=== PATIENT | female | born 1945 | race Caucasian/White ===

== ENCOUNTER 2019-09-10 11:51 | Outpatient (CLI) | payer MEDICARE, MEDICAID, SELFPAY ==
--- NOTE | 2019-09-10 11:54 | US_ITS ---
WS: [id number] ULTRASOUND-GUIDED RIGHT BREAST BIOPSY CLINICAL INFORMATION: RT BREAST MASS AND RT AXILLARY LYMPH NODE COMPARISON: None. FINDINGS: The procedure including risks, benefits, and complications were discussed with the patient who agreed to proceed. Using sterile technique patient was prepped and draped in the usual sterile fashion. Aft er 1% lidocaine utilizing real-time ultrasound guidance 5 14-gauge cores were obtained of the right b reast lesion at the 2 o'clock position. Subsequently a titanium clip was placed in the biopsy cavity. Next the largest axillary lymph node was localized in the axillary tail. Patient was prepped and drap ed in usual sterile fashion. After 1% lidocaine, using ultrasound guidance, 2 core biopsies were obta ined. Titanium clip was placed. 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 The pathology demonstrates invasive ductal carcinoma at the 2:00 position. 3. No malignancy identified in the axillary tail lymph node. 4. Breast cancer prognostic profile pending. US/[place] [id number] IMPRESSION: 1. Uncomplicated ultrasound-guided right breast and axillary biopsy. BI-RADS: 6-Known Biopsy-Proven Malignancy FOLLOW UP: See Report RECOMMEND ONCOLOGY AND BREAST SURGERY CONSULTATION.
[2019-09-10 13:19] LABS: INR 1.08 (0.8-1.2)
[2019-09-20 10:11] LABS: Miscellaneous Test See Scanned Lab Rpt
== END 2019-09-10 11:52 | disposition home or self-care (01) ==
LOC: RADSHAW 11:51
PROVIDERS: Radiology Neuroradiology; Family Provider Family Medicine; PCP Family Medicine; Visit Provider Family Medicine
DX: C50.611 Malignant neoplasm of axillary tail of right female breast (principal); N63.31 Unspecified lump in axillary tail of the right breast; Z01.812 Encounter for preprocedural laboratory examination; Z98.890 Other specified postprocedural states
CPT/HCPCS: 19083; 38505; 76942; 85610; 88305; 88361; 88367; 88374; J2001

== ENCOUNTER 2019-09-23 12:23 | Inpatient (IN) | payer MEDICARE, MEDICAID, SELFPAY ==
--- NOTE | 2019-09-18 10:40 | ANES.PREANES ---
Pre-Anesthetic Assessment Pre-Anesthetic Assessment: Height/Weight: Height 1.7 m Proposed Procedure: Operation Date: 09/23/19 10:15 Proposed Procedures p Sentinal Lymph Node Biopsy [id number] C50.911(Right) - Sunday Correa MD s Mastectomy Simple(Right) - Sunday Correa MD PFSH Anesthesia PFSH: Social History Smoking and tobacco status: never smoked Second hand smoke exposure: No Alcohol intake: never Adopted: No Caregiver/support person: Yes Lives independently: Yes Household members: family Housing: Senior Care Marital status: Single Highest education level completed: High School Graduate service: No Current occupational status: retired Current occupational exposures/hazards: No Pets and animals: No History of recent travel: No Sexually active: No Current gender identity: Female Lanette/Nondenominational: Latter Day Special lanette needs: No Agree to transfusion: No Financial difficulty paying for basics: Decline to Answer Data Anesthesia CBC & Chem 7: 09/19/19 12:55 09/19/19 12:55 Cardiac Studies: No Data to Display
--- NOTE | 2019-09-19 12:59 | ECG_ITS ---
Measurements Intervals [place] Rate: 78 P: 34 CO: 175 QRS: 3 QRSD: 94 T: 23 QT: 378 QTc: 433 SINUS RHYTHM WITH OCCASIONAL ECTOPIC PREMATURE COMPLEXES VOLTAGE CRITERIA FOR LVH [MEETS CRITERIA IN ONE OF: R(aVL), S(V1), R(V5), R(V5/V6) +S(V1)] Compared to ECG 06/13/2018 22:00:40 T-wave abnormality no longer present Electronically Signed On 09-19-2019 15:31:34 YARDAGE CONTROL CLERK by Wolf Fox M.D. [email or web address]
[2019-09-19 13:18] LABS: Basophils % 0.5 %; Eosinophils # 0.4 10^3/uL (0.0-0.8); Eosinophils % 4.8 %; Hematocrit 37.6 % (37.0-47.0); Hemoglobin 12.2 g/dL (11.5-15.3); Lymphocytes # 2.2 10^3/uL (0.8-4.8); Mean Corpuscular HGB Conc 32.4 g/dL (30.0-36.0); Mean Corpuscular Volume 92.4 fL (81-99); Mean Platelet Volume 8.8 fL (7.4-10.4); Monocytes # 0.8 10^3/uL (0.2-0.9); Monocytes % 9.4 %; Neutrophils % 59.1 %; Nucleated Red Blood Cells % 0 %; Platelet Count 320 10^3/cmm (130-400); Red Blood Count 4.07 10^6/uL (4.1-5.3); Red Cell Distribution Width 11.8 % (12.1-15.1); White Blood Count 8.5 10^3/uL (4.0-10.0)
[2019-09-19 13:19] VITALS: BMI 37.4
[2019-09-19 13:29] LABS: Anion Gap 13.2 (5-19); Blood Urea Nitrogen 10 mg/dL (8-23); Calcium 9.8 mg/dL (8.5-10.5); Carbon Dioxide 25 mmol/L (22-29); Chloride 96 mmol/L (98-107); Glucose 132 mg/dL (74-106); Osmolality Calculated 268 mOsm/kg (285-295); Potassium 4.2 mmol/L (3.5-5.1); Sodium 130 mmol/L (136-145)
--- NOTE | 2019-09-19 13:53 | P.ANES_ITS ---
Pre-Anesthetic Assessment Pre-Anesthetic Assessment: Height/Weight: Height 1.7 m Weight 108.409 kg Preop Diagnosis: Right breast cancer Proposed Procedure: Operation Date: 09/23/19 10:15 Proposed Procedures p Sentinal Lymph Node Biopsy [id number] C50.911(Right) - Sunday Correa MD s Mastectomy Simple(Right) - Sunday Correa MD Exam: Pre-Anes Outpt Exam: alert and oriented x 3 Airway: Submandibular: WNL Cervical ROM: Other MP: 2 Dentition: False CV/HEM: CV/HEM: Angina (Stable), CAD and VT ('16, ) Comments: PCP Pankaj 3 weeks no changes/concerns Metabolic: Metabolic: DM Comments: rx'd 30 years, normally 100-150 Musc/skel: Musc/skel: Lower Back Pain Comments: nonradiating Neuropsych: Neuropsych: CVA Comments: '15, memory, right UE 50% Anesthetic Plan: ASA status: III Anesthesia: General PFSH Anesthesia PFSH: Social History Smoking and tobacco status: never smoked Second hand smoke exposure: No Alcohol intake: never Adopted: No Caregiver/support person: Yes Lives independently: Yes Household members: family Housing: Jail Marital status: Single Highest education level completed: High School Graduate service: No Current occupational status: retired Current occupational exposures/hazards: No Pets and animals: No History of recent travel: No Sexually active: No Current gender identity: Female Lanette/Religious: Zoroastrianism Special lanette needs: No Agree to transfusion: No Financial difficulty paying for basics: Decline to Answer Data Anesthesia CBC & Chem 7: 09/19/19 12:55 09/19/19 12:55 Other Labs: Laboratory Results - last 48 hr 09/19/19 09/19/19 12:55 12:55 WBC 8.5 RBC 4.07 L Hgb 12.2 Hct 37.6 MCV 92.4 MCH 30.0 MCHC 32.4 RDW 11.8 L Plt Count 320 MPV 8.8 Neut % (Auto) 59.1 Lymph % (Auto) 26.0 [place] % (Auto) 9.4 Eos % (Auto) 4.8 Baso % (Auto) 0.5 Neut # (Auto) 5.0 Lymph # (Auto) 2.2 [place] # (Auto) 0.8 Eos # (Auto) 0.4 Baso # (Auto) 0.0 Nucleated RBC % (auto) 0 Nucleated RBCs # 0.0 Sodium 130 L Potassium 4.2 Chloride 96 L Carbon Dioxide 25 Anion Gap 13.2 BUN 10 Creatinine 0.6 Glucose 132 H Calculated Osmolality 268 L Calcium 9.8 Cardiac Studies: No Data to Display
[2019-09-23] VITALS (15 sets, daily range): BP systolic 122–174; BP diastolic 61–99; PULSE 60–115; RESP 13–20; TEMP 36.2–37.7; O2SAT 96–100
[2019-09-23 07:24] LABS: Glucose Point of Care 118 mg/dL (70-110)
[2019-09-23] MEDS: sodium chloride 0.9% 1,000 ML 30 ML IV (07:26)
--- NOTE | 2019-09-23 07:45 | NM_ITS ---
WS: [id number] NUCLEAR MEDICINE SENTINEL LYMPH NODE IMAGING HISTORY: RT BREAST CANCER COMPARISON: None available. TECHNIQUE: The patient was injected with 0.980 mCi of Technetium 99 ultra filtered sulfur colloid. In jection is intradermal in a periareolar location. Four aliquots are used. Uncomplicated injection of the radionuclide RIGHT breast. NM/NM sentinel node inject [id number] IMPRESSION: Status post RIGHT sentinel node injection with no complications.
--- NOTE | 2019-09-23 09:40 | PM.HPUD ---
H&P update H&P Update: DATE OF SURGERY/PROCEDURE: 09/23/19 DATE H&P PERFORMED: 09/17/19 H&P UPDATE INFORMATION: H&P completed within last 30 days and No changes to prior documentation PLANNED PROCEDURE: Operation Date: 09/23/19 10:15 Proposed Procedures p Sentinal Lymph Node Biopsy [id number] C50.911(Right) - Sunday Correa MD s Mastectomy Simple(Right) - Sunday Correa MD Full H&P Medications/Allergies: Current Medications: Current Medications Generic Name Dose Route Start Last Admin Trade Name Freq PRN Reason Stop Dose Admin Sodium Chloride 1,000 mls @ 30 ml s/hr 09/23/19 07:00 09/23/19 07:26 Sodium Chloride 0.9% IV 09/24/19 06:59 30 mls/hr .Q24H KUSH Administration Perinent History: Medical/Surgical History: Medical History (Updated 09/23/19 @ 08:14 by Sunday Correa MD) Anemia (Acute) Charcot's joint of left foot (Acute) Chronic low back pain (Acute) Depression (Acute) Diabetes (Acute) DVT (deep venous thrombosis) (Acute) Hypertension (Acute) Invasive ductal carcinoma of right breast (Acute) Myocardial infarction (Acute) Polymyalgia (Acute) Polyneuropathy (Acute) Presence of vena cava filter (Acute) Pulmonary emboli (Acute) Family History: Family History (Updated 09/13/19 @ 15:40 by RAMY Quan) Mother Hypertension Cancer Father Diabetes CAD (coronary artery disease) Myocardial infarction Denies family history of Anesthesia complication Bleeding disorder Social History: Social History Smoking and tobacco status: never smoked Second hand smoke exposure: No Alcohol intake: never Adopted: No Caregiver/support person: Yes Lives independently: Yes Household members: family Housing: Care Home Marital status: Single Highest education level completed: High School Graduate service: No Current occupational status: retired Current occupational exposures/hazards: No Pets and animals: No History of recent travel: No Sexually active: No Current gender identity: Female Lanette/Methodist: Sikh Special lanette needs: No Agree to transfusion: No Financial difficulty paying for basics: Decline to Answer
[2019-09-23] MEDS: lidocaine 1% INJ 20 mL XX (10:28)
[2019-09-23] MEDS: isosulfan blue 10 mg/mL SDV 5mL SUBCUT (10:29)
--- NOTE | 2019-09-23 11:48 | P.OP_ITS ---
Operative Report Date of procedure: 09/25/19 Pre-op Diagnosis: Right breast cancer Post-op diagnosis: same Procedure Done: Right simple mastectomy Injection of 1% Lymphazurin [place] lymph node mapping Right sentinel lymph node axillary biopsy Pathology: Right mastectomy specimen short stitch superior, long stitch lateral [place] lymph node biopsy Surgeon: Sunday Correa Anesthesia: General Estimated blood loss (mL): 50 Condition: stable Disposition: PACU Procedure: The patient was taken to the operating room and intubated under general anesthesia after IV antibiotic and instead. The chest and arm was prepped and draped in a sterile manner. Using a 15 blade an elliptical incision was made around the nipple areolar complex and dermis was divided with electrocautery. 100 mL of normal saline mixed with 40 mL of 1% lidocaine with epinephrine was injected deep to the dermis using a 22-gauge spinal needle for tumescence. Using Sunny scissors skin flaps were raised superiorly up to the second rib space, inferiorly to the inframammary line, medially up to the lateral edge of sternum and laterally up to the latissimus dorsi in the avascular plane. Using electrocautery the breast along with the pectoral fascia was dissected off the pectoralis muscle starting superiorly and medially and moving inferiorly and laterally. A short stitch was placed superiorly and long stitch was placed laterally using 2-0 silk on the partially excised breast specimen. The lateral edge of the breast was freed along with the axillary tail and the specimen was removed entirely from the operative field. There were couple of bleeding muscular branches from the pectoral muscle which were controlled with cautery. The wound was irrigated with warm water and the site was reexamined to ensure adequate hemostasis. There was no active bleeding noted. A technetium sulfur colloid had been injected previously by the radiologist in the periareolar area. 3 mL of 1% Lymphazurin was injected in the subareolar location prior to making the initial incision. The breast had been massaged for 5 minutes . The clavipectoral fascia was divided with electrocautery and gentle dissection revealed lymphatics with stained lymph nodes. Using electrocautery the lymph nodes were dissected free and sent to pathology as right axilla sentinel lymph node. Examination of the axilla did not reveal any other radioactive lymph nodes. A stab incision was made laterally and 10 flat SHARONDA drain was placed along the inframammary fold and attached to bulb suction. The skin flaps appeared healthy and of adequate thickness. The dermis was approximated using running 3-0 Vicryl suture and the skin was closed using running absorbable subcuticular willis and Dermabond. Fluffs and a surgical bra was used for pressure dressing. Patient was transferred to the recovery room in stable condition.
--- NOTE | 2019-09-23 11:56 | SUR.PHASEI ---
1151 PATIENT TO PACU AT THIS TIME FROM OR. RR EVEN AND UNLABORED. PLACED ON SIMPLE MASK AT 8L, SPO2 100%. DRESSING CDI, TO RIGHT BREAST, BRA IN PLACE. SHARONDA DRAIN NOTED.
--- NOTE | 2019-09-23 12:39 | SUR.PHASEI ---
1223 PATIENT TO MED SURG VIA [facility]. RR EVEN AND UNLABORED. PWD. A/OX3. DRESSING TO RIGHT CHEST, CDI, HEMOSTATS REMOVED FROM SHARONDA DRAIN PRIOR TO TRANSFER TO MED SURG.
[2019-09-23] MEDS: HYDROcodone-acetaminophen 5-325 mg Tablet 1 TAB PO ×3 (13:08→23:06)
[2019-09-23] MEDS: lactated ringers 1,000 ML 50 ML IV (14:04)
[2019-09-23] MEDS: lisinopril 5 mg Tablet PO (14:06)
[2019-09-23] MEDS: aspirin 81 mg EC Tablet PO (14:06)
--- NOTE | 2019-09-23 14:28 | PC.NURSE ---
THIS NURSE HAS EMPTIED PATIENTS SHARONDA DRAIN TWICE SINCE SHE HAS BEEN ON THE FLOOR FROM PACU, A TOTAL OF 200ML. DR. GANDHI NOTIFIED
[2019-09-23 17:06] LABS: Glucose Point of Care 185 mg/dL (70-110)
[2019-09-23] MEDS: carBAMazepine 200 mg Tablet 100 MG PO (18:28)
[2019-09-23] MEDS: metoprolol tartrate 50 mg Tablet PO (18:28)
[2019-09-23] MEDS: quetiapine 25 mg Tablet PO (18:29)
[2019-09-23] MEDS: duloxetine 60 mg Capsule PO (18:29)
[2019-09-23] MEDS: topiramate 25 mg Tablet 50 MG PO (18:29)
[2019-09-23] MEDS: gabapentin 300 mg Capsule PO ×2 (18:32→20:32)
[2019-09-23 18:49] LABS: Glucose Point of Care 160 mg/dL (70-110)
[2019-09-23] MEDS: docusate sodium 100 mg Capsule PO (20:32)
[2019-09-23] MEDS: ALPRAZolam 0.25 mg Tablet PO (20:32)
[2019-09-23 22:07] LABS: Glucose Point of Care 125 mg/dL (70-110)
[2019-09-23] MEDS: diphenhydrAMINE 25 mg Capsule PO (23:06)
[2019-09-24] VITALS (14 sets, daily range): BP systolic 92–136; BP diastolic 53–79; PULSE 57–81; RESP 16–18; TEMP 36.4–37.2; O2SAT 92–100
[2019-09-24] MEDS: morphine 4 mg/mL SDV 1 mL 3 MG IVP ×2 (02:11→06:31)
[2019-09-24] MEDS: ALPRAZolam 0.25 mg Tablet PO (03:20)
[2019-09-24] MEDS: HYDROcodone-acetaminophen 5-325 mg Tablet 1 TAB PO ×2 (03:21→12:08)
[2019-09-24 05:56] LABS: Basophils % 0.3 %; Eosinophils # 0.1 10^3/uL (0.0-0.8); Eosinophils % 0.5 %; Hematocrit 27.4 % (37.0-47.0); Hemoglobin 8.9 g/dL (11.5-15.3); Lymphocytes # 3.4 10^3/uL (0.8-4.8); Lymphocytes % 32.7 %; Mean Corpuscular HGB Conc 32.5 g/dL (30.0-36.0); Mean Corpuscular Hemoglobin 30.4 pg (28.0-34.0); Mean Corpuscular Volume 93.5 fL (81-99); Mean Platelet Volume 9.1 fL (7.4-10.4); Monocytes # 0.9 10^3/uL (0.2-0.9); Monocytes % 8.9 %; Neutrophils # 5.9 10^3/uL (1.8-7.7); Neutrophils % 57.3 %; Nucleated Red Blood Cells % 0 %; Platelet Count 261 10^3/cmm (130-400); Red Blood Count 2.93 10^6/uL (4.1-5.3); Red Cell Distribution Width 11.9 % (12.1-15.1); White Blood Count 10.4 10^3/uL (4.0-10.0)
[2019-09-24 07:18] LABS: Glucose Point of Care 156 mg/dL (70-110)
[2019-09-24] MEDS: metoprolol tartrate 50 mg Tablet PO (08:34)
[2019-09-24] MEDS: topiramate 25 mg Tablet 50 MG PO ×2 (08:34→17:36)
[2019-09-24] MEDS: pantoprazole DR 40 mg Tablet PO (08:34)
[2019-09-24] MEDS: carBAMazepine 200 mg Tablet 100 MG PO ×2 (08:35→17:38)
[2019-09-24] MEDS: aspirin 81 mg EC Tablet PO (08:36)
[2019-09-24] MEDS: duloxetine 60 mg Capsule PO ×2 (08:36→17:42)
[2019-09-24] MEDS: quetiapine 25 mg Tablet PO ×2 (08:36→17:38)
[2019-09-24] MEDS: gabapentin 300 mg Capsule PO ×3 (08:36→21:09)
[2019-09-24] MEDS: lisinopril 5 mg Tablet PO (08:36)
[2019-09-24] MEDS: isosorbide dinitrate 20 mg Tablet 30 MG PO (08:40)
[2019-09-24] MEDS: polyethylene glycol 3350 Pkt 17 gm PO (08:42)
[2019-09-24] MEDS: lactated ringers 1,000 ML 50 ML IV (08:44)
[2019-09-24 11:56] LABS: Glucose Point of Care 187 mg/dL (70-110)
[2019-09-24 16:34] LABS: Hematocrit 22.6 % (37.0-47.0); Hemoglobin 7.3 g/dL (11.5-15.3)
--- NOTE | 2019-09-24 18:27 | PM.PN ---
Subjective Subjective: Interval history: Patient has been doing well until yesterday late afternoon when she started having increasing bloody SHARONDA drain output. [place] wrap dressings were applied as pressure dressing. Last night she developed significant postsurgical pain and her home dose of morphine was restarted. This morning her hemoglobin is down to 8.9 and apparently patient felt a bit dizzy. Repeat hemoglobin at 4 PM showed that her hemoglobin is down to 7.3. SHARONDA drain output continues to be serosanguineous. She feels a lot better after the [place] wrap was loosened Vitals/I&O/Wt Last Vital Signs Temp 98.1 F 09/24/19 18:19 Pulse 64 09/24/19 18:19 Resp 16 09/24/19 18:19 BP 125/71 09/24/19 18:19 Pulse Ox 100 09/24/19 18:19 09/24/19 09/24/19 09/24/19 06:59 14:59 22:59 Intake Total 590.000 / 2716.667 1246.667 / 1716.667 470 / 1716.667 Output Total 635 / 1365 420 / 435 15 / 435 Balance -45.000 / 1351.667 826.667 / 1281.667 455 / 1281.667 Physical Exam Narrative: EXAM NARRATIVE: Chest: Dressings dry and intact, no evidence of flap necrosis, she has some ecchymosis around the right axilla. SHARONDA drain output is sanguinous though it appears to be slowing down Data : 09/24/19 16:20 09/19/19 12:55 A&P Assessment and plan (1) Status post right mastectomy: Status post right mastectomy with sentinel lymph node biopsy for invasive ductal carcinoma postop day 1 complicated by postop bleeding. Hemoglobin is down to 7.3. We will therefore transfuse her 1 unit PRBC. Change status from outpatient to inpatient. Repeat hemoglobin at 9:30 PM after transfusion and repeat CBC and BMP in the morning. Will hold off on anticoagulation at this point due to her bleeding Continue SHARONDA drain to bulb suction Continue all home medications Moderate insulin sliding scale Status: Acute Code(s): Z90.11 - Acquired absence of right breast and nipple Attestations Medical Necessity Statement*: Patient will need 1 night of inpatient stay to ensure that her bleeding is controlled Coding Level of Care Code Acute Director Of Category Management for Chg Fwd Diagnoses Status post right mastectomy Z90.11
[2019-09-24] MEDS: docusate sodium 100 mg Capsule PO (21:09)
[2019-09-24 22:37] LABS: Hematocrit 24.3 % (37.0-47.0)
[2019-09-25 00:20] VITALS: BP 164/78; PULSE 74; RESP 18; TEMP 36.7; O2SAT 96
[2019-09-25] MEDS: HYDROcodone-acetaminophen 5-325 mg Tablet 1 TAB PO ×2 (00:32→05:00)
[2019-09-25 04:53] VITALS: BP 179/90; PULSE 82; RESP 18; TEMP 36.7; O2SAT 97
[2019-09-25 05:41] LABS: Anion Gap 13.1 (5-19); Blood Urea Nitrogen 10 mg/dL (8-23); Calcium 8.4 mg/dL (8.5-10.5); Carbon Dioxide 23 mmol/L (22-29); Chloride 93 mmol/L (98-107); Glucose 126 mg/dL (74-106); Osmolality Calculated 258 mOsm/kg (285-295); Potassium 4.1 mmol/L (3.5-5.1); Sodium 125 mmol/L (136-145)
[2019-09-25 05:49] LABS: Basophils % 0.5 %; Eosinophils # 0.3 10^3/uL (0.0-0.8); Eosinophils % 3.4 %; Hemoglobin 8.3 g/dL (11.5-15.3); Lymphocytes % 23.7 %; Mean Corpuscular HGB Conc 33.2 g/dL (30.0-36.0); Mean Corpuscular Volume 87.4 fL (81-99); Mean Platelet Volume 9.3 fL (7.4-10.4); Monocytes # 0.9 10^3/uL (0.2-0.9); Monocytes % 10.7 %; Neutrophils # 5.1 10^3/uL (1.8-7.7); Neutrophils % 61.3 %; Nucleated Red Blood Cells % 0 %; Platelet Count 214 10^3/cmm (130-400); Red Blood Count 2.86 10^6/uL (4.1-5.3); Red Cell Distribution Width 12.6 % (12.1-15.1); White Blood Count 8.4 10^3/uL (4.0-10.0)
[2019-09-25 07:39] VITALS: BP 126/73; PULSE 72; RESP 18; TEMP 36.8; O2SAT 96
[2019-09-25] MEDS: gabapentin 300 mg Capsule PO (09:28)
[2019-09-25] MEDS: duloxetine 60 mg Capsule PO (09:28)
[2019-09-25] MEDS: isosorbide dinitrate 20 mg Tablet 30 MG PO (09:29)
[2019-09-25] MEDS: lisinopril 5 mg Tablet PO (09:29)
[2019-09-25] MEDS: pantoprazole DR 40 mg Tablet PO (09:29)
[2019-09-25] MEDS: aspirin 81 mg EC Tablet PO (09:29)
[2019-09-25] MEDS: carBAMazepine 200 mg Tablet 100 MG PO (09:29)
[2019-09-25] MEDS: topiramate 25 mg Tablet 50 MG PO (09:29)
[2019-09-25] MEDS: metoprolol tartrate 50 mg Tablet PO (09:29)
[2019-09-25] MEDS: quetiapine 25 mg Tablet PO (09:29)
--- NOTE | 2019-09-25 10:55 | PM.PN ---
Subjective Subjective: Interval history: Patient is feeling a lot better, denies any dizziness, has been ambulating, had 2 large bowel movements Vitals/I&O/Wt Last Vital Signs Temp 98.2 F 09/25/19 07:39 Pulse 72 09/25/19 07:39 Resp 18 09/25/19 07:39 BP 126/73 09/25/19 07:39 Pulse Ox 96 09/25/19 07:39 09/24/19 09/25/19 09/25/19 22:59 06:59 14:59 Intake Total 820 / 2366.667 300 / 2366.667 400 / 400 Output Total 315 / 1120 385 / 1120 200 / 200 Balance 505 / 1246.667 -85 / 1246.667 200 / 200 Physical Exam Narrative: EXAM NARRATIVE: Chest wall: Mastectomy incision dry and intact with surrounding ecchymosis Data : 09/25/19 04:12 09/25/19 04:12 A&P Assessment and plan (1) Status post right mastectomy: DC home today Status: Acute Code(s): Z90.11 - Acquired absence of right breast and nipple Attestations Medical Necessity Statement*: Status post mastectomy with postop bleeding Coding Level of Care Code Acute Tumbling Barrel Painter for Chg Fwd Diagnoses Status post right mastectomy Z90.11
--- NOTE | 2019-09-25 10:56 | PM.DCS ---
Discharge Providers Date of Admission: 09/24/19 18:25 Date of Discharge: 09/25/19 Attending Provider at Admission: Sunday Correa MD Attending Provider at Discharge: Sunday Correa MD Primary Care Provider: Zohra Lira MD Diagnoses at Discharge Discharge Diagnosis (1) Status post right mastectomy: Status: Resolved Reason for Visit Reason for Visit: Reason For Visit: Right Breast Cancer Hospital Course Discharge Summary: The patient underwent elective mastectomy. She had significant SHARONDA drain output on postop day 1 and the following day she had some dizziness and her hemoglobin had dropped to 7.3. She was therefore transfused 1 unit of PRBC. The following day patient was feeling great denied any dizziness her vital signs are stable. SHARONDA drain output had dropped to 70 cc over the last 24 hours. Her incisions are clean dry and intact and her vital signs are stable Physical Exam Narrative: EXAM NARRATIVE: Chest: Mastectomy incision clean dry and intact, SHARONDA drain output is serosanguineous Discharge Data Data Completed and Pending: Completed Studies During Hospitalization Category Date Time Status NM sentinel node inject [id number] Routi ne Nuc Med 09/23/19 07:45 Completed Pending at discharge Category Date Time Status Pathology: Surgic al [PTH] Routine Pth 09/23/19 11:33 Received Labs from last 24 hours 09/25/19 09/25/19 09/24/19 04:12 04:12 22:20 WBC 8.4 RBC 2.86 L Hgb 8.3 L 8.0 L Hct 25.0 L 24.3 L MCV 87.4 D MCH 29.0 MCHC 33.2 RDW 12.6 Plt Count 214 MPV 9.3 Neut % (Auto) 61.3 Lymph % (Auto) 23.7 [place] % (Auto) 10.7 Eos % (Auto) 3.4 Baso % (Auto) 0.5 Neut # (Auto) 5.1 Lymph # (Auto) 2.0 [place] # (Auto) 0.9 Eos # (Auto) 0.3 Baso # (Auto) 0.0 Nucleated RBC % (a uto) 0 Nucleated RBCs # 0.0 Sodium 125 L Potassium 4.1 Chloride 93 L Carbon Dioxide 23 Anion Gap 13.1 BUN 10 Creatinine 0.6 Glucose 126 H POC Glucose Calculated Osmolal ity 258 L Calcium 8.4 L Blood Type Antibody Screen Crossmatch 09/24/19 09/24/19 09/24/19 16:20 16:20 11:43 WBC RBC Hgb 7.3 L Hct 22.6 L MCV MCH MCHC RDW Plt Count MPV Neut % (Auto) Lymph % (Auto) [place] % (Auto) Eos % (Auto) Baso % (Auto) Neut # (Auto) Lymph # (Auto) [place] # (Auto) Eos # (Auto) Baso # (Auto) Nucleated RBC % (a uto) Nucleated RBCs # Sodium Potassium Chloride Carbon Dioxide Anion Gap BUN Creatinine Glucose POC Glucose 187 Calculated Osmolal ity Calcium Blood Type B Negative Antibody Screen Negative Crossmatch See Detail Vitals: Last Vital Signs Temp 98.2 F 09/25/19 07:39 Pulse 72 09/25/19 07:39 Resp 18 09/25/19 07:39 BP 126/73 09/25/19 07:39 Pulse Ox 96 09/25/19 07:39 Discharge Plan Discharge Patient Disposition: Home, Self-Care Condition: Stable Prescriptions: Continued diclofenac sodium-menthol 1.5-10 % combo pack 1.5 pkg TOPICAL DIRECTED PRN (Reason: Inflammation) RF: 0 morphine 10 mg capsule,extend.release pellets See Rx Instructions PO .COMPLEX RF: 0 ondansetron HCl [Zofran] 4 mg tablet 4 mg PO ONCE RF: 0 quetiapine [Seroquel] 25 mg tablet 25 mg PO BID RF: 0 isosorbide dinitrate 30 mg tablet 30 mg PO ONCE RF: 0 duloxetine [Cymbalta] 60 mg capsule,delayed release(DR/EC) 60 mg PO BID RF: 0 gabapentin 300 mg capsule 300 mg PO TID RF: 0 lisinopril 5 mg tablet 5 mg PO QDAY RF: 0 aspirin [Adult Low Dose Aspirin] 81 mg tablet,delayed release (DR/EC) 81 mg PO QDAY RF: 0 metoprolol tartrate 50 mg tablet 50 mg PO BID RF: 0 carbamazepine 100 mg capsule, ER multiphase 12 hr 100 mg PO BID RF: 0 polyethylene glycol 3350 [Miralax] 17 gram Powder In Packet 17 g PO DAILY RF: 0 topiramate 50 mg tablet 50 mg PO BID RF: 0 Prilosec 40 mg PO DAILY RF: 0 dextran 70-hypromellose 70 units eye-both PRN RF: 0 docusate sodium 100 mg PO BEDTIME RF: 0 cyclobenzaprine 10 mg Tablet 10 mg PO TID PRN (Reason: Muscle Spasm) RF: 0 diphenhydramine HCl [Benadryl] 25 mg Capsule 25 mg PO Q6H PRN (Reason: Itching) RF: 0 Lidocaine Viscous 1 % buccal PRN PRN (Reason: Pain) RF: 0 Tresiba FlexTouch U-100 100 units SUBCUT BEDTIME RF: 0 Xanax 0.25 mg PO QID PRN (Reason: Anxiety) RF: 0 nitroglycerin 0.4 mg sublingual PRN RF: 0 Novolog U-100 Insulin aspart 100 units SUBCUT TID RF: 0 Held clopidogrel [Plavix] 75 mg tablet 75 mg PO QDAY RF: 0 Hold Instructions: Doctor's Order Discharge Orders: Discharge Order (Routine); Ordered 09/25/19 Ordered By: Sunday Correa Referrals: Sunday Correa MD [Physician] - 2 weeks Activity Restrictions/Additional Instructions: Change dressings once daily, apply ABD and fluffs and to wear surgical bra at all time. Okay to shower Strip SHARONDA drain 3 times a day Monitor SHARONDA drain output, if less than 30 cc in 24 hours, call office to schedule a follow-up appointment Call office during regular hours or return to the ER if she develops fevers redness or purulent drainage. Discharge Attestations Time Spent in Discharge Care*: less than 30 min Quality Metrics Clinical Quality Measures During this hospital stay, did patient experience: None Coding Level of Care Code Acute Wardrobe Coordinator for Tashi Fwyasemin Diagnoses Status post right mastectomy Z90.11
[2019-09-25 11:20] VITALS: BP 108/66; PULSE 74; RESP 18; TEMP 36.9; O2SAT 98
[2019-09-25 14:05] VITALS: BP 108/66; PULSE 74; RESP 18; TEMP 36.9; O2SAT 98
== END 2019-09-25 13:00 | disposition home or self-care (01) | DRG 580 ==
LOC: MEDSURG 12:25
PROVIDERS: Anesthesiology; Admitting Provider Surgery; Family Provider Family Medicine; PCP Family Medicine; Visit Provider Surgery
PROC: 0HTT0ZZ Resection of Right Breast, Open Approach (ICD-10-PCS; principal; 2019-09-23 10:15)
PROC: 0HTT0ZZ Resection of Right Breast, Open Approach (ICD-10-PCS; CPT 19303; 2019-09-23 10:15)
DX: C50.911 Malignant neoplasm of unspecified site of right female breast (principal); L76.22 Postprocedural hemorrhage of skin and subcutaneous tissue following other procedure; Z86.718 Personal history of other venous thrombosis and embolism; Z86.711 Personal history of pulmonary embolism; I25.2 Old myocardial infarction; F32.9 Major depressive disorder, single episode, unspecified; G89.29 Other chronic pain; M54.5 Low back pain; I10 Essential (primary) hypertension; Y83.8 Other surgical procedures as the cause of abnormal reaction of the patient, or of later complication, without mention of misadventure at the time of the procedure; Y92.239 Unspecified place in hospital as the place of occurrence of the external cause; Z88.8 Allergy status to other drugs, medicaments and biological substances; Z79.02 Long term (current) use of antithrombotics/antiplatelets; Z79.82 Long term (current) use of aspirin; Z79.899 Other long term (current) drug therapy
CPT/HCPCS: 12345; 36415; 36416; 36430; 38792; 80048; 82962; 85014; 85018; 85025; 86850; 86900; 88305; 88309; 93005; 96365; 96372; 96375; A9541; G0378; J0690; J1100; J1815; J2001; J2270; J2405; J2704; J2710; J3010; J3490; J7030; P9016; Q9968

== ENCOUNTER 2020-01-09 23:09 | Emergency (ER) | payer MEDICARE, MEDICAID, SELFPAY ==
[2020-01-09 23:10] VITALS: BP 164/60; PULSE 69; RESP 18; TEMP 36.5; O2SAT 98; BMI 39.9
--- NOTE | 2020-01-09 23:19 | ECG_ITS ---
Measurements Intervals [place] Rate: 59 P: 72 NV: 198 QRS: 1 QRSD: 99 T: 42 QT: 438 QTc: 436 SINUS BRADYCARDIA Compared to ECG 09/19/2019 13:30:52 Sinus rhythm no longer present Left ventricular hypertrophy no longer present Electronically Signed On 01-10-2020 13:04:55 CDT by Wolf Fox M.D. [email or web address]
--- NOTE | 2020-01-09 23:19 | XR_ITS ---
WS: [id number] PORTABLE CHEST HISTORY: cp COMPARISON: 06/13/2018 Mild chronic interstitial thickening. No pneumonia. Normal vasculature. No pleural effusion or pneumo thorax. Cardiac size: Mildly enlarged cardiac silhouette. Mediastinum/Aorta: Mildly widened mediastinum. Similar to the prior study. Osteopenia. Healed rib fractures in the posterior lateral LEFT thorax. Prior rotator cuff repair on t he LEFT. XR/XR chest 1V portable [id number] IMPRESSION: 1. Stable interstitial thickening. No pneumonia or acute interval change. 2. Mild cardiomegaly.
--- NOTE | 2020-01-09 23:34 | ED_ITS ---
HPI - Chest Pain General: Chief Complaint: Chest Pain Stated Complaint: CP Time Seen by Provider: 01/09/20 23:16 Source: patient Mode of arrival: ambulatory Limitations: no limitations History of Present Illness: HPI narrative: 74-year-old female states she is been having chest pain over the last hour. States that sharp in nature in the center of her chest and worse with palpation. States it also radiates into her left arm. She does have history of heart disease. She denies any worsening improving factors. Denies any vomiting. MD complaint: chest pain Onset (ago): hour(s) Timing of current episode: constant Prior episodes: Yes Onset: during rest Pain location: substernal Pain radiation: left arm Severity: moderate Quality: sharp Relieving factors: nothing Exacerbating factors: nothing Associated symptoms: Deny abdominal pain, dyspnea, fever(s), nausea or vomiting Review of Systems Const: Denies: fever(s), chills, body aches or change in appetite Eyes: Denies: blurry vision or eye discomfort ENMT: Denies: throat pain or dental pain Card: Reports: chest pain Resp: Denies: dyspnea GI: Denies: abdominal pain, nausea, vomiting or diarrhea : Denies: dysuria Musc: Denies: neck pain or back pain Skin/Breast: Denies: rash Neuro: Denies: headache(s) Psych: Denies: depression August/Lymph: Denies: easy bruising All/Imm: Denies: urticaria PFSH ED PFSH: Medical History Anemia Charcot's joint of left foot Chronic low back pain Depression Diabetes DVT (deep venous thrombosis) Hypertension Invasive ductal carcinoma of right breast [id number] Myocardial infarction Polymyalgia Polyneuropathy Presence of vena cava filter Pulmonary emboli Surgical History History of appendectomy History of cholecystectomy History of colonoscopy Years ago. History of gastric surgery History of hysterectomy History of lymph node dissection of right axilla sentinel lymph node biopsy with right mastectomy History of right breast biopsy (~08/2019) History of rotator cuff surgery Bilateral Status post left knee replacement Status post left mastectomy Status post right knee replacement Status post right mastectomy Family History Mother Hypertension Cancer Father Diabetes CAD (coronary artery disease) Myocardial infarction Denies family history of Anesthesia complication Bleeding disorder Social History Smoking and tobacco status: never smoked Second hand smoke exposure: No Alcohol intake: never Adopted: No Caregiver/support person: Yes Lives independently: Yes Household members: family Housing: Group Home Marital status: Single Highest education level completed: High School Graduate service: No Current occupational status: retired Current occupational exposures/hazards: No Pets and animals: No History of recent travel: No Sexually active: No Current gender identity: Female Lanette/Yazidi: Hinduism Special lanette needs: No Agree to transfusion: No Financial difficulty paying for basics: Decline to Answer Physical Exam Const: COMMON NORMALS: no acute distress, patient oriented x3 and healthy appearing HENMT: COMMON NORMALS: normocephalic and atraumatic HEAD & SCALP: normocephalic and atraumatic Eye: COMMON NORMALS: Equal, round and reactive pupils present and EOMs intact bilaterally PUPIL: Yes Equal, round and reactive pupils present Neck/C-Spine: COMMON NORMALS: full ROM and supple Chest: COMMONS NORMALS: normal inspection of the chest CHEST: Yes tenderness sternum Resp: COMMON NORMALS: normal respiratory effort, No retractions, No use of accessory muscles and clear to auscultation bilaterally AUSCULTATION: clear to auscultation bilaterally Cardio: COMMON NORMALS: regular rate, regular rhythm and No murmurs present (Cardio) RATE: regular rate RHYTHM: regular rhythm GI: COMMON NORMALS: Normal to inspection, nondistended, normoactive bowel sounds present, Soft to palpation, non-tender and no masses PALPATION: Yes Soft to palpation Extremity: COMMON NORMALS: normal to inspection and full ROM Neuro: COMMON NORMALS: patient oriented x3, moves all extremities and no focal motor deficits Psych: COMMON NORMALS: mental status grossly normal, Normal thought process present and cooperative THOUGHT PROCESS: Normal thought process present Skin: COMMON NORMALS: no rashes or lesions noted and no wounds GENERAL SKIN EXAM: no rashes or lesions noted Course Vital Signs: Vital signs: Vital Signs Temperature 97.7 F 01/09/20 23:10 Pulse Rate 68 01/10/20 02:25 Respiratory Rate 16 01/10/20 02:25 Blood Pressure 138/72 01/10/20 02:25 Pulse Oximetry 97 01/10/20 02:25 MDM - Chest Pain MDM Narrative: Medical decision making narrative: Patient presents here with pain that is atypical in nature. She was point tender on exam that reproduces her pain. Patient is well-appearing here and initial repeat troponin showed no acute findings. Patient's EKG is normal as well. Patient is stable for discharge and is to follow-up with primary care doctor in 3 to 5 days and return if worsening. Lab Data: Labs: Lab Results 01/10/20 01/10/20 01/10/20 Range/Units 00:10 00:10 00:10 WBC 7.5 (4.0-10.0) 10^3/ uL RBC 3.83 L (4.1-5.3) 10^6/u L Hgb 10.5 L (11.5-15.3) g/dL Hct 33.4 L (37.0-47.0) % MCV 87.2 (81-99) fL MCH 27.4 L (28.0-34.0) pg MCHC 31.4 (30.0-36.0) g/dL RDW 12.3 (12.1-15.1) % Plt Count 282 (130-400) 10^3/c mm MPV 8.8 (7.4-10.4) fL Neut % (Auto) 51.2 % Lymph % (Auto) 31.0 % [place] % (Auto) 11.2 % Eos % (Auto) 5.6 % Baso % (Auto) 0.7 % Neut # (Auto) 3.8 (1.8-7.7) 10^3/u L Lymph # (Auto) 2.3 (0.8-4.8) 10^3/u L [place] # (Auto) 0.8 (0.2-0.9) 10^3/u L Eos # (Auto) 0.4 (0.0-0.8) 10^3/u L Baso # (Auto) 0.1 (0.0-0.1) 10^3/u L Nucleated RBC % (a uto) 0 % Nucleated RBCs # 0.0 /100WBC PT 13.90 H (10.5-13.3) SECO NDS INR 1.04 (0.8-1.2) Sodium 128 L (136-145) mmol/L Potassium 4.4 (3.5-5.1) mmol/L Chloride 93 L (98-107) mmol/L Carbon Dioxide 24 (22-29) mmol/L Anion Gap 15.4 (5-19) BUN 12 (8-23) mg/dL Creatinine 0.8 (0.5-0.9) mg/dL Glucose 131 H (65-115) mg/dL Calculated Osmolal ity 264 L (285-295) mOsm/k g Calcium 9.1 (8.5-10.5) mg/dL Total Bilirubin 0.2 (0.15-1.2) mg/dL AST 12 (0-32) U/L ALT 9 (0-33) U/L Alkaline Phosphata se 162 H (35-105) IU/L Troponin T Baselin e (0-10) ng/mL Troponin T 120 Min [place] (0-10) ng/mL Delta Troponin T (0-10) ABS# Total Protein 6.5 L (6.6-8.7) g/dL Albumin 4.0 (3.5-5.2) g/dL Globulin 2.5 (1.3-4.6) g/dL 01/10/20 01/10/20 Range/Units 00:10 01:30 WBC (4.0-10.0) 10^3/ uL RBC (4.1-5.3) 10^6/u L Hgb (11.5-15.3) g/dL Hct (37.0-47.0) % MCV (81-99) fL MCH (28.0-34.0) pg MCHC (30.0-36.0) g/dL RDW (12.1-15.1) % Plt Count (130-400) 10^3/c mm MPV (7.4-10.4) fL Neut % (Auto) % Lymph % (Auto) % [place] % (Auto) % Eos % (Auto) % Baso % (Auto) % Neut # (Auto) (1.8-7.7) 10^3/u L Lymph # (Auto) (0.8-4.8) 10^3/u L [place] # (Auto) (0.2-0.9) 10^3/u L Eos # (Auto) (0.0-0.8) 10^3/u L Baso # (Auto) (0.0-0.1) 10^3/u L Nucleated RBC % (a uto) % Nucleated RBCs # /100WBC PT (10.5-13.3) SECO NDS INR (0.8-1.2) Sodium (136-145) mmol/L Potassium (3.5-5.1) mmol/L Chloride (98-107) mmol/L Carbon Dioxide (22-29) mmol/L Anion Gap (5-19) BUN (8-23) mg/dL Creatinine (0.5-0.9) mg/dL Glucose (65-115) mg/dL Calculated Osmolal ity (285-295) mOsm/k g Calcium (8.5-10.5) mg/dL Total Bilirubin (0.15-1.2) mg/dL AST (0-32) U/L ALT (0-33) U/L Alkaline Phosphata se (35-105) IU/L Troponin T Baselin e 12 H (0-10) ng/mL Troponin T 120 Min [place] 12.95 H (0-10) ng/mL Delta Troponin T 0.95 (0-10) ABS# Total Protein (6.6-8.7) g/dL Albumin (3.5-5.2) g/dL Globulin (1.3-4.6) g/dL Imaging Data^: CXR: Attestation: I personally reviewed and interpreted this imaging study as follows: My impression: no acute abnormality EKG Data^: EKG 1: Attestation: I personally reviewed and interpreted this EKG as follows: EKG interpretation date: 01/09/20 EKG interpretation time: 23:40 Interpretation: Sinus bradycardia heart rate [address] or T wave abnormalities QRS 99 QTc 437 EKG 2: Attestation: I personally reviewed and interpreted this EKG as follows: EKG interpretation date: 01/10/20 EKG interpretation time: 01:52 Interpretation: sinus leonora hr [address] or t wave abnormalities qrs 102 qtc 451 Discharge Plan Discharge Patient Disposition: Home, Self-Care Clinical Impression: Chest pain Qualifiers: Chest pain type: unspecified Qualified Code(s): R07.9 - Chest pain, unspecified Condition: Stable Prescriptions: No Action diclofenac sodium-menthol 1.5-10 % combo pack 1.5 pkg TOPICAL DIRECTED PRN (Reason: Inflammation) RF: 0 morphine 10 mg capsule,extend.release pellets See Rx Instructions PO .COMPLEX RF: 0 ondansetron HCl [Zofran] 4 mg tablet 4 mg PO ONCE RF: 0 quetiapine [Seroquel] 25 mg tablet 25 mg PO BID RF: 0 isosorbide dinitrate 30 mg tablet 30 mg PO ONCE RF: 0 clopidogrel [Plavix] 75 mg tablet 75 mg PO QDAY RF: 0 Hold Instructions: Doctor's Order duloxetine [Cymbalta] 60 mg capsule,delayed release(DR/EC) 60 mg PO BID RF: 0 gabapentin 300 mg capsule 300 mg PO TID RF: 0 lisinopril 5 mg tablet 5 mg PO QDAY RF: 0 aspirin [Adult Low Dose Aspirin] 81 mg tablet,delayed release (DR/EC) 81 mg PO QDAY RF: 0 metoprolol tartrate 50 mg tablet 50 mg PO BID RF: 0 carbamazepine 100 mg capsule, ER multiphase 12 hr 100 mg PO BID RF: 0 (DME) ice bag [Cold Pack] Misc See Rx Instructions .ROUTE .MEDSUPPLY Qty: 1 RF: 0 polyethylene glycol 3350 [Miralax] 17 gram Powder In Packet 17 g PO DAILY RF: 0 topiramate 50 mg tablet 50 mg PO BID RF: 0 Prilosec 40 mg PO DAILY RF: 0 dextran 70-hypromellose 70 units eye-both PRN RF: 0 docusate sodium 100 mg PO BEDTIME RF: 0 cyclobenzaprine 10 mg Tablet 10 mg PO TID PRN (Reason: Muscle Spasm) RF: 0 diphenhydramine HCl [Benadryl] 25 mg Capsule 25 mg PO Q6H PRN (Reason: Itching) RF: 0 Lidocaine Viscous 1 % buccal PRN PRN (Reason: Pain) RF: 0 Tresiba FlexTouch U-100 100 units SUBCUT BEDTIME RF: 0 Xanax 0.25 mg PO QID PRN (Reason: Anxiety) RF: 0 nitroglycerin 0.4 mg sublingual PRN RF: 0 Novolog U-100 Insulin aspart 100 units SUBCUT TID RF: 0 Discharge Orders: Discharge Order (Routine); Ordered 01/10/20 Ordered By: Carlito Malhotra Referrals: Zohra Lira MD [Primary Care Provider] - 4-7 days Discharge Diet: Advance as tolerated Discharge Activity: Resume usual activity Patient Instructions: Chest Pain (ED) Coding Level of Care Code ED Database Administrator for Chg Fwd Exam Comprehensive
--- NOTE | 2020-01-09 23:37 | PC.NURSE ---
Patient stated that she forgot to inform the doctor that approximately she had a mini stroke and was laid up in bed for three days. Doctor and the patient's nurse were notified.
[2020-01-09 23:40] VITALS: BP 138/78; PULSE 66; RESP 16; O2SAT 96
[2020-01-10 00:19] LABS: Basophils # 0.1 10^3/uL (0.0-0.1); Basophils % 0.7 %; Eosinophils # 0.4 10^3/uL (0.0-0.8); Eosinophils % 5.6 %; Hematocrit 33.4 % (37.0-47.0); Hemoglobin 10.5 g/dL (11.5-15.3); Lymphocytes # 2.3 10^3/uL (0.8-4.8); Mean Corpuscular HGB Conc 31.4 g/dL (30.0-36.0); Mean Corpuscular Hemoglobin 27.4 pg (28.0-34.0); Mean Corpuscular Volume 87.2 fL (81-99); Mean Platelet Volume 8.8 fL (7.4-10.4); Monocytes # 0.8 10^3/uL (0.2-0.9); Monocytes % 11.2 %; Neutrophils # 3.8 10^3/uL (1.8-7.7); Neutrophils % 51.2 %; Nucleated Red Blood Cells % 0 %; Platelet Count 282 10^3/cmm (130-400); Red Blood Count 3.83 10^6/uL (4.1-5.3); Red Cell Distribution Width 12.3 % (12.1-15.1); White Blood Count 7.5 10^3/uL (4.0-10.0)
[2020-01-10 00:39] LABS: INR 1.04 (0.8-1.2)
[2020-01-10 00:45] LABS: Alanine Aminotransferase 9 U/L (0-33); Alkaline Phosphatase 162 IU/L (35-105); Anion Gap 15.4 (5-19); Aspartate Amino Transferase 12 U/L (0-32); Blood Urea Nitrogen 12 mg/dL (8-23); Calcium 9.1 mg/dL (8.5-10.5); Carbon Dioxide 24 mmol/L (22-29); Chloride 93 mmol/L (98-107); Globulin 2.5 g/dL (1.3-4.6); Glucose 131 mg/dL (65-115); Osmolality Calculated 264 mOsm/kg (285-295); Potassium 4.4 mmol/L (3.5-5.1); Sodium 128 mmol/L (136-145); Total Bilirubin 0.2 mg/dL (0.15-1.2); Total Protein 6.5 g/dL (6.6-8.7)
[2020-01-10 01:00] VITALS: BP 144/86; PULSE 72; RESP 16; O2SAT 97
[2020-01-10 01:18] LABS: Troponin(5th) Baseline 12 ng/mL (0-10)
[2020-01-10 01:50] LABS: Troponin 5 2HR 12.95 ng/mL (0-10); Troponin 5 2HR Delta 0.95 ABS# (0-10)
[2020-01-10 02:25] VITALS: BP 138/72; PULSE 68; RESP 16; O2SAT 97
[2020-01-10 03:00] VITALS: BP 161/64; PULSE 70; RESP 16; O2SAT 96
--- NOTE | 2020-01-10 04:47 | PC.NURSE ---
Assisted patient up to [facility] without difficulty.
--- NOTE | 2020-01-10 05:19 | ECG_ITS ---
Measurements Intervals [place] Rate: 57 P: 71 [place]: 195 QRS: 3 QRSD: 102 T: 41 QT: 457 QTc: 446 SINUS BRADYCARDIA Compared to ECG 09/19/2019 13:30:52 Sinus rhythm no longer present Left ventricular hypertrophy no longer present Electronically Signed On 01-10-2020 13:09:01 CDT by Wolf Fox M.D. [email or web address]
--- NOTE | 2020-01-10 06:33 | PC.NURSE ---
Patient dc'd back to assisted living via wheelchair in care of patients daughter. Discharge papers given and explained to patient with all questions asked and answered.
== END 2020-01-10 06:33 | disposition home or self-care (01) ==
PROVIDERS: Emergency Provider Emergency Medicine; PCP Family Medicine
DX: R07.9 Chest pain, unspecified (principal); Z79.02 Long term (current) use of antithrombotics/antiplatelets; Z79.82 Long term (current) use of aspirin; Z79.4 Long term (current) use of insulin; I10 Essential (primary) hypertension; E11.9 Type 2 diabetes mellitus without complications; I25.2 Old myocardial infarction
CPT/HCPCS: 12345; 71045; 80053; 84484; 85025; 85610; 93005; 99283; 99284

== ENCOUNTER → 2020-02-04 09:48 | Outpatient (BNVA) | payer MEDICARE, MEDICAID, SELFPAY | PROVIDERS: PCP Family Medicine; Visit Provider Podiatrist Foot & Ankle Surgery | DX: S99.921A Unspecified injury of right foot, initial encounter (principal); X58.XXXA Exposure to other specified factors, initial encounter; M77.8 Other enthesopathies, not elsewhere classified | CPT/HCPCS: 73630 ==

== ENCOUNTER 2020-11-09 01:46 | Inpatient (IN) | payer MEDICARE, MEDICAID, SELFPAY ==
[2020-11-09] VITALS (19 sets, daily range): BP systolic 120–209; BP diastolic 64–135; PULSE 70–91; RESP 12–20; TEMP 36.1–36.8; O2SAT 95–97; BMI 39.1
--- NOTE | 2020-11-09 02:10 | CTR_ITS ---
PROCEDURE INFORMATION: Exam: CT Abdomen And Pelvis With Contrast Exam date and time: 11/09/2020 3:31 AM Age: 75 years old Clinical indication: Nausea and vomiting; Abdominal pain; Generalized; Additional info: Abd pain and vomiting TECHNIQUE: Imaging protocol: Computed tomography of the abdomen and pelvis with contrast. Radiation optimization: All CT scans at this facility use at least one of these dose optimization techniques: automated exposure control; mA and/or kV adjustment per patient size (includes targeted exams where dose is matched to clinical indication); or iterative reconstruction. Contrast material: OMNI 300; Contrast volume: 95 ml; Contrast route: INTRAVENOUS (IV); COMPARISON: CT Chest/Abdomen/Pelvis wo IV 12/31/2015 3:18 AM RADIATION DOSE METRICS: Total DLP (mGy-cm): 1804.42 FINDINGS: Lungs: Triangular calcification right lower lobe. Liver: Normal. No mass. Gallbladder and bile ducts: Postoperative cholecystectomy. Mild accentuation of intrahepatic and extrahepatic bile ducts. Pancreas: Normal. No ductal dilation. Spleen: Normal. No splenomegaly. Adrenal glands: Normal. No mass. Kidneys and ureters: Normal. No hydronephrosis. Stomach and bowel: Postsurgical changes of the stomach partially fluid expanded. Rather diffuse fluid-filled small bowel containing air-fluid levels with transition of caliber of small bowel distally concerning for mechanical obstruction. Maximum fluid distension diameter 3.4 cm. Colonic diverticulosis. Appendix: No evidence of appendicitis. Intraperitoneal space: Small amount of fluid surrounding the liver and small collection of fluid in the pelvis. Vasculature: Calcification distribution of coronary arteries and mitral annulus. Vascular stent inferior vena cava. Lymph nodes: Unremarkable. No enlarged lymph nodes. Urinary bladder: Unremarkable as visualized. Reproductive: Postoperative hysterectomy. Bones/joints: Unremarkable. No acute fracture. Soft tissues: Slight asymmetric accentuated soft tissue stranding at the medial lower left gluteal superficial soft tissues and ischial rectal fossa. CT/CT abdomen pelvis w con* [id number] IMPRESSION: 1. Suspicion distal small bowel mechanical obstruction with transition of caliber. 2. Colonic diverticulosis. 3. Small amount of fluid surrounding the liver and within the pelvis. Radiation Dose CTDIVOL = (mGy): DLP = 1804.42 (mGy-cm)
--- NOTE | 2020-11-09 02:25 | W.ED.ABDPA2 ---
HPI - Abdominal Pain General: Chief Complaint: Abdominal Pain Stated Complaint: WEAKNESS/N/V Time Seen by Provider: 11/09/20 01:53 History of Present Illness: HPI narrative: 70-year-old female presents with diffuse belly pain, generalized weakness, and multiple episodes of vomiting that started this morning when she woke she has had the symptoms now 20 hours or so she is not been able to hold anything down orally during that time. She has missed her medications because of this. No fever. No reported diarrhea. Associated Symptoms: Reports nausea and vomiting; Denies chills, dysuria, fever(s), hematochezia and melena Review of Systems Const: Denies: fever(s) or chills ENMT: Denies: odynophagia or sinus pain Card: Denies: chest pain, palpitations or irregular heart rhythm Resp: Denies: dyspnea, productive cough, non-productive cough or wheezing GI: Reports: abdominal pain, nausea and vomiting; Denies: rectal pain, hematochezia or melena : Denies: dysuria or urinary frequency Musc: Denies: neck pain Skin/Breast: Denies: rash or erythema Neuro: Denies: headache(s) or dizziness Psych: Denies: anxiety PFSH ED PFSH: Medical History Anemia Charcot's joint of left foot Chronic low back pain Depression Diabetes DVT (deep venous thrombosis) Hypertension Invasive ductal carcinoma of right breast [id number] Myocardial infarction Polymyalgia Polyneuropathy Presence of vena cava filter Pulmonary emboli Surgical History History of appendectomy History of cholecystectomy History of colonoscopy Years ago. History of gastric surgery History of hysterectomy History of lymph node dissection of right axilla sentinel lymph node biopsy with right mastectomy History of right breast biopsy (~08/2019) History of rotator cuff surgery Bilateral Status post left knee replacement Status post left mastectomy Status post right knee replacement Status post right mastectomy Family History Mother Hypertension Cancer Father Diabetes CAD (coronary artery disease) Myocardial infarction Denies family history of Anesthesia complication Bleeding disorder Social History Smoking and tobacco status: never smoked Second hand smoke exposure: No Alcohol intake: never Adopted: No Caregiver/support person: Yes Lives independently: Yes Household members: family Housing: Snf Marital status: Single Highest education level completed: High School Graduate service: No Current occupational status: retired Current occupational exposures/hazards: No Pets and animals: No History of recent travel: No Sexually active: No Current gender identity: Female Lanette/Baptist: Alevism Special lanette needs: No Agree to transfusion: No Financial difficulty paying for basics: Decline to Answer Physical Exam Const: GENERAL APPEARANCE: ill appearing, frail appearing and diaphoretic ORIENTATION/CONSCIOUSNESS: Yes oriented to person and Yes oriented to place; not oriented to time HENMT: COMMON NORMALS: normocephalic, external ears normal and Normal external nose present HEAD & SCALP: normocephalic FACE & SINUS: normal facial exam NOSE: Normal external nose present and No nasal discharge present EXTERNAL EAR: Yes external ears normal Eye: COMMON NORMALS: Equal, round and reactive pupils present, EOMs intact bilaterally and conjunctivae normal EYELID: eyelids normal CONJUNCTIVA: Yes conjunctivae normal PUPIL: Yes Equal, round and reactive pupils present Neck/C-Spine: GENERAL: No tracheal deviation Chest: COMMONS NORMALS: normal inspection of the chest CHEST: No tenderness Resp: COMMON NORMALS: clear to auscultation bilaterally EFFORT & INSPECTION: No tachypneic, No respiratory distress, No retractions, No uses accessory muscles and No tracheal deviation AUSCULTATION: clear to auscultation bilaterally, no rhonchi, no wheezes and lung sounds not diminished Cardio: COMMON NORMALS: regular rate and regular rhythm RATE: regular rate RHYTHM: regular rhythm HEART SOUNDS: no murmurs PERIPHERAL PULSES: radial pulses present GI: INSPECTION: Yes abdominal distension AUSCULTATION: No Hyperactive bowel sounds present and No Hypoactive bowel sounds present PALPATION: Yes Tenderness to palpation present (GI) (diffuse), No Guarding due to palpation present (GI) and No Rigid due to palpation PERCUSSION: no dullness to percussion and no tympanic to percussion Neuro: SENSORIUM/ORIENTATION: Yes oriented to person, Yes oriented to place and No oriented to time Psych: COMMON NORMALS: mental status grossly normal Skin: COMMON NORMALS: no rashes or lesions noted GENERAL SKIN EXAM: no rashes or lesions noted Course Consultations: Consultation #1: bette Time: 05:16 Vital Signs: Vital signs: Vital Signs Pulse Rate 81 11/09/20 05:59 Respiratory Rate 18 11/09/20 05:59 Blood Pressure 146/103 11/09/20 05:59 Pulse Oximetry 97 11/09/20 05:59 MDM - Abdominal Pain MDM Narrative: Medical decision making narrative: No more vomiting since antiemetic in the ER. She looks improved to some degree. White blood cell count is 15. Sodium is 127 which is near her baseline. Potassium is 4.1. CT reveals distal small bowel mechanical obstruction with significant transition in caliber likely from adhesion. Nasogastric tube will be placed. She will be admitted to the floor. Hospitalist aware. Lab Data: Labs: Lab Results 11/09/20 11/09/20 11/09/20 Range/Units 02:45 02:45 02:45 WBC 14.9 H (4.0-10.0) 10^3/ uL RBC 4.78 (4.1-5.3) 10^6/u L Hgb 13.6 (11.5-15.3) g/dL Hct 42.0 (37.0-47.0) % MCV 87.9 (81-99) fL MCH 28.5 (28.0-34.0) pg MCHC 32.4 (30.0-36.0) g/dL RDW 12.5 (12.1-15.1) % Plt Count 354 (130-400) 10^3/c mm MPV 8.5 (7.4-10.4) fL Neut % (Auto) 86.5 % Lymph % (Auto) 8.8 % [place] % (Auto) 3.5 % Eos % (Auto) 0.6 % Baso % (Auto) 0.3 % Neut # (Auto) 12.88 H (1.8-7.7) 10^3/u L Lymph # (Auto) 1.3 (0.8-4.8) 10^3/u L [place] # (Auto) 0.5 (0.2-0.9) 10^3/u L Eos # (Auto) 0.1 (0.0-0.8) 10^3/u L Baso # (Auto) 0.0 (0.0-0.1) 10^3/u L Nucleated RBC % (a uto) 0 % Nucleated RBCs # 0.0 /100WBC Sodium 127 L (136-145) mmol/L Potassium 4.1 (3.5-5.1) mmol/L Chloride 91 L (98-107) mmol/L Carbon Dioxide 24 (22-29) mmol/L Anion Gap 16.1 (5-19) BUN 11 (8-23) mg/dL Creatinine 0.7 (0.5-0.9) mg/dL GFR Calculation Not Reportable Glucose 185 H (65-115) mg/dL Calculated Osmolal ity 268 L (285-295) mOsm/k g Lactate 1.8 (0.5-2.2) mmol/L Calcium 9.9 (8.5-10.5) mg/dL Magnesium 1.8 (1.7-2.3) mg/dL Total Bilirubin 0.4 (0.15-1.2) mg/dL AST 16 (0-32) U/L ALT 12 (0-33) U/L Alkaline Phosphata se 211 H (35-105) IU/L C-Reactive Protein 12.9 H (0.0-4.9) mg/L Total Protein 8.8 H (6.6-8.7) g/dL Albumin 4.3 (3.5-5.2) g/dL Globulin 4.5 (1.3-4.6) g/dL Lipase 25 (13-60) U/L Urine Color (Yellow) Urine Appearance (CLEAR) Urine pH (5-7) Ur Specific Gravit y (1.005-1.030) Urine Protein (Negative) Urine Glucose (UA) (Normal) Urine Ketones (Negative) Urine Blood (Negative) Urine Nitrate (Negative) Urine Bilirubin (Negative) Urine Urobilinogen (Negative) mg/dL Ur Leukocyte Karla ase (Negative) Urine RBC (0-2) /hpf Urine WBC (0-5) /hpf Ur Squamous Epith Cells (0-5) /hpf Amorphous Sediment /hpf Urine Bacteria (NONE) /hpf Serum Ketones (Negative) 11/09/20 11/09/20 Range/Units 02:45 04:53 WBC (4.0-10.0) 10^3/ uL RBC (4.1-5.3) 10^6/u L Hgb (11.5-15.3) g/dL Hct (37.0-47.0) % MCV (81-99) fL MCH (28.0-34.0) pg MCHC (30.0-36.0) g/dL RDW (12.1-15.1) % Plt Count (130-400) 10^3/c mm MPV (7.4-10.4) fL Neut % (Auto) % Lymph % (Auto) % [place] % (Auto) % Eos % (Auto) % Baso % (Auto) % Neut # (Auto) (1.8-7.7) 10^3/u L Lymph # (Auto) (0.8-4.8) 10^3/u L [place] # (Auto) (0.2-0.9) 10^3/u L Eos # (Auto) (0.0-0.8) 10^3/u L Baso # (Auto) (0.0-0.1) 10^3/u L Nucleated RBC % (a uto) % Nucleated RBCs # /100WBC Sodium (136-145) mmol/L Potassium (3.5-5.1) mmol/L Chloride (98-107) mmol/L Carbon Dioxide (22-29) mmol/L Anion Gap (5-19) BUN (8-23) mg/dL Creatinine (0.5-0.9) mg/dL GFR Calculation Glucose (65-115) mg/dL Calculated Osmolal ity (285-295) mOsm/k g Lactate (0.5-2.2) mmol/L Calcium (8.5-10.5) mg/dL Magnesium (1.7-2.3) mg/dL Total Bilirubin (0.15-1.2) mg/dL AST (0-32) U/L ALT (0-33) U/L Alkaline Phosphata se (35-105) IU/L C-Reactive Protein (0.0-4.9) mg/L Total Protein (6.6-8.7) g/dL Albumin (3.5-5.2) g/dL Globulin (1.3-4.6) g/dL Lipase (13-60) U/L Urine Color Yellow (Yellow) Urine Appearance Sl hazy (CLEAR) Urine pH 7 (5-7) Ur Specific Gravit y 1.005 (1.005-1.030) Urine Protein Neg (Negative) Urine Glucose (UA) Norm (Normal) Urine Ketones Negative (Negative) Urine Blood Neg (Negative) Urine Nitrate Negative (Negative) Urine Bilirubin Neg (Negative) Urine Urobilinogen Norm (Negative) mg/dL Ur Leukocyte Karla ase Negative (Negative) Urine RBC 0-4 H (0-2) /hpf Urine WBC 0-4 H (0-5) /hpf Ur Squamous Epith Cells 0-4 H (0-5) /hpf Amorphous Sediment 4+ /hpf Urine Bacteria Trace (NONE) /hpf Serum Ketones Negative (Negative) Discharge Plan Discharge Patient Disposition: Admitted As Inpatient Admit Provider: Jimmy Cao Clinical Impression: Complete small bowel obstruction Condition: Stable Coding Level of Care Code ED [employer] Certified Network Professional for Chg Fwd Exam Comprehensive
[2020-11-09] MEDS: sodium chloride 0.9% 1,000 ML 999 ML IV (02:45)
--- NOTE | 2020-11-09 02:45 | PC.NURSE ---
Patient states she will give us a urine sample when she can, patient refuses straight catheterization or mathews at this time. Physician notified.
[2020-11-09] MEDS: morphine 4 mg/mL SDV 1 mL IVP (02:50)
[2020-11-09] MEDS: ondansetron 2 mg/ML SDV 2 mL 4 MG IVP (02:50)
[2020-11-09] MEDS: haloperidol inj 5 mg/mL INJ 1 mL 2.5 MG IVP (02:51)
[2020-11-09 02:54] LABS: Basophils % 0.3 %; Eosinophils # 0.1 10^3/uL (0.0-0.8); Eosinophils % 0.6 %; Hemoglobin 13.6 g/dL (11.5-15.3); Lymphocytes # 1.3 10^3/uL (0.8-4.8); Lymphocytes % 8.8 %; Mean Corpuscular HGB Conc 32.4 g/dL (30.0-36.0); Mean Corpuscular Hemoglobin 28.5 pg (28.0-34.0); Mean Corpuscular Volume 87.9 fL (81-99); Mean Platelet Volume 8.5 fL (7.4-10.4); Monocytes # 0.5 10^3/uL (0.2-0.9); Monocytes % 3.5 %; Neutrophils # 12.88 10^3/uL (1.8-7.7); Neutrophils % 86.5 %; Nucleated Red Blood Cells % 0 %; Platelet Count 354 10^3/cmm (130-400); Red Blood Count 4.78 10^6/uL (4.1-5.3); Red Cell Distribution Width 12.5 % (12.1-15.1); White Blood Count 14.9 10^3/uL (4.0-10.0)
[2020-11-09 03:19] LABS: Ketone (Acetest) Serum Negative (Negative)
--- NOTE | 2020-11-09 03:22 | XR_ITS ---
WS: [id number] XR chest 1V portable [id number] REASON FOR EXAM: NG TUBE FINDINGS: A nasogastric tube has been placed. There is a moderately tortuous course of the tube and the tip jaylen ears to be lodged at the gastroesophageal junction indenting the stomach. There has been previous camille trina involving the stomach. There is soft tissue prominence at the gastroesophageal junction on the C T scan of the abdomen and pelvis done earlier today. There may be a relative obstruction at this poin t preventing the passage of the nasogastric tube into the stomach. XR/XR chest 1V portable [id number] IMPRESSION: The nasogastric tube has not reached the lumen of the stomach and there may be a relative obstruction at the gastroesophageal junction, perhaps related to pre vious gastric surgery.
[2020-11-09 03:30] LABS: Lactate (Lactic Acid level) 1.8 mmol/L (0.5-2.2)
[2020-11-09 03:31] LABS: Alanine Aminotransferase 12 U/L (0-33); Albumin Level 4.3 g/dL (3.5-5.2); Alkaline Phosphatase 211 IU/L (35-105); Anion Gap 16.1 (5-19); Aspartate Amino Transferase 16 U/L (0-32); Blood Urea Nitrogen 11 mg/dL (8-23); C Reactive Protein 12.9 mg/L (0.0-4.9); Calcium 9.9 mg/dL (8.5-10.5); Carbon Dioxide 24 mmol/L (22-29); Chloride 91 mmol/L (98-107); Globulin 4.5 g/dL (1.3-4.6); Glucose 185 mg/dL (65-115); Lipase 25 U/L (13-60); Magnesium 1.8 mg/dL (1.7-2.3); Osmolality Calculated 268 mOsm/kg (285-295); Potassium 4.1 mmol/L (3.5-5.1); Sodium 127 mmol/L (136-145); Total Bilirubin 0.4 mg/dL (0.15-1.2); Total Protein 8.8 g/dL (6.6-8.7)
[2020-11-09] MEDS: iohexol 300 mg/mL 100 mL Btl IV (03:58)
[2020-11-09 05:22] LABS: Add Urine Microscopic? YES; Bilirubin Urine Neg (Negative); Blood Urine Neg (Negative); Glucose Urine UA Norm (Normal); Ketones Urine Negative (Negative); Leukocyte Esterase Urine Negative (Negative); Nitrate Urine Negative (Negative); Protein Urine Neg (Negative); Specific Gravity, Urine 1.005 (1.005-1.030); Urine Appearance SL Hazy (CLEAR); Urine Color Yellow (Yellow); Urobilinogen Urine Norm (Negative); pH Urine 7 (5-7)
[2020-11-09 05:23] LABS: Add Urine Culture? No; Amorphous Sediment Urine 4+ /hpf; Bacteria Urine TRACE /hpf; RBC Urine 0-4 /hpf (0-2); Squamous Epithelial Cell Urine 0-4 /hpf (0-5); WBC Urine 0-4 /hpf (0-5)
--- NOTE | 2020-11-09 05:55 | PM.HP ---
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 Patient tells me for the last 4 days she just has not been feeling well, she has been experiencing abdominal bloating, abdominal plain, nausea, vomiting. Her last bowel movement was 2 days ago, no fevers, no chills, no lightheadedness, no dizziness. No history of food poisoning. She is from [facility] Review of Systems Const: Denies: fever(s), chills, fatigue or malaise Eyes: Denies: change in vision or blurry vision ENMT: Denies: nasal congestion Card: Denies: chest pain or palpitations Resp: Denies: dyspnea, productive cough, non-productive cough or wheezing GI: Reports: abdominal pain, nausea, vomiting, constipation and bloating; Denies: hematemesis, diarrhea, hematochezia or melena : Denies: flank pain, dysuria or urinary frequency Musc: Denies: neck pain or back pain Skin/Breast: Denies: rash Neuro: Denies: headache(s), dizziness or vertigo Psych: Denies: anxiety or depression Endo: Denies: polyuria or polydipsia Medications/Allergies Home Medications Medication Instructions Recorded Confirmed Last Taken Type aspirin 81 mg tablet,delayed 81 mg PO QDAY 09/13/19 09/29/20 09/16/19 08:00 History release carbamazepine 100 mg 100 mg PO BID 09/13/19 09/29/20 09/22/19 History capsule,extended release [id number] clopidogrel 75 mg tablet 75 mg PO QDAY 09/13/19 09/29/20 09/16/19 08:00 History diclofenac sodium 1.5 % topical 1.5 pkg TOPICAL DIRECTED PRN 09/13/19 09/29/20 09/22/19 History drops-menthol 10 % roll-on combo pack duloxetine 60 mg capsule,delayed 60 mg PO BID 09/13/19 09/29/20 09/22/19 History release gabapentin 300 mg capsule 300 mg PO TID 09/13/19 09/29/20 09/22/19 History isosorbide dinitrate 30 mg tablet 30 mg PO ONCE tab 09/13/19 09/29/20 09/22/19 History lisinopril 5 mg tablet 5 mg PO QDAY 09/13/19 09/29/20 09/22/19 History ondansetron HCl 4 mg tablet 4 mg PO ONCE tab 09/13/19 09/29/20 09/22/19 History quetiapine 25 mg tablet 25 mg PO BID 09/13/19 09/29/20 09/22/19 History Lidocaine Viscous 1 % BUCCAL PRN PRN 09/19/19 09/29/20 09/22/19 History Novolog U-100 Insulin aspart 100 units SUBCUT TID 09/19/19 09/29/20 09/23/19 History Prilosec 40 mg PO DAILY 09/19/19 09/29/20 09/22/19 History Tresiba FlexTouch U-100 100 units SUBCUT BEDTIME 09/19/19 09/29/20 09/22/19 History Xanax 0.25 mg PO QID PRN 09/19/19 09/29/20 09/22/19 History cyclobenzaprine 10 mg PO TID PRN 09/19/19 09/29/20 09/22/19 History dextran 70-hypromellose 70 units EYE-BOTH PRN 09/19/19 09/29/20 09/22/19 History diphenhydramine HCl [Benadryl] 25 mg PO Q6H PRN 09/19/19 09/29/20 09/22/19 History docusate sodium 100 mg PO BEDTIME 09/19/19 09/29/20 09/22/19 History nitroglycerin 0.4 mg SUBLINGUAL PRN 09/19/19 09/29/20 Unknown History polyethylene glycol 3350 [Miralax] 17 g PO DAILY 09/19/19 09/29/20 09/22/19 History topiramate 50 mg PO BID 09/19/19 09/29/20 09/22/19 History ice bag #1 each 10/01/19 09/29/20 Unknown Rx cetirizine 10 mg tablet 10 mg PO DAILY PRN tab 03/30/20 09/29/20 Unknown History docusate sodium 100 mg capsule 100 mg PO DAILY 03/30/20 09/29/20 Unknown History metoprolol tartrate 50 mg tablet 25 mg PO BID tab 03/30/20 09/29/20 Unknown History trazodone 50 mg tablet 50 mg PO DAILY 03/30/20 09/29/20 Unknown History mupirocin 2 % topical ointment 1 applic TOPICAL BID #30 gm 04/28/20 09/29/20 Unknown Rx mupirocin 2 % topical ointment 1 applic TOPICAL BID #30 gm 04/28/20 09/29/20 Unknown Rx Allergies Allergy/AdvReac Type Severity Reaction Status Date / Time clonidine Allergy Unknown Verified 11/09/20 02:00 insulin detemir Allergy Unknown Verified 11/09/20 02:00 [From Levemir U-100 Insulin] metronidazole [From Flagyl] Allergy Unknown Verified 11/09/20 02:00 oxybutynin Allergy Unknown Verified 11/09/20 02:00 prochlorperazine Allergy Unknown Verified 11/09/20 02:00 PFSH Acute PFSH: Medical History (Updated 11/09/20 @ 06:03 by Jimmy Cao MD) Anemia Charcot's joint of left foot Chronic low back pain Depression Diabetes DVT (deep venous thrombosis) Hypertension Invasive ductal carcinoma of right breast [id number] Myocardial infarction Polymyalgia Polyneuropathy Presence of vena cava filter Pulmonary emboli Surgical History History of appendectomy History of cholecystectomy History of colonoscopy Years ago. History of gastric surgery History of hysterectomy History of lymph node dissection of right axilla sentinel lymph node biopsy with right mastectomy History of right breast biopsy (~08/2019) History of rotator cuff surgery Bilateral Status post left knee replacement Status post left mastectomy Status post right knee replacement Status post right mastectomy Family History Mother Hypertension Cancer Father Diabetes CAD (coronary artery disease) Myocardial infarction Denies family history of Anesthesia complication Bleeding disorder Social History Smoking and tobacco status: never smoked Second hand smoke exposure: No Alcohol intake: never Adopted: No Caregiver/support person: Yes Lives independently: Yes Household members: family Housing: Senior Care Marital status: Single Highest education level completed: High School Graduate service: No Current occupational status: retired Current occupational exposures/hazards: No Pets and animals: No History of recent travel: No Sexually active: No Current gender identity: Female Lanette/Baptism: [employer] Special lanette needs: No Agree to transfusion: No Financial difficulty paying for basics: Decline to Answer Vitals/I&O/Wt Last Vital Signs Pulse 86 11/09/20 04:55 Resp 20 H 11/09/20 04:55 BP 145/99 11/09/20 04:55 Pulse Ox 95 11/09/20 04:55 Weight last 48 hrs Weight 113.398 kg Physical Exam Const: COMMON NORMALS: no acute distress and patient oriented x3 GENERAL APPEARANCE: cooperative and comfortable HENMT: COMMON NORMALS: normocephalic HEAD & SCALP: normocephalic Eye: COMMON NORMALS: Equal, round and reactive pupils present and EOMs intact bilaterally PUPIL: Yes Equal, round and reactive pupils present Neck/C-Spine: COMMON NORMALS: no JVD and Thyroid normal Lymph: LYMPHATIC: no lymphadenopathy noted Resp: COMMON NORMALS: normal respiratory effort, No retractions, No use of accessory muscles and clear to auscultation bilaterally AUSCULTATION: clear to auscultation bilaterally Cardio: COMMON NORMALS: no JVD, regular rate, regular rhythm, S1 normal heart sound present, S2 normal heart sound present, No gallops present (Cardio), No clicks present (Cardio) and No murmurs present (Cardio) RATE: regular rate RHYTHM: regular rhythm HEART SOUNDS: S1 normal heart sound present and S2 normal heart sound present GI: COMMON NORMALS: Soft to palpation INSPECTION: Yes abdominal distension and Yes central obesity AUSCULTATION: Yes Hypoactive bowel sounds present PALPATION: Yes Soft to palpation, Yes Tenderness to palpation present (GI) (Generalized), No Guarding due to palpation present (GI) and No Rigid due to palpation PERCUSSION: tympanic to percussion Extremity: COMMON NORMALS: normal to inspection, full ROM and no pedal edema Neuro: COMMON NORMALS: patient oriented x3 Psych: COMMON NORMALS: mental status grossly normal and cooperative THOUGHT PROCESS: Normal thought process present Data : 11/09/20 02:45 11/09/20 02:45 A&P Assessment and plan (1) Complete small bowel obstruction: CT scan of the abdomen pelvis shows Suspicion distal small bowel mechanical obstruction with transition of caliber. Plan: -Admit to general medical floors -N.p.o. -IV fluids -We will place NG tube -Please consult surgery in a.m. -Hold aspirin and Plavix in case she may require surgery -Serial abdominal exams -Zofran for nausea -Lovenox for DVT prophylaxis -Patient is a DNR/DNI Status: Acute (2) Diabetes: -Low-dose sliding scale Status: Acute (3) Invasive ductal carcinoma of right breast: Status: Acute (4) Hypertension: Status: Acute Attestations Medical Necessity Statement*: Patient requires hospitalization, inpatient, greater than 2 midnights, for small bowel obstruction Coding Level of Care Code Acute Tubular Riveter for [facility] Fwd Diagnoses Complete small bowel obstruction K56.609 Diabetes E11.9 Invasive ductal carcinoma of right breast C50.911 Hypertension I10
[2020-11-09] MEDS: cetacaine Spray 5 gm Can 1 SPRAY TOPICAL (05:56)
[2020-11-09] MEDS: enoxaparin 40 mg/0.4 mL Syringe SUBCUT (08:58)
[2020-11-09] MEDS: sodium chloride 0.9% 1,000 ML 100 ML IV ×2 (08:58→17:14)
[2020-11-09] MEDS: famotidine 20 mg/2 mL INJ IVP ×2 (08:58→18:05)
[2020-11-09 09:07] LABS: Glucose Point of Care 145 mg/dL (70-110)
[2020-11-09 11:04] LABS: Glucose Point of Care 121 mg/dL (70-110)
--- NOTE | 2020-11-09 11:12 | P.PN_ITS ---
Subjective Subjective: Interval history: Patient was seen and examined this morning. She denied any abdominal pain, nausea vomiting, She is having loose stools around 4-5 episodes. NG tube was removed. She is tolerating clear liquid diet, will advance the diet as tolerated. She has remained afebrile, her other vitals and labs have been reviewed. Medications: Reviewed: Yes Vitals/I&O/Wt Last Vital Signs Temp 98.1 F 11/09/20 08:00 Pulse 79 11/09/20 08:00 Resp 18 11/09/20 08:00 BP 150/92 11/09/20 08:00 Pulse Ox 96 11/09/20 08:00 11/08/20 11/09/20 11/09/20 22:59 06:59 14:59 Intake Total 1000 / 1000 Balance 1000 / 1000 Weight last 48 hrs Weight 113.398 kg Physical Exam Const: COMMON NORMALS: patient oriented x3 HENMT: COMMON NORMALS: normocephalic and atraumatic HEAD & SCALP: normocephalic and atraumatic Chest: CHEST: Yes Symmetrical chest wall rise Resp: COMMON NORMALS: normal respiratory effort and clear to auscultation bilaterally EFFORT & INSPECTION: Yes symmetric chest movement AUSCULTATION: clear to auscultation bilaterally Cardio: COMMON NORMALS: regular rate, regular rhythm, S1 normal heart sound present, S2 normal heart sound present, No gallops present (Cardio), No murmurs present (Cardio), No rub (Cardio) and Peripheral pulses 2+ throughout RATE: regular rate RHYTHM: regular rhythm HEART SOUNDS: S1 normal heart sound present and S2 normal heart sound present PERIPHERAL PULSES: Peripheral pulses 2+ throughout GI: COMMON NORMALS: Normal to inspection, nondistended, normoactive bowel sounds present, Soft to palpation, non-tender, No hepatosplenomegaly present and no masses AUSCULTATION: Yes normoactive bowel sounds PALPATION: Yes Soft to palpation and Yes No hepatosplenomegaly present RECTAL EXAM: deferred Extremity: COMMON NORMALS: no clubbing, cyanosis or edema and no pedal edema Neuro: COMMON NORMALS: patient oriented x3 Data : 11/09/20 02:45 11/09/20 02:45 A&P Assessment and plan (1) Complete small bowel obstruction: CT scan of the abdomen pelvis shows Suspicion distal small bowel mechanical obstruction with transition of caliber. Plan: -Initially n.p.o. tolerating clear liquid diet now. -IV fluids -Initially NG tube was placed. Currently removed - Hold aspirin and Plavix in case she may require surgery -Serial abdominal exams -Zofran for nausea -Lovenox for DVT prophylaxis -Patient is a DNR/DNI Status: Acute (2) Diabetes: -Low-dose sliding scale Status: Acute (3) Invasive ductal carcinoma of right breast: Status: Acute (4) Hypertension: Status: Acute Attestations Medical Necessity Statement*: Patient is to the hospital for monitoring of SBO. Coding Level of Care Code Acute Director Learning And Development for [facility] Fwd Diagnoses Complete small bowel obstruction K56.609 Diabetes E11.9 Invasive ductal carcinoma of right breast C50.911 Hypertension I10
--- NOTE | 2020-11-09 11:16 | PC.NURSE ---
Rcvd verbal order to remove NG tube per Dr Rodriguez. Automotive Maintenance Technician removed NG tube.
--- NOTE | 2020-11-09 13:08 | PC.NURSE ---
gave patient's daughte update
[2020-11-09 16:56] LABS: Glucose Point of Care 180 mg/dL (70-110)
[2020-11-09] MEDS: morphine 4 mg/mL SDV 1 mL 2 MG IVP (20:29)
[2020-11-09 20:59] LABS: Glucose Point of Care 152 mg/dL (70-110)
[2020-11-10] MEDS: sodium chloride 0.9% 1,000 ML 100 ML IV (03:58)
[2020-11-10 04:00] VITALS: BP 154/92; PULSE 100; RESP 18; TEMP 37.1; O2SAT 95
[2020-11-10 04:10] VITALS: RESP 16; O2SAT 97
[2020-11-10] MEDS: morphine 4 mg/mL SDV 1 mL 2 MG IVP (04:10)
[2020-11-10 05:48] LABS: Basophils % 0.2 %; Eosinophils # 0.4 10^3/uL (0.0-0.8); Hematocrit 37.7 % (37.0-47.0); Hemoglobin 12.1 g/dL (11.5-15.3); Lymphocytes # 1.6 10^3/uL (0.8-4.8); Lymphocytes % 18.9 %; Mean Corpuscular HGB Conc 32.1 g/dL (30.0-36.0); Mean Corpuscular Hemoglobin 28.9 pg (28.0-34.0); Mean Platelet Volume 8.8 fL (7.4-10.4); Monocytes # 0.7 10^3/uL (0.2-0.9); Monocytes % 8.7 %; Neutrophils # 5.63 10^3/uL (1.8-7.7); Neutrophils % 66.8 %; Nucleated Red Blood Cells % 0 %; Platelet Count 306 10^3/cmm (130-400); Red Blood Count 4.19 10^6/uL (4.1-5.3); Red Cell Distribution Width 13.1 % (12.1-15.1); White Blood Count 8.4 10^3/uL (4.0-10.0)
[2020-11-10 06:04] LABS: Alanine Aminotransferase 18 U/L (0-33); Albumin Level 3.4 g/dL (3.5-5.2); Alkaline Phosphatase 157 IU/L (35-105); Anion Gap 13.3 (5-19); Aspartate Amino Transferase 18 U/L (0-32); Blood Urea Nitrogen 7 mg/dL (8-23); Calcium 8.6 mg/dL (8.5-10.5); Carbon Dioxide 22 mmol/L (22-29); Chloride 101 mmol/L (98-107); Globulin 3.5 g/dL (1.3-4.6); Glucose 138 mg/dL (65-115); Magnesium 1.5 mg/dL (1.7-2.3); Osmolality Calculated 276 mOsm/kg (285-295); Phosphorus 2.7 mg/dL (2.5-4.5); Potassium 3.3 mmol/L (3.5-5.1); Sodium 133 mmol/L (136-145); Total Bilirubin 0.5 mg/dL (0.15-1.2); Total Protein 6.9 g/dL (6.6-8.7)
[2020-11-10 06:43] LABS: Glucose Point of Care 148 mg/dL (70-110)
[2020-11-10 07:02] VITALS: BP 151/90; PULSE 88; RESP 16; TEMP 36.9; O2SAT 97
--- NOTE | 2020-11-10 09:07 | PC.NURSE ---
rcvd verbal order from Dr Rodriguez to stop IV maintenance fluids. science writer stopped order.
[2020-11-10] MEDS: famotidine 20 mg/2 mL INJ IVP (09:16)
[2020-11-10] MEDS: enoxaparin 40 mg/0.4 mL Syringe SUBCUT (09:16)
--- NOTE | 2020-11-10 09:19 | PM.DCS ---
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, S/P Gastric bypass surgery, diabetic peripheral neuropathy, insulin-dependent type 2 diabetes mellitus, hypertension, hyperlipidemia, GERD, history of multiple abdominal surgeries, history of breast cancer status post mastectomy who presents to [facility] due to complaints of abdominal pain, abdominal distention, bloating, nausea, vomiting.On admission patient reported that for the last 4 days she just has not been feeling well, she has been experiencing abdominal bloating, abdominal plain, nausea, vomiting.Admission CT scan of the abdomen pelvis was Suspicious for distal small bowel mechanical obstruction with transition of caliber.She was initially kept NPO , IV fluids on NG tube, later during the hospital course she started having Multiple BM.Her N.G tube was removed and she was started on CLD which was later advanced.At the time of discharge she was not complaining of any nausea,vomiting,abdominal pain. During the hospital stay she was managed for Possible SB Ileus.She responded well to the above medical management and is being discharged in stable condition.She will continue to follow her PCP as outpatient. Physical Exam Const: COMMON NORMALS: patient oriented x3 HENMT: COMMON NORMALS: normocephalic and atraumatic HEAD & SCALP: normocephalic and atraumatic Chest: CHEST: Yes Symmetrical chest wall rise Resp: COMMON NORMALS: normal respiratory effort and clear to auscultation bilaterally EFFORT & INSPECTION: Yes symmetric chest movement AUSCULTATION: clear to auscultation bilaterally Cardio: COMMON NORMALS: regular rate, regular rhythm, S1 normal heart sound present, S2 normal heart sound present, No gallops present (Cardio), No murmurs present (Cardio), No rub (Cardio) and Peripheral pulses 2+ throughout RATE: regular rate RHYTHM: regular rhythm HEART SOUNDS: S1 normal heart sound present and S2 normal heart sound present PERIPHERAL PULSES: Peripheral pulses 2+ throughout GI: COMMON NORMALS: Normal to inspection, nondistended, normoactive bowel sounds present, Soft to palpation, non-tender, No hepatosplenomegaly present and no masses AUSCULTATION: Yes normoactive bowel sounds PALPATION: Yes Soft to palpation and Yes No hepatosplenomegaly present RECTAL EXAM: deferred Extremity: COMMON NORMALS: no clubbing, cyanosis or edema and no pedal edema Neuro: COMMON NORMALS: patient oriented x3 Discharge Data Data Completed and Pending: Completed Studies During Hospitalization Category Date Time Status CT abdomen pelvis w con* [id number] Urge nt Cat Scan 11/09/20 02:10 Completed XR chest 1V mariaelena ble [id number] Stat Exams 11/09/20 03:22 Completed Pending at discharge Category Date Time Status Complete Blood Co unt w/Auto AM LABS Lab 11/11/20 04:00 Ordered Complete Blood Co unt w/Auto AM LABS Lab 11/12/20 04:00 Ordered Comprehensive Met abolic Panel AM LA BS Lab 11/11/20 04:00 Ordered Comprehensive Met abolic Panel AM LA BS Lab 11/12/20 04:00 Ordered Magnesium AM LABS Lab 11/11/20 04:00 Ordered Magnesium AM LABS Lab 11/12/20 04:00 Ordered Phosphorus AM LAB S Lab 11/11/20 04:00 Ordered Phosphorus AM LAB S Lab 11/12/20 04:00 Ordered Labs from last 24 hours 11/10/20 11/10/20 11/10/20 06:35 05:01 05:01 WBC 8.4 RBC 4.19 Hgb 12.1 Hct 37.7 MCV 90.0 MCH 28.9 MCHC 32.1 RDW 13.1 Plt Count 306 MPV 8.8 Neut % (Auto) 66.8 Lymph % (Auto) 18.9 Dillon % (Auto) 8.7 Eos % (Auto) 5.0 Baso % (Auto) 0.2 Neut # (Auto) 5.63 Lymph # (Auto) 1.6 Dillon # (Auto) 0.7 Eos # (Auto) 0.4 Baso # (Auto) 0.0 Nucleated RBC % (a uto) 0 Nucleated RBCs # 0.0 Sodium 133 L Potassium 3.3 L Chloride 101 Carbon Dioxide 22 Anion Gap 13.3 BUN 7 L Creatinine 0.5 GFR Calculation Not Reportable Glucose 138 H POC Glucose 148 H Calculated Osmolal ity 276 L Calcium 8.6 Phosphorus 2.7 Magnesium 1.5 L Total Bilirubin 0.5 AST 18 ALT 18 Alkaline Phosphata se 157 H Total Protein 6.9 Albumin 3.4 L Globulin 3.5 11/09/20 11/09/20 11/09/20 20:53 16:48 10:56 WBC RBC Hgb Hct MCV MCH MCHC RDW Plt Count MPV Neut % (Auto) Lymph % (Auto) Dillon % (Auto) Eos % (Auto) Baso % (Auto) Neut # (Auto) Lymph # (Auto) Dillon # (Auto) Eos # (Auto) Baso # (Auto) Nucleated RBC % (a uto) Nucleated RBCs # Sodium Potassium Chloride Carbon Dioxide Anion Gap BUN Creatinine GFR Calculation Glucose POC Glucose 152 H 180 H 121 H Calculated Osmolal ity Calcium Phosphorus Magnesium Total Bilirubin AST ALT Alkaline Phosphata se Total Protein Albumin Globulin Vitals: Last Vital Signs Temp 98.4 F 11/10/20 07:02 Pulse 88 11/10/20 07:02 Resp 16 11/10/20 07:02 BP 151/90 11/10/20 07:02 Pulse Ox 97 11/10/20 07:02 Discharge Plan Discharge Patient Disposition: Home Condition: Stable Prescriptions: Continued ondansetron HCl [Zofran] 4 mg tablet 4 mg PO DAILY RF: 0 quetiapine [Seroquel] 25 mg tablet 12.5 mg PO BEDTIME RF: 0 clopidogrel [Plavix] 75 mg tablet 75 mg PO DAILY RF: 0 Hold Instructions: Doctor's Order duloxetine [Cymbalta] 60 mg capsule,delayed release(DR/EC) 60 mg PO DAILY RF: 0 gabapentin 300 mg capsule 300 mg PO TID RF: 0 aspirin [Adult Low Dose Aspirin] 81 mg tablet,delayed release (DR/EC) 81 mg PO DAILY RF: 0 carbamazepine 100 mg capsule, ER multiphase 12 hr 100 mg PO BID RF: 0 metoprolol tartrate 50 mg tablet 25 mg PO BID RF: 0 (DME) ice bag [Cold Pack] Misc See Rx Instructions .ROUTE .MEDSUPPLY Qty: 1 RF: 0 docusate sodium 100 mg capsule 100 mg PO DAILY RF: 0 cetirizine [Zyrtec] 10 mg tablet 10 mg PO DAILY RF: 0 Seroquel 25 mg Tablet 25 mg PO DAILY RF: 0 acetaminophen 325 mg Tablet 650 mg PO Q6H PRN (Reason: Pain) RF: 0 Zofran 4 mg Tablet 4 mg PO BID PRN (Reason: Nausea) RF: 0 isosorbide mononitrate 30 mg Tablet Extended Release 24 Hr 30 mg PO DAILY RF: 0 phenol-phenolate sodium Aerosol,[place] 1 spray MUCOUS MEMBRANE Q4H PRN (Reason: sore throat) RF: 0 amitriptyline 25 mg Tablet 25 mg PO BEDTIME RF: 0 Milk of Magnesia 400 mg/5 mL Suspension 30 ml PO DAILY PRN (Reason: Constipation) RF: 0 artificial tears(hypromellose) 0.4 % Drops 1 drp OPHTHALMIC (EYE) 5XD PRN (Reason: Dry Eyes) RF: 0 Tums 200 mg calcium (500 mg) Tablet,Chewable 400 mg PO BID PRN (Reason: Indigestion) RF: 0 losartan 25 mg Tablet 25 mg PO DAILY RF: 0 zinc 50 mg Tablet 50 mg PO DAILY RF: 0 fluticasone propionate 50 mcg/actuation [place],Suspension 1 spray INTRANASAL BID RF: 0 Cough Drops (with eucalyptus) Lozenge 3.1 mg MUCOUS MEMBRANE Q2H PRN (Reason: Cough) RF: 0 hydrocodone-acetaminophen 5-325 mg Tablet 1 tab PO BID PRN (Reason: Pain) RF: 0 polyethylene glycol 3350 [Miralax] 17 gram Powder In Packet 17 g PO BID RF: 0 omeprazole 40 mg Capsule,Delayed Release(Dr/Ec) 40 mg PO DAILY Qty: 0 RF: 0 topiramate 50 mg tablet 50 mg PO BID RF: 0 cyclobenzaprine 10 mg Tablet 5 mg PO BID PRN (Reason: Muscle Spasm) RF: 0 alprazolam 0.25 mg Tablet 0.25 mg PO Q6H PRN (Reason: Anxiety) Qty: 0 RF: 0 diphenhydramine HCl [Benadryl] 25 mg Capsule 25 mg PO Q6H PRN (Reason: Itching) RF: 0 nitroglycerin [Nitrostat] 0.4 mg Tablet, Sublingual 0.4 mg SUBLINGUAL Q5M PRN (Reason: Chest Pain) Qty: 0 RF: 0 Tresiba FlexTouch U-100 100 unit/mL (3 mL) Insulin Pen 14 unit SUBCUT BEDTIME Qty: 0 RF: 0 Lidocaine Viscous 1 % buccal PRN PRN (Reason: Pain) RF: 0 insulin aspart U-100 [Novolog U-100 Insulin aspart] 100 unit/mL Solution 3 unit SUBCUT TID Qty: 0 RF: 0 Discharge Orders: Discharge Order (Routine); Ordered 11/10/20 Ordered By: Sony Rodriguez Referrals: Zohra Lira MD [Primary Care Provider] - Discharge Diet: Diabetic Discharge Activity: Resume usual activity Patient Instructions: High Fiber Diet (GEN), Bowel Obstruction (GEN) Discharge Attestations Time Spent in Discharge Care*: less than 30 min Specific Discharge Activities: educating patient, educating and/or supporting family/caregiver, discussing with case technician/social workers/dc planners, documenting/other paperwork and evaluating patient/reviewing data Status at Discharge: Cognitive status at discharge: cognitively intact, Behavioral status at discharge: cooperative, Functional status at discharge: independent ambulation Overall status at discharge: patient is back to baseline Quality Metrics Clinical Quality Measures During this hospital stay, did patient experience: None Coding Level of Care Code Acute Chg FW DC note Diagnoses Ileus K56.7 Diabetes E11.9 Invasive ductal carcinoma of right breast C50.911 Hypertension I10
[2020-11-10 10:25] LABS: Glucose Point of Care 138 mg/dL (70-110)
[2020-11-10 10:45] VITALS: BP 158/94; PULSE 90; RESP 17; TEMP 37.1; O2SAT 96
--- NOTE | 2020-11-10 11:07 | PC.NURSE ---
called report to [facility] and spoke with OLYA Ghosh
--- NOTE | 2020-11-10 11:45 | PC.NURSE ---
patient taken to [facility] by [facility] transport via wheelchair.
[2020-11-10 11:46] VITALS: BP 158/94; PULSE 90; RESP 17; TEMP 37.1; O2SAT 96
== END 2020-11-10 11:46 | disposition home or self-care (01) | DRG 390 ==
LOC: ER 05:19 → MEDSURG 05:38
PROVIDERS: Admitting Provider Family Medicine; Emergency Provider Emergency Medicine; PCP Family Medicine; Visit Provider Internal Medicine
DX: K56.601 Complete intestinal obstruction, unspecified as to cause (principal); I25.10 Atherosclerotic heart disease of native coronary artery without angina pectoris; I50.9 Heart failure, unspecified; I11.0 Hypertensive heart disease with heart failure; I69.334 Monoplegia of upper limb following cerebral infarction affecting left non-dominant side; E11.42 Type 2 diabetes mellitus with diabetic polyneuropathy; E11.610 Type 2 diabetes mellitus with diabetic neuropathic arthropathy; Z79.4 Long term (current) use of insulin; E78.5 Hyperlipidemia, unspecified; E11.9 Type 2 diabetes mellitus without complications; C50.911 Malignant neoplasm of unspecified site of right female breast; Z90.13 Acquired absence of bilateral breasts and nipples; D64.9 Anemia, unspecified; G89.29 Other chronic pain; M54.5 Low back pain; F32.9 Major depressive disorder, single episode, unspecified; Z86.718 Personal history of other venous thrombosis and embolism; I25.2 Old myocardial infarction; Z95.828 Presence of other vascular implants and grafts; Z86.711 Personal history of pulmonary embolism; Z79.891 Long term (current) use of opiate analgesic; Z79.02 Long term (current) use of antithrombotics/antiplatelets; Z98.84 Bariatric surgery status; Z66 Do not resuscitate; Z96.653 Presence of artificial knee joint, bilateral
CPT/HCPCS: 36415; 36416; 71045; 74177; 80053; 81001; 82009; 82962; 83605; 83690; 83735; 84100; 85025; 86140; 96361; 96372; 96374; 96375; 97161; 97165; 99285; J1630; J1650; J1815; J2270; J2405; J3490; J7030; Q9967

== ENCOUNTER 2021-09-25 13:01 | Emergency (ER) | payer MEDICARE, MEDICAID, SELFPAY ==
[2021-09-25 13:04] VITALS: BP 130/64; PULSE 67; RESP 21; TEMP 36.9; O2SAT 97
--- NOTE | 2021-09-25 13:09 | W.ED.ABDPA2 ---
HPI - Abdominal Pain General: Chief Complaint: General Medical Stated Complaint: RIGHT SIDE PAIN Time Seen by Provider: 09/25/21 13:08 History of Present Illness: Ms Love is a 76-year-old lady with complex past medical history including history of breast cancer, chronic cough, diabetes who presents the emergency department due to right side pain. Onset of symptoms was subacute approximately 4 days ago. She denies associated trauma or preceding event such as lifting or twisting. She describes sharp pain that has been persistent. At times it is worse however she has not identified any correlation with specific activity or food intake. There is no significant radiation to the legs, back, or abdomen. She denies similar episodes in the past. Denies otherwise significant changes in health, exacerbating, relieving factors. She has been evaluated for this and apparently had x-rays taken at [facility] however does not know the results. She has been prescribed oral analgesia as well as topical however apparently today declined her oral analgesia. She does appear to have a lidocaine patch in place. Onset (ago): day(s) Pain Consistency: constant Location: R flank Quality: stabbing and sharp Radiation: none Migration to: no migration Exacerbating factors: nothing Relieving factors: nothing Associated Symptoms: Reports no associated symptoms Review of Systems General: Reports: 10 or more systems reviewed and unremarkable except in HPI and below PFSH ED PFSH: Medical History Anemia Charcot's joint of left foot Chronic low back pain Complete small bowel obstruction Depression Diabetes DVT (deep venous thrombosis) Hypertension Invasive ductal carcinoma of right breast [id number] Myocardial infarction Polymyalgia Polyneuropathy Presence of vena cava filter Pulmonary emboli Surgical History History of appendectomy History of cholecystectomy History of colonoscopy Years ago. History of gastric surgery History of hysterectomy History of lymph node dissection of right axilla sentinel lymph node biopsy with right mastectomy History of right breast biopsy (~08/2019) History of rotator cuff surgery Bilateral Status post left knee replacement Status post left mastectomy Status post right knee replacement Status post right mastectomy Family History Mother Hypertension Cancer Father Diabetes CAD (coronary artery disease) Myocardial infarction Denies family history of Anesthesia complication Bleeding disorder Social History Second hand smoke exposure: No Alcohol intake: never Adopted: No Caregiver/support person: Yes Lives independently: Yes Household members: family Housing: [facility] Marital status: Single Highest education level completed: High School Graduate service: No Current occupational status: retired Current occupational exposures/hazards: No Pets and animals: No History of recent travel: No Sexually active: No Current gender identity: Female Lanette/Roman Catholic: Catholic Special lanette needs: No Agree to transfusion: No Financial difficulty paying for basics: Decline to Answer Physical Exam Const: COMMON NORMALS: alert GENERAL APPEARANCE: cooperative and well developed HENMT: COMMON NORMALS: normocephalic, atraumatic, external ears normal and Normal external nose present HEAD & SCALP: normocephalic and atraumatic NOSE: Normal external nose present EXTERNAL EAR: Yes external ears normal Eye: COMMON NORMALS: conjunctivae normal CONJUNCTIVA: Yes conjunctivae normal SCLERA: sclerae normal Neck/C-Spine: COMMON NORMALS: supple GENERAL: Yes trachea midline Resp: COMMON NORMALS: normal respiratory effort EFFORT & INSPECTION: Yes able to speak in complete sentences Cardio: COMMON NORMALS: regular rate and regular rhythm RATE: regular rate RHYTHM: regular rhythm GI: COMMON NORMALS: Soft to palpation PALPATION: Yes Soft to palpation, Yes Tenderness to palpation present (GI) Details: other (r flank), No Guarding due to palpation present (GI) and No Rigid due to palpation Extremity: GENERAL: Yes normal exam except as noted and No edema Neuro: COMMON NORMALS: moves all extremities SENSORIUM/ORIENTATION: Yes alert and No Orientation impaired Psych: COMMON NORMALS: mental status grossly normal and Normal thought process present THOUGHT PROCESS: Normal thought process present Skin: COMMON NORMALS: no rashes or lesions noted GENERAL SKIN EXAM: no rashes or lesions noted OTHER: No evidence of shingles Course ED course: - Patient was seen and evaluated by me at bedside - Patient placed on cardiac monitors, IV access obtained - Initial evaluation notable for exam as above - Labs notable for no leukocytosis, mild anemia. Metabolic panel with mild hyponatremia, patient has had similar in the past. Urinalysis not concerning for urinary tract infection - Imaging notable for no acute finding on chest x-ray. No obvious finding on CT abdomen pelvis to explain patient's symptoms - Upon serial reexamination after treatment the patient was improved - Based on patient history, evaluation, labs, and imaging as interpreted the most likely cause of the patient's condition is unspecified abdominal pain - The results of ED evaluation were discussed with the patient including prescriptions and/or symptomatic cares (if applicable) including appropriate and responsible use, followup plan, and return precautions. The patient verbalized understanding and felt safe for discharge. - Patient discharged in satisfactory condition. Note: Click bubbles or prepopulated stacy in note writing are used for assistance with data collection and billing and are inherently more limited than narrative and other text portions of this note. Please use narrative for additional clinical history and defer to narrative/free test for any case of contradictory information. If information appears in only free text or click bubble it should be considered present or absent as reported. Please contact note principal technical writer for clarifications of clinical information or contradictory information. MDM is a brief summary, contradictory or erroneous seeming information should be clarified and full note should be reviewed. Vital Signs: Vital signs: Vital Signs Temperature 98.5 F 09/25/21 13:04 Pulse Rate 66 09/25/21 18:18 Respiratory Rate 16 09/25/21 18:18 Blood Pressure 130/64 09/25/21 13:04 Pulse Oximetry 99 09/25/21 18:18 MDM - Abdominal Pain Medical Decision Making 76-year-old lady presenting with right-sided flank pain. Patient resides in a prison facility and has been previously evaluated and treated without significant relief. Therefore evaluation performed. No leukocytosis. Metabolic panel notable for mild hyponatremia, patient has had similar in the past. CT imaging without obvious pathology to explain patient's symptoms. Satisfactory for continued outpatient management and PCP follow-up. Medical Records I reviewed the patient's medical records. Lab Data I reviewed the patient's lab results. : 09/25/21 14:07 09/25/21 14:07 Labs/Radiology: Radiology Impressions Abdomen/Pelvis CT 09/25/21 13:18 IMPRESSION: No acute findings. Chest X-Ray 09/25/21 13:18 IMPRESSION: No acute findings. Laboratory Results WBC 8.3 10^3/uL (4.0-10.0) 09/25/21 14:07 RBC 3.66 10^6/uL (4.1-5.3) L 09/25/21 14:07 Hgb 10.6 g/dL (11.5-15.3) L 09/25/21 14:07 Hct 33.1 % (37.0-47.0) L 09/25/21 14:07 MCV 90.4 fl (81-99) 09/25/21 14:07 MCH 29.0 pg (28.0-34.0) 09/25/21 14:07 MCHC 32.0 g/dL (30.0-36.0) 09/25/21 14:07 RDW 13.4 % (12.1-15.1) 09/25/21 14:07 Plt Count 289 10^3/cmm (130-400) 09/25/21 14:07 MPV 8.9 fL (7.4-10.4) 09/25/21 14:07 Neut % (Auto) 66.7 % 09/25/21 14:07 Lymph % (Auto) 19.1 % 09/25/21 14:07 Pickett % (Auto) 7.3 % 09/25/21 14:07 Eos % (Auto) 5.8 % 09/25/21 14:07 Baso % (Auto) 0.5 % 09/25/21 14:07 Neut # (Auto) 5.57 10^3/uL (1.8-7.7) 09/25/21 14:07 Lymph # (Auto) 1.6 10^3/uL (0.8-4.8) 09/25/21 14:07 Pickett # (Auto) 0.6 10^3/uL (0.2-0.9) 09/25/21 14:07 Eos # (Auto) 0.5 10^3/uL (0.0-0.8) 09/25/21 14:07 Baso # (Auto) 0.0 10^3/uL (0.0-0.1) 09/25/21 14:07 Nucleated RBC % (auto) 0 % 09/25/21 14:07 Nucleated RBCs # 0.0 /100WBC 09/25/21 14:07 Sodium 126 mmol/L (136-145) L 09/25/21 14:07 Potassium 4.4 mmol/L (3.5-5.1) 09/25/21 14:07 Chloride 93 mmol/L (98-107) L 09/25/21 14:07 Carbon Dioxide 22 mmol/L (22-29) 09/25/21 14:07 Anion Gap 15.4 (5-19) 09/25/21 14:07 BUN 8 mg/dL (8-23) 09/25/21 14:07 Creatinine 0.5 mg/dL (0.5-0.9) 09/25/21 14:07 GFR Calculation Not Reportable 09/25/21 14:07 Glucose 137 mg/dL (65-115) H 09/25/21 14:07 Calculated Osmolality 262 mOsm/kg (285-295) L 09/25/21 14:07 Calcium 8.2 mg/dL (8.5-10.5) L 09/25/21 14:07 Total Bilirubin 0.3 mg/dL (0.15-1.2) 09/25/21 14:07 AST 16 U/L (0-32) 09/25/21 14:07 ALT 12 U/L (0-33) 09/25/21 14:07 Alkaline Phosphatase 210 IU/L (35-105) H 09/25/21 14:07 Total Protein 7.0 g/dL (6.6-8.7) 09/25/21 14:07 Albumin 3.6 g/dL (3.5-5.2) 09/25/21 14:07 Globulin 3.4 g/dL (1.3-4.6) 09/25/21 14:07 Lipase 25 U/L (13-60) 09/25/21 14:07 Urine Color Straw (Yellow) 09/25/21 17:00 Urine Appearance Clear (CLEAR) 09/25/21 17:00 Urine pH 8 (5-7) H 09/25/21 17:00 Ur Specific Jackson 1.015 (1.005-1.030) 09/25/21 17:00 Urine Protein Neg (Negative) 09/25/21 17:00 Urine Glucose (UA) Norm (Normal) 09/25/21 17:00 Urine Ketones Negative (Negative) 09/25/21 17:00 Urine Blood Neg (Negative) 09/25/21 17:00 Urine Nitrate Negative (Negative) 09/25/21 17:00 Urine Bilirubin Neg (Negative) 09/25/21 17:00 Prot Sulfosalicylic Acd Negative (Negative) 09/25/21 17:00 Urine Urobilinogen Norm mg/dL (Negative) 09/25/21 17:00 Ur Leukocyte Esterase Negative (Negative) 09/25/21 17:00 Discharge Plan Discharge Patient Disposition: [facility] Clinical Impression: Acute right flank pain, Hyponatremia, Anemia Condition: Stable Discharge Orders: Discharge ED (Routine); Ordered 09/25/21 Ordered By: Edson Huizar Referrals: Zohra Lira MD [Primary Care Provider] - Discharge Diet: Usual diet Discharge Activity: Resume usual activity Patient Instructions: Flank Pain (ED) Activity Restrictions/Additional Instructions: Thank you for visiting the emergency department. You were seen and evaluated for flank pain. The exact cause of your flank pain is unclear as no obvious cause was identified on CT scan. No pneumonia was identified on chest x-ray. Your labs were notable for mild anemia however the most recent lab value that we have is October 2020 for comparison. Additionally you do have low sodium, once again looking back you have had this before. Please follow-up with your primary care provider. Please continue all previously prescribed therapies. Return to the emergency department for inability to tolerate oral intake, severe pain, or anything else that you are concerned about and feel needs emergency department evaluation. Coding Level of Care Code ED Traffic Routing Engineer for Tashi Fwd Exam Comprehensive
--- NOTE | 2021-09-25 13:18 | CTR_ITS ---
PROCEDURE INFORMATION: Exam: CT Abdomen And Pelvis With Contrast Exam date and time: 09/25/2021 1:18 PM Age: 76 years old Clinical indication: Abdominal pain; Right; Prior surgery; Surgery date: 6+ months; Surgery type: B-mast, appy, gb, hyst, gastric, ivc filter; Patient HX: C/O R flank pain; Additional info: R flank pain TECHNIQUE: Imaging protocol: Computed tomography of the abdomen and pelvis with contrast. Radiation optimization: All CT scans at this facility use at least one of these dose optimization techniques: automated exposure control; mA and/or kV adjustment per patient size (includes targeted exams where dose is matched to clinical indication); or iterative reconstruction. Contrast material: OMNI 300; Contrast volume: 95 ml; Contrast route: INTRAVENOUS (IV); COMPARISON: CT abdomen pelvis w con* [id number] 11/09/2020 4:10 AM RADIATION DOSE METRICS: Total DLP (mGy-cm): 1892.9 FINDINGS: Liver: No mass. Gallbladder and bile ducts: Cholecystectomy. No biliary ductal dilatation. Pancreas: Atrophic, no mass. No ductal dilation. Spleen: Normal. No splenomegaly. Adrenal glands: Normal. No mass. Kidneys and ureters: Normal. No hydronephrosis. Stomach and bowel: No acute findings. No obstruction. No mucosal thickening. Postoperative change in the stomach. Appendix: No evidence of appendicitis. Intraperitoneal space: Unremarkable. No free air. No significant fluid collection. Vasculature: No abdominal aortic aneurysm. IVC filter. Lymph nodes: No significant adenopathy. Urinary bladder: Unremarkable as visualized. Reproductive: Hysterectomy. Bones/joints: No acute findings. Soft tissues: No acute findings. Bilateral mastectomy. CT/CT abdomen pelvis w con* [id number] IMPRESSION: No acute findings.
--- NOTE | 2021-09-25 13:18 | XRR_ITS ---
PROCEDURE INFORMATION: Exam: XR Chest Exam date and time: 09/25/2021 1:18 PM Age: 76 years old Clinical indication: Patient HX: Cough x 3 days TECHNIQUE: Imaging protocol: XR of the chest. Views: 1 view. COMPARISON: CR XR chest 1V portable [id number] 11/09/2020 6:05 AM FINDINGS: Lungs: Interstitial thickening consistent with scarring/fibrosis, minimal left upper lobe atelectasis or focal scar. No acute consolidation. Pleural spaces: Unremarkable. No pleural effusion. No pneumothorax. Heart/Mediastinum: Unremarkable. No cardiomegaly. Bones/joints: Old left rib fractures. XR/XR chest 1V portable [id number] IMPRESSION: No acute findings.
[2021-09-25 14:17] LABS: Basophils % 0.5 %; Eosinophils # 0.5 10^3/uL (0.0-0.8); Eosinophils % 5.8 %; Hematocrit 33.1 % (37.0-47.0); Hemoglobin 10.6 g/dL (11.5-15.3); Lymphocytes # 1.6 10^3/uL (0.8-4.8); Lymphocytes % 19.1 %; Mean Corpuscular Volume 90.4 fl (81-99); Mean Platelet Volume 8.9 fL (7.4-10.4); Monocytes # 0.6 10^3/uL (0.2-0.9); Monocytes % 7.3 %; Neutrophils # 5.57 10^3/uL (1.8-7.7); Neutrophils % 66.7 %; Nucleated Red Blood Cells % 0 %; Platelet Count 289 10^3/cmm (130-400); Red Blood Count 3.66 10^6/uL (4.1-5.3); Red Cell Distribution Width 13.4 % (12.1-15.1); White Blood Count 8.3 10^3/uL (4.0-10.0)
[2021-09-25 14:44] LABS: Alanine Aminotransferase 12 U/L (0-33); Albumin Level 3.6 g/dL (3.5-5.2); Alkaline Phosphatase 210 IU/L (35-105); Anion Gap 15.4 (5-19); Aspartate Amino Transferase 16 U/L (0-32); Blood Urea Nitrogen 8 mg/dL (8-23); Calcium 8.2 mg/dL (8.5-10.5); Carbon Dioxide 22 mmol/L (22-29); Chloride 93 mmol/L (98-107); Globulin 3.4 g/dL (1.3-4.6); Glucose 137 mg/dL (65-115); Lipase 25 U/L (13-60); Osmolality Calculated 262 mOsm/kg (285-295); Potassium 4.4 mmol/L (3.5-5.1); Sodium 126 mmol/L (136-145); Total Bilirubin 0.3 mg/dL (0.15-1.2)
[2021-09-25] MEDS: iohexol 300 mg/mL 100 mL Btl IV (15:09)
[2021-09-25 17:25] LABS: Add Urine Microscopic? NO; Charge for UA Resulting for Rev
[2021-09-25 17:28] LABS: Bilirubin Urine Neg (Negative); Blood Urine Neg (Negative); Glucose Urine UA Norm (Normal); Ketones Urine Negative (Negative); Leukocyte Esterase Urine Negative (Negative); Nitrate Urine Negative (Negative); Protein Urine Neg (Negative); Specific Gravity, Urine 1.015 (1.005-1.030); Sulfosalicylic Acid Urine Negative (Negative); Urine Appearance Clear (CLEAR); Urine Color Straw (Yellow); Urobilinogen Urine Norm (Negative); pH Urine 8 (5-7)
[2021-09-25 18:18] VITALS: PULSE 66; RESP 16; O2SAT 99
== END 2021-09-25 18:19 ==
PROVIDERS: Emergency Provider Emergency Medicine; PCP Family Medicine
DX: R10.9 Unspecified abdominal pain (principal); D64.9 Anemia, unspecified; E87.1 Hypo-osmolality and hyponatremia; E11.9 Type 2 diabetes mellitus without complications; I10 Essential (primary) hypertension; I25.2 Old myocardial infarction; Z86.711 Personal history of pulmonary embolism
CPT/HCPCS: 71045; 74177; 80053; 81003; 83690; 85025; 99282; Q9967

== ENCOUNTER → 2022-01-31 14:22 | Outpatient (BNVA) | payer MEDICARE, MEDICAID, SELFPAY | PROVIDERS: PCP Family Medicine; Visit Provider Podiatrist Foot & Ankle Surgery | DX: E11.42 Type 2 diabetes mellitus with diabetic polyneuropathy (principal); M14.672 Charcot's joint, left ankle and foot | CPT/HCPCS: 99214 ==

== ENCOUNTER 2022-02-22 17:49 | Inpatient (IN) | payer MEDICARE, MEDICAID, SELFPAY ==
[2022-02-22 17:52] VITALS: BP 116/95; PULSE 119; RESP 16; TEMP 36.9; O2SAT 98
--- NOTE | 2022-02-22 17:55 | XRR_ITS ---
PROCEDURE INFORMATION: Exam: XR Chest Exam date and time: 02/22/2022 6:06 PM Age: 76 years old Clinical indication: Chest wall pain; Prior surgery; Surgery date: 6+ months; Surgery type: Bilat mastectomy; Additional info: Cp TECHNIQUE: Imaging protocol: Radiologic exam of the chest. Views: 1 view. COMPARISON: CR (CHEST, ) 09/25/2021 3:13 PM FINDINGS: Lungs: The lungs are clear. Pleural spaces: Unremarkable. No pleural effusion. No pneumothorax. Heart/Mediastinum: Unremarkable. No cardiomegaly. Bones/joints: Several old left rib fractures are noted. An orthopedic screw is again seen in the left humeral neck. No acute fracture is detected. XR/XR chest 1V portable [id number] IMPRESSION: No acute cardiopulmonary abnormality.
--- NOTE | 2022-02-22 17:56 | ECG_ITS ---
[facility] Test Date: 2022-02-22 Pat Name: Nubia Love Department: Room: Gender: Female Television Audio Engineer: : 1945 Requested By: Maurice Mcmahan Order Number: [id number] Mae MD: Lynnette Camejo M.D. Measurements Intervals Hibbs Rate: 118 P: -84 [place]: 165 QRS: 9 QRSD: 127 T: 15 QT: 389 QTc: 547 Interpretive Statements ECTOPIC ATRIAL TACHYCARDIA/atrial flutter MODERATE INTRAVENTRICULAR CONDUCTION DELAY [110+ ms QRS DURATION] NONSPECIFIC ST & T-WAVE ABNORMALITY ABNORMAL RHYTHM ECG Compared to ECG 01/10/2020 01:52:24 Intraventricular conduction delay now present T-wave abnormality now present Sinus bradycardia no longer present Electronically Signed On 02-22-2022 20:09:36 CDT by Lynnette Camejo M.D. [id number]
--- NOTE | 2022-02-22 17:56 | W.ED.CHESTPA ---
HPI - Chest Pain General: Chief Complaint: Chest Pain Stated Complaint: cp Time Seen by Provider: 02/22/22 17:50 History of Present Illness: 76-year-old history of CAD and previous PE was on aspirin Plavix presents with chest pain. States this started approximately 2 hours ago. It is achy and radiates from the right left side of her chest but denies any radiation to the back. Denies any fevers or chills. Denies nausea or vomiting. Denies lower extremity pain or swelling. Patient is unable to characterize the pain further. She received full-strength aspirin and 3 nitros without relief of pain at the nursing facility. Review of Systems Narrative: - CONSTITUTIONAL: Denies weight loss, fever and chills. - HEENT: Denies changes in vision and hearing. - RESPIRATORY: Denies SOB and cough. - CV: As above - GI: Denies abdominal pain, nausea, vomiting and diarrhea. - : Denies dysuria and urinary frequency. - MSK: Denies myalgia and joint pain. - SKIN: Denies rash and pruritus. - NEUROLOGICAL: Denies headache, weakness, numbness and syncope. - PSYCHIATRIC: Denies suicidal ideation PFS ED PFSH: Medical History Anemia Charcot's joint of left foot Chronic low back pain Complete small bowel obstruction Depression Diabetes DVT (deep venous thrombosis) Hypertension Invasive ductal carcinoma of right breast [id number] Myocardial infarction Polymyalgia Polyneuropathy Presence of vena cava filter Pulmonary emboli Surgical History History of appendectomy History of cholecystectomy History of colonoscopy Years ago. History of gastric surgery History of hysterectomy History of lymph node dissection of right axilla sentinel lymph node biopsy with right mastectomy History of right breast biopsy (~08/2019) History of rotator cuff surgery Bilateral Status post left knee replacement Status post left mastectomy Status post right knee replacement Status post right mastectomy Family History Mother Hypertension Cancer Father Diabetes CAD (coronary artery disease) Myocardial infarction Denies family history of Anesthesia complication Bleeding disorder Social History Smoking and tobacco status: never smoked Second hand smoke exposure: No Alcohol intake: never Adopted: No Caregiver/support person: Yes Lives independently: Yes Household members: family Housing: Skilled Nursing Marital status: Single Highest education level completed: High School Graduate service: No Current occupational status: retired Current occupational exposures/hazards: No Pets and animals: No History of recent travel: No Sexually active: No Current gender identity: Female Lanette/Sabianism: Jain Special lanette needs: No Agree to transfusion: No Financial difficulty paying for basics: Decline to Answer Physical Exam Narrative: EXAM NARRATIVE: - GENERAL: Alert and oriented x 3. No acute distress. Well-nourished. - EYES: EOMI. Anicteric. - HENT: Atraumatic, no C-spine tenderness. Moist mucous membranes. No scleral icterus. No cervical lymphadenopathy. - LUNGS: Clear to auscultation bilaterally. No accessory muscle use. Equal lung sounds bilaterally. No respiratory distress. - CARDIOVASCULAR: Regular tachycardia. No murmur. No JVD. - ABDOMEN: Soft, non-tender and non-distended. Negative CVA tenderness bilaterally, no rebound or guarding, negative Marquis sign. No palpable masses. - EXTREMITIES: No edema. Non-tender. - SKIN: No rashes or lesions. Warm. - NEUROLOGIC: No meningismus or focal neurological deficits. CN II-XII grossly intact. - PSYCHIATRIC: Cooperative. Appropriate mood and affect. Course Vital Signs: Vital signs: Vital Signs Temperature 98.4 F 02/22/22 17:52 Pulse Rate 118 H 02/22/22 18:31 Respiratory Rate 16 02/22/22 18:29 Blood Pressure 130/102 02/22/22 18:31 Pulse Oximetry 95 02/22/22 18:31 MDM - Chest Pain Medical Decision Making 76-year-old presents due to chest pain. Physical exam does reveal tachycardia. EKG reveals ectopic atrial tachycardia. She is he medically stable. Improved heart rate with metoprolol. Patient was provided full-strength aspirin prior to arrival. EKG otherwise does not reveal any acute ischemic change. Initial troponin is unremarkable. BNP however is elevated 1200. CTA does not reveal any sign of PE or dissection but does reveal bilateral opacities possibly secondary to CHF. COVID swab is pending. Patient is saturating well on room air. Remainder of lab work and imaging reviewed. Discussed with hospitalist and they agreed patient would benefit from admission. Patient admitted in stable condition. Further evaluation management per hospitalist team. Lab Data : 02/22/22 17:34 02/22/22 17:34 Radiology Impressions Chest X-Ray 02/22/22 17:55 IMPRESSION: No acute cardiopulmonary abnormality. Chest CTA 02/22/22 18:08 IMPRESSION: 1. Ground-glass opacities in the upper lungs bilaterally, similar in character both mildly progressive since 12/31/2015. Possible recurrent acute process such as pulmonary edema or atypical infection. Findings could represent chronic interstitial lung disease. 2. No pulmonary embolism. 3. Tracheobronchomalacia. 4. Dilated central pulmonary arteries suggests pulmonary hypertension. 5. Incidental findings above. Laboratory Results WBC 8.4 10^3/uL (4.0-10.0) 02/22/22 17:34 RBC 3.97 10^6/uL (4.1-5.3) L 02/22/22 17:34 Hgb 11.0 g/dL (11.5-15.3) L 02/22/22 17:34 Hct 34.5 % (37.0-47.0) L 02/22/22 17:34 MCV 86.9 fl (81-99) 02/22/22 17:34 MCH 27.7 pg (28.0-34.0) L 02/22/22 17:34 MCHC 31.9 g/dL (30.0-36.0) 02/22/22 17:34 RDW 13.0 % (12.1-15.1) 02/22/22 17:34 Plt Count 286 10^3/cmm (130-400) 02/22/22 17:34 MPV 9.0 fL (7.4-10.4) 02/22/22 17:34 Neut % (Auto) 56.8 % 02/22/22 17:34 Lymph % (Auto) 28.6 % 02/22/22 17:34 [place] % (Auto) 9.5 % 02/22/22 17:34 Eos % (Auto) 4.0 % 02/22/22 17:34 Baso % (Auto) 0.7 % 02/22/22 17:34 Neut # (Auto) 4.79 10^3/uL (1.8-7.7) 02/22/22 17:34 Lymph # (Auto) 2.4 10^3/uL (0.8-4.8) 02/22/22 17:34 [place] # (Auto) 0.8 10^3/uL (0.2-0.9) 02/22/22 17:34 Eos # (Auto) 0.3 10^3/uL (0.0-0.8) 02/22/22 17:34 Baso # (Auto) 0.1 10^3/uL (0.0-0.1) 02/22/22 17:34 Nucleated RBC % (auto) 0 % 02/22/22 17:34 Nucleated RBCs # 0.0 /100WBC 02/22/22 17:34 D-Dimer 0.78 ug/mIFEU (0-0.59) H 02/22/22 17:34 Sodium 129 mmol/L (136-145) L 02/22/22 17:34 Potassium 4.0 mmol/L (3.5-5.1) 02/22/22 17:34 Chloride 94 mmol/L (98-107) L 02/22/22 17:34 Carbon Dioxide 26 mmol/L (22-29) 02/22/22 17:34 Anion Gap 13.0 (5-19) 02/22/22 17:34 BUN 12 mg/dL (8-23) 02/22/22 17:34 Creatinine 0.6 mg/dL (0.5-0.9) 02/22/22 17:34 GFR Calculation Not Reportable 02/22/22 17:34 Glucose 109 mg/dL (65-115) 02/22/22 17:34 Calculated Osmolality 268 mOsm/kg (285-295) L 02/22/22 17:34 Calcium 9.2 mg/dL (8.5-10.5) 02/22/22 17:34 Total Bilirubin 0.3 mg/dL (0.15-1.2) 02/22/22 17:34 AST 12 U/L (0-32) 02/22/22 17:34 ALT 10 U/L (0-33) 02/22/22 17:34 Alkaline Phosphatase 198 IU/L (35-105) H 02/22/22 17:34 Troponin T Baseline 12 ng/L (0-10) H 02/22/22 17:34 NT-Pro-B Natriuret Pep 1248 pg/mL (0-450) H 02/22/22 17:34 Total Protein 7.7 g/dL (6.6-8.7) 02/22/22 17:34 Albumin 3.8 g/dL (3.5-5.2) 02/22/22 17:34 Globulin 3.9 g/dL (1.3-4.6) 02/22/22 17:34 EKG Data EKG 1: Other EKG comments: Ectopic atrial tachycardia, rate of 118, no sign of acute ischemia or other acute abnormality. Discharge Plan Discharge Condition: Stable Prescriptions: No Action (DME) Custom Acommadative Orthotics with Diabetic Shoes with Extra Depth See Rx Instructions .Route .MEDSUPPLY Qty: 1 0RF Rx Instructions: As directed by [employer] diclofenac sodium 1 % gel 4 g topical QID Qty: 100 5RF Rx Instructions: Apply to single ankle, foot; for foot includes sole/toes/top of foot TOPICALLY TO AFFECTED AREA 4 TIMES PER DAY AT 07,11,17,21 clopidogrel [Plavix] 75 mg tablet 75 mg PO DAILY 0RF Hold Instructions: Doctor's Order duloxetine [Cymbalta] 60 mg capsule,delayed release(DR/EC) 60 mg PO DAILY 0RF gabapentin 300 mg capsule 300 mg PO TID 0RF aspirin [Adult Low Dose Aspirin] 81 mg tablet,delayed release (DR/EC) 81 mg PO DAILY 0RF carbamazepine 100 mg capsule, ER multiphase 12 hr 100 mg PO BID 0RF metoprolol tartrate 50 mg tablet 25 mg PO BID 0RF (DME) ice bag [Cold Pack] Misc See Rx Instructions .ROUTE .MEDSUPPLY Qty: 1 0RF Rx Instructions: As requested by patient docusate sodium 100 mg capsule 100 mg PO DAILY 0RF cetirizine [Zyrtec] 10 mg tablet 10 mg PO DAILY 0RF acetaminophen 325 mg Tablet 650 mg PO Q6H PRN (Reason: Pain) 0RF isosorbide mononitrate 30 mg Tablet Extended Release 24 Hr 30 mg PO DAILY 0RF amitriptyline 25 mg Tablet 25 mg PO BEDTIME 0RF magnesium hydroxide [Milk of Magnesia] 400 mg/5 mL Suspension 30 ml PO DAILY PRN (Reason: Constipation) 0RF losartan 25 mg Tablet 25 mg PO DAILY 0RF zinc 50 mg Tablet 50 mg PO DAILY 0RF fluticasone propionate 50 mcg/actuation [place],Suspension 1 spray INTRANASAL BID 0RF hydrocodone-acetaminophen 5-325 mg Tablet 1 tab PO BID PRN (Reason: Pain) 0RF polyethylene glycol 3350 [Miralax] 17 gram Powder In Packet 17 g PO BID 0RF omeprazole 40 mg Capsule,Delayed Release(Dr/Ec) 40 mg PO DAILY Qty: 0 0RF topiramate [Topamax] 50 mg tablet 50 mg PO BID 0RF alprazolam 0.25 mg Tablet 0.25 mg PO Q6H PRN (Reason: Anxiety) Qty: 0 0RF Rx Instructions: 0.25 mg orally diphenhydramine HCl [Benadryl] 25 mg Capsule 25 mg PO Q6H PRN (Reason: Itching) 0RF nitroglycerin [Nitrostat] 0.4 mg Tablet, Sublingual 0.4 mg SUBLINGUAL Q5M PRN (Reason: Chest Pain) Qty: 0 0RF Tresiba FlexTouch U-100 100 unit/mL (3 mL) Insulin Pen 46 unit SUBCUT BEDTIME Qty: 0 0RF Rx Instructions: 46 UNITS AT BEDTIME Zofran 4 mg Tablet 4 mg PO DAILY 0RF simethicone 125 mg Capsule 125 mg PO TID PRN (Reason: Indigestion) 0RF Seroquel 50 mg Tablet 50 mg PO BEDTIME 0RF Referrals: Zohra Lira MD [Primary Care Provider] - Coding Level of Care Code ED 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
--- NOTE | 2022-02-22 18:08 | CTR_ITS ---
PROCEDURE INFORMATION: Exam: CTA Chest With Contrast Exam date and time: 02/22/2022 7:17 PM Age: 76 years old Clinical indication: Pain and abnormal findings; Abnormal diagnostic tests; Elevated d-dimer; Chest pressure; Prior surgery; Surgery type: Double mastectomy. Gb. Vena cava filter; Patient HX: C/O chest pain with elevated d dimer. History of pe. TECHNIQUE: Imaging protocol: Computed tomographic angiography of the chest with contrast. 3D rendering (Not supervised by radiologist): MIP and/or 3D reconstructed images were created by the technologist. Radiation optimization: All CT scans at this facility use at least one of these dose optimization techniques: automated exposure control; mA and/or kV adjustment per patient size (includes targeted exams where dose is matched to clinical indication); or iterative reconstruction. Contrast material: OMNI 350; Contrast volume: 90 ml; Contrast route: INTRAVENOUS (IV); COMPARISON: CT Chest/Abdomen/Pelvis wo IV 12/31/2015 3:18 AM RADIATION DOSE METRICS: Total DLP (mGy-cm): 584.78 FINDINGS: Tubes, catheters and devices: There is a filter in the inferior vena cava positioned below the level of the renal veins. Pulmonary arteries: Main, right and left pulmonary arteries are dilated. The pulmonary arteries are adequately opacified for evaluation to the subsegmental level. There is no filling defect to suggest embolism. Aorta: There is moderate aortic atherosclerotic disease. Lungs: There is decreased AP diameter of the distal trachea and central bronchi consistent with tracheobronchomalacia. Mild patchy ground-glass opacity in both lungs, greatest at the right lung apex. No focal consolidation. There is a calcified granuloma in the right lower lobe. No significant bronchial wall thickening. Pleural spaces: Unremarkable. No pneumothorax. No pleural effusion. Heart: There is moderate coronary artery calcification. There is mild cardiac enlargement. There is trace pericardial effusion. Lymph nodes: Calcified lymph nodes in the right hilum. Diffusely prominent bilateral hilar and upper mediastinal nodes of uncertain significance. Bones/joints: There are multiple healed bilateral rib fractures. Severe degenerative disease at the right shoulder. Moderate degenerative disease at the left shoulder. Mild age-indeterminate T4 superior incomplete compression fracture. Soft tissues: The extrathoracic soft tissues are unremarkable. CT/CT angio chest PE protcl [id number] IMPRESSION: 1. Ground-glass opacities in the upper lungs bilaterally, similar in character both mildly progressive since 12/31/2015. Possible recurrent acute process such as pulmonary edema or atypical infection. Findings could represent chronic interstitial lung disease. 2. No pulmonary embolism. 3. Tracheobronchomalacia. 4. Dilated central pulmonary arteries suggests pulmonary hypertension. 5. Incidental findings above.
[2022-02-22 18:18] LABS: Basophils # 0.1 10^3/uL (0.0-0.1); Basophils % 0.7 %; Eosinophils # 0.3 10^3/uL (0.0-0.8); Hematocrit 34.5 % (37.0-47.0); Lymphocytes # 2.4 10^3/uL (0.8-4.8); Lymphocytes % 28.6 %; Mean Corpuscular HGB Conc 31.9 g/dL (30.0-36.0); Mean Corpuscular Hemoglobin 27.7 pg (28.0-34.0); Mean Corpuscular Volume 86.9 fl (81-99); Monocytes # 0.8 10^3/uL (0.2-0.9); Monocytes % 9.5 %; Neutrophils # 4.79 10^3/uL (1.8-7.7); Neutrophils % 56.8 %; Nucleated Red Blood Cells % 0 %; Platelet Count 286 10^3/cmm (130-400); Red Blood Count 3.97 10^6/uL (4.1-5.3); White Blood Count 8.4 10^3/uL (4.0-10.0)
[2022-02-22 18:29] VITALS: RESP 16
[2022-02-22] MEDS: morphine 4 mg/mL SDV 1 mL IVP (18:29)
[2022-02-22] MEDS: ondansetron 2 mg/ML SDV 2 mL 4 MG IVP (18:29)
[2022-02-22 18:31] VITALS: BP 130/102; PULSE 118; O2SAT 95
[2022-02-22 18:38] LABS: D Dimer 0.78 ug/mIFEU (0-0.59)
[2022-02-22 18:44] LABS: Troponin(5th) Baseline 12 ng/L (0-10)
[2022-02-22 18:52] LABS: Alanine Aminotransferase 10 U/L (0-33); Albumin Level 3.8 g/dL (3.5-5.2); Alkaline Phosphatase 198 IU/L (35-105); Aspartate Amino Transferase 12 U/L (0-32); Blood Urea Nitrogen 12 mg/dL (8-23); Calcium 9.2 mg/dL (8.5-10.5); Carbon Dioxide 26 mmol/L (22-29); Chloride 94 mmol/L (98-107); Globulin 3.9 g/dL (1.3-4.6); Glucose 109 mg/dL (65-115); NT Pro B Type Natriuretic Pept 1248 pg/mL (0-450); Osmolality Calculated 268 mOsm/kg (285-295); Sodium 129 mmol/L (136-145); Total Bilirubin 0.3 mg/dL (0.15-1.2); Total Protein 7.7 g/dL (6.6-8.7)
[2022-02-22 19:01] VITALS: BP 130/87; PULSE 115; RESP 16; O2SAT 96
[2022-02-22] MEDS: iohexol 350 mg/mL 100 mL Btl IV (19:20)
--- NOTE | 2022-02-22 19:56 | ECG_ITS ---
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 Measurements Intervals [place] Rate: 116 P: 249 WA: 153 QRS: 20 QRSD: 105 T: 31 QT: 331 QTc: 461 Interpretive Statements ECTOPIC ATRIAL TACHYCARDIA/atrial flutter with aberrantly conducted beats NONSPECIFIC ST & T-WAVE ABNORMALITY ABNORMAL RHYTHM ECG Compared to ECG 02/22/2022 18:02:10 Intraventricular conduction delay no longer present T-wave abnormality still present Electronically Signed On 02-22-2022 20:17:04 CDT by Lynnette Camejo M.D. [email or web address]
[2022-02-22 20:18] LABS: Troponin 5 2HR 11.36 ng/L (0-10)
[2022-02-22 20:19] LABS: Troponin 5 2HR Delta -0.64 ABS# (0-10)
[2022-02-22] MEDS: metoprolol tartrate 1 mg/1 mL SDV 5 mL 2.5 MG IVP (20:45)
[2022-02-22] MEDS: FUROsemide 10 mg/mL SDV 4mL 40 MG IVP (20:46)
[2022-02-22 20:55] VITALS: BP 117/91; PULSE 116; RESP 18; O2SAT 94
[2022-02-22 21:25] LABS: SARS Covid-2 Antigen Negative (Negative)
[2022-02-22 22:00] VITALS: PULSE 118
[2022-02-22 23:22] LABS: Troponin 5 6HR 12.95 ng/L (0-10)
[2022-02-22 23:25] LABS: Troponin 5 6HR Delta 0.95 ng/L (0-12)
--- NOTE | 2022-02-22 23:56 | ECG_ITS ---
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 Measurements Intervals [place] Rate: 118 P: [place]: QRS: 29 QRSD: 101 T: 38 QT: 326 QTc: 458 Interpretive Statements ATRIAL FLUTTER versus atrial tachycardia versus SVT NONSPECIFIC ST & T-WAVE ABNORMALITY ABNORMAL RHYTHM ECG Compared to ECG 02/22/2022 19:55:00 No significant changes Electronically Signed On 02-23-2022 10:27:47 CDT by Wolf Fox M.D. [email or web address]
[2022-02-23] VITALS (11 sets, daily range): BP systolic 90–143; BP diastolic 43–97; PULSE 80–123; RESP 14–22; TEMP 36.4–36.9; O2SAT 93–99
--- NOTE | 2022-02-23 01:58 | PM.HP ---
Providers/Chief Complaint Admitting Physician: Phuong Cunningham MD Primary Care Provider: Zohra Lira MD Chief Complaint: cp History of Present Illness Nubia Love is a 76 year old female with past medical history as outlined below, long-term resident at [facility] presenting to the emergency room today with complaints of chest pain. Reports that the pain is located in the center of her chest and radiates towards her left shoulder and down her left arm. States that her fingers were numb during this onset of chest pain. She does not recall any precipitating factors. States that pain is varying between 4 out of 10 in intensity to 8 out of 10 in intensity. Describes the sensation as burning in nature. Associated additional nausea. Denies diaphoresis. 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 Denies any fever chills. Denies any dyspnea palpitations. Saturating 94% on room air. Last stress test dates back to 2014 and was noted to be abnormal. Follow-up angiogram showed LAD with proximal 40% stenosis. Symptoms were thought to be related to angina she started on beta-blockers and nitrates. CTA today is negative for PE. Mild GGO's in the upper lungs bilaterally, unchanged since 2016. BNP was noted to be mildly elevated, she has received Lasix 40 mg IV in the emergency room. Review of Systems General: Reports: 10 or more systems reviewed and unremarkable except in HPI and below Const: Denies: fever(s), chills or body aches Eyes: Denies: change in vision, blurry vision or photophobia ENMT: Reports: hoarseness; Denies: throat pain, enlarged tonsils, odynophagia or nasal congestion Card: Denies: chest pain, palpitations, irregular heart rhythm, edema, swelling of feet/ankles, lightheadedness, pre-syncope, dyspnea on exertion or orthopnea Resp: Denies: dyspnea, productive cough, non-productive cough, wheezing, stridor, pain on inspiration, change in phlegm color, hemoptysis or chest congestion GI: Denies: abdominal pain, nausea, vomiting, hematemesis, coffee ground emesis, dysphagia, heartburn, diarrhea, constipation, GI cramping, change in stool character, hematochezia or melena : Denies: flank pain, difficulty voiding, dysuria, urinary frequency, urinary urgency, urinary hesitancy or hematuria Musc: Denies: neck pain, back pain, extremity pain, joint swelling, joint warmth or deformity Neuro: Denies: headache(s), numbness in extremities, weakness in extremities, sensory changes, difficulty walking, frequent falls, dizziness, vertigo, behavioral changes, Slurred speech present or seizure-like activity Psych: Denies: anxiety, depression, suicidal ideation or homicidal ideation Endo: Denies: polyuria, polydipsia, tired all the time, cold intolerance or hot flashes August/Lymph: Denies: easy bruising or easy bleeding Medications/Allergies Home Medications Medication Instructions Recorded Confirmed Last Taken Type aspirin 81 mg tablet,delayed 81 mg PO DAILY 09/13/19 02/22/22 02/22/22 History release (Adult Low Dose Aspirin) carbamazepine 100 mg 100 mg PO BID 09/13/19 02/22/22 02/22/22 History capsule,extended release [id number] clopidogrel 75 mg tablet (Plavix) 75 mg PO DAILY 09/13/19 02/22/22 02/22/22 History duloxetine 60 mg capsule,delayed 60 mg PO DAILY 09/13/19 02/22/22 02/22/22 History release (Cymbalta) gabapentin 300 mg capsule 300 mg PO TID 09/13/19 02/22/22 02/22/22 History alprazolam 0.25 mg tablet 0.25 mg PO Q6H PRN #0 09/19/19 02/22/22 02/22/22 History diphenhydramine HCl 25 mg capsule 25 mg PO Q6H PRN 09/19/19 02/22/22 09/22/19 History (Benadryl) insulin degludec 100 unit/mL (3 46 unit SUBCUT BEDTIME #0 09/19/19 02/22/22 02/21/22 History mL) subcutaneous pen (Tresiba FlexTouch U-100 insulin) nitroglycerin 0.4 mg sublingual 0.4 mg SUBLINGUAL Q5M PRN #0 09/19/19 02/22/22 02/22/22 History tablet (Nitrostat) omeprazole 40 mg capsule,delayed 40 mg PO DAILY #0 09/19/19 02/22/22 02/22/22 History release polyethylene glycol 3350 17 gram 17 g PO BID 09/19/19 02/22/22 02/22/22 History oral powder packet (Miralax) topiramate 50 mg tablet (Topamax) 50 mg PO BID 09/19/19 02/22/22 02/22/22 History ice bag (Cold Pack) #1 each 10/01/19 02/22/22 Unknown Rx cetirizine 10 mg tablet (Zyrtec) 10 mg PO DAILY tab 03/30/20 02/22/22 02/22/22 History docusate sodium 100 mg capsule 100 mg PO DAILY 03/30/20 02/22/22 02/22/22 History metoprolol tartrate 50 mg tablet 25 mg PO BID tab 03/30/20 02/22/22 02/22/22 History acetaminophen 325 mg tablet 650 mg PO Q6H PRN 11/09/20 02/22/22 Unknown History amitriptyline 25 mg tablet 25 mg PO BEDTIME 11/09/20 02/22/22 02/21/22 History fluticasone propionate 50 1 spray INTRANASAL BID 11/09/20 02/22/22 02/22/22 History mcg/actuation nasal spray,suspension hydrocodone 5 mg-acetaminophen 325 1 tab PO BID PRN 11/09/20 02/22/22 02/22/22 History mg tablet isosorbide mononitrate 30 mg 30 mg PO DAILY 11/09/20 02/22/22 02/22/22 History tablet,extended release 24 hr losartan 25 mg tablet 25 mg PO DAILY 11/09/20 02/22/22 02/22/22 History magnesium hydroxide 400 mg/5 mL 30 ml PO DAILY PRN 11/09/20 02/22/22 Unknown History oral suspension (Milk of Magnesia) zinc 50 mg tablet 50 mg PO DAILY 11/09/20 02/22/22 02/22/22 History Custom Acommadative Orthotics with #1 ea 06/23/21 02/22/22 Unknown Rx Diabetic Shoes with Extra Depth diclofenac sodium 1 % topical gel 4 g TOPICAL QID #100 g 01/31/22 02/22/22 02/22/22 Rx ondansetron HCl 4 mg tablet 4 mg PO DAILY 02/22/22 02/22/22 02/22/22 History quetiapine 50 mg tablet (Seroquel) 50 mg PO BEDTIME 02/22/22 02/22/22 02/21/22 History simethicone 125 mg capsule 125 mg PO TID PRN 02/22/22 02/22/22 Unknown History Allergies Allergy/AdvReac Type Severity Reaction Status Date / Time clonidine Allergy Unknown Verified 02/22/22 19:53 insulin detemir Allergy Unknown Verified 02/22/22 19:53 [From Levemir U-100 Insulin] metronidazole [From Flagyl] Allergy Unknown Verified 02/22/22 19:53 oxybutynin Allergy Unknown Verified 02/22/22 19:53 prochlorperazine Allergy Unknown Verified 02/22/22 19:53 PFSH Acute PFSH: Medical History Anemia Charcot's joint of left foot Chronic low back pain Complete small bowel obstruction Depression Diabetes DVT (deep venous thrombosis) Hypertension Invasive ductal carcinoma of right breast [id number] Myocardial infarction Polymyalgia Polyneuropathy Presence of vena cava filter Pulmonary emboli Surgical History History of appendectomy History of cholecystectomy History of colonoscopy Years ago. History of gastric surgery History of hysterectomy History of lymph node dissection of right axilla sentinel lymph node biopsy with right mastectomy History of right breast biopsy (~08/2019) History of rotator cuff surgery Bilateral Status post left knee replacement Status post left mastectomy Status post right knee replacement Status post right mastectomy Family History Mother Hypertension Cancer Father Diabetes CAD (coronary artery disease) Myocardial infarction Denies family history of Anesthesia complication Bleeding disorder Social History Smoking and tobacco status: never smoked Second hand smoke exposure: No Alcohol intake: never Adopted: No Caregiver/support person: Yes Lives independently: Yes Household members: family Housing: Custodial Marital status: Single Highest education level completed: High School Graduate service: No Current occupational status: retired Current occupational exposures/hazards: No Pets and animals: No History of recent travel: No Sexually active: No Current gender identity: Female Lanette/Adventist: Restoration Special lanette needs: No Agree to transfusion: No Financial difficulty paying for basics: Decline to Answer Vitals/I&O/Wt Last Vital Signs Temp 98.4 F 02/22/22 17:52 Pulse 118 H 02/22/22 22:00 Resp 18 02/22/22 20:55 BP 117/91 02/22/22 20:55 Pulse Ox 94 02/22/22 20:55 02/22/22 02/22/22 02/23/22 14:59 22:59 06:59 Output Total 600 / 600 1449 / 2049 Balance -600 / -600 -1450 / -2049 Weight last 48 hrs Weight 109.769 kg Physical Exam Narrative: General: No acute distress, AO x3 HEENT: PERRLA, pupils bilaterally equal and reactive, pallors not present Chest: equal good air entry bilaterally, scattered crackles on auscultation CVS: S1-S2 regular, no murmurs, no tachycardia, no gallops, no rubs Abdomen: Soft, nontender, no organomegaly, bowel sounds present Extremities: no edema, clubbing or cyanosis Data : 02/22/22 17:34 02/22/22 17:34 Other data: Radiology Impressions Chest X-Ray 02/22/22 17:55 IMPRESSION: No acute cardiopulmonary abnormality. Chest CTA 02/22/22 18:08 IMPRESSION: 1. Ground-glass opacities in the upper lungs bilaterally, similar in character both mildly progressive since 12/31/2015. Possible recurrent acute process such as pulmonary edema or atypical infection. Findings could represent chronic interstitial lung disease. 2. No pulmonary embolism. 3. Tracheobronchomalacia. 4. Dilated central pulmonary arteries suggests pulmonary hypertension. 5. Incidental findings above. Laboratory Results WBC 8.4 10^3/uL (4.0-10.0) 02/22/22 17:34 RBC 3.97 10^6/uL (4.1-5.3) L 02/22/22 17:34 Hgb 11.0 g/dL (11.5-15.3) L 02/22/22 17:34 Hct 34.5 % (37.0-47.0) L 02/22/22 17:34 MCV 86.9 fl (81-99) 02/22/22 17:34 MCH 27.7 pg (28.0-34.0) L 02/22/22 17:34 MCHC 31.9 g/dL (30.0-36.0) 02/22/22 17:34 RDW 13.0 % (12.1-15.1) 02/22/22 17:34 Plt Count 286 10^3/cmm (130-400) 02/22/22 17:34 MPV 9.0 fL (7.4-10.4) 02/22/22 17:34 Neut % (Auto) 56.8 % 02/22/22 17:34 Lymph % (Auto) 28.6 % 02/22/22 17:34 Nicholas % (Auto) 9.5 % 02/22/22 17:34 Eos % (Auto) 4.0 % 02/22/22 17:34 Baso % (Auto) 0.7 % 02/22/22 17:34 Neut # (Auto) 4.79 10^3/uL (1.8-7.7) 02/22/22 17:34 Lymph # (Auto) 2.4 10^3/uL (0.8-4.8) 02/22/22 17:34 Nicholas # (Auto) 0.8 10^3/uL (0.2-0.9) 02/22/22 17:34 Eos # (Auto) 0.3 10^3/uL (0.0-0.8) 02/22/22 17:34 Baso # (Auto) 0.1 10^3/uL (0.0-0.1) 02/22/22 17:34 Nucleated RBC % (auto) 0 % 02/22/22 17:34 Nucleated RBCs # 0.0 /100WBC 02/22/22 17:34 D-Dimer 0.78 ug/mIFEU (0-0.59) H 02/22/22 17:34 Sodium 129 mmol/L (136-145) L 02/22/22 17:34 Potassium 4.0 mmol/L (3.5-5.1) 02/22/22 17:34 Chloride 94 mmol/L (98-107) L 02/22/22 17:34 Carbon Dioxide 26 mmol/L (22-29) 02/22/22 17:34 Anion Gap 13.0 (5-19) 02/22/22 17:34 BUN 12 mg/dL (8-23) 02/22/22 17:34 Creatinine 0.6 mg/dL (0.5-0.9) 02/22/22 17:34 GFR Calculation Not Reportable 02/22/22 17:34 Glucose 109 mg/dL (65-115) 02/22/22 17:34 Calculated Osmolality 268 mOsm/kg (285-295) L 02/22/22 17:34 Calcium 9.2 mg/dL (8.5-10.5) 02/22/22 17:34 Total Bilirubin 0.3 mg/dL (0.15-1.2) 02/22/22 17:34 AST 12 U/L (0-32) 02/22/22 17:34 ALT 10 U/L (0-33) 02/22/22 17:34 Alkaline Phosphatase 198 IU/L (35-105) H 02/22/22 17:34 Troponin T Baseline 12 ng/L (0-10) H 02/22/22 17:34 Troponin T 120 Minute 11.36 ng/L (0-10) H 02/22/22 19:32 Delta Troponin T -0.64 ABS# (0-10) L 02/22/22 19:32 Troponin T Hi Sens 6Hr 12.95 ng/L (0-10) H 02/22/22 22:58 Troponin T Hi Sens 6Hr Delta 0.95 ng/L (0-12) 02/22/22 22:58 NT-Pro-B Natriuret Pep 1248 pg/mL (0-450) H 02/22/22 17:34 Total Protein 7.7 g/dL (6.6-8.7) 02/22/22 17:34 Albumin 3.8 g/dL (3.5-5.2) 02/22/22 17:34 Globulin 3.9 g/dL (1.3-4.6) 02/22/22 17:34 SARS-CoV-2 Ag (Rapid) Negative (Negative) 02/22/22 20:50 A&P Assessment and plan (1) Chest pain: Presenting with atypical chest pain EKG with non specific atrial tachycardia , no acute ST-T wave changes Troponin delta not suggestive of NSTEMI at 2 hrs, pending 6 hrs troponin Last stress test from 2014 abnormal - followed by angiogram with non obstructive CAD Prn morphine and S/L nitroglycerin for pain currently Likely proceed with stress test once volume optimized Echo from 2018 with mild pulmonary HTN, PASP 47, mild Av stenosis , LVEF 84% CTA negative for PE continue imdur, ASA 81. Plavix in the interim Status: Acute (2) Atrial tachycardia: Metorpolol 5mg now followed by po dosing Status: Acute (3) CHF (congestive heart failure): Last echo as above Suggestive of mild pulm HTN additionally Elevated BNP and mild infiltrates on CTA may represnt pulmonary edema received 40mg iv lasix thus far, monitor I/O Lasix 20mg iv daily Status: Acute (4) Pulmonary hypertension: Status: Acute Attestations Medical Necessity Statement*: anticipate >2midnight admission for acute on chronic preserved EF heart failure, angina, stress test Coding Level of Care Code Acute Gas Fitter Helper for g Fwd Diagnoses Chest pain R07.9 Atrial tachycardia I47.1 CHF (congestive heart failure) I50.9 Pulmonary hypertension I27.20
[2022-02-23] MEDS: ALPRAZolam 0.5 mg Tablet 0.25 MG PO ×2 (02:30→15:56)
[2022-02-23] MEDS: enoxaparin 40 mg/0.4 mL Syringe SUBCUT (04:57)
[2022-02-23] MEDS: FUROsemide 10 mg/mL SDV 2mL 20 MG IVP (04:57)
--- NOTE | 2022-02-23 07:58 | PC.NURSE ---
received bedside report. pt awake, assisted to the bedside commode, reviewed poc and assumed care of patient.
[2022-02-23 08:40] LABS: Basophils # 0.1 10^3/uL (0.0-0.1); Basophils % 0.7 %; Eosinophils # 0.3 10^3/uL (0.0-0.8); Eosinophils % 4.8 %; Hematocrit 39.8 % (37.0-47.0); Hemoglobin 12.7 g/dL (11.5-15.3); Lymphocytes # 1.4 10^3/uL (0.8-4.8); Lymphocytes % 20.4 %; Mean Corpuscular HGB Conc 31.9 g/dL (30.0-36.0); Mean Corpuscular Hemoglobin 27.7 pg (28.0-34.0); Mean Corpuscular Volume 86.9 fl (81-99); Mean Platelet Volume 8.9 fL (7.4-10.4); Monocytes # 0.6 10^3/uL (0.2-0.9); Monocytes % 9.1 %; Neutrophils # 4.36 10^3/uL (1.8-7.7); Neutrophils % 64.9 %; Nucleated Red Blood Cells % 0 %; Platelet Count 274 10^3/cmm (130-400); Red Blood Count 4.58 10^6/uL (4.1-5.3); Red Cell Distribution Width 13.1 % (12.1-15.1); White Blood Count 6.7 10^3/uL (4.0-10.0)
[2022-02-23 08:53] LABS: Alanine Aminotransferase 10 U/L (0-33); Albumin Level 3.8 g/dL (3.5-5.2); Alkaline Phosphatase 218 IU/L (35-105); Aspartate Amino Transferase 15 U/L (0-32); Blood Urea Nitrogen 11 mg/dL (8-23); Calcium 8.9 mg/dL (8.5-10.5); Carbon Dioxide 27 mmol/L (22-29); Chloride 96 mmol/L (98-107); Glucose 119 mg/dL (65-115); Osmolality Calculated 279 mOsm/kg (285-295); Sodium 134 mmol/L (136-145); Total Bilirubin 0.4 mg/dL (0.15-1.2); Total Protein 7.8 g/dL (6.6-8.7)
[2022-02-23 08:55] LABS: Anion Gap 15.2 (5-19); Potassium 4.2 mmol/L (3.5-5.1)
[2022-02-23] MEDS: losartan 50 mg Tablet 25 MG PO (10:09)
[2022-02-23] MEDS: aspirin 81 mg EC Tablet PO (10:09)
[2022-02-23] MEDS: isosorbide mononitrate ER 30 mg Tablet PO (10:10)
[2022-02-23] MEDS: clopidogrel 75 mg Tablet PO (10:10)
[2022-02-23] MEDS: gabapentin 300 mg Capsule PO ×3 (10:10→22:42)
[2022-02-23] MEDS: duloxetine 60 mg Capsule PO (10:10)
[2022-02-23] MEDS: metoprolol tartrate 50 mg Tablet PO ×2 (10:11→18:13)
[2022-02-23] MEDS: topiramate 25 mg Tablet 50 MG PO ×2 (10:11→18:13)
[2022-02-23] MEDS: pantoprazole DR 40 mg Tablet PO (10:11)
[2022-02-23] MEDS: metoprolol tartrate 1 mg/1 mL SDV 5 mL 5 MG IVP (10:29)
[2022-02-23] MEDS: carBAMazepine 200 mg Tablet 100 MG PO ×2 (10:29→18:13)
[2022-02-23 11:55] LABS: Glucose Point of Care 121 mg/dL (70-110)
[2022-02-23] MEDS: HYDROcodone-acetaminophen 5-325 mg Tablet 1 TAB PO (13:06)
--- NOTE | 2022-02-23 13:07 | P.PN_ITS ---
Subjective Subjective: Admitted overnight. Examination lying comfortably in bed. On room air. Denies any shortness of breath but does states she gets out of breath when laying flat. Asking why she is not going for stress test today. We discussed because she is having tachycardia. Patient states that she is now get ting stress test tomorrow she would rather be discharged back to detention even if heart rate is elevated. Denies any nausea vomiting, headache currently. States she thought that she is having heart attack yesterday with chest pain. Vitals/I&O/Wt Last Vital Signs Temp 98.5 F 02/23/22 12:03 Pulse 103 H 02/23/22 12:03 Resp 17 02/23/22 12:03 BP 123/86 02/23/22 12:03 Pulse Ox 95 02/23/22 12:03 02/22/22 02/23/22 02/23/22 22:59 06:59 14:59 Output Total 600 / 600 2350 / 2950 600 / 600 Balance -600 / -600 -2350 / -2950 -600 / -600 Weight last 48 hrs Weight 109.769 kg Physical Exam Narrative: General: No acute distress, AO x3 HEENT: PERRLA, pupils bilaterally equal and reactive, pallors not present Chest: equal good air entry bilaterally, scattered crackles on auscultation CVS: S1-S2 regular, no murmurs, no tachycardia, no gallops, no rubs Abdomen: Soft, nontender, no organomegaly, bowel sounds present Extremities: no edema, clubbing or cyanosis Data : 02/23/22 08:00 02/23/22 08:00 A&P Assessment and plan (1) Atrial tachycardia: Possible afib as well. Most likely patinet would need outpatient event monitor. C/w metoprolol 50 mg BID. Start on cardizem drip. Will try to transition to oral cardizem. Hold off on AC for now. Status: Acute (2) Chest pain: Presenting with atypical chest pain. Most likely 2/2 to palpitation. EKG with non specific atrial tachycardia , no acute ST-T wave changes Troponin delta not suggestive of NSTEMI. Check A1, lipid panel. Repeat Echo. Echo from 2018 with mild pulmonary HTN, PASP 47, mild Av stenosis , LVEF 84% Last stress test from 2014 abnormal - followed by angiogram with non obstructive CAD. PRN morphine and S/L nitroglycerin for pain currently Plan for stress test in AM. CTA negative for PE continue imdur, ASA 81. Plavix in the interim Status: Acute (3) CHF (congestive heart failure): Last echo as above Suggestive of mild pulm HTN additionally Elevated BNP and mild infiltrates on CTA may represnt pulmonary edema Monitor I/o. Monitor weight. Fluid restriction 1500 cc Lasix 20mg iv daily Status: Acute (4) Pulmonary hypertension: Status: Acute Plan Hypertension: Goal blood pressure less than 140/90 mmHg. Cardizem has been added to control heart rate better. Continue with Imdur. For now hold off on losartan. Continue other chronic medications including Seroquel, topiramate, Neurontin, Cymbalta, carbamazepine, amitriptyline. Analgesia: Hydrocodone 5 mg twice daily as needed, Tylenol as needed every 6 hourly Glycemic control: Insulin sliding scale at moderate-dose protocol, Levemir 46 units at bedtime Nutrition: Cardiac carb consistent diet CODE STATUS: DNR/DNI. Confirmed with patient at bedside PUD prophylaxis: Protonix DVT prophylaxis: Lovenox for DVT prophylaxis Discharge planning: Plan to discharge back to detention once medically cleared Continue with care at CSU level Attestations Medical Necessity Statement*: Requires further hospitalization for management of atypical chest pain in setting of atrial fibrillation while ischemic etiology is ruled out Time Spent in Patient Care: Greater than 35 minutes Coding Level of Care Code Acute Steward/Stewardess Dining Room for Quang Fwd Diagnoses Chest pain R07.9 Atrial tachycardia I47.1 CHF (congestive heart failure) I50.9 Pulmonary hypertension I27.20
[2022-02-23] MEDS: diclofenac 1% Topical Gel 100 gm 8 APPLIC TOPICAL ×3 (13:08→22:42)
--- NOTE | 2022-02-23 13:50 | ECG_ITS ---
[facility] Test Date: 2022-02-24 Pat Name: Nubia Love Department: Room: 277 Gender: Female Cupola Melter Helper: Corie Fontenot : 1945 Requested By: Donovan Pierce Order Number: [id number] MD: Brandi Pineda M.D. Interpretive Statements NAME OF STUDY: LEXISCAN SESTAMIBI STRESS TEST INDICATION: Unstable angina PROCEDURE: At the baseline, the blood pressure was 100/67 mmHg with a heart rate of 120 bpm. The electrocardiogram showed atrial flutter with rapid regular response at [address]-T wave changes. The Lexiscan was infused over a period of 20 seconds. A total of 0.4 milligrams of Lexiscan was infused. The stress phase was continued for a total of 5 minutes. Heart rate at the end of the stress phase was 118 bpm with a blood pressure of 225/66 mmHg. The EKG at the peak infusion revealed no significant ST-T wave changes. Sestamibi was injected 20 seconds after the Lexiscan infusion. Blood pressure at the end of the recovery phase was 117/77 mmHg with a heart rate of 118 beats per minute. CONCLUSION: 1. No significant EKG changes with the LexiScan infusion. Interpretation limited by baseline ST-T changes. 2. No LexiScan induced chest pain or cardiac arrhythmia. 3. Normal blood pressure and heart rate response. 4. Sestamibi/sestamibi perfusion scan pending; see separate report. Electronically Signed On 02-24-2022 12:02:59 CDT by Brandi Pineda M.D. [id number]
[2022-02-23] MEDS: dilTIAZem 5 mg/mL SDV 5 mL 10 MG IVP (16:47)
[2022-02-23] MEDS: dilTIAZem 30 mg Tablet PO (16:47)
[2022-02-23 17:29] LABS: Glucose Point of Care 131 mg/dL (70-110)
[2022-02-23 18:29] LABS: Iron 42 ug/dL (37-145); Percent Saturation 17.8 % (20-50); Thyroid Stimulating Hormone 2.65 uIU/mL (0.27-4.20); Total Iron Binding Capacity 235 mcg/dl; Unsaturated Iron Binding 193 ug/dL (112-347)
[2022-02-23 20:58] LABS: Glucose Point of Care 189 mg/dL (70-110)
--- NOTE | 2022-02-23 21:35 | PC.NURSE ---
Called and spoke with regarding patients BP dropping SBP in 90s on Cardizem drip, patient symptomatic. Drip had be put on Hold and patient put in trendelenburg position. Order to hold PO dose of Cardizem at 9pm. Patient blood pressure improved after 1 hour and Cardizem was left off as heart rate was controlled.
[2022-02-23] MEDS: amitriptyline 25 mg Tablet PO (22:42)
[2022-02-23] MEDS: quetiapine 25 mg Tablet 50 MG PO (22:42)
[2022-02-23] MEDS: insulin lispro 100 unit/1 mL SUBCUT (22:43)
[2022-02-24] VITALS (11 sets, daily range): BP systolic 96–196; BP diastolic 65–93; PULSE 66–118; RESP 15–24; TEMP 36.7–37.1; O2SAT 95–98
[2022-02-24 02:33] LABS: Basophils # 0.1 10^3/uL (0.0-0.1); Basophils % 0.8 %; Eosinophils # 0.4 10^3/uL (0.0-0.8); Hematocrit 34.4 % (37.0-47.0); Hemoglobin 11.4 g/dL (11.5-15.3); Lymphocytes # 1.9 10^3/uL (0.8-4.8); Lymphocytes % 24.6 %; Mean Corpuscular HGB Conc 33.1 g/dL (30.0-36.0); Mean Corpuscular Hemoglobin 27.7 pg (28.0-34.0); Mean Corpuscular Volume 83.7 fl (81-99); Monocytes # 0.9 10^3/uL (0.2-0.9); Monocytes % 12.2 %; Neutrophils # 4.31 10^3/uL (1.8-7.7); Neutrophils % 57.1 %; Nucleated Red Blood Cells % 0 %; Platelet Count 301 10^3/cmm (130-400); Red Blood Count 4.11 10^6/uL (4.1-5.3); Red Cell Distribution Width 13.1 % (12.1-15.1); White Blood Count 7.6 10^3/uL (4.0-10.0)
[2022-02-24 02:57] LABS: Estmated Average Glucose 180; Hemoglobin A1C 7.9 % (4.0-6.0)
[2022-02-24 02:58] LABS: Alanine Aminotransferase 10 U/L (0-33); Albumin Level 3.3 g/dL (3.5-5.2); Alkaline Phosphatase 195 IU/L (35-105); Anion Gap 13.4 (5-19); Aspartate Amino Transferase 16 U/L (0-32); Blood Urea Nitrogen 13 mg/dL (8-23); Carbon Dioxide 25 mmol/L (22-29); Chloride 98 mmol/L (98-107); Chol HDL Ratio 3.67 mg/dL (0.0-4.40); Cholesterol 169 mg/dL (0-200); Globulin 4.1 g/dL (1.3-4.6); Glucose 94 mg/dL (65-115); HDL Cholesterol 46 mg/dL (60-100); LDL Cholesterol Calculated 102 mg/dL (50-129); Osmolality Calculated 276 mOsm/kg (285-295); Potassium 3.4 mmol/L (3.5-5.1); Sodium 133 mmol/L (136-145); Total Bilirubin 0.4 mg/dL (0.15-1.2); Total Protein 7.4 g/dL (6.6-8.7); Triglycerides 106 mg/dL (0-150); VLDL Cholestrol Calculation 21 mg/dL (0-30)
[2022-02-24] MEDS: enoxaparin 40 mg/0.4 mL Syringe SUBCUT (04:16)
[2022-02-24] MEDS: FUROsemide 10 mg/mL SDV 2mL 20 MG IVP (04:17)
[2022-02-24] MEDS: dilTIAZem 30 mg Tablet PO (04:17)
[2022-02-24 05:15] LABS: Add Urine Culture? Yes; Add Urine Microscopic? YES; Bacteria Urine 4+ /hpf; Bilirubin Urine Neg (Negative); Blood Urine Neg (Negative); Glucose Urine UA Norm (Normal); Ketones Urine Negative (Negative); Leukocyte Esterase Urine 2+ (Negative); Nitrate Urine Negative (Negative); Protein Urine Neg (Negative); RBC Urine 0-4 /hpf (0-2); Squamous Epithelial Cell Urine 0-4 /hpf (0-5); Sulfosalicylic Acid Urine Negative (Negative); Urine Appearance SL Hazy (CLEAR); Urine Color Yellow (Yellow); Urobilinogen Urine Norm (Negative); WBC Urine >100 /hpf (0-5); pH Urine 8 (5-7)
[2022-02-24 06:26] LABS: Glucose Point of Care 151 mg/dL (70-110)
[2022-02-24] MEDS: HYDROcodone-acetaminophen 5-325 mg Tablet 1 TAB PO (07:55)
[2022-02-24] MEDS: regadenoson 0.4 Mg/5 ml Syringe IVP (07:55)
--- NOTE | 2022-02-24 07:57 | PC.NURSE ---
patient request PRN pain medication during stress test for 06/06 back pain PRN hydrocondone administered at this time Respirations even and unlabored no signs of distress
[2022-02-24] MEDS: docusate sodium 100 mg Capsule PO (09:09)
[2022-02-24] MEDS: topiramate 25 mg Tablet 50 MG PO ×2 (09:09→17:53)
[2022-02-24] MEDS: metoprolol tartrate 50 mg Tablet PO ×2 (09:10→17:52)
[2022-02-24] MEDS: aspirin 81 mg EC Tablet PO (09:10)
[2022-02-24] MEDS: duloxetine 60 mg Capsule PO (09:10)
[2022-02-24] MEDS: clopidogrel 75 mg Tablet PO (09:10)
[2022-02-24] MEDS: pantoprazole DR 40 mg Tablet PO (09:10)
[2022-02-24] MEDS: gabapentin 300 mg Capsule PO ×3 (09:10→20:39)
[2022-02-24] MEDS: carBAMazepine 200 mg Tablet 100 MG PO ×2 (09:13→17:52)
[2022-02-24] MEDS: polyethylene glycol 3350 Pkt 17 gm PO (09:14)
--- NOTE | 2022-02-24 10:52 | PC.CHAP ---
Pastoral Care Encounter/Spiritual Assessment Type of Contact [] Declined superintendent stevedoring visit [] Patient/Family/Request visit [] Outpatient visit [] Follow-up visit [] Physician referral [] Code/Alert [x] Routine visit [] Staff referral [] Actively dying [] Patient sleeping [] Family support [] [] Out of room [x] Palliative care [] [x] Receiving care in room [] Pre-surgical visit [] Trauma [] Long length of stay [] ICU visit [x] Other:with saff care Relational/Emotional Strength [] Patient feels connected with others/family/visitors/staff [] Distress [] Loneliness/isolation [] Abandonment Spirituality of Patient [] Person of Lantete [] Attends Yarsanism of their Lanette [] Believes in Prayer [] Reads Bible or Orthodox materials [] There are Spiritual issues to be addressed Forestry Extension Specialist Interventions [] Prayer [] Active listening [] Non-anxious presence [] Spiritual/emotional support [] Crisis/trauma care [] Spiritual counseling [] Bereavement support [] Provided bereavement packet [] Provided Bible/devotional materials [] Provided toy/stuffed animal, coloring book to patient or family member [] Provided Communion [] Anointing/Mcbrides [] Salvation [] Completed spiritual assessment [] Other: Impact on Illness or Injury [] Angry [] Fearful [] Anxious [] Often cries [] Exhaustion [] Unable to work [] Unable to attend uatsdin [] Unable to walk/stand [] Unable to read [] Unable to drive [] Unable to eat/drink [] Unable to sleep [] Unable to be with family [] Patient intubated [] Other: Summary with saff care Time spent with patient 5 mins
[2022-02-24] MEDS: diclofenac 1% Topical Gel 100 gm 8 APPLIC TOPICAL ×2 (11:18→17:51)
[2022-02-24 11:46] LABS: Glucose Point of Care 241 mg/dL (70-110)
--- NOTE | 2022-02-24 11:54 | USCV_ITS ---
Nubia Love Age: 76 Gender: F : 1945 Exam Date: 02/24/2022 15:49 Ordering Phys: Donovan Pierce MD Technologist: MARIA EUGENIA Exam Location[place] [facility] [place] Indication: Atrial fibrillation with rapid ventricular response. BP: 100 / 72 HR: 112 Rhythm: Atrial fibrillation Technical Quality: Adequate MEASUREMENTS (Male / Female) Normal Values 2D ECHO LV Diastolic Diameter PLAX 5.2 cm 4.2 - 5.9 / 3.9 - 5.3 cm LV Systolic Diameter PLAX 4.0 cm IVS Diastolic Thickness 1.3 cm 0.6 - 1.0 / 0.6 - 0.9 cm IVS Systolic Thickness 1.5 cm LVPW Diastolic Thickness 1.3 cm 0.6 - 1.0 / 0.6 - 0.9 cm LVPW Systolic Thickness 1.2 cm LVOT Diameter 2.1 cm LV Ejection Fraction 2D Teich 46.9 % LV Ejection Fraction MOD 2C 31.9 % LV Ejection Fraction 2C AL 31.3 % LA Diameter 5.0 cm LA Width 3.9 cm LA Height 6.8 cm RA Width 3.4 cm RA Height 6.3 cm Aorta at Sinotubular Diameter 2.9 cm IVC Diameter 2.1 cm M-MODE Aortic Annulus Diameter 3.2 cm LA Ao Ratio MM 1.5 MV E Point Septal Separation 0.5 cm DOPPLER AV Peak Velocity 187.0 cm/s LVOT Peak Velocity 78.0 cm/s AV Area Cont Eq vti 1.2 cm squared AV Area Cont Eq pk 1.5 cm squared MV Peak Velocity 166.0 cm/s MV Area PHT 4.2 cm squared MV E' Velocity 76.0 cm/s Mitral E to MV E' Ratio 19.9 Mitral E to LV E' Lateral Ratio 20.2 Mitral E to LV E' Septal Ratio 19.9 TR Peak Velocity 256.0 cm/s TR Peak Gradient 26.2 mmHg TV Peak E Velocity 1.0 cm/s Right Atrial Pressure 10.0 mmHg Pulmonary Artery Systolic Pressu 36.2 mmHg PV Peak Velocity 110.0 cm/s RV Acceleration Time 0.1 s RV Ejection Time 0.3 s RV AcT/ET 0.3 FINDINGS Left Ventricle Normal left ventricular cavity size. Mildly decreased left ventricular systolic function. Left ventricular ejection fraction is estimated at 50 %. Mild global hypokinesis. Abnormal diastolic function. Right Ventricle Normal right ventricular size and systolic function. Right ventricular systolic pressure 36.2 mmHg. Right Atrium Normal right atrial size. Right atrial pressure estimated at 8 mm Hg. Left Atrium Mildly increased left atrial size. Mitral Valve Severe mitral annular calcification. No mitral valve stenosis. Mild to moderate mitral valve regurgitation. Aortic Valve Moderately thickened and calcified aortic valve. Mild aortic valve stenosis, peak velocity 1. 9 m/sec, mean gradient 6.2 mmHg, CONSUELO 1.2 cm squared. No aortic valve regurgitation. Tricuspid Valve Structurally normal tricuspid valve. No tricuspid valve stenosis. Trace tricuspid valve regurgitation. Pulmonic Valve Structurally normal pulmonic valve. No pulmonary valve stenosis. No pulmonary valve regurgitation. Pericardium No pericardial effusion. Aorta Normal size aortic root and proximal ascending aorta. IVC Dilated IVC with normal respiratory variation. CONCLUSIONS 1. Normal left ventricular cavity size. Mildly decreased left ventricular systolic function. Left ventricular ejection fraction is estimated at 50 %. Mild global hypokinesis. Abnormal diastolic function. 2. Mild pulmonary hypertension with pulmonary artery pressure estimated at 36 mm Hg. 3. Mild to moderate mitral valve regurgitation. 4. When compared to previous study dated 06/14/2018, left ventricular systolic function may have decreased. Interpretation limited by atrial fibrillation. Brandi Pineda MD (Electronically Signed) Final Date: 01 March 2022 09:39 S
--- NOTE | 2022-02-24 12:03 | PM.PN ---
Subjective Subjective: No acute events overnight. Patient's heart rate was well controlled today morning she is back in A. fib a flutter with heart rate running in 120s. It seems patient did not get 1 dose of Cardizem overnight because of borderline blood pressures. For the morning seen with family at bedside after stress test. Denies any further chest pain. Denies any nausea vomiting, headache. States breathing is better. Vitals/I&O/Wt Last Vital Signs Temp 98.5 F 02/24/22 11:36 Pulse 105 H 02/24/22 11:36 Resp 17 02/24/22 11:36 BP 104/79 02/24/22 11:36 Pulse Ox 98 02/24/22 11:36 02/23/22 02/24/22 02/24/22 22:59 06:59 14:59 Intake Total 149.333 / 587.965 4077 / 3438.324 9400 / 1183 Output Total 600 / 1200 Balance 149.333 / -450.667 550 / 99.333 1183 / 1183 Weight last 48 hrs Weight 109.769 kg Physical Exam Narrative: General: No acute distress, AO x3 HEENT: PERRLA, pupils bilaterally equal and reactive, pallors not present Chest: equal good air entry bilaterally, scattered crackles on auscultation CVS: S1-S2 regular, no murmurs, no tachycardia, no gallops, no rubs Abdomen: Soft, nontender, no organomegaly, bowel sounds present Extremities: no edema, clubbing or cyanosis Data : 02/24/22 02:00 02/24/22 02:00 A&P Assessment and plan (1) Atrial fibrillation and flutter: With RVR. Continue metoprolol 50 mg twice daily. Start on amiodarone drip after 150 mg bolus. Discussed in detail with patient and patient's DPOA/daughter Ms. Driscoll at bedside. Discussed about benefits versus risk factors of anticoagulation. For now patient would want to be on anticoagulation. Start on Eliquis 5 mg twice daily. Status: Acute (2) Unstable angina: With history of CAD and possible positive stress test in 2014. Post cardiac stress test today. Results awaited. Appreciate A1c, lipid panel. Check echocardiogram. For now continue with aspirin, Plavix, statin. Will consult cardiology depending on results of stress test. Last angiogram from 2014 showed proximal 40% LAD lesion, dominant left circulation. Status: Acute (3) CHF (congestive heart failure): Last echo as above Suggestive of mild pulm HTN additionally Elevated BNP and mild infiltrates on CTA may represnt pulmonary edema Monitor I/o. Monitor weight. Fluid restriction 1500 cc Lasix 20mg iv daily Status: Acute (4) Pulmonary hypertension: Status: Acute Plan Hypertension: Goal blood pressure less than 140/90 mmHg. Blood pressure is borderline. Continue with metoprolol as above. Hold off on Imdur for now. Continue other chronic medications including Seroquel, topiramate, Neurontin, Cymbalta, carbamazepine, amitriptyline. Analgesia: Hydrocodone 5 mg twice daily as needed, Tylenol as needed every 6 hourly Glycemic control: Insulin sliding scale at moderate-dose protocol, Levemir 46 units at bedtime Nutrition: Cardiac carb consistent diet CODE STATUS: DNR/DNI. Confirmed with patient at bedside PUD prophylaxis: Protonix DVT prophylaxis: Lovenox for DVT prophylaxis Discharge planning: Plan to discharge back to [facility] once medically cleared Continue with care at CSU level Attestations Medical Necessity Statement*: Requires further hospitalization for management of atrial fibrillation with rapid ventricular response, unstable angina in a patient with history of CAD Time Spent in Patient Care: Greater than 35 minutes Coding Level of Care Code Acute Interactive Marketing Strategist for Chg Fwd Diagnoses CHF (congestive heart failure) I50.9 Pulmonary hypertension I27.20 Atrial fibrillation and flutter I48.91; I48.92 Unstable angina I20.0
[2022-02-24] MEDS: insulin lispro 100 unit/1 mL SUBCUT ×2 (12:57→20:39)
[2022-02-24 13:39] LABS: SARS Covid-2 Antigen Negative (Negative)
--- NOTE | 2022-02-24 13:50 | NMCV_ITS ---
NM lm perf SPECT r/s* [id number] Nubia Love Age: 76 Gender: F : 1945 Exam Date: 02/24/2022 07:10 Ordering Phys: Donovan Pierce MD Technologist: KWAN Erickson Exam Location: [facility] Indications: CHEST PAIN STRESS TEST Please see separate stress test report in [facility] for full findings IMAGE PROTOCOL Rest/Stress 1 Lexiscan Day Radiopharmaceutical Dose (mCi) Administration Site Administered by Rest: Tc-99m 10.6 IV KWAN Hope Sestamibi Stress:Tc-99m 33.0 IV KWAN Hope Sestamibi Rest: 24-Feb-2022 60 Discovery 630 Stress: 24-Feb-2022 30 Discovery 630 0.4mg Lexiscan. Supine position only as patient was unable to lay prone. SPECT RESULTS Technical Quality: Excellent Raw Data Analysis: Normal Image Corrections: No attenuation or motion correction applied Summed Stress Score: 12 Summed Rest Score: 7 Summed Difference Score: 5 PERFUSION FINDINGS Small sized perfusion abnormality of basal to apical inferior and apical lateral wall on rest images with decreased tracer uptake in basal to mid inferior and basal to mid inferolateral gan on supine stress images. FUNCTIONAL RESULTS (calculated via Gated SPECT) Stress Image LV EF (%): 43 Stress EDV (mL):101 TID: 1.03 Stress ESV (mL):58 FUNCTIONAL FINDINGS: The left ventricle is normal in size. Transient Ischemia Dilatation of 1. The left ventricular ejection fraction is mildly reduced with a value of 43%. There is hypokinesis of apical inferior and apical lateral gan. IMPRESSIONS 1. Medium sized partially reversible perfusion abnormality of basal to apical inferior and basal to mid inferolateral and apical lateral gan. 2. This may represent old myocardial infarction in right coronary artery/circumflex artery territory with mild alan-infarct ischemia. 3. The left ventricular ejection fraction is mildly reduced with a value of 43%. 4. There is hypokinesis of apical inferior and lateral gan. 5. No EKG changes with Lexiscan infusion. Refer to separate report for details. Brandi Pineda MD (Electronically Signed) Final Date: 24 February 2022 11:57 S
[2022-02-24] MEDS: digoxin 250 mcg/ml INJ 2 mL 500 MCG IVP (16:36)
[2022-02-24 16:39] LABS: Glucose Point of Care 122 mg/dL (70-110)
[2022-02-24] MEDS: amitriptyline 25 mg Tablet PO (20:39)
[2022-02-24] MEDS: quetiapine 25 mg Tablet 50 MG PO (20:39)
[2022-02-24] MEDS: insulin glargine 100 units/1 mL 10 UNIT SUBCUT (20:40)
[2022-02-24] MEDS: digoxin 250 mcg/ml INJ 2 mL IVP (20:40)
[2022-02-24] MEDS: apixaban 5 mg Tablet PO (20:42)
[2022-02-25] VITALS (7 sets, daily range): BP systolic 97–135; BP diastolic 61–79; PULSE 67–90; RESP 15–22; TEMP 36.4–37.2; O2SAT 94–97
[2022-02-25 00:31] LABS: Glucose Point of Care 220 mg/dL (70-110)
[2022-02-25] MEDS: digoxin 250 mcg/ml INJ 2 mL IVP (03:55)
[2022-02-25] MEDS: FUROsemide 10 mg/mL SDV 2mL 20 MG IVP (03:55)
[2022-02-25 06:48] LABS: Glucose Point of Care 143 mg/dL (70-110)
[2022-02-25] MEDS: docusate sodium 100 mg Capsule PO (08:48)
[2022-02-25] MEDS: carBAMazepine 200 mg Tablet 100 MG PO (08:49)
[2022-02-25] MEDS: metoprolol tartrate 50 mg Tablet PO (08:49)
[2022-02-25] MEDS: HYDROcodone-acetaminophen 5-325 mg Tablet 1 TAB PO (08:51)
[2022-02-25] MEDS: pantoprazole DR 40 mg Tablet PO (08:52)
[2022-02-25] MEDS: gabapentin 300 mg Capsule PO (08:52)
[2022-02-25] MEDS: aspirin 81 mg EC Tablet PO (08:52)
[2022-02-25] MEDS: topiramate 25 mg Tablet 50 MG PO (08:52)
[2022-02-25] MEDS: duloxetine 60 mg Capsule PO (08:53)
[2022-02-25] MEDS: apixaban 5 mg Tablet PO (08:53)
[2022-02-25] MEDS: insulin lispro 100 unit/1 mL SUBCUT ×2 (08:53→12:23)
[2022-02-25] MEDS: diclofenac 1% Topical Gel 100 gm 8 APPLIC TOPICAL (10:37)
[2022-02-25] MEDS: amiodarone 200 mg Tablet PO (10:37)
[2022-02-25 10:57] LABS: Glucose Point of Care 272 mg/dL (70-110)
--- NOTE | 2022-02-25 12:38 | P.DS_ITS ---
Discharge Providers Date of Admission: 02/22/22 20:01 Date of Discharge: February 25, 2022 Attending Provider at Admission: Phuong Cunningham MD Attending Provider at Discharge: Donovan Pierce MD Primary Care Provider: Zohra Lira MD Diagnoses at Discharge Discharge Diagnosis (1) Atrial fibrillation and flutter: Status: Acute (2) Unstable angina: Status: Acute (3) CHF (congestive heart failure): Status: Acute (4) Pulmonary hypertension: Status: Acute Reason for Visit Reason for Visit: cp Brief History: Nubia Love is a 76 year old female with past medical history as outlined below, long-term resident at [facility][note 3] presenting to the emergency room today with complaints of chest pain.? Reports that the pain is located in the center of her chest and radiates towards her left shoulder and down her left arm.? States that her fingers were numb during this onset of chest pain.? She does not recall any precipitating factors.? States that pain is varying between 4 out of 10 in intensity to 8 out of 10 in intensity.? Describes the sensation as burning in nature.? Associated additional nausea.? Denies diaphoresis.? 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 Denies any fever chills.? Denies any dyspnea palpitations.? Saturating 94% on room air. Last stress test dates back to 2014 and was noted to be abnormal.? Follow-up angiogram showed LAD with proximal 40% stenosis.? Symptoms were thought to be related to angina she started on beta-blockers and nitrates. CTA today is negative for PE.? Mild GGO's in the upper lungs bilaterally, unch anged since 2016. BNP was noted to be mildly elevated, she has received Lasix 40 mg IV in the emergency room. Hospital Course Hospital Course Patient went to the hospital further evaluation and management of chest pain, atrial flutter fibrillation. At first she was started on Cardizem drip to control her heart rate. Her heart rate was difficult to control hence Cardizem drip was switched over to amiodarone drip and she was started on digoxin load after which her heart rate was being well controlled. Patient underwent Lexiscan stress test on 02/24 small size perfusion abnormality of basal to apical inferior and apical lateral wall which may represent old myocardial infarction and right coronary artery/circumflex territory with mild alan-infarct ischemia. EF on Lexiscan stress test was 43%. Jay discussed in detail with cardiology on-call. As Lexiscan results did not change much from last study done in 2014 decision was made to treat medically. Patient chest discomfort was in correlation with palpitation which as per patient has been brought upon by anxiety because of concerns for her older daughters smoking habituation. Plan was to control her heart rate better. Patient's heart rate has been well controlled on amiodarone, metoprolol specially after digoxin load. Echocardiogram was done and results are awaited. Anticoagulation was discussed in detail with patient and patient's daughter Ms. Driscoll/JASON at bedside. They were both agreeable for follow-up initiation of anticoagulation. She started on Eliquis 5 mg twice daily. She has been discharged in hemodynamically stable condition on oral amiodarone 200 mg twice daily for next 7 days followed by 20 mg daily, dose of metoprolol has been increased to 75 mg twice daily, losartan has been stopped and Imdur has been continued. She is advised to follow-up with cardiology services as an outpatient for a possible cardiac angiogram if she has repeat chest pains. Physical Exam Narrative: General: No acute distress, AO x3 HEENT: PERRLA, pupils bilaterally equal and reactive, pallors not present Chest: equal good air entry bilaterally, scattered crackles on auscultation CVS: S1-S2 regular, no murmurs, no tachycardia, no gallops, no rubs Abdomen: Soft, nontender, no organomegaly, bowel sounds present Extremities: no edema, clubbing or cyanosis Urinary Catheter Management: Garcia: Cath Placed During This Visit: no Discharge Data Studies Completed and Pending Completed Studies During Hospitalization Category Date Time Status CTA chest [CT angio chest PE protcl [id number]] Urgent Cat Scan 02/22/22 18:08 Completed Sestamibi Stress Test Request Routine Exams 02/23/22 13:50 Completed XR chest 1V portable [id number] Stat Exams 02/22/22 17:55 Completed NM lm perf SPECT r/s* [id number] Routine Nuc Med 02/24/22 13:50 Completed Pending at discharge Category Date Time Status Urine Culture Routine Lab 02/24/22 04:35 Results CV. echo complete* [id number] Routine Ultrasound 02/24/22 11:54 Taken Radiology Impressions Chest X-Ray 02/22/22 17:55 IMPRESSION: No acute cardiopulmonary abnormality. Chest CTA 02/22/22 18:08 IMPRESSION: 1. Ground-glass opacities in the upper lungs bilaterally, similar in character both mildly progressive since 12/31/2015. Possible recurrent acute process such as pulmonary edema or atypical infection. Findings could represent chronic interstitial lung disease. 2. No pulmonary embolism. 3. Tracheobronchomalacia. 4. Dilated central pulmonary arteries suggests pulmonary hypertension. 5. Incidental findings above. Lexiscan stress test: PERFUSION FINDINGS ?Small sized perfusion abnormality of basal to apical inferior and apical ?lateral wall on rest images with decreased tracer uptake in basal to mid ?inferior and basal to mid inferolateral gan on supine stress images. ?FUNCTIONAL RESULTS ? ? (calculated via Gated SPECT) ? Stress Image LV EF (%):? ? 43 ? Stress EDV (mL):101? TID:? 1.03 ? Stress ESV (mL):58 ?FUNCTIONAL FINDINGS: ?The left ventricle is normal in size. Transient Ischemia Dilatation of 1. ?The left ventricular ejection fraction is mildly reduced with a value of 43%. ?There is hypokinesis of apical inferior and apical lateral gan. ?IMPRESSIONS ?1.? Medium sized partially reversible perfusion abnormality of basal to apical ?inferior and basal to mid inferolateral and apical lateral gan. ?2.? This may represent old myocardial infarction in right coronary ?artery/circumflex artery territory with mild alan-infarct ischemia. ?3. The left ventricular ejection fraction is mildly reduced with a value of ?43%. ?4. There is hypokinesis of apical inferior and lateral gan. ?5.? No EKG changes with Lexiscan infusion.? Refer to separate report for ?details. ?Brandi Pineda MD ?(Electronically Signed) ?Final Date:? ? ? 24 February 2022 ? 11:57 Laboratory Results WBC 7.6 10^3/uL (4.0-10.0) 02/24/22 02:00 RBC 4.11 10^6/uL (4.1-5.3) 02/24/22 02:00 Hgb 11.4 g/dL (11.5-15.3) L 02/24/22 02:00 Hct 34.4 % (37.0-47.0) L 02/24/22 02:00 MCV 83.7 fl (81-99) 02/24/22 02:00 MCH 27.7 pg (28.0-34.0) L 02/24/22 02:00 MCHC 33.1 g/dL (30.0-36.0) 02/24/22 02:00 RDW 13.1 % (12.1-15.1) 02/24/22 02:00 Plt Count 301 10^3/cmm (130-400) 02/24/22 02:00 MPV 9.0 fL (7.4-10.4) 02/24/22 02:00 Neut % (Auto) 57.1 % 02/24/22 02:00 Lymph % (Auto) 24.6 % 02/24/22 02:00 Briscoe % (Auto) 12.2 % 02/24/22 02:00 Eos % (Auto) 5.0 % 02/24/22 02:00 Baso % (Auto) 0.8 % 02/24/22 02:00 Neut # (Auto) 4.31 10^3/uL (1.8-7.7) 02/24/22 02:00 Lymph # (Auto) 1.9 10^3/uL (0.8-4.8) 02/24/22 02:00 [place]iscoe # (Auto) 0.9 10^3/uL (0.2-0.9) 02/24/22 02:00 Eos # (Auto) 0.4 10^3/uL (0.0-0.8) 02/24/22 02:00 Baso # (Auto) 0.1 10^3/uL (0.0-0.1) 02/24/22 02:00 Nucleated RBC % (auto) 0 % 02/24/22 02:00 Nucleated RBCs # 0.0 /100WBC 02/24/22 02:00 D-Dimer 0.78 ug/mIFEU (0-0.59) H 02/22/22 17:34 Sodium 133 mmol/L (136-145) L 02/24/22 02:00 Potassium 3.4 mmol/L (3.5-5.1) L 02/24/22 02:00 Chloride 98 mmol/L (98-107) 02/24/22 02:00 Carbon Dioxide 25 mmol/L (22-29) 02/24/22 02:00 Anion Gap 13.4 (5-19) 02/24/22 02:00 BUN 13 mg/dL (8-23) 02/24/22 02:00 Creatinine 0.7 mg/dL (0.5-0.9) 02/24/22 02:00 GFR Calculation Not Reportable 02/24/22 02:00 Glucose 94 mg/dL (65-115) 02/24/22 02:00 POC Glucose 272 mg/dL (70-110) H 02/25/22 10:51 Estimat Average Glucose 180 02/24/22 02:00 Hemoglobin A1c 7.9 % (4.0-6.0) H 02/24/22 02:00 Calculated Osmolality 276 mOsm/kg (285-295) L 02/24/22 02:00 Calcium 9.0 mg/dL (8.5-10.5) 02/24/22 02:00 Iron 42 ug/dL (37-145) 02/23/22 13:34 TIBC 235 mcg/dl 02/23/22 13:34 % Saturation 17.8 % (20-50) L 02/23/22 13:34 Unsat Iron Binding 193 ug/dL (112-347) 02/23/22 13:34 Total Bilirubin 0.4 mg/dL (0.15-1.2) 02/24/22 02:00 AST 16 U/L (0-32) 02/24/22 02:00 ALT 10 U/L (0-33) 02/24/22 02:00 Alkaline Phosphatase 195 IU/L (35-105) H 02/24/22 02:00 Troponin T Baseline 12 ng/L (0-10) H 02/22/22 17:34 Troponin T 120 Minute 11.36 ng/L (0-10) H 02/22/22 19:32 Delta Troponin T -0.64 ABS# (0-10) L 02/22/22 19:32 Troponin T Hi Sens 6Hr 12.95 ng/L (0-10) H 02/22/22 22:58 Troponin T Hi Sens 6Hr Delta 0.95 ng/L (0-12) 02/22/22 22:58 NT-Pro-B Natriuret Pep 1248 pg/mL (0-450) H 02/22/22 17:34 Total Protein 7.4 g/dL (6.6-8.7) 02/24/22 02:00 Albumin 3.3 g/dL (3.5-5.2) L 02/24/22 02:00 Globulin 4.1 g/dL (1.3-4.6) 02/24/22 02:00 Triglycerides 106 mg/dL (0-150) 02/24/22 02:00 Cholesterol 169 mg/dL (0-200) 02/24/22 02:00 LDL Cholesterol, Calc 102 mg/dL (50-129) 02/24/22 02:00 Total VLDL Cholesterol 21 mg/dL (0-30) 02/24/22 02:00 HDL Cholesterol 46 mg/dL (60-100) L 02/24/22 02:00 Cholesterol/HDL Ratio 3.67 mg/dL (0.0-4.40) 02/24/22 02:00 TSH 2.65 uIU/mL (0.27-4.20) 02/23/22 13:34 Urine Color Yellow (Yellow) 02/24/22 04:35 Urine Appearance Sl hazy (CLEAR) 02/24/22 04:35 Urine pH 8 (5-7) H 02/24/22 04:35 Ur Specific Burke 1.010 (1.005-1.030) 02/24/22 04:35 Urine Protein Neg (Negative) 02/24/22 04:35 Urine Glucose (UA) Norm (Normal) 02/24/22 04:35 Urine Ketones Negative (Negative) 02/24/22 04:35 Urine Blood Neg (Negative) 02/24/22 04:35 Urine Nitrate Negative (Negative) 02/24/22 04:35 Urine Bilirubin Neg (Negative) 02/24/22 04:35 Prot Sulfosalicylic Acd Negative (Negative) 02/24/22 04:35 Urine Urobilinogen Norm mg/dL (Negative) 02/24/22 04:35 Ur Leukocyte Esterase 2+ (Negative) H 02/24/22 04:35 Urine RBC 0-4 /hpf (0-2) H 02/24/22 04:35 Urine WBC >100 /hpf (0-5) H 02/24/22 04:35 Ur Squamous Epith Cells 0-4 /hpf (0-5) H 02/24/22 04:35 Amorphous Sediment Not Reportable 02/24/22 04:35 Urine Bacteria 4+ /hpf (NONE) H 02/24/22 04:35 SARS-CoV-2 Ag (Rapid) Negative (Negative) 02/24/22 12:45 Vitals Last Vital Signs Temp 98.9 F 02/25/22 12:00 Pulse 88 02/25/22 12:00 Resp 19 H 02/25/22 12:00 BP 121/61 02/25/22 12:00 Pulse Ox 97 02/25/22 12:00 Discharge Plan Discharge Patient Disposition: Xfer SNF Condition: Stable Prescriptions: New amiodarone 200 mg tablet See Taper mg PO DAILY Qty: 40 0RF Taper: amiodarone 400bid to 200daily 200 mg Twice A Day for 7 Days and 0 Hour 200 mg Daily for 30 Days and 0 Hour Eliquis 5 mg Tablet 5 mg PO BID@0900,2100 Qty: 60 0RF furosemide [Lasix] 20 mg tablet 20 mg PO QAM Qty: 30 0RF Continued (DME) Custom Acommadative Orthotics with Diabetic Shoes with Extra Depth See Rx Instructions .Route .MEDSUPPLY Qty: 1 0RF Rx Instructions: As directed by [employer] diclofenac sodium 1 % gel 4 g topical QID Qty: 100 5RF Rx Instructions: Apply to single ankle, foot; for foot includes sole/toes/top of foot TOPICALLY TO AFFECTED AREA 4 TIMES PER DAY AT 07,11,17,21 duloxetine [Cymbalta] 60 mg capsule,delayed release(DR/EC) 60 mg PO DAILY 0RF gabapentin 300 mg capsule 300 mg PO TID 0RF aspirin [Adult Low Dose Aspirin] 81 mg tablet,delayed release (DR/EC) 81 mg PO DAILY 0RF carbamazepine 100 mg capsule, ER multiphase 12 hr 100 mg PO BID 0RF (DME) ice bag [Cold Pack] Misc See Rx Instructions .ROUTE .MEDSUPPLY Qty: 1 0RF Rx Instructions: As requested by patient docusate sodium 100 mg capsule 100 mg PO DAILY 0RF cetirizine [Zyrtec] 10 mg tablet 10 mg PO DAILY 0RF acetaminophen 325 mg Tablet 650 mg PO Q6H PRN (Reason: Pain) 0RF isosorbide mononitrate 30 mg Tablet Extended Release 24 Hr 30 mg PO DAILY 0RF amitriptyline 25 mg Tablet 25 mg PO BEDTIME 0RF magnesium hydroxide [Milk of Magnesia] 400 mg/5 mL Suspension 30 ml PO DAILY PRN (Reason: Constipation) 0RF zinc 50 mg Tablet 50 mg PO DAILY 0RF fluticasone propionate 50 mcg/actuation [place],Suspension 1 spray INTRANASAL BID 0RF hydrocodone-acetaminophen 5-325 mg Tablet 1 tab PO BID PRN (Reason: Pain) 0RF polyethylene glycol 3350 [Miralax] 17 gram Powder In Packet 17 g PO BID 0RF omeprazole 40 mg Capsule,Delayed Release(Dr/Ec) 40 mg PO DAILY Qty: 0 0RF topiramate [Topamax] 50 mg tablet 50 mg PO BID 0RF alprazolam 0.25 mg Tablet 0.25 mg PO Q6H PRN (Reason: Anxiety) Qty: 0 0RF Rx Instructions: 0.25 mg orally diphenhydramine HCl [Benadryl] 25 mg Capsule 25 mg PO Q6H PRN (Reason: Itching) 0RF nitroglycerin [Nitrostat] 0.4 mg Tablet, Sublingual 0.4 mg SUBLINGUAL Q5M PRN (Reason: Chest Pain) Qty: 0 0RF Tresiba FlexTouch U-100 100 unit/mL (3 mL) Insulin Pen 46 unit SUBCUT BEDTIME Qty: 0 0RF Rx Instructions: 46 UNITS AT BEDTIME Zofran 4 mg Tablet 4 mg PO DAILY 0RF simethicone 125 mg Capsule 125 mg PO TID PRN (Reason: Indigestion) 0RF Seroquel 50 mg Tablet 50 mg PO BEDTIME 0RF Changed metoprolol tartrate 50 mg tablet 75 mg PO BID Qty: 0 0RF Discontinued clopidogrel [Plavix] 75 mg tablet 75 mg PO DAILY 0RF Hold Instructions: Doctor's Order losartan 25 mg Tablet 25 mg PO DAILY 0RF Discharge Orders: Discharge Order (Routine); Ordered 02/25/22 Ordered By: Donovan Pierce Referrals: Zohra Lria MD [Primary Care Provider] - 7-10 days Brandi Pineda MD [Physician] - 7-10 days Discharge Diet: Cardiac Discharge Activity: Resume usual activity and Increase activity as tolerated Patient Instructions: Opioid Safety Activity Restrictions/Additional Instructions: Multiple medication changes have been done. Do not take Plavix. Take Eliquis 5 mg twice daily which is a blood thinner. Continue taking baby aspirin as before. Dose of metoprolol has been increased to 75 mg twice daily. Do not take losartan. Take amiodarone 200 mg twice daily for next 7 days followed by 200 mg daily. Check your blood pressure daily and maintain a blood pressure diary and follow- up with a primary care provider within next 1 week for further adjustment of antihypertensive needed. Follow-up with cardiology within next 1 week. Discharge Attestations Time Spent in Discharge Care*: greater than 30 min Specific Discharge Activities: educating patient, educating and/or supporting family/caregiver, discussing with upper caser/social workers/dc planners, documenting/other paperwork and evaluating patient/reviewing data Status at Discharge: Cognitive status at discharge: cognitively intact , Behavioral status at discharge: cooperative , Functional status at discharge: uses cane/walker , Overall status at discharge: patient is back to baseline Quality Metrics Clinical Quality Measures [ No reported AMI, CVA or VTE this stay] Coding Level of Care Code Acute [facility] FW DC note Diagnoses Atrial fibrillation and flutter I48.91; I48.92 Unstable angina I20.0 CHF (congestive heart failure) I50.9 Pulmonary hypertension I27.20
--- NOTE | 2022-02-25 13:05 | PC.SOCIAL ---
IMM Update pg 2 of IMM updated and reviewed w/ patient. Copy provided and Copy placed in chart.
--- NOTE | 2022-02-25 14:26 | PC.NURSE ---
report phoned to [facility].discharge instructions given and explained.pt verb understanding of instructions.discharged via w/c to exit.valentin to drive pt to facility.
== END 2022-02-25 14:33 | disposition skilled nursing facility (03) | DRG 291 ==
LOC: ER 18:44 → MEDSURG 20:36
PROVIDERS: Admitting Provider Student in an Organized Health Care Education/Training Program; Emergency Provider Emergency Medicine; PCP Family Medicine; Visit Provider Student in an Organized Health Care Education/Training Program
DX: I11.0 Hypertensive heart disease with heart failure (principal); I50.33 Acute on chronic diastolic (congestive) heart failure; I47.1 Supraventricular tachycardia; I48.91 Unspecified atrial fibrillation; I25.110 Atherosclerotic heart disease of native coronary artery with unstable angina pectoris; Z86.711 Personal history of pulmonary embolism; E11.610 Type 2 diabetes mellitus with diabetic neuropathic arthropathy; G89.29 Other chronic pain; M54.50 Low back pain, unspecified; F32.A Depression, unspecified; Z86.718 Personal history of other venous thrombosis and embolism; Z95.828 Presence of other vascular implants and grafts; Z85.3 Personal history of malignant neoplasm of breast; Z90.11 Acquired absence of right breast and nipple; Z96.653 Presence of artificial knee joint, bilateral; I25.5 Ischemic cardiomyopathy; I25.2 Old myocardial infarction; I27.20 Pulmonary hypertension, unspecified; I34.0 Nonrheumatic mitral (valve) insufficiency; Z66 Do not resuscitate
CPT/HCPCS: 36415; 36416; 71045; 71275; 78452; 80053; 80061; 81001; 82962; 83036; 83540; 83550; 83880; 84443; 84484; 85025; 85378; 87077; 87086; 87186; 87426; 93005; 93017; 93306; 96372; 96374; 96375; 99285; A9500; J0282; J1160; J1650; J1815; J1940; J2270; J2405; J2785; J3490; J7060; Q9967

== ENCOUNTER → 2022-04-26 13:00 | Outpatient (BNVA) | payer MEDICARE, MEDICAID, SELFPAY | PROVIDERS: PCP Family Medicine; Visit Provider Internal Medicine Cardiovascular Disease | DX: R07.9 Chest pain, unspecified (principal); I48.92 Unspecified atrial flutter; I11.0 Hypertensive heart disease with heart failure; I50.9 Heart failure, unspecified; Z86.73 Personal history of transient ischemic attack (TIA), and cerebral infarction without residual deficits | CPT/HCPCS: 99204 ==

== ENCOUNTER → 2022-05-10 09:45 | Outpatient (BNVA) | payer MEDICARE, MEDICAID, SELFPAY | PROVIDERS: PCP Family Medicine; Visit Provider Podiatrist Foot & Ankle Surgery | DX: E11.8 Type 2 diabetes mellitus with unspecified complications (principal); M14.672 Charcot's joint, left ankle and foot; Z79.4 Long term (current) use of insulin | CPT/HCPCS: 99213; 99214 ==

== ENCOUNTER → 2022-05-24 12:52 | Outpatient (BNVA) | payer MEDICARE, MEDICAID, SELFPAY | PROVIDERS: PCP Family Medicine; Visit Provider Nurse Practitioner Family | DX: I48.92 Unspecified atrial flutter (principal); I11.0 Hypertensive heart disease with heart failure; I50.9 Heart failure, unspecified | CPT/HCPCS: 93005; 99214 ==

== ENCOUNTER 2022-06-26 03:52 | Emergency (ER) | payer MEDICARE, MEDICAID, SELFPAY ==
[2022-06-26] VITALS (7 sets, daily range): BP systolic 119–197; BP diastolic 98–167; PULSE 79–108; RESP 14–22; TEMP 35.9; O2SAT 96–98; BMI 49.9
--- NOTE | 2022-06-26 04:05 | ECG_ITS ---
[facility] Test Date: 2022-06-26 Pat Name: Nubia Love Department: Room: Gender: Female [employer]: : 1945 Requested By: Indra Sanchez Order Number: [id number] MD: Wolf Fox M.D. Measurements Intervals [place] Rate: 87 P: MN: QRS: 62 QRSD: 104 T: 73 QT: 406 QTc: 489 Interpretive Statements ATRIAL FLUTTER/TACHYCARDIA ABNORMAL RHYTHM ECG Compared to ECG 02/22/2022 23:32:37 T-wave abnormality no longer present Electronically Signed On 06-26-2022 10:17:41 CDT by Wolf Fox M.D. [email or web address]
--- NOTE | 2022-06-26 04:08 | CTR_ITS ---
PROCEDURE INFORMATION: Exam: CT Head Without Contrast Exam date and time: 06/26/2022 5:07 AM Age: 77 years old Clinical indication: Injury or trauma; Fall; Blunt trauma (contusions or hematomas); Consciousness not specified; Additional info: Fall head injury TECHNIQUE: Imaging protocol: Computed tomography of the head without contrast. Radiation optimization: All CT scans at this facility use at least one of these dose optimization techniques: automated exposure control; mA and/or kV adjustment per patient size (includes targeted exams where dose is matched to clinical indication); or iterative reconstruction. COMPARISON: 1. MR head wo con* [id number] 06/14/2018 12:[address] head 06/13/2018 4:34 PM RADIATION DOSE METRICS: Total DLP (mGy-cm): 867.38 FINDINGS: Brain: No acute intracranial hemorrhage or mass effect. There is mild decreased attenuation in the periventricular white matter, likely from microvascular disease. There are small old lacunar infarcts in the left basal ganglia region. No definite acute infarct by CT. Cerebral ventricles: Ventricle size is normal for age. Paranasal sinuses: Almost complete opacification of the included upper right maxillary sinus. Included paranasal sinuses otherwise appear essentially clear. Mastoid air cells: No significant acute finding. Bones/joints: No definite acute skull fracture. Soft tissues: Evidence for prominent soft tissue injury/scalp hematomas in the occipital region. Vasculature: Vascular calcifications in the internal carotid and vertebral basilar systems. CT/CT head wo con* [id number] IMPRESSION: 1. No acute intracranial hemorrhage or mass effect. 2. Changes of microvascular disease, and small old left lacunar infarcts. 3. Other findings discussed above.
--- NOTE | 2022-06-26 04:08 | CTR_ITS ---
PROCEDURE INFORMATION: Exam: CT Cervical Spine Without Contrast Exam date and time: 06/26/2022 5:10 AM Age: 77 years old Clinical indication: Injury or trauma; Fall; Blunt trauma; Additional info: Fall head injury TECHNIQUE: Imaging protocol: Computed tomography of the cervical spine without contrast. Radiation optimization: All CT scans at this facility use at least one of these dose optimization techniques: automated exposure control; mA and/or kV adjustment per patient size (includes targeted exams where dose is matched to clinical indication); or iterative reconstruction. COMPARISON: CT cervical spin wo con* [id number] 04/09/2016 11:35 AM RADIATION DOSE METRICS: Total DLP (mGy-cm): 315.77 FINDINGS: Bones/joints: On axial CT images, no definite acute fracture is visible. Sagittal and coronal reconstructions show no acute fracture or subluxation. Very mild compression deformity of the superior aspect of T1, that appears old. This was not present on 04/09/2016, but does appear to be present on CTA thorax images from 02/22/2022. There is fusion of the C5 and C6 vertebral bodies. Mild to moderate degenerative disc changes at multiple levels. Moderate to severe facet joint arthritis at multiple levels. No definite/significant disc herniation by CT, MRI could be more sensitive if clinically indicated. Lungs: Scattered ground-glass opacities in the included right upper lung may represent atelectasis/parenchymal scarring, pneumonitis not excluded. There appears to be some associated bronchiectasis. Thyroid: Possible 5-6 mm nodule in the upper left thyroid lobe. CT/CT cervical spin wo con* [id number] IMPRESSION: 1. No definite acute fracture or subluxation by CT. 2. Other findings discussed above. COMMENTS: Consistent with the [employer]'s Incidental Findings Committee white paper (J Am Sofia Radiol 2015): In patients aged 35 years and older with an incidental thyroid nodule equal to or greater than 1.[address], MRI or extrathyroidal US, further evaluation with dedicated thyroid US is recommended for patients with normal life expectancy and without comorbidities. For smaller nodules without suspicious features, no further evaluation or follow up is recommended.
--- NOTE | 2022-06-26 04:16 | W.ED.FALL ---
HPI - Fall General: Chief Complaint: Fall Stated Complaint: FALL Time Seen by Provider: 06/26/22 03:54 History of Present Illness: 77-year-old female with a history of atrial fibrillation/flutter. She is anticoagulated. She got up to use the restroom this morning in the senior care, became dizzy upon standing up, fell backwards and struck her head. She is not sure whether she struck her head on the nightstand over the floor. She did not lose consciousness. She is acting appropriately. Bleeding is controlled with a pressure dressing. She is not complaining of any other pain. MD complaint: fall Onset (ago): minute(s) Fall from: standing Fall witnessed: no Place fall occurred: senior care/SNF Loss of consciousness: None Prolonged down time: no Symptoms prior to fall: dizziness Context: history of frequent falls Location of injury: head Severity: moderate Quality: throbbing Associated symptoms-after fall: Reports headache(s) and lightheadedness; Denies abdominal pain, chest pain, confusion, difficulty walking, hematuria, neck pain, short of breath, vertigo or weakness Review of Systems Const: Denies: fever(s) Eyes: Denies: change in vision ENMT: Denies: throat pain Card: Reports: lightheadedness; Denies: chest pain Resp: Denies: dyspnea, productive cough or non-productive cough GI: Denies: abdominal pain : Denies: hematuria Musc: Denies: neck pain Neuro: Reports: headache(s); Denies: difficulty walking, vertigo or confusion [facility] PFSH: Medical History Achilles tendinitis of both lower extremities Anemia Atrial fibrillation and flutter Charcot's joint of left foot Chronic low back pain Complete small bowel obstruction Depression Diabetes Diabetic peripheral neuropathy associated with type 2 diabetes mellitus DVT (deep venous thrombosis) History of CVA (cerebrovascular accident) Hypertension Invasive ductal carcinoma of right breast [id number] Myocardial infarction Other accident with wheelchair (powered), initial encounter Polymyalgia Polyneuropathy Presence of vena cava filter Pulmonary emboli Pulmonary hypertension Surgical History History of appendectomy History of cholecystectomy History of colonoscopy Years ago. History of gastric surgery History of hysterectomy History of lymph node dissection of right axilla sentinel lymph node biopsy with right mastectomy History of right breast biopsy (~08/2019) History of rotator cuff surgery Bilateral Status post left knee replacement Status post left mastectomy Status post right knee replacement Status post right mastectomy Family History Mother Hypertension Cancer Father Diabetes CAD (coronary artery disease) Myocardial infarction Social History Smoking and tobacco status: never smoked Second hand smoke exposure: No Alcohol intake: never Adopted: No Caregiver/support person: Yes Lives independently: Yes Household members: family Housing: Fdc Marital status: Single Highest education level completed: High School Graduate service: No Current occupational status: retired Current occupational exposures/hazards: No Pets and animals: No History of recent travel: No Sexually active: No Current gender identity: Female Lanette/Bahai: Mormon Special lanette needs: No Agree to transfusion: No Financial difficulty paying for basics: Decline to Answer Physical Exam Const: GENERAL APPEARANCE: cooperative and frail appearing; not ill appearing NUTRITIONAL APPEARANCE: obese ORIENTATION/CONSCIOUSNESS: Yes awake, Yes oriented to person and Yes oriented to place; not oriented to time HENMT: COMMON NORMALS: normocephalic and Normal external nose present HEAD & SCALP: normocephalic, contusion (Occipital), hematoma (Occipital) and scalp lesion (Occipital) FACE & SINUS: normal facial exam and face symmetric NOSE: Normal external nose present MOUTH: lip normal Eye: COMMON NORMALS: Equal, round and reactive pupils present and EOMs intact bilaterally PUPIL: Yes Equal, round and reactive pupils present Neck/C-Spine: COMMON NORMALS: full ROM GENERAL: Yes trachea midline CERVICAL SPINE: No Cervical spine tenderness Chest: CHEST: Yes Symmetrical chest wall rise Resp: COMMON NORMALS: normal respiratory effort, No use of accessory muscles and clear to auscultation bilaterally AUSCULTATION: clear to auscultation bilaterally Cardio: COMMON NORMALS: regular rate and Peripheral pulses 2+ throughout RATE: regular rate RHYTHM: abnormal rhythm PERIPHERAL PULSES: Peripheral pulses 2+ throughout GI: COMMON NORMALS: Normal to inspection, nondistended, normoactive bowel sounds present, Soft to palpation and non-tender PALPATION: Yes Soft to palpation Extremity: GENERAL: Yes edema Neuro: RUBIA COMA SCALE: document GCS findings [place]so coma scale eye opening: Spontaneous Rubia coma scale verbal response: Orientated Rubia coma scale motor response: Obey commands Rubia coma scale total score: 15 SENSORIUM/ORIENTATION: Yes oriented to person, Yes oriented to place and No oriented to time Psych: COMMON NORMALS: cooperative Skin: NARRATIVE SKIN EXAM: See above Course Vital Signs: Vital signs: Vital Signs Temperature 96.6 F L 06/26/22 03:52 Pulse Rate 79 06/26/22 04:35 Respiratory Rate 14 06/26/22 04:35 Blood Pressure 164/129 06/26/22 04:35 Pulse Oximetry 98 06/26/22 04:35 Oxygen Delivery Me thod 06/26/22 04:35 MDM - Fall Medical Decision Making 77-year-old female presenting after following senior care. She is awake, alert, and talking. She appears at her baseline mental status although she does not remember the event. She has a significant hematoma to the occipital scalp with small skin flap repaired with sutures. However, her head CT is negative. She will be allowed back to senior care. Lab Data Radiology Impressions Head CT 06/26/22 04:08 IMPRESSION: 1. No acute intracranial hemorrhage or mass effect. 2. Changes of microvascular disease, and small old left lacunar infarcts. 3. Other findings discussed above. Discharge Plan Discharge Patient Disposition: Home Clinical Impression: Concussion without loss of consciousness, Laceration of scalp Condition: Stable Prescriptions: No Action (DME) Custom Acommadative Orthotics with Diabetic Shoes with Extra Depth See Rx Instructions .Route .MEDSUPPLY Qty: 1 0RF Rx Instructions: As directed by [facility] diclofenac sodium 1 % gel 4 g topical QID Qty: 100 5RF Rx Instructions: Apply to single ankle, foot; for foot includes sole/toes/top of foot TOPICALLY TO AFFECTED AREA 4 TIMES PER DAY AT 07,11,17,21 duloxetine [Cymbalta] 60 mg capsule,delayed release(DR/EC) 60 mg PO DAILY gabapentin 300 mg capsule 300 mg PO TID aspirin [Adult Low Dose Aspirin] 81 mg tablet,delayed release (DR/EC) 81 mg PO DAILY carbamazepine 100 mg capsule, ER multiphase 12 hr 100 mg PO BID (DME) ice bag [Cold Pack] Misc See Rx Instructions .ROUTE .MEDSUPPLY Qty: 1 0RF Rx Instructions: As requested by patient docusate sodium 100 mg capsule 100 mg PO DAILY cetirizine [Zyrtec] 10 mg tablet 10 mg PO DAILY metoprolol tartrate 50 mg tablet 100 mg PO BID acetaminophen 325 mg Tablet 650 mg PO Q6H PRN (Reason: Pain) isosorbide mononitrate 30 mg Tablet Extended Release 24 Hr 30 mg PO DAILY amitriptyline 25 mg Tablet 25 mg PO BEDTIME magnesium hydroxide [Milk of Magnesia] 400 mg/5 mL Suspension 30 ml PO DAILY PRN (Reason: Constipation) zinc 50 mg Tablet 50 mg PO DAILY fluticasone propionate 50 mcg/actuation Mckin[place],Suspension 1 spray INTRANASAL BID hydrocodone-acetaminophen 5-325 mg Tablet 1 tab PO BID PRN (Reason: Pain) polyethylene glycol 3350 [Miralax] 17 gram Powder In Packet 17 g PO BID omeprazole 40 mg Capsule,Delayed Release(Dr/Ec) 40 mg PO DAILY Qty: 0 topiramate [Topamax] 50 mg tablet 50 mg PO BID alprazolam 0.25 mg Tablet 0.25 mg PO Q6H PRN (Reason: Anxiety) Qty: 0 Rx Instructions: 0.25 mg orally diphenhydramine HCl [Benadryl] 25 mg Capsule 25 mg PO Q6H PRN (Reason: Itching) nitroglycerin [Nitrostat] 0.4 mg Tablet, Sublingual 0.4 mg SUBLINGUAL Q5M PRN (Reason: Chest Pain) Qty: 0 Tresiba FlexTouch U-100 100 unit/mL (3 mL) Insulin Pen 46 unit SUBCUT BEDTIME Qty: 0 Rx Instructions: 46 UNITS AT BEDTIME ondansetron HCl 4 mg Tablet 4 mg PO DAILY simethicone 125 mg Capsule 125 mg PO TID PRN (Reason: Indigestion) Seroquel 50 mg Tablet 50 mg PO BEDTIME Eliquis 5 mg Tablet 5 mg PO BID@0900,2100 Qty: 60 0RF Lasix 20 mg tablet 20 mg PO QAM Qty: 30 0RF Discharge Orders: Discharge ED (Routine); Ordered 06/26/22 Ordered By: Indra Ramirez Referrals: Zohra Lira MD [Primary Care Provider] - 4-7 days Patient Instructions: Scalp Laceration, Concussion (ED) Activity Restrictions/Additional Instructions: Sutures out in 7 days. Return for worsening mental status, chest discomfort, vomiting other concerning symptoms. Coding Level of Care Code ED Dairy Lab Technician for Chg Fwd Exam Comprehensive
[2022-06-26] MEDS: ondansetron 2 mg/ML SDV 2 mL 4 MG IVP (04:30)
[2022-06-26] MEDS: morphine 4 mg/mL SDV 1 mL IVP (04:30)
[2022-06-26] MEDS: oxyCODONE-APAP 5-325 mg Tablet 1 TAB PO (06:08)
== END 2022-06-26 06:49 | disposition home or self-care (01) ==
PROVIDERS: Emergency Provider Emergency Medicine; PCP Family Medicine
DX: S06.0X0A Concussion without loss of consciousness, initial encounter (principal); S01.01XA Laceration without foreign body of scalp, initial encounter; Z79.82 Long term (current) use of aspirin; Z79.01 Long term (current) use of anticoagulants; E11.9 Type 2 diabetes mellitus without complications; Z86.73 Personal history of transient ischemic attack (TIA), and cerebral infarction without residual deficits; I10 Essential (primary) hypertension; I25.2 Old myocardial infarction; W18.30XA Fall on same level, unspecified, initial encounter; Y92.129 Unspecified place in nursing home as the place of occurrence of the external cause
CPT/HCPCS: 70450; 72125; 93005; 96374; 96375; 99285; J2270; J2405

== ENCOUNTER 2022-08-03 10:20 | Emergency (ER) | payer MEDICARE, MEDICAID, SELFPAY ==
[2022-08-03] VITALS (39 sets, daily range): BP systolic 97–126; BP diastolic 66–89; PULSE 77–118; RESP 18; O2SAT 94–98; BMI 39.9
--- NOTE | 2022-08-03 10:38 | ECG_ITS ---
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 Measurements Intervals [place] Rate: 117 P: 0 SD: 0 QRS: 50 QRSD: 97 T: 42 QT: 393 QTc: 550 Interpretive Statements ATRIAL FLUTTER/TACHYCARDIA WITH RAPID VENTRICULAR RESPONSE NONSPECIFIC ST & T-WAVE ABNORMALITY ABNORMAL RHYTHM ECG INTERPRETATION BASED ON A DEFAULT AGE OF 40 YEARS Compared to ECG 06/26/2022 03:59:48 T-wave abnormality now present Electronically Signed On 08-03-2022 16:15:38 EMERGENCY ROOM CLINICIAN by Wolf Fox M.D. [id number] f
--- NOTE | 2022-08-03 10:40 | XR_ITS ---
WS: [id number] EXAMINATION: XR chest 1V portable [id number] REASON FOR EXAM: dyspnea/cough COMPARISON: 02/22/2022 ORDER DATE: 08/03/2022 10:42 AM TECHNIQUE: A single, portable frontal chest x-ray was obtained. X-RAY FINDINGS: The lungs are clear. Pleural spaces are clear. No pleural effusions or pneumothorax. Cardiomediastinal silhouette is unremarkable except for mild cardiomegaly. No evidence for pulmonary edema. Soft tissue and osseous structures are unremarkable except for multiple old rib fracture deformities on the left. XR/XR chest 1V portable [id number] IMPRESSION: Unremarkable frontal portable chest x-ray. No change from previous
--- NOTE | 2022-08-03 10:44 | ED_ITS ---
HPI - Arrhythmia/Palpitations General: Chief Complaint: Arrhythmia/Palpitations Stated Complaint: Afib Time Seen by Provider: 08/03/22 10:23 Source: patient Mode of arrival: ambulatory History of Present Illness: 77-year-old female presents emergency room via EMS with complaints of chest pain and rapid heart rate. She has significant left- sided weakness which is new for her as well. Initial NIH score 11 with left arm and leg weakness minor facial drooping and slurring of speech. She was seen in the [facility] by her primary care doctor with chest pain radiating to her left shoulder. At the bedside pain is reproducible with palpation and with deep inspiration. Patient has a known history of atrial fibrillation and is on Eliquis and metoprolol. Patient was a stroke alert but was not a candidate for tPA because of her Brad RALPH complaint: rapid heart beat Duration: intermittent Context: occurred during rest Arrhythmia history: atrial fibrillation [facility] ED PFSH: Medical History Achilles tendinitis of both lower extremities Anemia Atrial fibrillation and flutter Charcot's joint of left foot Chronic low back pain Complete small bowel obstruction Depression Diabetes Diabetic peripheral neuropathy associated with type 2 diabetes mellitus DVT (deep venous thrombosis) History of CVA (cerebrovascular accident) Hypertension Invasive ductal carcinoma of right breast [id number] Myocardial infarction Other accident with wheelchair (powered), initial encounter Polymyalgia Polyneuropathy Presence of vena cava filter Pulmonary emboli Pulmonary hypertension Surgical History History of appendectomy History of cholecystectomy History of colonoscopy Years ago. History of gastric surgery History of hysterectomy History of lymph node dissection of right axilla sentinel lymph node biopsy with right mastectomy History of right breast biopsy (~08/2019) History of rotator cuff surgery Bilateral Status post left knee replacement Status post left mastectomy Status post right knee replacement Status post right mastectomy Family History Mother Hypertension Cancer Father Diabetes CAD (coronary artery disease) Myocardial infarction Social History Smoking and tobacco status: never smoked Second hand smoke exposure: No Alcohol intake: never Adopted: No Caregiver/support person: Yes Lives independently: Yes Household members: family Housing: Long Term Marital status: Single Highest education level completed: High School Graduate service: No Current occupational status: retired Current occupational exposures/hazards: No Pets and animals: No History of recent travel: No Sexually active: No Current gender identity: Female Lanette/Shinto: Restorationism Special lanette needs: No Agree to transfusion: No Financial difficulty paying for basics: Decline to Answer Course Vital Signs: Vital signs: Vital Signs Pulse Rate 116 H 08/03/22 14:30 Respiratory Rate 18 08/03/22 14:30 Blood Pressure 112/89 08/03/22 14:30 Pulse Oximetry 96 08/03/22 14:30 Oxygen Delivery Me thod 08/03/22 10:25 MDM - Arrhythmia/Palpitations Medical Decision Making EKG shows A. fib. This is chronic no acute ST changes noted. A. fib and a new CVA with left-sided weakness her initial NIH is 11 and she is not a candidate for tPA because of anticoagulation with Eliquis. CTA of the head and neck is negative. Will admit. She did have some chest discomfort as well this resolved with nitro discussed with hospitalist orders written. By the time work-up was complete patient was beginning to show improvement with her facial droop res olving and began to have more use of her left arm and leg Medical Records I reviewed the patient's medical records. Lab Data I reviewed the patient's lab results. 08/03/22 10:44 08/03/22 10:44 Radiology Impressions Chest X-Ray 08/03/22 10:40 IMPRESSION: Unremarkable frontal portable chest x-ray. No change from previous Laboratory Results WBC 8.2 10^3/uL (4.0-10.0) 08/03/22 10:44 RBC 3.99 10^6/uL (4.1-5.3) L 08/03/22 10:44 Hgb 11.3 g/dL (11.5-15.3) L 08/03/22 10:44 Hct 36.4 % (37.0-47.0) L 08/03/22 10:44 MCV 91.2 fl (81-99) 08/03/22 10:44 MCH 28.3 pg (28.0-34.0) 08/03/22 10:44 MCHC 31.0 g/dL (30.0-36.0) 08/03/22 10:44 RDW 13.0 % (12.1-15.1) 08/03/22 10:44 Plt Count 326 10^3/cmm (130-400) 08/03/22 10:44 MPV 9.1 fL (7.4-10.4) 08/03/22 10:44 Neut % (Auto) 63.2 % 08/03/22 10:44 Lymph % (Auto) 24.3 % 08/03/22 10:44 [place] % (Auto) 7.7 % 08/03/22 10:44 Eos % (Auto) 3.8 % 08/03/22 10:44 Baso % (Auto) 0.6 % 08/03/22 10:44 Neut # (Auto) 5.17 10^3/uL (1.8-7.7) 08/03/22 10:44 Lymph # (Auto) 2.0 10^3/uL (0.8-4.8) 08/03/22 10:44 [place] # (Auto) 0.6 10^3/uL (0.2-0.9) 08/03/22 10:44 Eos # (Auto) 0.3 10^3/uL (0.0-0.8) 08/03/22 10:44 Baso # (Auto) 0.1 10^3/uL (0.0-0.1) 08/03/22 10:44 Nucleated RBC % (auto) 0 % 08/03/22 10:44 Nucleated RBCs # 0.0 /100WBC 08/03/22 10:44 Sodium 133 mmol/L (136-145) L 08/03/22 10:44 Potassium 4.3 mmol/L (3.5-5.1) 08/03/22 10:44 Chloride 100 mmol/L (98-107) 08/03/22 10:44 Carbon Dioxide 24 mmol/L (22-29) 08/03/22 10:44 Anion Gap 13.3 (5-19) 08/03/22 10:44 BUN 10 mg/dL (8-23) 08/03/22 10:44 Creatinine 0.7 mg/dL (0.5-0.9) 08/03/22 10:44 GFR Calculation Not Reportable 08/03/22 10:44 Glucose 121 mg/dL (65-115) H 08/03/22 10:44 Calculated Osmolality 276 mOsm/kg (285-295) L 08/03/22 10:44 Calcium 8.7 mg/dL (8.5-10.5) 08/03/22 10:44 Total Bilirubin 0.3 mg/dL (0.15-1.2) 08/03/22 10:44 AST 17 U/L (0-32) 08/03/22 10:44 ALT 16 U/L (0-33) 08/03/22 10:44 Alkaline Phosphatase 219 U/L (35-105) H 08/03/22 10:44 Troponin T Baseline 12 ng/L (0-10) H 08/03/22 10:44 Troponin T 120 Minute 12.29 ng/L (0-10) H 08/03/22 13:01 Delta Troponin T 0.29 ABS# (0-10) 08/03/22 13:01 Total Protein 7.3 g/dL (6.6-8.7) 08/03/22 10:44 Albumin 3.4 g/dL (3.5-5.2) L 08/03/22 10:44 Globulin 3.9 g/dL (1.3-4.6) 08/03/22 10:44 Discharge Plan Discharge Patient Disposition: Admitted As Inpatient Clinical Impression: Atrial fibrillation and flutter, Acute cerebrovascular accident (CVA), Hypertension, Diabetes Condition: Stable Coding Level of Care Code ED Document Preparation Specialist for Tashi Richter NIH stroke score NIHSS Level Of Consciousness - 1a: 0 Level Of Consciousness Questions - 1b: Both Correct Level Of Consciousness Commands - 1c: Both Correct Best Gaze - 2: Normal Visual Beal - 3: No Visual Loss Facial Palsy - 4: Partial Paralysis Motor Arm Right - 5: No Drift Motor Arm Left - 5: No Effort Against [place] Motor Leg Right - 6: No Drift Motor Leg Left - 6: Effort Against [place] Limb Ataxia - 7: Present In Two Limbs Sensory - 8: Mild To Moderate Loss Best Language - 9: No Aphasia Dysarthia - 10: Mild/Moderate Dysarthia Extinction And Inattention - 11: 0 Score Total Score: 11
[2022-08-03 10:49] LABS: Basophils # 0.1 10^3/uL (0.0-0.1); Basophils % 0.6 %; Eosinophils # 0.3 10^3/uL (0.0-0.8); Eosinophils % 3.8 %; Hematocrit 36.4 % (37.0-47.0); Hemoglobin 11.3 g/dL (11.5-15.3); Lymphocytes % 24.3 %; Mean Corpuscular Hemoglobin 28.3 pg (28.0-34.0); Mean Corpuscular Volume 91.2 fl (81-99); Mean Platelet Volume 9.1 fL (7.4-10.4); Monocytes # 0.6 10^3/uL (0.2-0.9); Monocytes % 7.7 %; Neutrophils # 5.17 10^3/uL (1.8-7.7); Neutrophils % 63.2 %; Nucleated Red Blood Cells % 0 %; Platelet Count 326 10^3/cmm (130-400); Red Blood Count 3.99 10^6/uL (4.1-5.3); White Blood Count 8.2 10^3/uL (4.0-10.0)
[2022-08-03] MEDS: metoprolol tartrate 1 mg/1 mL SDV 5 mL 2.5 MG IVP (10:59)
[2022-08-03 11:10] LABS: Troponin(5th) Baseline 12 ng/L (0-10)
[2022-08-03 11:12] LABS: Alanine Aminotransferase 16 U/L (0-33); Albumin Level 3.4 g/dL (3.5-5.2); Alkaline Phosphatase 219 U/L (35-105); Anion Gap 13.3 (5-19); Aspartate Amino Transferase 17 U/L (0-32); Blood Urea Nitrogen 10 mg/dL (8-23); Calcium 8.7 mg/dL (8.5-10.5); Carbon Dioxide 24 mmol/L (22-29); Chloride 100 mmol/L (98-107); Globulin 3.9 g/dL (1.3-4.6); Glucose 121 mg/dL (65-115); Osmolality Calculated 276 mOsm/kg (285-295); Potassium 4.3 mmol/L (3.5-5.1); Sodium 133 mmol/L (136-145); Total Bilirubin 0.3 mg/dL (0.15-1.2); Total Protein 7.3 g/dL (6.6-8.7)
[2022-08-03] MEDS: metoprolol tartrate 50 mg Tablet 100 MG PO (12:20)
--- NOTE | 2022-08-03 13:04 | ECG_ITS ---
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 Measurements Intervals [place] Rate: 101 P: 0 [place]: 0 QRS: 53 QRSD: 94 T: 39 QT: 375 QTc: 486 Interpretive Statements ATRIAL FIBRILLATION WITH RAPID VENTRICULAR RESPONSE MODERATE ST DEPRESSION [0.05+ mV ST DEPRESSION] Compared to ECG 08/03/2022 10:38:14 ST (T wave) deviation now present Atrial flutter no longer present T-wave abnormality no longer present Electronically Signed On 08-03-2022 16:18:48 ELECTROPHYSIOLOGY TECH by Wolf Fox M.D. [id number]
[2022-08-03 13:28] LABS: Troponin 5 2HR 12.29 ng/L (0-10); Troponin 5 2HR Delta 0.29 ABS# (0-10)
[2022-08-03] MEDS: metoprolol tartrate 25 mg Tablet PO (13:58)
[2022-08-03] MEDS: digoxin 250 mcg/ml INJ 2 mL 500 MCG IVP (14:19)
== END 2022-08-03 14:32 | disposition admitted as inpatient to this hospital (09) ==
PROVIDERS: Emergency Provider Family Medicine; PCP Family Medicine
DX: I63.9 Cerebral infarction, unspecified (principal); I48.91 Unspecified atrial fibrillation; I48.92 Unspecified atrial flutter; I10 Essential (primary) hypertension; E11.9 Type 2 diabetes mellitus without complications; Z86.73 Personal history of transient ischemic attack (TIA), and cerebral infarction without residual deficits; I25.2 Old myocardial infarction
CPT/HCPCS: 71045; 80053; 84484; 85025; 93005; 96374; 96375; 99285; J1160; J3490

== ENCOUNTER 2022-08-09 14:59 | Observation (INO) | payer MEDICARE, MEDICAID, SELFPAY ==
[2022-08-09] VITALS (15 sets, daily range): BP systolic 126–177; BP diastolic 81–112; PULSE 85–116; RESP 12–21; TEMP 36.4–36.8; O2SAT 87–97; BMI 43.7
--- NOTE | 2022-08-09 14:59 | CT_ITS ---
WS: [id number] CT HEAD TECHNIQUE: Noncontrast CT of the head obtained from the skullbase to the vertex. CLINICAL INFORMATION: stroke COMPARISON: May 30, 2022 DLP: 1087.[address] scans at [facility] use at least one of these dose optimization techniques: automated e xposure control; mA and/or kV adjustment per patient size (includes targeted exams where dose is matc hed to clinical indication); or iterative reconstruction. FINDINGS: No evidence of intracranial hemorrhage or mass effect. Ventricular system and basal cisterns are arevalo nt. Mild small vessel changes with moderate parenchymal volume loss. No extra-axial fluid collections . Tiny chronic lacunar infarcts involving the LEFT caudate and LEFT lateral basal ganglia unchanged. Vascular calcification. Mastoid air cells are well aerated. RIGHT maxillary sinusitis with inspissated secretions. CT/CT head wo con* [id number] IMPRESSION: 1. No evidence of intracranial hemorrhage or mass effect. 2. Mild small vessel changes. Moderate parenchymal volume loss. 3. Chronic lacunar infarcts in the LEFT caudate and LEFT internal capsule unch anged from previous. 4. RIGHT maxillary sinusitis. 5. No other acute findings. Notified Zi Aquino DO at 08/09/2022 3:08 PM.
[2022-08-09 15:13] LABS: Glucose Point of Care 113 mg/dL (70-110)
--- NOTE | 2022-08-09 15:16 | CTR_ITS ---
PROCEDURE INFORMATION: Exam: CTA Head With Contrast, Arteriography Exam date and time: 08/09/2022 4:01 PM Age: 77 years old Clinical indication: Stroke-like symptoms; Speech disturbance; Additional info: Acute CVA TECHNIQUE: Imaging protocol: Computed tomographic angiography of the head with contrast. Exam focused on the arteries. 3D rendering (Not supervised by radiologist): MIP and/or 3D reconstructed images were created by the technologist. Radiation optimization: All CT scans at this facility use at least one of these dose optimization techniques: automated exposure control; mA and/or kV adjustment per patient size (includes targeted exams where dose is matched to clinical indication); or iterative reconstruction. Contrast material: OMNNI 350; Contrast volume: 100 ml; Contrast route: INTRAVENOUS (IV); COMPARISON: CT head wo con* [id number] 08/09/2022 3:00 PM RADIATION DOSE METRICS: Total DLP (mGy-cm): 1089.44 FINDINGS: ANTERIOR CIRCULATION: Right internal carotid artery: Intracranial segment is patent with no significant stenosis. No aneurysm. Right middle cerebral artery: No occlusion or significant stenosis. No aneurysm. Right anterior cerebral artery: No occlusion or significant stenosis. No aneurysm. Left internal carotid artery: Intracranial segment is patent with no significant stenosis. No aneurysm. Left middle cerebral artery: No occlusion or significant stenosis. No aneurysm. Left anterior cerebral artery: No occlusion or significant stenosis. No aneurysm. POSTERIOR CIRCULATION: Right vertebral artery: No occlusion or significant stenosis. No aneurysm. Left vertebral artery: No occlusion or significant stenosis. No aneurysm. Basilar artery: No occlusion or significant stenosis. No aneurysm. Right posterior cerebral artery: No occlusion or significant stenosis. No aneurysm. Left posterior cerebral artery: No occlusion or significant stenosis. No aneurysm. Brain: No definite mass, mass effect, or midline shift. Cerebral ventricles: No ventriculomegaly. Bones/joints: Unremarkable. No acute fracture. Soft tissues: Unremarkable. PROCEDURE INFORMATION: Exam: CTA Neck With Contrast Exam date and time: 08/09/2022 4:01 PM Age: 77 years old Clinical indication: Stroke-like symptoms; Speech disturbance; Additional info: Acute CVA TECHNIQUE: Imaging protocol: Computed tomographic angiography of the neck with contrast. 3D rendering (Not supervised by radiologist): MIP and/or 3D reconstructed images were created by the technologist. Radiation optimization: All CT scans at this facility use at least one of these dose optimization techniques: automated exposure control; mA and/or kV adjustment per patient size (includes targeted exams where dose is matched to clinical indication); or iterative reconstruction. Contrast material: OMNNI 350; Contrast volume: 100 ml; Contrast route: INTRAVENOUS (IV); COMPARISON: CT cervical spin wo con* [id number] 06/26/2022 5:10 AM RADIATION DOSE METRICS: Total DLP (mGy-cm): 1089.44 FINDINGS: Right common carotid artery: No stenosis. No dissection or occlusion. Right internal carotid artery: Approximately 10% stenosis of the right internal carotid artery by calcified plaque. Right external carotid artery: No occlusion or stenosis of the origin. Left common carotid artery: No stenosis. No dissection or occlusion. Left internal carotid artery: No stenosis of the extracranial segment. No dissection or occlusion. Left external carotid artery: No occlusion or stenosis of the origin. Right vertebral artery: No stenosis. No dissection or occlusion. Left vertebral artery: No stenosis. No dissection or occlusion. Soft tissues: Normal. No significant soft tissue swelling. Bones/joints: No acute fracture. CT/CT angio headneck* [id number] IMPRESSION: No large vessel stenosis or occlusion. IMPRESSION: Right: Approximately 10% stenosis of right internal carotid artery with calcified plaque. Vertebral artery is patent. Left: No significant stenosis of the left internal carotid artery and vertebral artery. REFERENCES: NASCET CRITERIA. The degree of stenosis in the cervical segment of the internal carotid artery is based on NASCET criteria. Normal is no stenosis. Mild is less than 50% stenosis. Moderate is 50-69% stenosis. Severe is 70% to 99% stenosis. Total occlusion is no detectable patent lumen.
--- NOTE | 2022-08-09 15:17 | ED_ITS ---
HPI - Neuro Symptoms/Deficit General: Chief Complaint: Neuro Symptoms/Deficit Stated Complaint: STROKE Time Seen by Provider: 08/09/22 15:15 Source: patient Mode of arrival: EMS History of Present Illness: 77-year-old female arrives from local assisted with sudden onset of facial droop left-sided weakness that began at 1415 while she was playing bingo with other residents there. She has a history of atrial fibrillation and DVT PE she is on Eliquis. She also was complaining some chest pain but this resolved after single tablet of nitro. On arrival here she is flaccid on the left side but awake and alert she has some minor paralysis left side of her face but that varies during the course of the visit. Onset (ago): minute(s) Associated symptoms: Deny chest pain, malaise, nausea or vomiting Review of Systems 2 Const: Denies: fever(s), chills, body aches, change in appetite, fatigue or malaise ENMT: Denies: throat pain, ear or mastoid pain, nasal discharge or nasal congestion Card: Denies: chest pain, edema, dyspnea on exertion or orthopnea Resp: Denies: dyspnea, productive cough or non-productive cough GI: Denies: abdominal pain, nausea, vomiting, hematemesis, coffee ground emesis, diarrhea, constipation, bloating, hematochezia or melena : Denies: flank pain, difficulty voiding, dysuria, urinary frequency or urinary urgency Skin/Breast: Denies: rash or pruritus PFSH ED PFSH: Medical History Achilles tendinitis of both lower extremities Anemia Atrial fibrillation and flutter Charcot's joint of left foot Chronic low back pain Complete small bowel obstruction Depression Diabetes Diabetic peripheral neuropathy associated with type 2 diabetes mellitus DVT (deep venous thrombosis) History of CVA (cerebrovascular accident) Hypertension Invasive ductal carcinoma of right breast [id number] Myocardial infarction Other accident with wheelchair (powered), initial encounter Polymyalgia Polyneuropathy Presence of vena cava filter Pulmonary emboli Pulmonary hypertension Surgical History History of appendectomy History of cholecystectomy History of colonoscopy Years ago. History of gastric surgery History of hysterectomy History of lymph node dissection of right axilla sentinel lymph node biopsy with right mastectomy History of right breast biopsy (~08/2019) History of rotator cuff surgery Bilateral Status post left knee replacement Status post left mastectomy Status post right knee replacement Status post right mastectomy Family History Mother Hypertension Cancer Father Diabetes CAD (coronary artery disease) Myocardial infarction Social History Smoking and tobacco status: never smoked Second hand smoke exposure: No Alcohol intake: never Adopted: No Caregiver/support person: Yes Lives independently: Yes Household members: family Housing: Half-Way Marital status: Single Highest education level completed: High School Graduate service: No Current occupational status: retired Current occupational exposures/hazards: No Pets and animals: No History of recent travel: No Sexually active: No Current gender identity: Female Lanette/Adventism: Denominational Special lanette needs: No Agree to transfusion: No Financial difficulty paying for basics: Decline to Answer NIH stroke score NIHSS: Level Of Consciousness - 1a: 0 Level Of Consciousness Questions - 1b: Both Correct Level Of Consciousness Commands - 1c: Both Correct Best Gaze - 2: Normal Visual Beal - 3: No Visual Loss Facial Palsy - 4: Minor Paralysis Motor Arm Right - 5: No Drift Motor Arm Left - 5: No Effort Against [place] Motor Leg Right - 6: No Drift Motor Leg Left - 6: No Effort Against [place] Limb Ataxia - 7: Present In Two Limbs Sensory - 8: Severe To Total Loss Best Language - 9: No Aphasia Dysarthia - 10: Normal Extinction And Inattention - 11: 0 Score: Total Score: 11 Physical Exam Const: GENERAL APPEARANCE: cooperative and comfortable ORIENTATION/CONSCIOUSNESS: Yes awake, Yes oriented to person, Yes oriented to place and Yes oriented to time HENMT: COMMON NORMALS: normocephalic, atraumatic and hearing grossly normal bilaterally HEAD & SCALP: normocephalic and atraumatic Resp: COMMON NORMALS: normal respiratory effort, No retractions, No use of acc essory muscles and clear to auscultation bilaterally AUSCULTATION: clear to auscultation bilaterally Cardio: COMMON NORMALS: regular rate, regular rhythm and No murmurs present (Cardio) RATE: regular rate RHYTHM: regular rhythm GI: COMMON NORMALS: Soft to palpation and No hepatosplenomegaly present AUSCULTATION: Yes normoactive bowel sounds PALPATION: Yes Soft to palpation, No Tenderness to palpation present (GI), No Guarding due to palpation present (G I) and Yes No hepatosplenomegaly present Extremity: COMMON NORMALS: normal to inspection, capillary refill normal, no clubbing, cyanosis or edema, no calf tenderness and no pedal edema Neuro: SENSORIUM/ORIENTATION: Yes oriented to person, Yes oriented to place and Yes oriented to time Skin: COMMON NORMALS: no rashes or lesions noted GENERAL SKIN EXAM: no rashes or lesions noted Course Vital Signs: Vital signs: Vital Signs Temperature 98.2 F 08/09/22 15:00 Pulse Rate 94 08/09/22 16:30 Respiratory Rate 19 H 08/09/22 16:30 Blood Pressure 143/112 08/09/22 16:30 Pulse Oximetry 96 08/09/22 16:30 Oxygen Delivery Me thod 08/09/22 15:45 MDM - Neuro Symptoms/Deficit Medical Decision Making Left-sided paralysis particularly of the arm and leg facial paralysis improved by the time the CTA of the head and neck were done the arm and leg were improving as well as confirming flaccid where she was able to move them some. She is not a candidate for tPA despite being in the timeframe because she is on Eliquis there is no large vessel occlusion on his CTA head and neck. Discussed with hospitalist patient to be admitted for acute CVA for further work-up initiation of rehab and secondary prevention efforts. Medical Records I reviewed the patient's medical records. Lab Data I reviewed the patient's lab results. 08/09/22 15:15 08/09/22 15:[address] 08/09/22 14:59 IMPRESSION: 1. No evidence of intracranial hemorrhage or mass effect. 2. Mild small vessel changes. Moderate parenchymal volume loss. 3. Chronic lacunar infarcts in the LEFT caudate and LEFT internal capsule unchanged from previous. 4. RIGHT maxillary sinusitis. 5. No other acute findings. Notified Zi Aquino DO at 08/09/2022 3:08 PM. Head/Neck CTA 08/09/22 15:16 IMPRESSION: No large vessel stenosis or occlusion. IMPRESSION: Right: Approximately 10% stenosis of right internal carotid artery with calcified plaque. Vertebral artery is patent. Left: No significant stenosis of the left internal carotid artery and vertebral artery. REFERENCES: NASCET CRITERIA. The degree of stenosis in the cervical segment of the internal carotid artery is based on NASCET criteria. Normal is no stenosis. Mild is less than 50% stenosis. Moderate is 50-69% stenosis. Severe is 70% to 99% stenosis. Total occlusion is no detectable patent lumen. Laboratory Results WBC 9.4 10^3/uL (4.0-10.0) 08/09/22 15:15 RBC 4.37 10^6/uL (4.1-5.3) 08/09/22 15:15 Hgb 12.3 g/dL (11.5-15.3) 08/09/22 15:15 Hct 39.7 % (37.0-47.0) 08/09/22 15:15 MCV 90.8 fl (81-99) 08/09/22 15:15 MCH 28.1 pg (28.0-34.0) 08/09/22 15:15 MCHC 31.0 g/dL (30.0-36.0) 08/09/22 15:15 RDW 13.1 % (12.1-15.1) 08/09/22 15:15 Plt Count 323 10^3/cmm (130-400) 08/09/22 15:15 MPV 9.5 fL (7.4-10.4) 08/09/22 15:15 Neut % (Auto) 59.2 % 08/09/22 15:15 Lymph % (Auto) 26.8 % 08/09/22 15:15 [place] % (Auto) 8.7 % 08/09/22 15:15 Eos % (Auto) 4.2 % 08/09/22 15:15 Baso % (Auto) 0.7 % 08/09/22 15:15 Neut # (Auto) 5.57 10^3/uL (1.8-7.7) 08/09/22 15:15 Lymph # (Auto) 2.5 10^3/uL (0.8-4.8) 08/09/22 15:15 [place] # (Auto) 0.8 10^3/uL (0.2-0.9) 08/09/22 15:15 Eos # (Auto) 0.4 10^3/uL (0.0-0.8) 08/09/22 15:15 Baso # (Auto) 0.1 10^3/uL (0.0-0.1) 08/09/22 15:15 Nucleated RBC % (auto) 0 % 08/09/22 15:15 Nucleated RBCs # 0.0 /100WBC 08/09/22 15:15 Sodium 130 mmol/L (136-145) L 08/09/22 15:15 Potassium 4.2 mmol/L (3.5-5.1) 08/09/22 15:15 Chloride 94 mmol/L (98-107) L 08/09/22 15:15 Carbon Dioxide 24 mmol/L (22-29) 08/09/22 15:15 Anion Gap 16.2 (5-19) 08/09/22 15:15 BUN 12 mg/dL (8-23) 08/09/22 15:15 Creatinine 0.7 mg/dL (0.5-0.9) 08/09/22 15:15 GFR Calculation Not Reportable 08/09/22 15:15 Glucose 119 mg/dL (65-115) H 08/09/22 15:15 POC Glucose 113 mg/dL (70-110) H 08/09/22 15:08 Calculated Osmolality 271 mOsm/kg (285-295) L 08/09/22 15:15 Calcium 8.3 mg/dL (8.5-10.5) L 08/09/22 15:15 Total Bilirubin 0.2 mg/dL (0.15-1.2) 08/09/22 15:15 AST 22 U/L (0-32) 08/09/22 15:15 ALT 18 U/L (0-33) 08/09/22 15:15 Alkaline Phosphatase 225 U/L (35-105) H 08/09/22 15:15 Troponin T Baseline 14 ng/L (0-10) H 08/09/22 15:15 Total Protein 8.1 g/dL (6.6-8.7) 08/09/22 15:15 Albumin 3.6 g/dL (3.5-5.2) 08/09/22 15:15 Globulin 4.5 g/dL (1.3-4.6) 08/09/22 15:15 Discharge Plan Discharge Patient Disposition: Admitted As Inpatient Clinical Impression: Acute cerebrovascular accident (CVA) Condition: Stable Prescriptions: No Action diclofenac sodium 1 % gel 4 g topical QID Qty: 100 5RF Rx Instructions: Apply to single ankle, foot; for foot includes sole/toes/top of foot TOPICALLY TO AFFECTED AREA 4 TIMES PER DAY AT 07,11,17,21 duloxetine [Cymbalta] 60 mg capsule,delayed release(DR/EC) 60 mg PO DAILY gabapentin 300 mg capsule 300 mg PO TID aspirin [Adult Low Dose Aspirin] 81 mg tablet,delayed release (DR/EC) 81 mg PO DAILY carbamazepine 100 mg capsule, ER multiphase 12 hr 100 mg PO BID docusate sodium 100 mg capsule 100 mg PO DAILY cetirizine [Zyrtec] 10 mg tablet 10 mg PO DAILY metoprolol tartrate 50 mg tablet 100 mg PO BID acetaminophen 325 mg Tablet 650 mg PO Q6H PRN (Reason: Pain) isosorbide mononitrate 30 mg Tablet Extended Release 24 Hr See Rx Instructions .ROUTE .COMPLEX Rx Instructions: 30 MG IN THE AM AND 15 MG IN THE PM amitriptyline 25 mg Tablet 25 mg PO BEDTIME magnesium hydroxide [Milk of Magnesia] 400 mg/5 mL Suspension 30 ml PO DAILY PRN (Reason: Constipation) fluticasone propionate 50 mcg/actuation [place],Suspension 1 spray INTRANASAL BID hydrocodone-acetaminophen 5-325 mg Tablet 1 tab PO Q4H PRN (Reason: Pain) polyethylene glycol 3350 [Miralax] 17 gram Powder In Packet 17 g PO BID omeprazole 40 mg Capsule,Delayed Release(Dr/Ec) 40 mg PO DAILY Qty: 0 topiramate [Topamax] 50 mg tablet 50 mg PO BID alprazolam 0.25 mg Tablet 0.25 mg PO Q8H PRN (Reason: Anxiety) Qty: 0 diphenhydramine HCl [Benadryl] 25 mg Capsule 25 mg PO Q6H PRN (Reason: Itching) nitroglycerin [Nitrostat] 0.4 mg Tablet, Sublingual 0.4 mg SUBLINGUAL Q5M PRN (Reason: Chest Pain) Qty: 0 Tresiba FlexTouch U-100 100 unit/mL (3 mL) Insulin Pen 58 unit SUBCUT BEDTIME Qty: 0 Xanax 0.25 mg Tablet 0.25 mg PO ONCE PRN (Reason: Anxiety) ondansetron HCl 4 mg Tablet 4 mg PO DAILY simethicone 125 mg Capsule 125 mg PO TID PRN (Reason: Indigestion) quetiapine [Seroquel] 50 mg Tablet 50 mg PO BEDTIME Eliquis 5 mg Tablet 5 mg PO BID@0900,2100 Qty: 60 0RF furosemide [Lasix] 20 mg tablet 20 mg PO QAM Qty: 30 0RF Ozempic 0.25 mg or 0.5 mg(2 mg/1.5 mL) pen injector 0.25 mg SUBCUT Q7D digoxin 125 mcg (0.125 mg) tablet 125 mcg PO DAILY Qty: 30 0RF Referrals: Zohra Lira MD [Primary Care Provider] - Coding Level of Care Code ED Cutting And Splicing Supervisor for Tashi Richter
--- NOTE | 2022-08-09 15:19 | ECG_ITS ---
[facility] Test Date: 2022-08-09 Pat Name: Nubia Love Department: Room: Gender: Female Sampler Pickup: : 1945 Requested By: Zi Higginbotham Order Number: [id number] Tu MD: Lynnette Camejo M.D. Measurements Intervals [place] Rate: 85 P: 0 [place]: 0 QRS: 0 QRSD: 98 T: 21 QT: 372 QTc: 444 Interpretive Statements Atrial fibrillation with a controlled ventricular response rate POSSIBLE LEFT VENTRICULAR HYPERTROPHY [VOLTAGE CRITERIA PLUS LAE OR QRS WIDENING] NONSPECIFIC ST & T-WAVE ABNORMALITY Compared to ECG 08/03/2022 13:04:50 T-wave abnormality now present Atrial fibrillation no longer present ST (T wave) deviation no longer present Electronically Signed On 08-10-2022 0:04:30 ELIGIBILITY SERVICES REPRESENTATIVE by Lynnette Camejo M.D. [id number]
[2022-08-09 16:06] LABS: Troponin(5th) Baseline 14 ng/L (0-10)
[2022-08-09] MEDS: iohexol 350 mg/mL 500 mL Btl (per mL) IV (16:07)
[2022-08-09 16:50] LABS: Basophils # 0.1 10^3/uL (0.0-0.1); Basophils % 0.7 %; Eosinophils # 0.4 10^3/uL (0.0-0.8); Eosinophils % 4.2 %; Hematocrit 39.7 % (37.0-47.0); Hemoglobin 12.3 g/dL (11.5-15.3); Lymphocytes # 2.5 10^3/uL (0.8-4.8); Lymphocytes % 26.8 %; Mean Corpuscular Hemoglobin 28.1 pg (28.0-34.0); Mean Corpuscular Volume 90.8 fl (81-99); Mean Platelet Volume 9.5 fL (7.4-10.4); Monocytes # 0.8 10^3/uL (0.2-0.9); Monocytes % 8.7 %; Neutrophils # 5.57 10^3/uL (1.8-7.7); Neutrophils % 59.2 %; Nucleated Red Blood Cells % 0 %; Platelet Count 323 10^3/cmm (130-400); Red Blood Count 4.37 10^6/uL (4.1-5.3); Red Cell Distribution Width 13.1 % (12.1-15.1); White Blood Count 9.4 10^3/uL (4.0-10.0)
[2022-08-09 16:57] LABS: Albumin Level 3.6 g/dL (3.5-5.2); Alkaline Phosphatase 225 U/L (35-105); Anion Gap 16.2 (5-19); Aspartate Amino Transferase 22 U/L (0-32); Blood Urea Nitrogen 12 mg/dL (8-23); Calcium 8.3 mg/dL (8.5-10.5); Carbon Dioxide 24 mmol/L (22-29); Chloride 94 mmol/L (98-107); Globulin 4.5 g/dL (1.3-4.6); Glucose 119 mg/dL (65-115); Osmolality Calculated 271 mOsm/kg (285-295); Potassium 4.2 mmol/L (3.5-5.1); Sodium 130 mmol/L (136-145); Total Bilirubin 0.2 mg/dL (0.15-1.2); Total Protein 8.1 g/dL (6.6-8.7)
[2022-08-09 17:08] LABS: Alanine Aminotransferase 18 U/L (0-33)
--- NOTE | 2022-08-09 17:19 | ECG_ITS ---
[facility] Test Date: 2022-08-09 Pat Name: Nubia Love Department: Room: 254 Gender: Female Hand Tufter: : 1945 Requested By: Zi Higginbotham Order Number: [id number] Tu MD: Lynnette Camejo M.D. Measurements Intervals [place] Rate: 89 P: 0 HI: 0 QRS: 21 QRSD: 99 T: 32 QT: 382 QTc: 465 Interpretive Statements ATRIAL FIBRILLATION NONSPECIFIC ST & T-WAVE ABNORMALITY ABNORMAL RHYTHM ECG Compared to ECG 08/09/2022 15:46:16 Atrial flutter no longer present T-wave abnormality still present Electronically Signed On 08-10-2022 18:18:46 ASSEMBLY DEPARTMENT SUPERVISOR by Lynnette Camejo M.D. [id number]
[2022-08-09 18:08] LABS: Troponin 5 2HR 13.07 ng/L (0-10)
[2022-08-09 18:09] LABS: Troponin 5 2HR Delta -0.93 ABS# (0-10)
--- NOTE | 2022-08-09 19:28 | P.HP_ITS ---
Providers/Chief Complaint Admitting Physician: Phuong Cunningham MD Primary Care Provider: Zohra Lira MD Chief Complaint: STROKE History of Present Illness Nubia Love is a 77 year old female with history of A. fib, chronic anticoagulation, slightly reduced EF, cardiomyopathy, group home resident, was evaluated here in February this year for chest pain, she was managed medically with addition of isosorbide, Eliquis was added for her A. fib, she was taken off anticoagulating agent for history of GI bleed in the past, presenting today with chief complaint of facial droop left-sided weakness. Patient is stating that today when she got out of her bed to go towards the nurs ing station to get nitroglycerin because she was having some discomfort on left side of her chest which she is able to pinpoint, (she was using her electric wheelchair), at the nursing station she was given 1 dose of nitroglycerin, as soon as she took the medication she went back to the room to take a nap because she was not feeling well, at that point she was not able to lift her left leg or use her left arm. Nursing staff noticed that she was correction up the bed at risk of fall at that time they noticed she has significant weakness of her left side. EMS was called. Symptoms roughly started at 1415. She was not a candidate of tPA because of her use of Eliquis. At the time of her evaluation by ER physician she was given nitroglycerin for her chest pain which resolved after the administration of medication. She was given NIH score of 11 for left-sided weakness and facial droop. Head and neck CTA showing 10% stenosis right carotid, head CT showing chronic changes, A. fib RVR, patient is hypertensive. At the time of my evaluation she does have significant weakness of left arm and leg left arm swelling because of contrast extravasation She is hypertensive heart rate remains 80s A. fib Pleasant and cooperative She is upset that she was getting Tylenol and she is under the impression that Tylenol gives her seizures however she has been getting [place] for last 5 years Patient is stating that she has Charcot foot and it hurts really bad when she does physical therapy and she wants physical therapy noticed in the morning She does not like vegetables in her food she likes cereal Review of Systems Const: Denies: fever(s) Eyes: Denies: change in vision ENMT: Denies: throat pain Card: Reports: chest pain Resp: Denies: dyspnea GI: Denies: abdominal pain : Denies: urinary frequency Musc: Reports: extremity swelling Skin/Breast: Reports: striae Neuro: Denies: headache(s) Psych: Reports: anxiety Endo: Denies: polyuria August/Lymph: Denies: easy bruising All/Imm: Denies: urticaria Medications/Allergies Home Medications Medication Instructions Recorded Confirmed Last Taken Type aspirin 81 mg tablet,delayed 81 mg PO DAILY 09/13/19 08/09/22 08/09/22 History release (Adult Low Dose Aspirin) carbamazepine 100 mg 100 mg PO BID 09/13/19 08/09/22 08/09/22 History capsule,extended release [id number] duloxetine 60 mg capsule,delayed 60 mg PO DAILY 09/13/19 08/09/22 08/09/22 History release (Cymbalta) gabapentin 300 mg capsule 300 mg PO TID 09/13/19 08/09/22 08/09/22 History alprazolam 0.25 mg tablet 0.25 mg PO Q8H PRN Anxiety ##0 09/19/19 08/09/22 08/09/22 History diphenhydramine HCl 25 mg capsule 25 mg PO Q6H PRN Itching 09/19/19 08/09/22 09/22/19 History (Benadryl) insulin degludec 100 unit/mL (3 58 unit SUBCUT BEDTIME ##0 09/19/19 08/09/22 08/08/22 History mL) subcutaneous pen (Tresiba FlexTouch U-100 insulin) nitroglycerin 0.4 mg sublingual 0.4 mg sublingual Q5M PRN Chest 09/19/19 08/09/22 08/09/22 History tablet (Nitrostat) Pain ##0 omeprazole 40 mg capsule,delayed 40 mg PO DAILY ##0 09/19/19 08/09/22 08/09/22 History release polyethylene glycol 3350 17 gram 17 g PO BID 09/19/19 08/09/22 08/09/22 History oral powder packet (Miralax) topiramate 50 mg tablet (Topamax) 50 mg PO BID 09/19/19 08/09/22 08/09/22 History cetirizine 10 mg tablet (Zyrtec) 10 mg PO DAILY 03/30/20 08/09/22 08/09/22 History docusate sodium 100 mg capsule 100 mg PO DAILY 03/30/20 08/09/22 08/09/22 History acetaminophen 325 mg tablet 650 mg PO Q6H PRN Pain 11/09/20 08/09/22 Unknown History amitriptyline 25 mg tablet 25 mg PO BEDTIME 11/09/20 08/09/22 08/08/22 History fluticasone propionate 50 1 spray intranasal BID 11/09/20 08/09/22 08/03/22 History mcg/actuation nasal spray,suspension hydrocodone 5 mg-acetaminophen 325 1 tab PO Q4H PRN Pain 11/09/20 08/09/22 08/03/22 History mg tablet isosorbide mononitrate 30 mg See Rx Instructions .Route .COMPLEX 11/09/20 08/09/22 08/09/22 History tablet,extended release 24 hr magnesium hydroxide 400 mg/5 mL 30 ml PO DAILY PRN Constipation 11/09/20 08/09/22 Unknown History oral suspension (Milk of [employer]) diclofenac sodium 1 % topical gel 4 g topical QID #100 grams 01/31/22 08/09/22 02/22/22 Rx ondansetron HCl 4 mg tablet 4 mg PO DAILY 02/22/22 08/09/22 08/08/22 History quetiapine 50 mg tablet (Seroquel) 50 mg PO BEDTIME 02/22/22 08/09/22 08/08/22 History simethicone 125 mg capsule 125 mg PO TID PRN Indigestion 02/22/22 08/09/22 Unknown History apixaban 5 mg tablet (Eliquis) 5 mg PO BID@0900,2100 #60 tabs 02/25/22 08/09/22 08/09/22 Rx furosemide 20 mg tablet (Lasix) 20 mg PO QAM #30 tabs 02/25/22 08/09/22 08/09/22 Rx metoprolol tartrate 50 mg tablet 100 mg PO BID 05/25/22 08/09/22 08/09/22 History digoxin 125 mcg (0.125 mg) tablet 125 mcg PO DAILY #30 tabs 08/03/22 08/09/22 08/09/22 Rx semaglutide 0.25 mg or 0.5 mg (2 0.25 mg SUBCUT Q7D 08/03/22 08/09/22 08/09/22 History mg/1.5 mL) subcutaneous pen injector (Ozempic) alprazolam 0.25 mg tablet (Xanax) 0.25 mg PO ONCE PRN Anxiety 08/09/22 08/09/22 08/09/22 14:10 History Allergies Allergy/AdvReac Type Severity Reaction Status Date / Time clonidine Allergy Unknown Verified 08/03/22 11:35 insulin detemir Allergy Unknown Verified 08/03/22 11:35 [From Levemir U-100 Insulin] metronidazole [From Flagyl] Allergy Unknown Verified 08/03/22 11:35 oxybutynin Allergy Unknown Verified 08/03/22 11:35 prochlorperazine Allergy Unknown Verified 08/03/22 11:35 PFSH Acute PFSH: Medical History Achilles tendinitis of both lower extremities Anemia Atrial fibrillation and flutter Charcot's joint of left foot Chronic low back pain Complete small bowel obstruction Depression Diabetes Diabetic peripheral neuropathy associated with type 2 diabetes mellitus DVT (deep venous thrombosis) History of CVA (cerebrovascular accident) Hypertension Invasive ductal carcinoma of right breast [id number] Myocardial infarction Other accident with wheelchair (powered), initial encounter Polymyalgia Polyneuropathy Presence of vena cava filter Pulmonary emboli Pulmonary hypertension Surgical History History of appendectomy History of cholecystectomy History of colonoscopy Years ago. History of gastric surgery History of hysterectomy History of lymph node dissection of right axilla sentinel lymph node biopsy with right mastectomy History of right breast biopsy (~08/2019) History of rotator cuff surgery Bilateral Status post left knee replacement Status post left mastectomy Status post right knee replacement Status post right mastectomy Family History Mother Hypertension Cancer Father Diabetes CAD (coronary artery disease) Myocardial infarction Social History Smoking and tobacco status: never smoked Second hand smoke exposure: No Alcohol intake: never Adopted: No Caregiver/support person: Yes Lives independently: Yes Household members: family Housing: Senior Care Marital status: Single Highest education level completed: High School Graduate service: No Current occupational status: retired Current occupational exposures/hazards: No Pets and animals: No History of recent travel: No Sexually active: No Current gender identity: Female Lanette/Scientology: [employer] Special lanette needs: No Agree to transfusion: No Financial difficulty paying for basics: Decline to Answer Vitals/I&O/Wt Last Vital Signs Temp 98.2 F 08/09/22 15:00 Pulse 111 H 08/09/22 18:00 Resp 21 H 08/09/22 18:00 BP 144/100 08/09/22 18:00 Pulse Ox 87 L 08/09/22 18:00 O2 Del Method 08/09/22 15:45 Weight last 48 hrs Weight 119.295 kg Physical Exam Narrative: Very pleasant cooperative elderly female Currently laying supine Left arm swelling related to contrast extravasation Significant left arm weakness, she uses her right hand to lift her left arm in the air She is able to lift her left leg in the air for about 5 seconds however she could only lift up to like 10 degrees above the bed No weakness on right side No facial droop No slurring of speech Awake and alert Pleasant and cooperative Daughter at the bedside A. fib variable S1-S2 no RVR Hypertensive Abdomen distended nontender, No audible stridor or wheezing Currently on room air Data 08/09/22 15:15 08/09/22 15:15 A&P Assessment and plan (1) Acute cerebrovascular accident (CVA): (2) Chest pain: (3) Hypertension: (4) Diabetes: (5) Atrial flutter: (6) Callus of foot: (7) Charcot's joint of left foot: (8) Polyneuropathy: Plan Acute CVA Left-sided significant weakness PT/OT/ST Recent echo showed EF 43 to 50% global hypokinesia, stress test was done in Follows up with Dr. Chambers She has been taken off amiodarone for history of A. fib No signs of pulm embolism on CTA head and neck Not a candidate of tPA She will need physical therapy and Occupational Therapy at [facility] [place] Her current heart rate is in 80s, she is in A. fib without RVR I will continue her Eliquis along aspirin Permissive hypertension until she is discharged however I would like to treat her blood pressure if it is above 180/110 mmHg Her chest pain is reproducible she is able to pinpoint this is right at the level of mastectomy I do not think it is cardiac in nature, I advised patient to avoid nitroglycerin for her reproducible musculoskeletal left-sided pain She is DNR/DNI, Type 2 diabetes, patient has Charcot foot, she has significant calluses on her feet and is reluctant to participate fully for physical therapy I will keep her on clear diet for now Attestations Medical Necessity Statement*: Anticipating discharge within 48 hours Time Spent in Patient Care: 40 Coding Level of Care Code Acute Piece Presser for g Fwd Diagnoses Acute cerebrovascular accident (CVA) I63.9 Chest pain R07.9 Hypertension I10 Diabetes E11.9 Atrial flutter I48.92 Callus of foot L84 Charcot's joint of left foot M14.672 Polyneuropathy G62.9
[2022-08-09 20:13] LABS: Bilirubin Urine Neg (Negative); Blood Urine 2+ (Negative); Glucose Urine UA Norm (Normal); Ketones Urine Negative (Negative); Nitrate Urine Negative (Negative); Protein Urine Neg (Negative); Specific Gravity, Urine 1.005 (1.005-1.030); Urine Appearance Clear (CLEAR); Urine Color Yellow (Yellow); pH Urine 7 (5-7)
[2022-08-09 20:14] LABS: Add Urine Culture? Yes; Add Urine Microscopic? YES; Bacteria Urine 3+ /hpf; Leukocyte Esterase Urine 2+ (Negative); RBC Urine 0-4 /hpf (0-2); Urobilinogen Urine Norm (Negative); WBC Urine 0-4 /hpf (0-5)
[2022-08-09 20:44] LABS: Thyroid Stimulating Hormone 1.31 uIU/mL (0.27-4.20); Vitamin B12 303 pg/mL (232-1245)
[2022-08-09 21:18] LABS: Troponin 5 6HR 12.77 ng/L (0-10)
[2022-08-09 21:19] LABS: Troponin 5 6HR Delta -1.23 ng/L (0-12)
--- NOTE | 2022-08-09 21:19 | ECG_ITS ---
[facility] Test Date: 2022-08-09 Pat Name: Nubia Love Department: Room: 254 Gender: Female Pipe [employer] Test Supervisor: : 1945 Requested By: Zi Higginbotham Order Number: [id number] MD: Lynnette Camejo M.D. Measurements Intervals [place] Rate: 86 P: 0 FL: 0 QRS: 12 QRSD: 104 T: 26 QT: 382 QTc: 458 Interpretive Statements ATRIAL FLUTTER/fibrillation NONSPECIFIC ST & T-WAVE ABNORMALITY ABNORMAL RHYTHM ECG Compared to ECG 08/09/2022 17:53:33 Atrial fibrillation no longer present T-wave abnormality still present Electronically Signed On 08-10-2022 18:20:26 TITLE I COORDINATOR by Lynnette Camejo M.D. [id number]
[2022-08-09] MEDS: metoprolol tartrate 50 mg Tablet 100 MG PO (21:42)
[2022-08-09] MEDS: quetiapine 25 mg Tablet 50 MG PO (21:42)
[2022-08-09] MEDS: apixaban 5 mg Tablet PO (21:43)
[2022-08-09] MEDS: isosorbide mononitrate ER 30 mg Tablet 15 MG PO (21:43)
[2022-08-09] MEDS: sodium chloride 0.9% 1,000 ML 100 ML IV (22:01)
[2022-08-10] VITALS (7 sets, daily range): BP systolic 109–144; BP diastolic 74–84; PULSE 82–98; RESP 15–18; TEMP 36.7–37.1; O2SAT 93–97
--- NOTE | 2022-08-10 01:03 | PC.NURSE ---
This nurse called and asked if he wanted neurological assessments to be performed at intervals. Luis Enrique informed this nurse that it was not necessary due to it being an old stroke.
[2022-08-10 03:53] LABS: Basophils # 0.1 10^3/uL (0.0-0.1); Basophils % 0.6 %; Eosinophils # 0.4 10^3/uL (0.0-0.8); Eosinophils % 4.5 %; Hematocrit 34.6 % (37.0-47.0); Hemoglobin 10.8 g/dL (11.5-15.3); Lymphocytes % 20.6 %; Mean Corpuscular HGB Conc 31.2 g/dL (30.0-36.0); Mean Corpuscular Volume 89.6 fl (81-99); Mean Platelet Volume 9.5 fL (7.4-10.4); Monocytes # 0.9 10^3/uL (0.2-0.9); Monocytes % 8.6 %; Neutrophils # 6.46 10^3/uL (1.8-7.7); Neutrophils % 65.4 %; Nucleated Red Blood Cells % 0 %; Platelet Count 289 10^3/cmm (130-400); Red Blood Count 3.86 10^6/uL (4.1-5.3); Red Cell Distribution Width 13.1 % (12.1-15.1); White Blood Count 9.9 10^3/uL (4.0-10.0)
[2022-08-10 04:15] LABS: Alanine Aminotransferase 15 U/L (0-33); Albumin Level 3.1 g/dL (3.5-5.2); Alkaline Phosphatase 192 U/L (35-105); Anion Gap 11.8 (5-19); Aspartate Amino Transferase 16 U/L (0-32); Blood Urea Nitrogen 11 mg/dL (8-23); Calcium 8.5 mg/dL (8.5-10.5); Carbon Dioxide 24 mmol/L (22-29); Chloride 101 mmol/L (98-107); Globulin 2.6 g/dL (1.3-4.6); Glucose 97 mg/dL (65-115); Osmolality Calculated 275 mOsm/kg (285-295); Potassium 3.8 mmol/L (3.5-5.1); Sodium 133 mmol/L (136-145); Total Bilirubin 0.3 mg/dL (0.15-1.2); Total Protein 5.7 g/dL (6.6-8.7)
[2022-08-10 04:30] LABS: Magnesium 1.8 mg/dL (1.7-2.3); Phosphorus 3.1 mg/dL (2.5-4.5)
[2022-08-10 07:05] LABS: Glucose Point of Care 100 mg/dL (70-110)
[2022-08-10] MEDS: digoxin 125 mcg Tablet PO (10:01)
[2022-08-10] MEDS: aspirin 81 mg EC Tablet PO (10:02)
[2022-08-10] MEDS: isosorbide mononitrate ER 30 mg Tablet PO (10:02)
[2022-08-10] MEDS: sennosides-docusate Tablet 1 TAB PO (10:03)
[2022-08-10] MEDS: pantoprazole DR 40 mg Tablet PO (10:03)
[2022-08-10] MEDS: apixaban 5 mg Tablet PO (10:05)
[2022-08-10] MEDS: metoprolol tartrate 50 mg Tablet 100 MG PO (10:06)
[2022-08-10 12:18] LABS: Glucose Point of Care 164 mg/dL (70-110)
[2022-08-10] MEDS: insulin lispro 100 unit/1 mL SUBCUT (12:57)
[2022-08-10 14:53] LABS: SARS Covid-2 Antigen negative (Negative)
--- NOTE | 2022-08-10 15:27 | PC.NURSE ---
called report to Denia Coelho RN at [facility] [place].
--- NOTE | 2022-08-10 16:03 | PM.DCS ---
Discharge Providers Date of Admission: 08/09/22 17:51 Date of Discharge: August 10, 2022 Attending Provider at Admission: Phuong Cunningham MD Attending Provider at Discharge: Phuong Cunningham MD Primary Care Provider: Zohra Lira MD Diagnoses at Discharge Discharge Diagnosis (1) Acute cerebrovascular accident (CVA): Status: Acute (2) Chest pain: Status: Acute (3) Hypertension: Status: Acute (4) Diabetes: Status: Acute (5) Atrial flutter: Status: Acute (6) Callus of foot: Status: Acute (7) Charcot's joint of left foot: Status: Acute (8) Polyneuropathy: Status: Acute Reason for Visit Reason for Visit: STROKE Brief History: Nubia Love is a 77 year old female with history of A. fib, chronic anticoagulation, slightly reduced EF, cardiomyopathy, [facility] resident, was evaluated here in February this year for chest pain, she was managed medically with addition of isosorbide, Eliquis was added for her A. fib, she was taken off anticoagulating agent for history of GI bleed in the past, presenting with chief complaint of facial droop left-sided weakness.? Hospital Course Hospital Course Patient was admitted to the hospital in view of CVA. She was not a tPA candidate as she is on Eliquis. She had chest pain upon initial presentation, however subsided after administration of single dose of sublingual nitro. NIH stroke scale was 11 at the time of presentation. CT of her head showed chronic ischemic changes, CTA of the head and neck overall unremarkable. Patient has a history of A. fib with RVR but she remained rate controlled during this admission. She had significant weakness when first evaluated at the time of her arrival however by this afternoon her weakness is significantly better. Patient feels that she is back to her baseline. She typically uses a scooter for ambulation. Patient is anxious to return back to [place]. She was evaluated by physical therapy prior to discharge. Recommended to continue physical therapy at [facility]. Physical Exam Narrative: General: No acute distress, AO x3 HEENT: PERRLA, pupils bilaterally equal and reactive, pallors not present Chest: Normal vesicular breath sounds, no added sounds, equal good air entry bilaterally CVS: S1-S2 regular, no murmurs, no tachycardia, no gallops, no rubs Abdomen: Soft, nontender, no organomegaly, bowel sounds present Neuro: No focal deficits, no facial deformity, AO x3, power 5/5 in all limbs Discharge Data Studies Completed and Pending Completed Studies During Hospitalization Category Date Time Status CT head wo con* [id number] Stat Cat Scan 08/09/22 14:59 Completed CTA head neck [CT angio headneck* [id number]] Stat Cat Scan 08/09/22 15:16 Completed Pending at discharge Category Date Time Status Urine Culture Stat Lab 08/09/22 19:40 Received Radiology Impressions Head CT 08/09/22 14:59 IMPRESSION: 1. No evidence of intracranial hemorrhage or mass effect. 2. Mild small vessel changes. Moderate parenchymal volume loss. 3. Chronic lacunar infarcts in the LEFT caudate and LEFT internal capsule unchanged from previous. 4. RIGHT maxillary sinusitis. 5. No other acute findings. Notified Zi Aquino DO at 08/09/2022 3:08 PM. Head/Neck CTA 08/09/22 15:16 IMPRESSION: No large vessel stenosis or occlusion. IMPRESSION: Right: Approximately 10% stenosis of right internal carotid artery with calcified plaque. Vertebral artery is patent. Left: No significant stenosis of the left internal carotid artery and vertebral artery. REFERENCES: NASCET CRITERIA. The degree of stenosis in the cervical segment of the internal carotid artery is based on NASCET criteria. Normal is no stenosis. Mild is less than 50% stenosis. Moderate is 50-69% stenosis. Severe is 70% to 99% stenosis. Total occlusion is no detectable patent lumen. Laboratory Results WBC 9.9 10^3/uL (4.0-10.0) 08/10/22 03:04 RBC 3.86 10^6/uL (4.1-5.3) L 08/10/22 03:04 Hgb 10.8 g/dL (11.5-15.3) L 08/10/22 03:04 Hct 34.6 % (37.0-47.0) L 08/10/22 03:04 MCV 89.6 fl (81-99) 08/10/22 03:04 MCH 28.0 pg (28.0-34.0) 08/10/22 03:04 MCHC 31.2 g/dL (30.0-36.0) 08/10/22 03:04 RDW 13.1 % (12.1-15.1) 08/10/22 03:04 Plt Count 289 10^3/cmm (130-400) 08/10/22 03:04 MPV 9.5 fL (7.4-10.4) 08/10/22 03:04 Neut % (Auto) 65.4 % 08/10/22 03:04 Lymph % (Auto) 20.6 % 08/10/22 03:04 [place] % (Auto) 8.6 % 08/10/22 03:04 Eos % (Auto) 4.5 % 08/10/22 03:04 Baso % (Auto) 0.6 % 08/10/22 03:04 Neut # (Auto) 6.46 10^3/uL (1.8-7.7) 08/10/22 03:04 Lymph # (Auto) 2.0 10^3/uL (0.8-4.8) 08/10/22 03:04 [place] # (Auto) 0.9 10^3/uL (0.2-0.9) 08/10/22 03:04 Eos # (Auto) 0.4 10^3/uL (0.0-0.8) 08/10/22 03:04 Baso # (Auto) 0.1 10^3/uL (0.0-0.1) 08/10/22 03:04 Nucleated RBC % (auto) 0 % 08/10/22 03:04 Nucleated RBCs # 0.0 /100WBC 08/10/22 03:04 Sodium 133 mmol/L (136-145) L 08/10/22 03:04 Potassium 3.8 mmol/L (3.5-5.1) 08/10/22 03:04 Chloride 101 mmol/L (98-107) 08/10/22 03:04 Carbon Dioxide 24 mmol/L (22-29) 08/10/22 03:04 Anion Gap 11.8 (5-19) 08/10/22 03:04 BUN 11 mg/dL (8-23) 08/10/22 03:04 Creatinine 0.6 mg/dL (0.5-0.9) 08/10/22 03:04 GFR Calculation Not Reportable 08/10/22 03:04 Glucose 97 mg/dL (65-115) 08/10/22 03:04 POC Glucose 164 mg/dL (70-110) H 08/10/22 11:46 Calculated Osmolality 275 mOsm/kg (285-295) L 08/10/22 03:04 Calcium 8.5 mg/dL (8.5-10.5) 08/10/22 03:04 Phosphorus 3.1 mg/dL (2.5-4.5) 08/10/22 03:04 Magnesium 1.8 mg/dL (1.7-2.3) 08/10/22 03:04 Total Bilirubin 0.3 mg/dL (0.15-1.2) 08/10/22 03:04 AST 16 U/L (0-32) 08/10/22 03:04 ALT 15 U/L (0-33) 08/10/22 03:04 Alkaline Phosphatase 192 U/L (35-105) H 08/10/22 03:04 Troponin T Baseline 14 ng/L (0-10) H 08/09/22 15:15 Troponin T 120 Minute 13.07 ng/L (0-10) H 08/09/22 17:27 Delta Troponin T -0.93 ABS# (0-10) L 08/09/22 17:27 Troponin T Hi Sens 6Hr 12.77 ng/L (0-10) H 08/09/22 20:50 Troponin T Hi Sens 6Hr Delta -1.23 ng/L (0-12) L 08/09/22 20:50 Total Protein 5.7 g/dL (6.6-8.7) L D 08/10/22 03:04 Albumin 3.1 g/dL (3.5-5.2) L 08/10/22 03:04 Globulin 2.6 g/dL (1.3-4.6) 08/10/22 03:04 Vitamin B12 303 pg/mL (232-1245) 08/09/22 15:15 TSH 1.31 uIU/mL (0.27-4.20) 08/09/22 15:15 Urine Color Yellow (Yellow) 08/09/22 19:40 Urine Appearance Clear (CLEAR) 08/09/22 19:40 Urine pH 7 (5-7) 08/09/22 19:40 Ur Specific [place] 1.005 (1.005-1.030) 08/09/22 19:40 Urine Protein Neg (Negative) 08/09/22 19:40 Urine Glucose (UA) Norm (Normal) 08/09/22 19:40 Urine Ketones Negative (Negative) 08/09/22 19:40 Urine Blood 2+ (Negative) H 08/09/22 19:40 Urine Nitrate Negative (Negative) 08/09/22 19:40 Urine Bilirubin Neg (Negative) 08/09/22 19:40 Urine Urobilinogen Norm mg/dL (Negative) 08/09/22 19:40 Ur Leukocyte Esterase 2+ (Negative) H 08/09/22 19:40 Urine RBC 0-4 /hpf (0-2) H 08/09/22 19:40 Urine WBC 0-4 /hpf (0-5) H 08/09/22 19:40 Ur Squamous Epith Cells None /hpf (0-5) 08/09/22 19:40 Amorphous Sediment Not Reportable 08/09/22 19:40 Urine Bacteria 3+ /hpf (NONE) H 08/09/22 19:40 SARS-CoV-2 Ag (Rapid) negative (Negative) 08/10/22 14:24 Vitals Last Vital Signs Temp 98.7 F 08/10/22 11:00 Pulse 98 08/10/22 11:00 Resp 18 08/10/22 11:00 BP 144/84 08/10/22 11:00 Pulse Ox 97 08/10/22 11:00 O2 Del Method 08/10/22 11:00 Discharge Plan Discharge Patient Disposition: Xfer SNF Condition: Stable Prescriptions: Continued diclofenac sodium 1 % gel 4 g topical QID Qty: 100 5RF Rx Instructions: Apply to single ankle, foot; for foot includes sole/toes/top of foot TOPICALLY TO AFFECTED AREA 4 TIMES PER DAY AT 07,11,17,21 duloxetine [Cymbalta] 60 mg capsule,delayed release(DR/EC) 60 mg PO DAILY gabapentin 300 mg capsule 300 mg PO TID aspirin [Adult Low Dose Aspirin] 81 mg tablet,delayed release (DR/EC) 81 mg PO DAILY carbamazepine 100 mg capsule, ER multiphase 12 hr 100 mg PO BID docusate sodium 100 mg capsule 100 mg PO DAILY cetirizine [Zyrtec] 10 mg tablet 10 mg PO DAILY metoprolol tartrate 50 mg tablet 100 mg PO BID acetaminophen 325 mg Tablet 650 mg PO Q6H PRN (Reason: Pain) isosorbide mononitrate 30 mg Tablet Extended Release 24 Hr See Rx Instructions .ROUTE .COMPLEX Rx Instructions: 30 MG IN THE AM AND 15 MG IN THE PM amitriptyline 25 mg Tablet 25 mg PO BEDTIME magnesium hydroxide [Milk of [employer]] 400 mg/5 mL Suspension 30 ml PO DAILY PRN (Reason: Constipation) fluticasone propionate 50 mcg/actuation [place],Suspension 1 spray INTRANASAL BID hydrocodone-acetaminophen 5-325 mg Tablet 1 tab PO Q4H PRN (Reason: Pain) polyethylene glycol 3350 [Miralax] 17 gram Powder In Packet 17 g PO BID omeprazole 40 mg Capsule,Delayed Release(Dr/Ec) 40 mg PO DAILY Qty: 0 topiramate [Topamax] 50 mg tablet 50 mg PO BID alprazolam 0.25 mg Tablet 0.25 mg PO Q8H PRN (Reason: Anxiety) Qty: 0 diphenhydramine HCl [Benadryl] 25 mg Capsule 25 mg PO Q6H PRN (Reason: Itching) nitroglycerin [Nitrostat] 0.4 mg Tablet, Sublingual 0.4 mg SUBLINGUAL Q5M PRN (Reason: Chest Pain) Qty: 0 Tresiba FlexTouch U-100 100 unit/mL (3 mL) Insulin Pen 58 unit SUBCUT BEDTIME Qty: 0 Xanax 0.25 mg Tablet 0.25 mg PO ONCE PRN (Reason: Anxiety) ondansetron HCl 4 mg Tablet 4 mg PO DAILY simethicone 125 mg Capsule 125 mg PO TID PRN (Reason: Indigestion) quetiapine [Seroquel] 50 mg Tablet 50 mg PO BEDTIME Eliquis 5 mg Tablet 5 mg PO BID@0900,2100 Qty: 60 0RF furosemide [Lasix] 20 mg tablet 20 mg PO QAM Qty: 30 0RF Ozempic 0.25 mg or 0.5 mg(2 mg/1.5 mL) pen injector 0.25 mg SUBCUT Q7D digoxin 125 mcg (0.125 mg) tablet 125 mcg PO DAILY Qty: 30 0RF Discharge Orders: Discharge Order (Routine); Ordered 08/10/22 Ordered By: Phuong Cunningham Referrals: [facility] [Outside] Zohra Lira MD [Primary Care Provider] - 2 weeks Patient Instructions: Stroke (GEN), Opioid Safety Discharge Attestations Time Spent in Discharge Care*: greater than 30 min Status at Discharge: Cognitive status at discharge: cognitively intact, Behavioral status at discharge: cooperative, Quality Metrics Clinical Quality Measures [ Cerebrovascular Accident { Contraindication to Antithrombotic: None; antithrombotic prescribed; Contraindication to Anticoagulation: None; anticoagulation prescribed; Contraindication to Statin: None; Statin prescribed;}] Coding Level of Care Code Acute g FW DC note Diagnoses Acute cerebrovascular accident (CVA) I63.9 Chest pain R07.9 Hypertension I10 Diabetes E11.9 Atrial flutter I48.92 Callus of foot L84 Charcot's joint of left foot M14.672 Polyneuropathy G62.9
== END 2022-08-10 16:29 | disposition skilled nursing facility (03) ==
LOC: ER 17:18 → MEDSURG 17:54
PROVIDERS: Internal Medicine; Admitting Provider Student in an Organized Health Care Education/Training Program; Emergency Provider Family Medicine; PCP Family Medicine; Visit Provider Student in an Organized Health Care Education/Training Program
DX: I63.9 Cerebral infarction, unspecified (principal); R07.9 Chest pain, unspecified; I10 Essential (primary) hypertension; E11.42 Type 2 diabetes mellitus with diabetic polyneuropathy; I48.92 Unspecified atrial flutter; L84 Corns and callosities; M14.672 Charcot's joint, left ankle and foot; G62.9 Polyneuropathy, unspecified; Z79.01 Long term (current) use of anticoagulants; I51.9 Heart disease, unspecified; Z79.82 Long term (current) use of aspirin; I25.2 Old myocardial infarction
CPT/HCPCS: 36415; 36416; 70450; 70496; 70498; 80053; 81001; 82607; 82962; 83735; 84100; 84443; 84484; 85025; 87086; 87426; 92523; 92610; 93005; 96372; 97161; 97165; 97530; 99285; G0378; J1815; J7030; Q9967

== ENCOUNTER 2022-08-18 15:52 | Inpatient (IN) | payer MEDICARE, MEDICAID, SELFPAY ==
[2022-08-18] VITALS (16 sets, daily range): BP systolic 91–155; BP diastolic 68–110; PULSE 98–135; RESP 15–20; TEMP 37.9; O2SAT 92–97; BMI 41.5
--- NOTE | 2022-08-18 16:44 | ED_ITS ---
HPI - Altered Mental Status General: Chief Complaint: Altered Mental Status Stated Complaint: AMS Time Seen by Provider: 08/18/22 16:11 Source: patient Mode of arrival: EMS History of Present Illness: 77-year-old female presents emergency room via EMS from the long-term. She is alert and responsive very helpful with history. She appears to be in A. fib. [facility] ED PFSH: Medical History Achilles tendinitis of both lower extremities Anemia Atrial fibrillation and flutter Charcot's joint of left foot Chronic low back pain Complete small bowel obstruction Depression Diabetes Diabetic peripheral neuropathy associated with type 2 diabetes mellitus DVT (deep venous thrombosis) History of CVA (cerebrovascular accident) Hypertension Invasive ductal carcinoma of right breast [id number] Myocardial infarction Other accident with wheelchair (powered), initial encounter Polymyalgia Polyneuropathy Presence of vena cava filter Pulmonary emboli Pulmonary hypertension Surgical History History of appendectomy History of cholecystectomy History of colonoscopy Years ago. History of gastric surgery History of hysterectomy History of lymph node dissection of right axilla sentinel lymph node biopsy with right mastectomy History of right breast biopsy (~08/2019) History of rotator cuff surgery Bilateral Status post left knee replacement Status post left mastectomy Status post right knee replacement Status post right mastectomy Family History Mother Hypertension Cancer Father Diabetes CAD (coronary artery disease) Myocardial infarction Social History Smoking and tobacco status: never smoked Second hand smoke exposure: No Alcohol intake: never Adopted: No Caregiver/support person: Yes Lives independently: Yes Household members: family Housing: Group Home Marital status: Single Highest education level completed: High School Graduate service: No Current occupational status: retired Current occupational exposures/hazards: No Pets and animals: No History of recent travel: No Sexually active: No Current gender identity: Female Lanette/Worship: Anabaptism Special lanette needs: No Agree to transfusion: No Financial difficulty paying for basics: Decline to Answer Course Vital Signs: Vital signs: Vital Signs Pulse Rate 98 08/18/22 16:15 Respiratory Rate 15 08/18/22 16:15 Blood Pressure 120/68 08/18/22 16:15 Pulse Oximetry 96 08/18/22 16:15 Oxygen Delivery Me thod 08/18/22 16:15 Discharge Plan Discharge Condition: Stable Prescriptions: No Action diclofenac sodium 1 % gel 4 g topical QID Qty: 100 5RF Rx Instructions: Apply to single ankle, foot; for foot includes sole/toes/top of foot TOPICALLY TO AFFECTED AREA 4 TIMES PER DAY AT 07,11,17,21 duloxetine [Cymbalta] 60 mg capsule,delayed release(DR/EC) 60 mg PO DAILY gabapentin 300 mg capsule 300 mg PO TID aspirin [Adult Low Dose Aspirin] 81 mg tablet,delayed release (DR/EC) 81 mg PO DAILY carbamazepine 100 mg capsule, ER multiphase 12 hr 100 mg PO BID docusate sodium 100 mg capsule 100 mg PO DAILY cetirizine [Zyrtec] 10 mg tablet 10 mg PO DAILY metoprolol tartrate 50 mg tablet 100 mg PO BID acetaminophen 325 mg Tablet 650 mg PO Q6H PRN (Reason: Pain) isosorbide mononitrate 30 mg Tablet Extended Release 24 Hr See Rx Instructions .ROUTE .COMPLEX Rx Instructions: 30 MG IN THE AM AND 15 MG IN THE PM amitriptyline 25 mg Tablet 25 mg PO BEDTIME magnesium hydroxide [Milk of Magnesia] 400 mg/5 mL Suspension 30 ml PO DAILY PRN (Reason: Constipation) fluticasone propionate 50 mcg/actuation [place],Suspension 1 spray INTRANASAL BID hydrocodone-acetaminophen 5-325 mg Tablet 1 tab PO Q4H PRN (Reason: Pain) polyethylene glycol 3350 [Miralax] 17 gram Powder In Packet 17 g PO BID omeprazole 40 mg Capsule,Delayed Release(Dr/Ec) 40 mg PO DAILY Qty: 0 topiramate [Topamax] 50 mg tablet 50 mg PO BID alprazolam 0.25 mg Tablet 0.25 mg PO Q8H PRN (Reason: Anxiety) Qty: 0 diphenhydramine HCl [Benadryl] 25 mg Capsule 25 mg PO Q6H PRN (Reason: Itching) nitroglycerin [Nitrostat] 0.4 mg Tablet, Sublingual 0.4 mg SUBLINGUAL Q5M PRN (Reason: Chest Pain) Qty: 0 Tresiba FlexTouch U-100 100 unit/mL (3 mL) Insulin Pen 58 unit SUBCUT BEDTIME Qty: 0 Xanax 0.25 mg Tablet 0.25 mg PO ONCE PRN (Reason: Anxiety) atorvastatin 40 mg tablet 40 mg PO DAILY Qty: 30 0RF ondansetron HCl 4 mg Tablet 4 mg PO DAILY simethicone 125 mg Capsule 125 mg PO TID PRN (Reason: Indigestion) quetiapine [Seroquel] 50 mg Tablet 50 mg PO BEDTIME Eliquis 5 mg Tablet 5 mg PO BID@0900,2100 Qty: 60 0RF furosemide [Lasix] 20 mg tablet 20 mg PO QAM Qty: 30 0RF Ozempic 0.25 mg or 0.5 mg(2 mg/1.5 mL) pen injector 0.25 mg SUBCUT Q7D digoxin 125 mcg (0.125 mg) tablet 125 mcg PO DAILY Qty: 30 0RF Referrals: Zohra Lira MD [Primary Care Provider] - Coding Level of Care Code ED Epic Application Coordinator for Tashi Richter
--- NOTE | 2022-08-18 16:46 | ECG_ITS ---
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 Measurements Intervals Malin Rate: 124 P: 0 NE: 0 QRS: 10 QRSD: 113 T: 0 QT: 214 QTc: 308 Interpretive Statements ATRIAL FLUTTER/TACHYCARDIA WITH RAPID VENTRICULAR RESPONSE MODERATE INTRAVENTRICULAR CONDUCTION DELAY [110+ ms QRS DURATION] NONSPECIFIC ST & T-WAVE ABNORMALITY Compared to ECG 08/09/2022 20:53:26 Intraventricular conduction delay now present Atrial fibrillation no longer present T-wave abnormality still present Electronically Signed On 08-19-2022 7:53:53 MANAGER INVENTORY MANAGEMENT by Mark Burgess M.D. [id number]
--- NOTE | 2022-08-18 16:47 | XRR_ITS ---
PROCEDURE INFORMATION: Exam: XR Chest Exam date and time: 08/18/2022 4:59 PM Age: 77 years old Clinical indication: Other: AMS, confusion; Additional info: Dyspnea/cough TECHNIQUE: Imaging protocol: Radiologic exam of the chest. Views: 1 view. COMPARISON: CR XR chest 1V portable [id number] 08/03/2022 10:55 AM FINDINGS: Lungs: Stable scarring in the right upper lobe and left lower lobe. No focal consolidation. No pulmonary edema. Stable calcified granuloma in the the left mid lung. Pleural spaces: No pleural effusion. No pneumothorax. Heart/Mediastinum: Stable moderate enlargement of the cardiac silhouette. Mediastinal contours are unremarkable. Stable right hilar calcified lymph nodes. Vasculature: Stable vascular calcifications in the aorta. Bones/joints: Bones are diffusely osteopenic. Degenerative changes in the spine and shoulders. Patient has had a previous left rotator cuff repair. Multiple old left rib fractures. Osseous findings are stable. Intraperitoneal space: Surgical clips in the left upper quadrant of the abdomen are stable. Organs: Surgical clips in the right upper quadrant, consistent with a previous cholecystectomy. XR/XR chest 1V portable [id number] IMPRESSION: 1. No acute cardiopulmonary process. 2. Incidental/nonacute findings are listed in the report.
--- NOTE | 2022-08-18 16:54 | W.ED.GENADLT ---
Documented by User: Zi Aquino DO 08/19/22 05:10 HPI - General Adult General: Chief complaint: ER Hold Stated complaint: AMS Time Seen by Provider: 08/18/22 16:11 Source: patient Mode of arrival: ambulatory History of Present Illness: 77-year-old female presents emergency [facility]. She is alert and responsive very helpful with history. She appears to be in A. fib. Family member present at the bedside states she has been confused and disoriented they recently stopped her Ozempic which she had been on she is diabetic. Patient cannot relate any significant helpful history. Onset (ago): minute(s) Severity: mild Quality: burning Pain Consistency: constant Relieving factors: none Exacerbating factors: none Associated symptoms: Reports confusion; Deny chest pain, cough, diaphoresis, decreased appetite, dyspnea, fevers/chills, headache(s), malaise, nausea, rash, palpitations, seizures, short of breath, syncope, vomiting or weakness Treatments prior to arrival: none Review of Systems General: Reports: Other (Patient answered for review of systems, uncertain of accuracy) Const: Denies: fever(s), chills, malaise or diaphoresis ENMT: Denies: throat pain, ear or mastoid pain, nasal discharge or nasal congestion Card: Denies: chest pain, palpitations or syncope Resp: Denies: dyspnea, productive cough or non-productive cough GI: Denies: abdominal pain, nausea or vomiting : Denies: flank pain, difficulty voiding, dysuria, urinary frequency or urinary urgency Skin/Breast: Denies: rash Neuro: Reports: confusion; Denies: headache(s) PFS ED PFSH: Medical History Achilles tendinitis of both lower extremities Anemia Atrial fibrillation and flutter Charcot's joint of left foot Chronic low back pain Complete small bowel obstruction Depression Diabetes Diabetic peripheral neuropathy associated with type 2 diabetes mellitus DVT (deep venous thrombosis) History of CVA (cerebrovascular accident) Hypertension Invasive ductal carcinoma of right breast [id number] Myocardial infarction Other accident with wheelchair (powered), initial encounter Polymyalgia Polyneuropathy Presence of vena cava filter Pulmonary emboli Pulmonary hypertension Surgical History History of appendectomy History of cholecystectomy History of colonoscopy Years ago. History of gastric surgery History of hysterectomy History of lymph node dissection of right axilla sentinel lymph node biopsy with right mastectomy History of right breast biopsy (~08/2019) History of rotator cuff surgery Bilateral Status post left knee replacement Status post left mastectomy Status post right knee replacement Status post right mastectomy Family History Mother Hypertension Cancer Father Diabetes CAD (coronary artery disease) Myocardial infarction Social History Smoking and tobacco status: never smoked Second hand smoke exposure: No Alcohol intake: never Adopted: No Caregiver/support person: Yes Lives independently: Yes Household members: family Housing: [facility] Marital status: Single Highest education level completed: High School Graduate service: No Current occupational status: retired Current occupational exposures/hazards: No Pets and animals: No History of recent travel: No Sexually active: No Current gender identity: Female Lanette/Holiness: Tenriism Special lanette needs: No Agree to transfusion: No Financial difficulty paying for basics: Decline to Answer Physical Exam Const: GENERAL APPEARANCE: cooperative and comfortable ORIENTATION/CONSCIOUSNESS: Yes awake HENMT: COMMON NORMALS: normocephalic, atraumatic and hearing grossly normal bilaterally HEAD & SCALP: normocephalic and atraumatic Neck/C-Spine: COMMON NORMALS: full ROM, no lymphadenopathy, supple and no JVD Lymph: LYMPHATIC: no lymphadenopathy noted and no lymphedema noted Resp: COMMON NORMALS: normal respiratory effort, No retractions, No use of accessory muscles and clear to auscultation bilaterally AUSCULTATION: clear to auscultation bilaterally Cardio: COMMON NORMALS: no JVD, regular rate, regular rhythm and No murmurs present (Cardio) RATE: regular rate RHYTHM: regular rhythm GI: COMMON NORMALS: Soft to palpation and No hepatosplenomegaly present AUSCULTATION: Yes normoactive bowel sounds PALPATION: Yes Soft to palpation, No Tenderness to palpation present (GI), No Guarding due to palpation present (GI) and Yes No hepatosplenomegaly present : COMMON NORMALS: Yes no CVA tenderness BLADDER/KIDNEY EXAM: Yes no CVA tenderness Back/Pelvis: COMMON NORMALS: no CVA tenderness Extremity: COMMON NORMALS: normal to inspection, capillary refill normal, no clubbing, cyanosis or edema, no calf tenderness and no pedal edema Skin: COMMON NORMALS: no rashes or lesions noted GENERAL SKIN EXAM: no rashes or lesions noted Course Vital Signs: Vital signs: Vital Signs Temperature 100.2 F H 08/18/22 22:31 Pulse Rate 132 H 08/19/22 03:46 Respiratory Rate 18 08/19/22 03:46 Blood Pressure 118/73 08/19/22 03:46 Pulse Oximetry 93 08/19/22 03:46 Oxygen Delivery Me thod 08/18/22 23:56 MDM - General Adult Medical Decision Making Patient presented in A. fib with RVR with altered mental status. Beyond the tachycardia the rest of the exam is unremarkable. Patient started on Cardizem with bolus and drip. Labs are pending. Care signed out to Dr. Malhotra at change of shift. See final notes for diagnosis and disposition. Patient presents with altered mental status she was initially hypotensive with A. fib with RVR her heart rate and blood pressure is improved here and the Cardizem drip she is more alert currently her mentation could be due to her recent stroke along with some hypotension mild leukocytosis no signs of infection we will start on Rocephin and get blood cultures spoke to hospitalist will admit at this time. Lab Data 08/18/22 17:20 08/18/22 17:20 Radiology Impressions Chest X-Ray 08/18/22 16:47 IMPRESSION: 1. No acute cardiopulmonary process. 2. Incidental/nonacute findings are listed in the report. Head CT 08/18/22 17:45 IMPRESSION: 1. No acute intracranial abnormality. 2. Moderate diffuse cerebral atrophy. 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 Abdomen/Pelvis CT 08/18/22 18:18 IMPRESSION: 1. Fluid within the small bowel and colon without evidence of bowel wall thickening. This may reflect viral gastroenteritis in the appropriate clinical situation. 2. Sigmoid diverticulosis. No evidence for diverticulitis. 3. Incidental/nonacute findings are listed in the report. COMMENTS: For patients with an IVC filter, recommend assessment for a management plan for the patient's IVC filter. If there is no established management plan, recommend referral to an interventional clinician on a nonemergent basis for evaluation. Laboratory Results WBC 24.0 10^3/uL (4.0-10.0) H 08/19/22 03:38 RBC 3.85 10^6/uL (4.1-5.3) L 08/19/22 03:38 Hgb 10.9 g/dL (11.5-15.3) L 08/19/22 03:38 Hct 34.4 % (37.0-47.0) L 08/19/22 03:38 MCV 89.4 fl (81-99) 08/19/22 03:38 MCH 28.3 pg (28.0-34.0) 08/19/22 03:38 MCHC 31.7 g/dL (30.0-36.0) 08/19/22 03:38 RDW 14.3 % (12.1-15.1) 08/19/22 03:38 Plt Count 252 10^3/cmm (130-400) 08/19/22 03:38 MPV 10.7 fL (7.4-10.4) H 08/19/22 03:38 Neut % (Auto) 88.0 % 08/19/22 03:38 Lymph % (Auto) 2.7 % 08/19/22 03:38 Hendricks % (Auto) 6.6 % 08/19/22 03:38 Eos % (Auto) 0.5 % 08/19/22 03:38 Baso % (Auto) 0.4 % 08/19/22 03:38 Neut # (Auto) 21.17 10^3/uL (1.8-7.7) H 08/19/22 03:38 Lymph # (Auto) 0.7 10^3/uL (0.8-4.8) L 08/19/22 03:38 Hendricks # (Auto) 1.6 10^3/uL (0.2-0.9) H 08/19/22 03:38 Eos # (Auto) 0.1 10^3/uL (0.0-0.8) 08/19/22 03:38 Baso # (Auto) 0.1 10^3/uL (0.0-0.1) 08/19/22 03:38 Nucleated RBC % (auto) 0 % 08/19/22 03:38 Nucleated RBCs # 0.0 /100WBC 08/19/22 03:38 Sodium 133 mmol/L (136-145) L 08/18/22 17:20 Potassium 4.1 mmol/L (3.5-5.1) 08/18/22 17:20 Chloride 98 mmol/L (98-107) 08/18/22 17:20 Carbon Dioxide 23 mmol/L (22-29) 08/18/22 17:20 Anion Gap 16.1 (5-19) 08/18/22 17:20 BUN 47 mg/dL (8-23) H 08/18/22 17:20 Creatinine 1.8 mg/dL (0.5-0.9) H 08/18/22 17:20 GFR Calculation Not Reportable 08/18/22 17:20 Glucose 172 mg/dL (65-115) H 08/18/22 17:20 POC Glucose 139 mg/dL (70-110) H 08/18/22 22:04 Estimat Average Glucose 163 08/18/22 17:20 Hemoglobin A1c 7.3 % (4.0-6.0) H 08/18/22 17:20 Calculated Osmolality 292 mOsm/kg (285-295) 08/18/22 17:20 Lactic Acid 1.5 mmol/L (0.5-2.2) 08/18/22 17:20 Calcium 9.1 mg/dL (8.5-10.5) 08/18/22 17:20 Magnesium 2.2 mg/dL (1.7-2.3) 08/18/22 17:20 Total Bilirubin 3.3 mg/dL (0.15-1.2) H 08/18/22 17:20 AST 43 U/L (0-32) H 08/18/22 17:20 ALT 15 U/L (0-33) 08/18/22 17:20 Alkaline Phosphatase 325 U/L (35-105) H 08/18/22 17:20 Creatine Kinase 101 U/L (26-192) 08/18/22 17:20 NT-Pro-B Natriuret Pep 21091 pg/mL (0-450) H 08/18/22 17:20 Total Protein 7.8 g/dL (6.6-8.7) 08/18/22 17:20 Albumin 2.5 g/dL (3.5-5.2) L 08/18/22 17:20 Globulin 5.3 g/dL (1.3-4.6) H 08/18/22 17:20 Lipase 108 U/L (13-60) H 08/18/22 17:20 Procalcitonin 11.24 ng/mL (0-0.5) H 08/18/22 18:30 Urine Color Ailyn (Yellow) 08/18/22 17:48 Urine Appearance Cloudy (CLEAR) A 08/18/22 17:48 Urine pH 5 (5-7) 08/18/22 17:48 Ur Specific Emporium 1.025 (1.005-1.030) 08/18/22 17:48 Urine Protein 1+ (Negative) H 08/18/22 17:48 Urine Glucose (UA) Norm (Normal) 08/18/22 17:48 Urine Ketones Negative (Negative) 08/18/22 17:48 Urine Blood 3+ (Negative) H 08/18/22 17:48 Urine Nitrate Negative (Negative) 08/18/22 17:48 Urine Bilirubin 2+ (Negative) H 08/18/22 17:48 Urine Urobilinogen 4 mg/dL (Negative) H 08/18/22 17:48 Ur Leukocyte Esterase Trace (Negative) H 08/18/22 17:48 Urine RBC 5-10 /hpf (0-2) H 08/18/22 17:48 Urine WBC None /hpf (0-5) 08/18/22 17:48 Ur Squamous Epith Cells None /hpf (0-5) 08/18/22 17:48 Amorphous Sediment 3+ /hpf 08/18/22 17:48 Urine Bacteria None /hpf (NONE) 08/18/22 17:48 Digoxin 0.9 ng/mL (0.6-1.2) 08/18/22 18:30 Discharge Plan Discharge Patient Disposition: Admitted As Inpatient Admit Provider: Joshua Dudley Clinical Impression: Atrial fibrillation with RVR, Leukocytosis, Altered mental status Condition: Stable Coding Level of Care Code ED Flash Oven Operator for Chg Fwd Exam Comprehensive Documented by User: Carlito Malhotra MD 08/18/22 19:35 HPI - General Adult General: Chief complaint: ER Hold Stated complaint: AMS Time Seen by Provider: 08/18/22 16:11 PFSH ED PFSH: Medical History Achilles tendinitis of both lower extremities Anemia Atrial fibrillation and flutter Charcot's joint of left foot Chronic low back pain Complete small bowel obstruction Depression Diabetes Diabetic peripheral neuropathy associated with type 2 diabetes mellitus DVT (deep venous thrombosis) History of CVA (cerebrovascular accident) Hypertension Invasive ductal carcinoma of right breast [id number] Myocardial infarction Other accident with wheelchair (powered), initial encounter Polymyalgia Polyneuropathy Presence of vena cava filter Pulmonary emboli Pulmonary hypertension Surgical History History of appendectomy History of cholecystectomy History of colonoscopy Years ago. History of gastric surgery History of hysterectomy History of lymph node dissection of right axilla sentinel lymph node biopsy with right mastectomy History of right breast biopsy (~08/2019) History of rotator cuff surgery Bilateral Status post left knee replacement Status post left mastectomy Status post right knee replacement Status post right mastectomy Family History Mother Hypertension Cancer Father Diabetes CAD (coronary artery disease) Myocardial infarction Social History Smoking and tobacco status: never smoked Second hand smoke exposure: No Alcohol intake: never Adopted: No Caregiver/support person: Yes Lives independently: Yes Household members: family Housing: [facility] Marital status: Single Highest education level completed: High School Graduate service: No Current occupational status: retired Current occupational exposures/hazards: No Pets and animals: No History of recent travel: No Sexually active: No Current gender identity: Female Lanette/Holiness: Tenriism Special lanette needs: No Agree to transfusion: No Financial difficulty paying for basics: Decline to Answer Course Vital Signs: Vital signs: Vital Signs Temperature 100.2 F H 08/18/22 22:31 Pulse Rate 132 H 08/19/22 03:46 Respiratory Rate 18 08/19/22 03:46 Blood Pressure 118/73 08/19/22 03:46 Pulse Oximetry 93 08/19/22 03:46 Oxygen Delivery Me thod 08/18/22 23:56 MDM - General Adult Medical Decision Making Patient presents with altered mental status she was initially hypotensive with A. fib with RVR her heart rate and blood pressure is improved here and the Cardizem drip she is more alert currently her mentation could be due to her recent stroke along with some hypotension mild leukocytosis no signs of infection we will start on Rocephin and get blood cultures spoke to hospitalist will admit at this time. Lab Data 08/18/22 17:20 08/18/22 17:20 Radiology Impressions Chest X-Ray 08/18/22 16:47 IMPRESSION: 1. No acute cardiopulmonary process. 2. Incidental/nonacute findings are listed in the report. Head CT 08/18/22 17:45 IMPRESSION: 1. No acute intracranial abnormality. 2. Moderate diffuse cerebral atrophy. 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 Abdomen/Pelvis CT 08/18/22 18:18 IMPRESSION: 1. Fluid within the small bowel and colon without evidence of bowel wall thickening. This may reflect viral gastroenteritis in the appropriate clinical situation. 2. Sigmoid diverticulosis. No evidence for diverticulitis. 3. Incidental/nonacute findings are listed in the report. COMMENTS: For patients with an IVC filter, recommend assessment for a management plan for the patient's IVC filter. If there is no established management plan, recommend referral to an interventional clinician on a nonemergent basis for evaluation. Laboratory Results WBC 24.0 10^3/uL (4.0-10.0) H 08/19/22 03:38 RBC 3.85 10^6/uL (4.1-5.3) L 08/19/22 03:38 Hgb 10.9 g/dL (11.5-15.3) L 08/19/22 03:38 Hct 34.4 % (37.0-47.0) L 08/19/22 03:38 MCV 89.4 fl (81-99) 08/19/22 03:38 MCH 28.3 pg (28.0-34.0) 08/19/22 03:38 MCHC 31.7 g/dL (30.0-36.0) 08/19/22 03:38 RDW 14.3 % (12.1-15.1) 08/19/22 03:38 Plt Count 252 10^3/cmm (130-400) 08/19/22 03:38 MPV 10.7 fL (7.4-10.4) H 08/19/22 03:38 Neut % (Auto) 88.0 % 08/19/22 03:38 Lymph % (Auto) 2.7 % 08/19/22 03:38 Hendricks % (Auto) 6.6 % 08/19/22 03:38 Eos % (Auto) 0.5 % 08/19/22 03:38 Baso % (Auto) 0.4 % 08/19/22 03:38 Neut # (Auto) 21.17 10^3/uL (1.8-7.7) H 08/19/22 03:38 Lymph # (Auto) 0.7 10^3/uL (0.8-4.8) L 08/19/22 03:38 Hendricks # (Auto) 1.6 10^3/uL (0.2-0.9) H 08/19/22 03:38 Eos # (Auto) 0.1 10^3/uL (0.0-0.8) 08/19/22 03:38 Baso # (Auto) 0.1 10^3/uL (0.0-0.1) 08/19/22 03:38 Nucleated RBC % (auto) 0 % 08/19/22 03:38 Nucleated RBCs # 0.0 /100WBC 08/19/22 03:38 Sodium 133 mmol/L (136-145) L 08/18/22 17:20 Potassium 4.1 mmol/L (3.5-5.1) 08/18/22 17:20 Chloride 98 mmol/L (98-107) 08/18/22 17:20 Carbon Dioxide 23 mmol/L (22-29) 08/18/22 17:20 Anion Gap 16.1 (5-19) 08/18/22 17:20 BUN 47 mg/dL (8-23) H 08/18/22 17:20 Creatinine 1.8 mg/dL (0.5-0.9) H 08/18/22 17:20 GFR Calculation Not Reportable 08/18/22 17:20 Glucose 172 mg/dL (65-115) H 08/18/22 17:20 POC Glucose 139 mg/dL (70-110) H 08/18/22 22:04 Estimat Average Glucose 163 08/18/22 17:20 Hemoglobin A1c 7.3 % (4.0-6.0) H 08/18/22 17:20 Calculated Osmolality 292 mOsm/kg (285-295) 08/18/22 17:20 Lactic Acid 1.5 mmol/L (0.5-2.2) 08/18/22 17:20 Calcium 9.1 mg/dL (8.5-10.5) 08/18/22 17:20 Magnesium 2.2 mg/dL (1.7-2.3) 08/18/22 17:20 Total Bilirubin 3.3 mg/dL (0.15-1.2) H 08/18/22 17:20 AST 43 U/L (0-32) H 08/18/22 17:20 ALT 15 U/L (0-33) 08/18/22 17:20 Alkaline Phosphatase 325 U/L (35-105) H 08/18/22 17:20 Creatine Kinase 101 U/L (26-192) 08/18/22 17:20 NT-Pro-B Natriuret Pep 08813 pg/mL (0-450) H 08/18/22 17:20 Total Protein 7.8 g/dL (6.6-8.7) 08/18/22 17:20 Albumin 2.5 g/dL (3.5-5.2) L 08/18/22 17:20 Globulin 5.3 g/dL (1.3-4.6) H 08/18/22 17:20 Lipase 108 U/L (13-60) H 08/18/22 17:20 Procalcitonin 11.24 ng/mL (0-0.5) H 08/18/22 18:30 Urine Color Ailyn (Yellow) 08/18/22 17:48 Urine Appearance Cloudy (CLEAR) A 08/18/22 17:48 Urine pH 5 (5-7) 08/18/22 17:48 Ur Specific [place]ium 1.025 (1.005-1.030) 08/18/22 17:48 Urine Protein 1+ (Negative) H 08/18/22 17:48 Urine Glucose (UA) Norm (Normal) 08/18/22 17:48 Urine Ketones Negative (Negative) 08/18/22 17:48 Urine Blood 3+ (Negative) H 08/18/22 17:48 Urine Nitrate Negative (Negative) 08/18/22 17:48 Urine Bilirubin 2+ (Negative) H 08/18/22 17:48 Urine Urobilinogen 4 mg/dL (Negative) H 08/18/22 17:48 Ur Leukocyte Esterase Trace (Negative) H 08/18/22 17:48 Urine RBC 5-10 /hpf (0-2) H 08/18/22 17:48 Urine WBC None /hpf (0-5) 08/18/22 17:48 Ur Squamous Epith Cells None /hpf (0-5) 08/18/22 17:48 Amorphous Sediment 3+ /hpf 08/18/22 17:48 Urine Bacteria None /hpf (NONE) 08/18/22 17:48 Digoxin 0.9 ng/mL (0.6-1.2) 08/18/22 18:30 Critical Care Time Critical Care Time: Critical Care Time: Yes Total Critical Care Time: 45 Attestation: The high probability of a clinically significant, sudden or life threatening deterioration of the patient's cv system(s) required my full and direct attention, intervention and personal management. The critical care time is as shown. This time is in addition to time spent performing any reported procedures but includes the following: [x] Data and vital sign review and interpretation [x] Patient assessment, examination and intervention [x] Documentation [x] Medication orders and management Discharge Plan Discharge Patient Disposition: Admitted As Inpatient Admit Provider: Joshua Dudley Clinical Impression: Atrial fibrillation with RVR, Leukocytosis, Altered mental status Condition: Stable Coding Level of Care Code ED Flash Oven Operator for Chg Fwd Exam Comprehensive
--- NOTE | 2022-08-18 17:10 | PC.PHAR ---
PT IS A RESIDENT AT [facility]- PTS MAR INDICATED SHE WAS BEING GIVEN METOPROLOL SUCCINATE ER 100 MG BID- PT IS PRESCRIBED METOPROLOL TARTRATE 100 MG BID- NURSE VU FROM [facility] STS THE PTS MAR IS WRONG AND THEY HAVE BEEN GIVING HER TARTRATE NOT SUCCINATE THE MAR READS- THIS IS THE SECOND TIME I HAVE HAD TO CALL TO VERIFY THAT PT IS RECIEVING THE CORRECT MED.
[2022-08-18 17:43] LABS: Basophils # 0.1 10^3/uL (0.0-0.1); Basophils % 0.4 %; Eosinophils % 0.1 %; Hematocrit 35.4 % (37.0-47.0); Hemoglobin 11.3 g/dL (11.5-15.3); Lymphocytes # 0.8 10^3/uL (0.8-4.8); Lymphocytes % 3.9 %; Mean Corpuscular HGB Conc 31.9 g/dL (30.0-36.0); Mean Corpuscular Hemoglobin 27.8 pg (28.0-34.0); Mean Corpuscular Volume 87.2 fl (81-99); Mean Platelet Volume 10.3 fL (7.4-10.4); Monocytes # 1.1 10^3/uL (0.2-0.9); Monocytes % 5.5 %; Nucleated Red Blood Cells % 0 %; Platelet Count 264 10^3/cmm (130-400); Red Blood Count 4.06 10^6/uL (4.1-5.3); Red Cell Distribution Width 13.9 % (12.1-15.1); White Blood Count 19.8 10^3/uL (4.0-10.0)
--- NOTE | 2022-08-18 17:45 | CTR_ITS ---
PROCEDURE INFORMATION: Exam: CT Head Without Contrast Exam date and time: 08/18/2022 6:38 PM Age: 77 years old Clinical indication: Altered mental status/memory loss; Additional info: AMS TECHNIQUE: Imaging protocol: Computed tomography of the head without contrast. Radiation optimization: All CT scans at this facility use at least one of these dose optimization techniques: automated exposure control; mA and/or kV adjustment per patient size (includes targeted exams where dose is matched to clinical indication); or iterative reconstruction. COMPARISON: CT head wo con* [id number] 08/09/2022 3:00 PM RADIATION DOSE METRICS: Total DLP (mGy-cm): 1155.68 FINDINGS: Brain: No hemorrhage. No edema. Moderate diffuse cerebral atrophy. 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 No mass effect. Cerebral ventricles: No ventriculomegaly. Paranasal sinuses: Opacified right maxillary sinus. The rest of the paranasal sinuses are well pneumatized. Mastoid air cells: Visualized mastoid air cells are well aerated. Bones/joints: Unremarkable. No acute fracture. Soft tissues: Unremarkable. CT/CT head wo con* [id number] IMPRESSION: 1. No acute intracranial abnormality. 2. Moderate diffuse cerebral atrophy. 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
[2022-08-18] MEDS: dilTIAZem 100 MG in sodium chloride 0.9% (add-van) 100 ML 10 MG IV (17:52)
[2022-08-18] MEDS: dilTIAZem 5 mg/mL SDV 5 mL 10 MG IVP (17:52)
[2022-08-18] MEDS: sodium chloride 0.9% 1,000 ML 999 ML IV (17:55)
[2022-08-18] MEDS: sodium chloride 0.9% 500 ML 999 ML IV (17:56)
[2022-08-18 17:57] LABS: Lactic Sepsis W/Reflex 1.5 mmol/L (0.5-2.2)
[2022-08-18 18:07] LABS: Alanine Aminotransferase 15 U/L (0-33); Albumin Level 2.5 g/dL (3.5-5.2); Alkaline Phosphatase 325 U/L (35-105); Anion Gap 16.1 (5-19); Aspartate Amino Transferase 43 U/L (0-32); Blood Urea Nitrogen 47 mg/dL (8-23); Calcium 9.1 mg/dL (8.5-10.5); Carbon Dioxide 23 mmol/L (22-29); Chloride 98 mmol/L (98-107); Creatine Phosphokinase 101 U/L (26-192); Globulin 5.3 g/dL (1.3-4.6); Glucose 172 mg/dL (65-115); Lipase 108 U/L (13-60); Magnesium 2.2 mg/dL (1.7-2.3); NT Pro B Type Natriuretic Pept 11680 pg/mL (0-450); Osmolality Calculated 292 mOsm/kg (285-295); Potassium 4.1 mmol/L (3.5-5.1); Sodium 133 mmol/L (136-145); Total Bilirubin 3.3 mg/dL (0.15-1.2); Total Protein 7.8 g/dL (6.6-8.7)
[2022-08-18 18:16] LABS: Add Urine Microscopic? YES; Bilirubin Urine 2+ (Negative); Blood Urine 3+ (Negative); Glucose Urine UA Norm (Normal); Ketones Urine Negative (Negative); Leukocyte Esterase Urine Trace (Negative); Nitrate Urine Negative (Negative); Protein Urine 1+ (Negative); Specific Gravity, Urine 1.025 (1.005-1.030); Urine Appearance Cloudy (CLEAR); Urine Color Amber (Yellow); Urobilinogen Urine 4 mg/dL (Negative); pH Urine 5 (5-7)
--- NOTE | 2022-08-18 18:18 | CTR_ITS ---
PROCEDURE INFORMATION: Exam: CT Abdomen And Pelvis Without Contrast Exam date and time: 08/18/2022 6:41 PM Age: 77 years old Clinical indication: Abdominal pain; Flank; Left; Additional info: Abd pain/ hematuria TECHNIQUE: Imaging protocol: Computed tomography of the abdomen and pelvis without contrast. Sagittal and coronal reformatted images were created and reviewed. Radiation optimization: All CT scans at this facility use at least one of these dose optimization techniques: automated exposure control; mA and/or kV adjustment per patient size (includes targeted exams where dose is matched to clinical indication); or iterative reconstruction. COMPARISON: CT abdomen pelvis w con* [id number] 09/25/2021 3:11 PM RADIATION DOSE METRICS: Total DLP (mGy-cm): 1375.01 FINDINGS: Lungs: Dependent atelectasis in the lungs bilaterally. Pleural spaces: No pleural effusion. Heart: Stable moderate enlargement of the heart. Calcification of the aortic valve and mitral valve annulus. Coronary arteries: Moderate atherosclerotic calcification in the coronary arteries. Liver: The liver is unremarkable. Gallbladder and bile ducts: Stable findings consistent with a previous cholecystectomy. Stable dilatation of the biliary ducts, not unexpected in a patient who has had a prior cholecystectomy. Pancreas: Stable mild atrophy of the pancreatic parenchyma. No pancreatic ductal dilatation. Spleen: .Multiple calcified granulomas in the spleen are stable. Adrenal glands: The right and left adrenal glands are unremarkable. Kidneys and ureters: The right and left kidneys are unremarkable. The right and left ureters are unremarkable. No hydroureteronephrosis. No calcified urolithiasis. Stomach and bowel: Numerous diverticula in the sigmoid colon. No evidence for diverticulitis. Stable postsurgical changes in the stomach. Fluid within the small bowel and colon without evidence of bowel wall thickening. Appendix: The appendix is visualized and is unremarkable. No evidence of appendicitis. Intraperitoneal space: No free intraperitoneal air. No ascites. No loculated fluid collections to suggest an abscess. Vasculature: Stable mild atherosclerotic calcifications in the visualized arteries. No evidence for aortic aneurysm. There is an inferior vena cava filter with the tip just below the level of the renal veins. Lymph nodes: Calcified right hilar lymph nodes. No lymphadenopathy. Urinary bladder: The bladder is unremarkable. Reproductive: Stable changes consistent with a previous hysterectomy. The ovaries are not definitely visualized, not an expected in a postmenopausal female. This may be due to ovarian atrophy. Alternatively, the patient may have had a previous bilateral oophorectomy. Findings are stable. Bones/joints: Degenerative changes in the spine, sacroiliac joints, and hips. Soft tissues: No acute abnormality in the extra-abdominal soft tissues. CT/CT abdomen pelvis wo con [id number] IMPRESSION: 1. Fluid within the small bowel and colon without evidence of bowel wall thickening. This may reflect viral gastroenteritis in the appropriate clinical situation. 2. Sigmoid diverticulosis. No evidence for diverticulitis. 3. Incidental/nonacute findings are listed in the report. COMMENTS: For patients with an IVC filter, recommend assessment for a management plan for the patient's IVC filter. If there is no established management plan, recommend referral to an interventional clinician on a nonemergent basis for evaluation.
[2022-08-18] MEDS: cefTRIAXone 1,000 MG in sodium chloride 0.9% (plus) 50 ML 100 MG IV (18:21)
[2022-08-18 18:23] LABS: Add Urine Culture? No; Amorphous Sediment Urine 3+ /hpf
[2022-08-18 18:55] LABS: Digoxin 0.9 ng/mL (0.6-1.2)
--- NOTE | 2022-08-18 19:27 | PM.HP ---
Providers/Chief Complaint Primary Care Provider: Zohra Lira MD Chief Complaint: AMS History of Present Illness Nubia Love is a 77 year old female who has a history of mild dementia, [facility] resident, chronic A. fib, chronic anticoagulation with Eliquis, sedentary lifestyle, on digoxin as well for A. fib, presented to the hospital for chief complaint of lethargy fatigue and confusion. Daughter is at the bedside who is stating that since Monday she has been very fatigued and lethargic and not been able to get up from her bed because of lack of motivation. Normally she uses a wheelchair and a walker. Patient is stating that her daughter brought her to the hospital because of her fatigue and dehydration. She has been experiencing diarrhea for quite some days she is also experiencing abdominal pain she is endorsing subjective fevers and urinary frequency, urinary urgency and dysuria. She is not endorsing vomiting, nausea, chest pain, shortness of breath or stroke related weakness. Daughter stating that recently her Ozempic has been discontinued she was questioning whether Ozempic has anything to do with her symptoms and worsening of fatigue. In the ER patient had significant leukocytosis, enteritis noted on CT abdomen pelvis, she is afebrile, A. fib RVR currently on Cardizem drip, blood pressure improved after getting IV fluid hydration Head CT, chest x-ray unremarkable Patient endorsing signs of UTI I have started her on Zosyn, she received ceftriaxone in the ER, 2 L bolus and Cardizem 10 mg IV push currently she is on Cardizem drip 10 mg Digoxin level is not high Review of Systems Const: Reports: chills, body aches and change in appetite; Denies: fever(s) Eyes: Denies: change in vision ENMT: Denies: throat pain Card: Denies: chest pain Resp: Reports: dyspnea GI: Reports: abdominal pain, nausea and diarrhea : Denies: flank pain Musc: Denies: neck pain Skin/Breast: Denies: rash Neuro: Denies: headache(s) Psych: Reports: depression Endo: Denies: polyuria August/Lymph: Denies: easy bruising All/Imm: Denies: urticaria Medications/Allergies Home Medications Medication Instructions Recorded Confirmed Last Taken Type aspirin 81 mg tablet,delayed 81 mg PO DAILY 09/13/19 08/18/22 08/18/22 History release (Adult Low Dose Aspirin) carbamazepine 100 mg 100 mg PO BID 09/13/19 08/18/22 08/18/22 History capsule,extended release [id number] duloxetine 60 mg capsule,delayed 60 mg PO DAILY 09/13/19 08/18/22 08/18/22 History release (Cymbalta) gabapentin 300 mg capsule 300 mg PO TID 09/13/19 08/18/22 08/18/22 History diphenhydramine HCl 25 mg capsule 25 mg PO Q6H PRN Itching 09/19/19 08/18/22 09/22/19 History (Benadryl) insulin degludec 100 unit/mL (3 58 unit SUBCUT BEDTIME ##0 09/19/19 08/18/22 08/15/22 History mL) subcutaneous pen (Tresiba FlexTouch U-100 insulin) nitroglycerin 0.4 mg sublingual 0.4 mg sublingual Q5M PRN Chest 09/19/19 08/18/22 08/09/22 History tablet (Nitrostat) Pain ##0 omeprazole 40 mg capsule,delayed 40 mg PO DAILY ##0 09/19/19 08/18/22 08/18/22 History release polyethylene glycol 3350 17 gram 17 g PO BID 09/19/19 08/18/22 08/18/22 History oral powder packet (Miralax) topiramate 50 mg tablet (Topamax) 50 mg PO BID 09/19/19 08/18/22 08/18/22 History cetirizine 10 mg tablet (Zyrtec) 10 mg PO DAILY 03/30/20 08/18/22 08/18/22 History docusate sodium 100 mg capsule 100 mg PO DAILY 03/30/20 08/18/22 08/18/22 History acetaminophen 325 mg tablet 650 mg PO Q6H PRN Pain 11/09/20 08/18/22 Unknown History amitriptyline 25 mg tablet 25 mg PO BEDTIME 11/09/20 08/18/22 08/17/22 History fluticasone propionate 50 1 spray intranasal BID 11/09/20 08/18/22 08/18/22 History mcg/actuation nasal spray,suspension hydrocodone 5 mg-acetaminophen 325 1 tab PO Q4H PRN Pain 11/09/20 08/18/22 08/17/22 History mg tablet magnesium hydroxide 400 mg/5 mL 30 ml PO DAILY PRN Constipation 11/09/20 08/18/22 Unknown History oral suspension (Milk of Magnesia) diclofenac sodium 1 % topical gel 4 g topical QID #100 grams 01/31/22 08/18/22 08/18/22 Rx ondansetron HCl 4 mg tablet 4 mg PO DAILY 02/22/22 08/18/22 08/18/22 History quetiapine 50 mg tablet (Seroquel) 50 mg PO BEDTIME 02/22/22 08/18/22 08/17/22 History simethicone 125 mg capsule 125 mg PO TID PRN Indigestion 02/22/22 08/18/22 Unknown History apixaban 5 mg tablet (Eliquis) 5 mg PO BID@0900,2100 #60 tabs 02/25/22 08/18/22 08/18/22 Rx furosemide 20 mg tablet (Lasix) 20 mg PO QAM #30 tabs 02/25/22 08/18/22 08/18/22 Rx digoxin 125 mcg (0.125 mg) tablet 125 mcg PO DAILY #30 tabs 08/03/22 08/18/22 08/18/22 Rx alprazolam 0.25 mg tablet (Xanax) 0.25 mg PO TID 08/09/22 08/18/22 08/18/22 History atorvastatin 40 mg tablet 40 mg PO DAILY #30 tabs 08/10/22 08/18/22 08/17/22 Rx isosorbide mononitrate 30 mg 15 mg PO DAILY 08/18/22 08/18/22 08/18/22 History tablet,extended release 24 hr metoprolol tartrate 100 mg tablet 100 mg PO BID 08/18/22 08/18/22 08/18/22 History Allergies Allergy/AdvReac Type Severity Reaction Status Date / Time clonidine Allergy Unknown Verified 08/18/22 17:09 insulin detemir Allergy Unknown Verified 08/18/22 17:09 [From Levemir U-100 Insulin] metronidazole [From Flagyl] Allergy Unknown Verified 08/18/22 17:09 oxybutynin Allergy Unknown Verified 08/18/22 17:09 prochlorperazine Allergy Unknown Verified 08/18/22 17:09 PFSH Acute PFSH: Medical History Achilles tendinitis of both lower extremities Anemia Atrial fibrillation and flutter Charcot's joint of left foot Chronic low back pain Complete small bowel obstruction Depression Diabetes Diabetic peripheral neuropathy associated with type 2 diabetes mellitus DVT (deep venous thrombosis) History of CVA (cerebrovascular accident) Hypertension Invasive ductal carcinoma of right breast [id number] Myocardial infarction Other accident with wheelchair (powered), initial encounter Polymyalgia Polyneuropathy Presence of vena cava filter Pulmonary emboli Pulmonary hypertension Surgical History History of appendectomy History of cholecystectomy History of colonoscopy Years ago. History of gastric surgery History of hysterectomy History of lymph node dissection of right axilla sentinel lymph node biopsy with right mastectomy History of right breast biopsy (~08/2019) History of rotator cuff surgery Bilateral Status post left knee replacement Status post left mastectomy Status post right knee replacement Status post right mastectomy Family History Mother Hypertension Cancer Father Diabetes CAD (coronary artery disease) Myocardial infarction Social History Smoking and tobacco status: never smoked Second hand smoke exposure: No Alcohol intake: never Adopted: No Caregiver/support person: Yes Lives independently: Yes Household members: family Housing: [facility] Marital status: Single Highest education level completed: High School Graduate service: No Current occupational status: retired Current occupational exposures/hazards: No Pets and animals: No History of recent travel: No Sexually active: No Current gender identity: Female Lanette/Adventist: Uatsdin Special lanette needs: No Agree to transfusion: No Financial difficulty paying for basics: Decline to Answer Vitals/I&O/Wt Last Vital Signs Pulse 125 H 08/18/22 19:00 Resp 18 08/18/22 19:00 BP 110/90 08/18/22 19:00 Pulse Ox 95 08/18/22 19:00 O2 Del Method 08/18/22 18:04 08/18/22 08/18/22 08/18/22 06:59 14:59 22:59 Intake Total 562.333 / 562.333 Balance 562.333 / 562.333 Weight last 48 hrs Weight 113.398 kg Physical Exam Narrative: Pleasant cooperative female appears stated age Very fatigued and lethargic however able to answer my questions appropriately She is awake and alert oriented to time place and person It is hard to assess her volume status because of her BMI however her she has dry mucous membranes No edema of legs noted Abdomen is tender to deep palpation Bowel sound present Variable S1-S2 A. fib RVR Currently oxygen cannula is in her nose however it is not hooked up so basically she is on room air saturating 93% Pleasant and cooperative Daughter at the bedside No acute respiratory distress No active chest pain Data 08/18/22 17:20 08/18/22 17:20 A&P Assessment and plan (1) Atrial fibrillation with RVR: (2) Leukocytosis: (3) Altered mental status: (4) Enteritis: (5) Hypotension due to hypovolemia: (6) Diabetes: (7) UTI (urinary tract infection): Plan Enteritis Signs of UTI present Significant leukocytosis Recently she was admitted for left-sided weakness for diagnosis of acute CVA she was admitted And discharged next day she felt improvement in symptoms within few hours in the hospital BNP is higher but clinically she is dehydrated Hypotension responding well to IV fluid hydration she had received 2 L fluid in the ER, hypovolemic hypotension A. fib RVR, EF 50% Currently on Cardizem drip at 10 mg Continue digoxin and AV spring blocking agents Acute on chronic kidney disease secondary to worsening of creatinine I will reduce the dose of Eliquis Rule out C. difficile History of dementia without acute worsening Type 2 diabetes Consistent carb diet Patient recently stopped taking Ozempic Her p.o. intake is not good I will slightly reduce the dose of long-acting insulin, hold anxiolytics and antipsychotics because of worsening of kidney function She is DNR/DNI Attestations Medical Necessity Statement*: Anticipating discharge within 48 hours Time Spent in Patient Care: 40 Coding Level of Care Code Acute Home Care Manager Rn for Quang Fwd Diagnoses Atrial fibrillation with RVR I48.91 Leukocytosis D72.829 Altered mental status R41.82 Enteritis K52.9 Hypotension due to hypovolemia I95.89; E86.1 Diabetes E11.9 UTI (urinary tract infection) N39.0
[2022-08-18 20:04] LABS: Procalcitonin 11.24 ng/mL (0-0.5)
[2022-08-18 20:35] LABS: Estmated Average Glucose 163; Hemoglobin A1C 7.3 % (4.0-6.0)
[2022-08-18] MEDS: piperacillin-tazobactam 3.375 GM in sodium chloride 0.9% (plus) 50 ML IV (20:45)
--- NOTE | 2022-08-18 20:53 | PC.NURSE ---
Daughter Mirian cell phone [phone]
[2022-08-18 22:08] LABS: Glucose Point of Care 139 mg/dL (70-110)
[2022-08-18] MEDS: apixaban 5 mg Tablet 2.5 MG PO (22:32)
[2022-08-18] MEDS: insulin glargine 100 units/1 mL 44 UNIT SUBCUT (22:37)
[2022-08-18] MEDS: digoxin 125 mcg Tablet PO (22:40)
--- NOTE | 2022-08-18 23:07 | PC.NURSE ---
NURSE ATTEMPTED TO COMPLETE ADMISSION ASSESSMENT. PATIENT PRESENTED TO ED WITH AMS AND PATIENT IS STILL UNABLE TO ANSWER QUESTIONS AT THIS TIME. NURSE ATTEMPTED SEVERAL QUESTIONS AND PATIENT ONLY ANSWERED WITH GARBLED MUMBLES OR GROANS. NO FAMILY PRESENT OR AVAILABLE AT THIS TIME. PATIENT MADE COMFORTABLE IN BED. NO FURTHER NEEDS AT THIS TIME.
[2022-08-19] VITALS (33 sets, daily range): BP systolic 96–135; BP diastolic 64–111; PULSE 65–136; RESP 14–21; TEMP 36.8–36.9; O2SAT 90–98
[2022-08-19] MEDS: dilTIAZem 100 MG in sodium chloride 0.9% (add-van) 100 ML 15 MG IV ×2 (00:48→06:39)
--- NOTE | 2022-08-19 00:49 | PC.NURSE ---
PROVIDER NOTIFIED OF PATIENTS HR AND CURRENT MEDICATIONS GIVEN. HR 136, BP 108/93. PROVIDER VERBALIZED TO CONTINUE CURRENT TREATMENT PLAN. NO FURTHER NEEDS AT THIS TIME.
[2022-08-19] MEDS: piperacillin-tazobactam 3.375 GM in sodium chloride 0.9% (plus) 50 ML IV ×3 (04:09→20:00)
[2022-08-19 04:43] LABS: Basophils # 0.1 10^3/uL (0.0-0.1); Basophils % 0.4 %; Eosinophils # 0.1 10^3/uL (0.0-0.8); Eosinophils % 0.5 %; Hematocrit 34.4 % (37.0-47.0); Hemoglobin 10.9 g/dL (11.5-15.3); Lymphocytes # 0.7 10^3/uL (0.8-4.8); Lymphocytes % 2.7 %; Mean Corpuscular HGB Conc 31.7 g/dL (30.0-36.0); Mean Corpuscular Hemoglobin 28.3 pg (28.0-34.0); Mean Corpuscular Volume 89.4 fl (81-99); Mean Platelet Volume 10.7 fL (7.4-10.4); Monocytes # 1.6 10^3/uL (0.2-0.9); Monocytes % 6.6 %; Neutrophils # 21.17 10^3/uL (1.8-7.7); Nucleated Red Blood Cells % 0 %; Platelet Count 252 10^3/cmm (130-400); Red Blood Count 3.85 10^6/uL (4.1-5.3); Red Cell Distribution Width 14.3 % (12.1-15.1)
[2022-08-19 05:10] LABS: Alanine Aminotransferase 17 U/L (0-33); Albumin Level 1.9 g/dL (3.5-5.2); Alkaline Phosphatase 326 U/L (35-105); Anion Gap 18.8 (5-19); Aspartate Amino Transferase 48 U/L (0-32); Blood Urea Nitrogen 49 mg/dL (8-23); C Reactive Protein 305.9 mg/L (0.0-4.9); Calcium 8.6 mg/dL (8.5-10.5); Carbon Dioxide 17 mmol/L (22-29); Chloride 103 mmol/L (98-107); Globulin 5.2 g/dL (1.3-4.6); Glucose 135 mg/dL (65-115); Magnesium 2.1 mg/dL (1.7-2.3); Osmolality Calculated 295 mOsm/kg (285-295); Phosphorus 3.3 mg/dL (2.5-4.5); Potassium 3.8 mmol/L (3.5-5.1); Sodium 135 mmol/L (136-145); Total Protein 7.1 g/dL (6.6-8.7)
[2022-08-19 07:42] LABS: Glucose Point of Care 149 mg/dL (70-110)
[2022-08-19] MEDS: digoxin 125 mcg Tablet PO (08:14)
[2022-08-19] MEDS: metoprolol tartrate 50 mg Tablet 100 MG PO ×2 (08:15→17:38)
[2022-08-19] MEDS: pantoprazole DR 40 mg Tablet PO (08:15)
[2022-08-19] MEDS: sennosides-docusate Tablet 1 TAB PO (08:15)
[2022-08-19] MEDS: insulin lispro 100 unit/1 mL SUBCUT (08:15)
[2022-08-19] MEDS: apixaban 5 mg Tablet 2.5 MG PO ×2 (08:22→21:33)
[2022-08-19 12:44] LABS: Glucose Point of Care 101 mg/dL (70-110)
--- NOTE | 2022-08-19 14:02 | P.PN_ITS ---
Subjective Subjective: Seen this morning. Patient still confused. Is only oriented to self. However she does tell me she hurts all over. He says she is miserable other than this she does not give me any information. Very poor historian. WBC count 24,000, hemoglobin 10.9, CO2 17, creatinine 1.6. Lipase 108. BNP 11,000. Procalcitonin 11.24. Vitals/I&O/Wt Last Vital Signs Temp 98.4 F 08/19/22 05:00 Pulse 87 08/19/22 08:14 Resp 18 08/19/22 06:40 BP 106/70 08/19/22 06:40 Pulse Ox 94 08/19/22 06:40 O2 Del Method 08/19/22 07:22 08/18/22 08/19/22 08/19/22 22:59 06:59 14:59 Intake Total 1656.833 / 1656.833 193.167 / 1850.000 145.667 / 145.667 Balance 1656.833 / 1656.833 193.167 / 1850.000 145.667 / 145.667 Weight last 48 hrs Weight 113.398 kg Physical Exam Narrative: Pleasant cooperative female appears stated age Very fatigued and lethargic however able to answer my questions appropriately She is awake and alert oriented to time place and person It is hard to assess her volume status because of her BMI, mucous membranes appear slightly dry. Lips are dry as well. No edema of legs noted Abdomen is tender to deep palpation Bowel sound present Variable S1-S2 A. fib RVR On room air. Pleasant and cooperative No acute respiratory distress No active chest pain Urinary Catheter Management: Garcia: Cath Placed During This Visit: yes Urinary Catheter Date of Insertion: 08/19/22 Urinary Catheter Time of Insertion: 06:44 Data 08/19/22 03:38 08/19/22 03:38 Micro: Microbiology 08/18/22 19:51 Blood Culture - Preliminary Blood SPECIMEN COLLECTED 08/18/22 17:20 Blood Culture - Preliminary Blood SPECIMEN COLLECTED A&P Assessment and plan (1) Atrial fibrillation with RVR: (2) Leukocytosis: (3) Altered mental status: (4) Enteritis: (5) Hypotension due to hypovolemia: (6) Diabetes: (7) UTI (urinary tract infection): Plan #Generalized weakness and fatigue #Enteritis, diarrhea #Hypertension, hyperlipidemia #Type 2 diabetes mellitus #GERD #CKD stage III #Chronic systolic and diastolic congestive heart failure #Anxiety/depression #Obesity #Obstructive sleep apnea #Atrial fibrillation -UA abnormal. Leukocytosis present. WBC 24,000. ? Recent acute CVA with left-sided weakness discharged the next day. ? BNP 11,000 but patient appears clinically dehydrated ? Hypotension fluid responsive. She received 2 L fluid bolus in the ER. ? Atrial fibrillation but rate controlled. EF 50% ? In A. fib on admission. Placed on Cardizem drip. ? Continue digoxin and AV spring blocking agents ? Eliquis dose reduced to 2.5 twice daily ? Rule out C. difficile. Obtain stool sample ? Patient has a history of dementia ? Consistent carbohydrate diet, moderate intensity sliding scale insulin ? Insulin long-acting reduced due to patient poor oral intake. -Recently she was seen at cyber threat analyst office at the end of April 2022 for chest pain. Her Imdur was increased to 30 mg in the morning and 15 mg in the evening. Amiodarone was stopped but she was previously on. Metoprolol was increased to 100 twice daily. - DNR/DNI Heparin SQ twice daily Attestations Medical Necessity Statement*: Expect patient to stay in the hospital for about 48 hours for management and work-up of generalized weakness fatigue, diarrhea, atrial fibrillation. Coding Level of Care Code Acute Placement Secretary for Chg Fwd Diagnoses Atrial fibrillation with RVR I48.91 Leukocytosis D72.829 Altered mental status R41.82 Enteritis K52.9 Hypotension due to hypovolemia I95.89; E86.1 Diabetes E11.9 UTI (urinary tract infection) N39.0
[2022-08-19 17:41] LABS: Glucose Point of Care 121 mg/dL (70-110)
[2022-08-19] MEDS: insulin glargine 100 units/1 mL 44 UNIT SUBCUT (21:33)
[2022-08-19 21:41] LABS: Glucose Point of Care 126 mg/dL (70-110)
[2022-08-20] VITALS (23 sets, daily range): BP systolic 124–187; BP diastolic 73–119; PULSE 85–118; RESP 15–33; TEMP 36.6–36.7; O2SAT 95–98
[2022-08-20] MEDS: piperacillin-tazobactam 3.375 GM in sodium chloride 0.9% (plus) 50 ML IV ×3 (06:00→20:19)
--- NOTE | 2022-08-20 06:00 | USCV_ITS ---
Nubia Love Age: 77 Gender: F : 1945 Exam Date: 08/20/2022 06:30 Ordering Phys: Mohini Jiang MD Technologist: GIO Exam Location: [facility] – [place] Indication: BNP elevated BP: 161 / 84 HR: 86 Rhythm: Atrial fibrillation Technical Quality: Adequate MEASUREMENTS (Male / Female) Normal Values 2D ECHO LV Diastolic Diameter PLAX 5.3 cm 4.2 - 5.9 / 3.9 - 5.3 cm LV Systolic Diameter PLAX 4.0 cm IVS Diastolic Thickness 0.7 cm 0.6 - 1.0 / 0.6 - 0.9 cm IVS Systolic Thickness 1.1 cm LVPW Diastolic Thickness 0.7 cm 0.6 - 1.0 / 0.6 - 0.9 cm LVPW Systolic Thickness 1.0 cm LVOT Diameter 2.3 cm LV Ejection Fraction 2D Teich 47.0 % LV Ejection Fraction MOD 2C 36.3 % LV Ejection Fraction 2C AL 36.0 % LA Diameter 4.0 cm IVC Diameter 1.6 cm M-MODE Aortic Annulus Diameter 3.6 cm LA Ao Ratio MM 1.1 MV E Point Septal Separation 0.9 cm DOPPLER AV Peak Velocity 209.0 cm/s LVOT Peak Velocity 80.0 cm/s AV Area Cont Eq vti 1.5 cm squared AV Area Cont Eq pk 1.6 cm squared MV Area PHT 3.5 cm squared Mitral E to A Ratio 3.2 MV E' Velocity 79.5 cm/s Mitral E to MV E' Ratio 23.7 Mitral E to LV E' Lateral Ratio 23.0 Mitral E to LV E' Septal Ratio 24.9 TR Peak Velocity 240.0 cm/s TR Peak Gradient 23.0 mmHg TV Peak E Velocity 77.0 cm/s Right Atrial Pressure 3.0 mmHg Pulmonary Artery Systolic Pressu 26.0 mmHg PV Peak Velocity 110.0 cm/s FINDINGS Left Ventricle Normal left ventricular size and wall thickness, with no regional wall motion abnormalities. Mildly decreased left bventricular systolic function. Left ventricular ejection fraction is estimated at 50-55 %. Mild global hypokinesis. Rhythm precludes evaluation of diastolic function. Right Ventricle Normal right ventricular size and systolic function. RVSP could not be calculated due to incomplete tricuspid regurgitation velocity profile. Right Atrium Normal right atrial size. Left Atrium Moderately increased left atrial size. Mitral Valve Severe posterior mitral annular calcification. Mildly thickened mitral valve. No mitral valve stenosis. Trace to mild mitral valve regurgitation. Aortic Valve Moderately thickened and calcified trileaflet aortic valve (more so of right and left coronary cusps). No aortic valve stenosis. No aortic valve regurgitation. Tricuspid Valve Structurally normal tricuspid valve. No tricuspid valve stenosis. Trace tricuspid valve regurgitation. Pulmonic Valve Structurally normal pulmonic valve. No pulmonary valve stenosis. No significant pulmonary valve regurgitation. Pericardium No pericardial effusion. Aorta Normal size aortic root and proximal ascending aorta. IVC Normal IVC dimension with >50% respiratory change of the inferior vena cava. CONCLUSIONS 1. Normal left ventricular size and wall thickness, with no regional wall motion abnormalities. Mildly decreased left bventricular systolic function. Left ventricular ejection fraction is estimated at 50-55 %. Mild global hypokinesis. 2. Normal right ventricular size and systolic function. 3. Trace to mild mitral valve regurgitation. 4. When compared to study dated 02/24/2022, there may not have been any significant change. Brandi Pineda MD (Electronically Signed) Final Date: 20 August 2022 10:52 S
[2022-08-20 08:09] LABS: Glucose Point of Care 85 mg/dL (70-110)
[2022-08-20] MEDS: digoxin 125 mcg Tablet PO (08:33)
[2022-08-20] MEDS: apixaban 5 mg Tablet 2.5 MG PO ×2 (08:33→20:19)
[2022-08-20] MEDS: pantoprazole DR 40 mg Tablet PO (08:33)
[2022-08-20] MEDS: sennosides-docusate Tablet 1 TAB PO (08:33)
[2022-08-20] MEDS: metoprolol tartrate 50 mg Tablet 100 MG PO ×2 (08:33→17:56)
[2022-08-20 09:30] LABS: Basophils # 0.1 10^3/uL (0.0-0.1); Basophils % 0.4 %; Eosinophils # 0.1 10^3/uL (0.0-0.8); Eosinophils % 0.8 %; Hematocrit 38.7 % (37.0-47.0); Hemoglobin 12.3 g/dL (11.5-15.3); Lymphocytes # 1.2 10^3/uL (0.8-4.8); Lymphocytes % 7.4 %; Mean Corpuscular HGB Conc 31.8 g/dL (30.0-36.0); Mean Platelet Volume 11.5 fL (7.4-10.4); Monocytes # 1.5 10^3/uL (0.2-0.9); Monocytes % 9.1 %; Neutrophils # 13.44 10^3/uL (1.8-7.7); Neutrophils % 81.5 %; Nucleated Red Blood Cells % 0 %; Platelet Count 258 10^3/cmm (130-400); Red Cell Distribution Width 14.4 % (12.1-15.1); White Blood Count 16.5 10^3/uL (4.0-10.0)
[2022-08-20 09:53] LABS: Blood Urea Nitrogen 51 mg/dL (8-23); Calcium 9.4 mg/dL (8.5-10.5); Carbon Dioxide 22 mmol/L (22-29); Chloride 107 mmol/L (98-107); Digoxin 0.6 ng/mL (0.6-1.2); Glucose 88 mg/dL (65-115); Magnesium 2.5 mg/dL (1.7-2.3); Osmolality Calculated 305 mOsm/kg (285-295); Sodium 141 mmol/L (136-145)
[2022-08-20 10:04] LABS: Anion Gap 15.8 (5-19); Potassium 3.8 mmol/L (3.5-5.1)
[2022-08-20 12:39] LABS: Glucose Point of Care 104 mg/dL (70-110)
--- NOTE | 2022-08-20 14:02 | PM.PN ---
Subjective Subjective: Seen this morning. Patient appears better clinically. WBC count coming down, creatinine coming down. However she is pleasantly confused. Patient does have a history of dementia. No family bedside present today. No concerns reported by nursing staff. Cardizem drip has been turned off. Still having diarrhea but very watery and she is incontinent. We will try obtaining sample with bedpan. Discussed with RN. Vitals/I&O/Wt Last Vital Signs Temp 98.3 F 08/19/22 19:30 Pulse 103 H 08/20/22 08:33 Resp 15 08/20/22 06:00 BP 143/82 08/20/22 06:00 Pulse Ox 95 08/20/22 06:00 O2 Del Method 08/19/22 07:22 08/19/22 08/20/22 08/20/22 22:59 06:59 14:59 Intake Total 276.25 / 421.917 50 / 471.917 650 / 650 Output Total 550 / 550 780 / 1330 Balance -273.75 / -128.083 -730 / -858.083 650 / 650 Weight last 48 hrs Weight 113.398 kg Physical Exam Narrative: Pleasant cooperative female appears stated age Appears more awake and alert today. However confused. Only oriented to self. Lips appear slightly dry. No edema of legs noted Abdomen nontender. Bowel sound present Variable S1-S2 A. fib RVR On room air. Pleasant and cooperative No acute respiratory distress No active chest pain Urinary Catheter Management: Garcia: Cath Placed During This Visit: yes Reason for Continuing Indwelling Catheter: Accurate Measurement of Urinary Output in Critically Ill Patients Urinary Catheter Date of Insertion: 08/19/22 Urinary Catheter Time of Insertion: 06:44 Data 08/20/22 09:05 08/20/22 09:05 Micro: Microbiology 08/18/22 17:48 Urine Culture - Preliminary Urine Catheterized 08/18/22 19:51 Blood Culture - Preliminary Blood NEGATIVE TO DATE 08/18/22 17:20 Blood Culture - Preliminary Blood NEGATIVE TO DATE A&P Assessment and plan (1) Atrial fibrillation with RVR: (2) Leukocytosis: (3) Altered mental status: (4) Enteritis: (5) Hypotension due to hypovolemia: (6) Diabetes: (7) UTI (urinary tract infection): Plan #Generalized weakness and fatigue #Enteritis, diarrhea #Hypertension, hyperlipidemia #Type 2 diabetes mellitus #GERD #CKD stage III #Chronic systolic and diastolic congestive heart failure #Anxiety/depression #Obesity #Obstructive sleep apnea #Atrial fibrillation -UA abnormal. Leukocytosis present. WBC 24,000. ? Recent acute CVA with left-sided weakness discharged the next day. ? BNP 11,000 but patient appears clinically dehydrated ? Hypotension fluid responsive. She received 2 L fluid bolus in the ER. ? Atrial fibrillation but rate controlled. EF 50% ? In A. fib on admission. Placed on Cardizem drip. ? Continue digoxin and AV spring blocking agents ? Eliquis dose reduced to 2.5 twice daily ? Rule out C. difficile. Obtain stool sample ? Patient has a history of dementia ? Consistent carbohydrate diet, moderate intensity sliding scale insulin ? Insulin long-acting reduced due to patient poor oral intake. -Recently she was seen at laboratory inspector office at the end of April 2022 for chest pain. Her Imdur was increased to 30 mg in the morning and 15 mg in the evening. Amiodarone was stopped but she was previously on. Metoprolol was increased to 100 twice daily. -Stop Cardizem drip at this point. Continue on Lopressor 100 twice daily and home digoxin. Attempt to obtain a stool sample to check for C. difficile. Discussed with RN. DNR/DNI Heparin SQ twice daily Attestations Medical Necessity Statement*: Expect patient to stay in the hospital for about 48 hours for management and work-up of generalized weakness fatigue, diarrhea, atrial fibrillation. Coding Level of Care Code Acute Certified Wellness Program Coordinator for Tashi Fwd Diagnoses Atrial fibrillation with RVR I48.91 Leukocytosis D72.829 Altered mental status R41.82 Enteritis K52.9 Hypotension due to hypovolemia I95.89; E86.1 Diabetes E11.9 UTI (urinary tract infection) N39.0
[2022-08-20 17:42] LABS: Glucose Point of Care 97 mg/dL (70-110)
--- NOTE | 2022-08-20 18:41 | PC.NURSE ---
Patient transferred via patient bed with the assistance of ESE Harvey. Patient transferred to room 101 on the Cardiac Step Down Unit patient denied pain at time of transfer. CSU nurse notified of patient's arrival to to unit and this nurse called and notified Mirian- Patient's daughter.
[2022-08-20 20:01] LABS: Glucose Point of Care 115 mg/dL (70-110)
[2022-08-20] MEDS: insulin glargine 100 units/1 mL 44 UNIT SUBCUT (20:19)
[2022-08-20] MEDS: vancomycin 1,250 MG/250 ML PIGGYBACK 250 MG IV (23:31)
[2022-08-21] VITALS (10 sets, daily range): BP systolic 134–179; BP diastolic 89–135; PULSE 79–111; RESP 21–25; TEMP 36.3–36.8; O2SAT 92–99
[2022-08-21] MEDS: acetaminophen 325 mg Tablet 650 MG PO (01:28)
[2022-08-21] MEDS: labetalol 5 mg/mL SDV 20mL 10 MG IVP (01:56)
--- NOTE | 2022-08-21 02:01 | PC.NURSE ---
Patient's bp elevated 179/135. Informed Dr Dudley and doctor placed order for one time dose of Labetalol 10mg IVP which has been given as documented. Patient bp now 155/107. Will continue to monitor.
[2022-08-21] MEDS: piperacillin-tazobactam 3.375 GM in sodium chloride 0.9% (plus) 50 ML IV ×3 (04:43→20:19)
[2022-08-21 06:01] LABS: Basophils # 0.1 10^3/uL (0.0-0.1); Basophils % 0.4 %; Eosinophils # 0.1 10^3/uL (0.0-0.8); Eosinophils % 0.4 %; Lymphocytes # 1.4 10^3/uL (0.8-4.8); Lymphocytes % 8.7 %; Mean Corpuscular HGB Conc 31.6 g/dL (30.0-36.0); Mean Corpuscular Hemoglobin 27.6 pg (28.0-34.0); Mean Corpuscular Volume 87.6 fl (81-99); Mean Platelet Volume 10.8 fL (7.4-10.4); Monocytes # 1.5 10^3/uL (0.2-0.9); Monocytes % 9.5 %; Neutrophils # 12.92 10^3/uL (1.8-7.7); Neutrophils % 80.3 %; Nucleated Red Blood Cells % 0 %; Platelet Count 269 10^3/cmm (130-400); Red Blood Count 4.34 10^6/uL (4.1-5.3); Red Cell Distribution Width 14.3 % (12.1-15.1); White Blood Count 16.1 10^3/uL (4.0-10.0)
[2022-08-21 06:11] LABS: Glucose Point of Care 97 mg/dL (70-110)
[2022-08-21 06:29] LABS: Anion Gap 14.4 (5-19); Blood Urea Nitrogen 45 mg/dL (8-23); Calcium 9.2 mg/dL (8.5-10.5); Carbon Dioxide 21 mmol/L (22-29); Chloride 107 mmol/L (98-107); Glucose 92 mg/dL (65-115); Osmolality Calculated 299 mOsm/kg (285-295); Potassium 3.4 mmol/L (3.5-5.1); Sodium 139 mmol/L (136-145)
[2022-08-21] MEDS: digoxin 125 mcg Tablet PO (08:34)
[2022-08-21] MEDS: apixaban 5 mg Tablet 2.5 MG PO ×2 (08:34→20:20)
[2022-08-21] MEDS: metoprolol tartrate 50 mg Tablet 100 MG PO ×2 (08:34→18:25)
[2022-08-21] MEDS: pantoprazole DR 40 mg Tablet PO (08:34)
--- NOTE | 2022-08-21 08:44 | PM.PN ---
Subjective Subjective: Seen this morning. No acute events overnight. Blood culture 2 out of 2 bottles positive for group B strep. Vitals/I&O/Wt Last Vital Signs Temp 97.4 F L 08/21/22 07:29 Pulse 111 H 08/21/22 08:34 Resp 24 H 08/21/22 07:29 BP 161/113 08/21/22 07:29 Pulse Ox 97 08/21/22 07:29 O2 Del Method 08/21/22 07:29 08/20/22 08/21/22 08/21/22 22:59 06:59 14:59 Intake Total 290 / 940 300 / 1240 Output Total 700 / 700 350 / 1050 Balance -410 / 240 -50 / 190 Physical Exam Narrative: Pleasant cooperative female appears stated age Awake and alert. Only oriented to self. No edema of legs noted Abdomen nontender. Bowel sound present normal S1-S2 regular rate, irregular On room air. Pleasant and cooperative No acute respiratory distress No active chest pain Urinary Catheter Management: Garcia: Cath Placed During This Visit: yes Reason for Continuing Indwelling Catheter: Acute Urinary Retention or Obstruction Urinary Catheter Date of Insertion: 08/19/22 Urinary Catheter Time of Insertion: 06:44 Data 08/21/22 05:04 08/21/22 05:04 Micro: Microbiology 08/20/22 19:18 Blood Culture - Preliminary Blood SPECIMEN COLLECTED 08/20/22 19:24 Blood Culture - Preliminary Blood SPECIMEN COLLECTED 08/20/22 16:15 C.difficile Toxin B Gene (PCR) - Final Stool - Stool Aspirate 08/18/22 17:20 Blood Culture - Preliminary Blood Strep agalactiae - (group b) 08/18/22 17:48 Urine Culture - Preliminary Urine Catheterized A&P Assessment and plan (1) Atrial fibrillation with RVR: (2) Leukocytosis: (3) Altered mental status: (4) Enteritis: (5) Hypotension due to hypovolemia: (6) Diabetes: (7) UTI (urinary tract infection): Plan #Group B Strep Bacteremia #Generalized weakness and fatigue #Enteritis, diarrhea #Hypertension, hyperlipidemia #Type 2 diabetes mellitus #GERD #CKD stage III #Chronic systolic and diastolic congestive heart failure #Anxiety/depression #Obesity #Obstructive sleep apnea #Atrial fibrillation -UA abnormal. Leukocytosis improving, [id number] today ? Recent acute CVA with left-sided weakness discharged the next day. ? BNP 11,000, euovelemic. ? Hypotension fluid responsive. She received 2 L fluid bolus in the ER. ? Atrial fibrillation but rate controlled. EF 50% ? In A. fib on admission. Placed on Cardizem drip now stopped. ? Continue digoxin and AV spring blocking agents ? Eliquis dose reduced to 2.5 twice daily ? C.diff ruled out. ? Patient has a history of dementia ? Consistent carbohydrate diet, moderate intensity sliding scale insulin ? Insulin long-acting reduced due to patient poor oral intake. -Recently she was seen at taper machine office at the end of April 2022 for chest pain. Her Imdur was increased to 30 mg in the morning and 15 mg in the evening. Amiodarone was stopped but she was previously on. Metoprolol was increased to 100 twice daily. -Stop Cardizem drip at this point. Continue on Lopressor 100 twice daily and home digoxin. - Group B strep bacteremia present. Repeat cultures sent on 08/20. Will obtain ID consult. Stool enteric panel negative, urine culture negative, blood cultures negative to date repeat cultures. Initial urine from 08/09/2022 did grow strep species gamma hemolytic. We will wait for sensitivity. ? Echo negative for any vegetations. DNR/DNI Heparin SQ twice daily Attestations Medical Necessity Statement*: Expect patient to stay in the hospital for > 48 hours. Management and work-up of generalized weakness fatigue, diarrhea, atrial fibrillation. Coding Level of Care Code Acute Cloud Solutions Architect for g Fwd Diagnoses Atrial fibrillation with RVR I48.91 Leukocytosis D72.829 Altered mental status R41.82 Enteritis K52.9 Hypotension due to hypovolemia I95.89; E86.1 Diabetes E11.9 UTI (urinary tract infection) N39.0
[2022-08-21] MEDS: potassium chloride ER 20 mEq Tablet PO (09:58)
[2022-08-21] MEDS: hyDRALAzine 20 mg/mL INJ 1 mL 10 MG IVP (10:02)
[2022-08-21 11:45] LABS: Glucose Point of Care 98 mg/dL (70-110)
[2022-08-21 17:40] LABS: Glucose Point of Care 85 mg/dL (70-110)
[2022-08-21] MEDS: insulin glargine 100 units/1 mL 44 UNIT SUBCUT (20:20)
[2022-08-21 20:40] LABS: Glucose Point of Care 122 mg/dL (70-110)
[2022-08-21] MEDS: lanolin oint 7 gm 1 APPLIC TOPICAL (23:38)
[2022-08-22] VITALS (7 sets, daily range): BP systolic 154–186; BP diastolic 83–130; PULSE 104–127; RESP 17–26; TEMP 36.5–36.6; O2SAT 96–98
[2022-08-22] MEDS: vancomycin 1,250 MG/250 ML PIGGYBACK 250 MG IV (00:48)
[2022-08-22 03:58] LABS: Basophils # 0.1 10^3/uL (0.0-0.1); Basophils % 0.3 %; Eosinophils # 0.1 10^3/uL (0.0-0.8); Eosinophils % 0.5 %; Hematocrit 40.1 % (37.0-47.0); Hemoglobin 12.9 g/dL (11.5-15.3); Lymphocytes # 1.4 10^3/uL (0.8-4.8); Mean Corpuscular HGB Conc 32.2 g/dL (30.0-36.0); Mean Corpuscular Hemoglobin 27.5 pg (28.0-34.0); Mean Corpuscular Volume 85.5 fl (81-99); Mean Platelet Volume 10.7 fL (7.4-10.4); Monocytes # 1.4 10^3/uL (0.2-0.9); Monocytes % 8.9 %; Neutrophils # 12.18 10^3/uL (1.8-7.7); Neutrophils % 80.5 %; Nucleated Red Blood Cells % 0 %; Platelet Count 315 10^3/cmm (130-400); Red Blood Count 4.69 10^6/uL (4.1-5.3); Red Cell Distribution Width 14.4 % (12.1-15.1); White Blood Count 15.2 10^3/uL (4.0-10.0)
[2022-08-22 04:21] LABS: Anion Gap 15.1 (5-19); Blood Urea Nitrogen 44 mg/dL (8-23); Calcium 9.4 mg/dL (8.5-10.5); Carbon Dioxide 20 mmol/L (22-29); Chloride 110 mmol/L (98-107); Glucose 93 mg/dL (65-115); Magnesium 2.3 mg/dL (1.7-2.3); Osmolality Calculated 303 mOsm/kg (285-295); Potassium 4.1 mmol/L (3.5-5.1); Sodium 141 mmol/L (136-145)
[2022-08-22] MEDS: piperacillin-tazobactam 3.375 GM in sodium chloride 0.9% (plus) 50 ML IV (04:42)
[2022-08-22 06:37] LABS: Glucose Point of Care 125 mg/dL (70-110)
[2022-08-22] MEDS: apixaban 5 mg Tablet 2.5 MG PO (09:30)
[2022-08-22] MEDS: digoxin 125 mcg Tablet PO (09:31)
[2022-08-22] MEDS: metoprolol tartrate 50 mg Tablet 100 MG PO ×2 (09:31→18:15)
[2022-08-22] MEDS: pantoprazole DR 40 mg Tablet PO (09:31)
[2022-08-22] MEDS: acetaminophen 325 mg Tablet 650 MG PO (09:32)
[2022-08-22] MEDS: sennosides-docusate Tablet 1 TAB PO (09:32)
--- NOTE | 2022-08-22 10:06 | P.PN_ITS ---
Subjective Subjective: Patient is oriented to herself However verbally redirectable She is now complaining of abdominal pain, UTI symptoms She just had a bowel movement, She was irritable was not letting me examine her but eventually allowed me to examine I have asked nurse to check for sacral ulcers Telemetry to be set up to monitor her A. fib Urine is very concentrated, creatinine 1.1 I asked nurse to keep her on normal saline because she has poor p.o. intake she had couple of sips of Ensure this morning, leukocytosis trending down likely source of bacteremia is urine Will do ceftriaxone on daily basis, discontinue vancomycin repeat cultures negative Vitals/I&O/Wt Last Vital Signs Temp 97.7 F 08/22/22 08:00 Pulse 121 H 08/22/22 09:31 Resp 20 H 08/22/22 08:00 BP 160/89 08/22/22 08:00 Pulse Ox 96 08/22/22 08:00 O2 Del Method 08/21/22 20:38 08/21/22 08/22/22 08/22/22 22:59 06:59 14:59 Intake Total 290 / 460 360 / 820 50 / 50 Output Total 1050 / 1050 925 / 1975 Balance -760 / -590 -565 / -1155 50 / 50 Physical Exam Narrative: A. fib Variable S1-S2 Morbidly obese Abdomen soft Liquid bowel movement Afebrile Hypotensive Oriented to herself verbally redirectable No obvious skin ulcers Garcia catheter showing concentrated urine No signs of meningitis Urinary Catheter Management: Garcia: Cath Placed During This Visit: yes Reason for Continuing Indwelling Catheter: Acute Urinary Retention or Obstruction Urinary Catheter Date of Insertion: 08/19/22 Urinary Catheter Time of Insertion: 06:44 Data 08/22/22 03:16 08/22/22 03:16 Micro: Microbiology 08/20/22 19:24 Blood Culture - Preliminary Blood NEGATIVE TO DATE 08/20/22 19:18 Blood Culture - Preliminary Blood NEGATIVE TO DATE 08/18/22 17:20 Blood Culture - Preliminary Blood Strep agalactiae - (group b) 08/20/22 16:15 Enteric Pathogens (PCR) - Final Stool - Stool Aspirate 08/18/22 17:48 Urine Culture - Final Urine Catheterized A&P Assessment and plan (1) UTI (urinary tract infection): (2) Hypotension due to hypovolemia: (3) Enteritis: (4) Atrial fibrillation with RVR: (5) Leukocytosis: (6) Altered mental status: (7) Hypertension: (8) Atrial flutter: (9) CHF (congestive heart failure): Plan Continue beta-lactam for her UTI and strep group B bacteremia, repeat cultures are negative, she would require at least 7 more days of IV antibiotics with ceftriaxone Leukocytosis improving Monitor A. fib, requested telemetry on MedSurg Patient is not eating very well decreased p.o. intake most likely delirium related to dehydration and UTI Continue IV fluids at 75 mill per hour Patient is currently doing well on room air Will update her daughter today patient is DNR/DNI Continue digoxin Consistent carb diet DVT prophylaxis covered with Eliquis Patient is still having loose stools, decreased p.o. intake she is at risk of worsening of dehydration, Gastroenteritis, C. difficile negative from 44units to 20 units, p.o. intake has worsened [phone] daughter's cell phone Attestations Medical Necessity Statement*: Continue hospitalization Time Spent in Patient Care: 40 Coding Level of Care Code Acute Liquefaction And Regasification Helper for [facility] Fwd Diagnoses UTI (urinary tract infection) N39.0 Hypotension due to hypovolemia I95.89; E86.1 Enteritis K52.9 Atrial fibrillation with RVR I48.91 Leukocytosis D72.829 Altered mental status R41.82 Hypertension I10 Atrial flutter I48.92 CHF (congestive heart failure) I50.9
[2022-08-22] MEDS: cefTRIAXone 1,000 MG in sodium chloride 0.9% (plus) 50 ML 100 MG IV (10:43)
[2022-08-22] MEDS: sodium chloride 0.9% 1,000 ML 75 ML IV (10:45)
--- NOTE | 2022-08-22 11:03 | PC.SOCIAL ---
IMM Update pg 2 of [facility] updated and reviewed w/ patient and called patients daughter Yamila and reviewed. Copy provided and Copy dated, initialed and placed in chart.
[2022-08-22] MEDS: methylphenidate 10 mg Tablet 5 MG PO (11:06)
[2022-08-22] MEDS: dilTIAZem 5 mg/mL SDV 5 mL 10 MG IVP (11:13)
[2022-08-22] MEDS: dilTIAZem 30 mg Tablet PO ×3 (11:14→23:26)
[2022-08-22 18:10] LABS: Glucose Point of Care 180 mg/dL (70-110)
[2022-08-22] MEDS: insulin lispro 100 unit/1 mL SUBCUT (18:13)
[2022-08-22 20:49] LABS: Glucose Point of Care 123 mg/dL (70-110)
[2022-08-22] MEDS: insulin glargine 100 units/1 mL 20 UNIT SUBCUT (21:06)
[2022-08-22] MEDS: mirtazapine 15 mg Tablet 7.5 MG PO (21:06)
[2022-08-22] MEDS: apixaban 5 mg Tablet PO (21:06)
[2022-08-22] MEDS: ondansetron 2 mg/ML SDV 2 mL 4 MG IVP (23:39)
[2022-08-23] VITALS (13 sets, daily range): BP systolic 123–178; BP diastolic 61–131; PULSE 86–153; RESP 15–20; TEMP 36.4–36.9; O2SAT 92–99
[2022-08-23 00:20] LABS: Glucose Point of Care 94 mg/dL (70-110)
--- NOTE | 2022-08-23 03:38 | PC.NURSE ---
pt c/o chest aching and epigastric pain x2 overnight with elevated bp, both times physician was notified. this nurse was told to monitor and keep dr informed. just after 0300 this nurse observed pt hr beginning to increase. heart rhythm was afib but had been controlled all night. when hr increased, was ranging from 120s to 150s. concern that pt was going back into rvr, this nurse notified dr of pt status. awaiting orders. will continue to monitor.
[2022-08-23 03:50] LABS: Glucose Point of Care 150 mg/dL (70-110)
[2022-08-23] MEDS: sodium chloride 0.9% 1,000 ML 75 ML IV ×2 (04:11→16:30)
[2022-08-23] MEDS: dilTIAZem 30 mg Tablet PO (04:11)
[2022-08-23 04:17] LABS: Basophils # 0.1 10^3/uL (0.0-0.1); Basophils % 0.3 %; Eosinophils # 0.1 10^3/uL (0.0-0.8); Eosinophils % 0.4 %; Hematocrit 37.1 % (37.0-47.0); Hemoglobin 11.8 g/dL (11.5-15.3); Lymphocytes # 1.3 10^3/uL (0.8-4.8); Lymphocytes % 7.4 %; Mean Corpuscular HGB Conc 31.8 g/dL (30.0-36.0); Mean Corpuscular Hemoglobin 27.6 pg (28.0-34.0); Mean Corpuscular Volume 86.7 fl (81-99); Mean Platelet Volume 10.6 fL (7.4-10.4); Monocytes # 1.4 10^3/uL (0.2-0.9); Monocytes % 7.9 %; Neutrophils # 14.56 10^3/uL (1.8-7.7); Neutrophils % 82.8 %; Nucleated Red Blood Cells % 0 %; Platelet Count 296 10^3/cmm (130-400); Red Blood Count 4.28 10^6/uL (4.1-5.3); Red Cell Distribution Width 14.6 % (12.1-15.1); White Blood Count 17.6 10^3/uL (4.0-10.0)
[2022-08-23 04:32] LABS: Blood Urea Nitrogen 37 mg/dL (8-23); Calcium 7.5 mg/dL (8.5-10.5); Carbon Dioxide 19 mmol/L (22-29); Chloride 116 mmol/L (98-107); Creatinine Clr Calc Pharmacy 65.7468; Glucose 104 mg/dL (65-115); Osmolality Calculated 305 mOsm/kg (285-295); Sodium 143 mmol/L (136-145)
[2022-08-23 06:20] LABS: Glucose Point of Care 111 mg/dL (70-110)
--- NOTE | 2022-08-23 06:27 | PC.NURSE ---
checked back with dr amos about pt hr. informed him of 0400 administration of scheduled po cardizem and pt hr still reaching 140s, though not sustaining. said to continue to monitor and leave dose and frequency of po med as is.
[2022-08-23] MEDS: ondansetron 2 mg/ML SDV 2 mL 4 MG IVP ×2 (06:39→20:25)
--- NOTE | 2022-08-23 06:42 | PC.NURSE ---
Addendum entered by Jessenia Martinez LPN 08/23/22 07:05: ekg result showed pt to be in afib with rvr. message sent to dr informing him of pt status Original Note: pt woke up with cp this am, feeling nauseous, second time pt has felt sick. zofran administered x2. ekg being performed to assess cp at this time.
--- NOTE | 2022-08-23 06:47 | ECG_ITS ---
[facility] Test Date: 2022-08-23 Pat Name: Nubia Love Department: Room: 251 Gender: Female Premium Auditor: : 1945 Requested By: Jimmy Cao Order Number: [id number] MD: Mark Burgess M.D. Measurements Intervals [place] Rate: 110 P: 0 ND: 0 QRS: -3 QRSD: 100 T: 0 QT: 365 QTc: 495 Interpretive Statements ATRIAL FIBRILLATION WITH RAPID VENTRICULAR RESPONSE MODERATE VOLTAGE CRITERIA FOR LVH, CONSIDER NORMAL VARIANT [MEETS CRITERIA IN ONE OF: R(aVL), S(V1), R(V5), R(V5/V6)+S(V1)] NONSPECIFIC ST & T-WAVE ABNORMALITY Compared to ECG 08/18/2022 16:55:32 Atrial flutter no longer present Intraventricular conduction delay no longer present T-wave abnormality still present Electronically Signed On 08-23-2022 14:11:38 ELECTRONICS WORKER by Mark Burgess M.D. [id number]
[2022-08-23] MEDS: pantoprazole DR 40 mg Tablet PO (07:59)
[2022-08-23] MEDS: digoxin 125 mcg Tablet PO (07:59)
[2022-08-23] MEDS: metoprolol tartrate 50 mg Tablet 100 MG PO ×2 (08:00→17:48)
[2022-08-23] MEDS: sennosides-docusate Tablet 1 TAB PO (08:00)
[2022-08-23] MEDS: apixaban 5 mg Tablet PO (08:00)
[2022-08-23] MEDS: dilTIAZem 30 mg Tablet 60 MG PO (09:13)
--- NOTE | 2022-08-23 10:48 | PM.PN ---
Subjective Subjective: Overnight patient complaining of some chest discomfort EKG showed A. fib RVR heart rate 110 This morning patient is much more awake and alert as compared to yesterday She was able to recognize her daughter and son-in-law She is still not eating very well Urine is concentrated Had discussion at length with her daughter who is pursuing palliative care now because patient is not eating well despite treatment of her UTI and bacteremia, she is suffering from Alzheimer's dementia, daughter is okay for 7 days of IV antibiotics and PICC line placement does not want PEG tube placement or IV nutrition if needed She also does not want to pursue serial troponin or EKG and keep her mother comfortable Vitals/I&O/Wt Last Vital Signs Temp 98 F 08/23/22 08:00 Pulse 134 H 08/23/22 08:00 Resp 19 H 08/23/22 08:00 BP 157/89 08/23/22 08:00 Pulse Ox 98 08/23/22 08:00 O2 Del Method 08/23/22 03:43 08/22/22 08/23/22 08/23/22 22:59 06:59 14:59 Intake Total 480 / 1025 1000 / 2025 200 / 200 Output Total 1050 / 1050 600 / 1650 Balance -570 / -25 400 / 375 200 / 200 Physical Exam Narrative: Patient looks slightly well-hydrated as compared to yesterday Much more awake and alert today as compared to yesterday Nonfocal neuro exam Able to answer simple questions A. fib RVR Abdomen soft Lower extremity no edema No audible stridor or wheezing Urinary Catheter Management: Garcia: Cath Placed During This Visit: yes Reason for Continuing Indwelling Catheter: Other Urinary Catheter Date of Insertion: 08/19/22 Urinary Catheter Time of Insertion: 06:44 Data 08/23/22 03:30 08/23/22 03:30 Micro: Microbiology 08/18/22 17:20 Blood Culture - Final Blood Strep agalactiae - (group b) A&P Assessment and plan (1) Bacteremia: (2) UTI (urinary tract infection): (3) Hypotension due to hypovolemia: (4) Enteritis: (5) Atrial fibrillation with RVR: (6) Alzheimer's dementia: (7) Diabetes: Plan A. fib RVR I have increased her Cardizem dose to 90 mg every 6 hours She is maxed on metoprolol Continue digoxin Currently on Eliquis 5mg bid which could be kept on hold for PICC line placement Alzheimer's dementia Patient is not eating, she does not have motivation to eat on her own Ritalin did improve her mentation however it would not be prescribed long-term Her daughter is leaning towards palliative care she does not want PEG tube placement or IV nutrition Hypokalemia: Repleted Group B strep bacteremia repeat cultures negative, she will need at least 7 more days on ceftriaxone 1 g daily, PICC line to be placed Enteritis, leukocytosis noted, she has been given a more urine, C. difficile negative Poor p.o. intake, I have reduced her insulin regimen, DNR/DNI Consistent carb diet Garcia catheter can be removed at the time of discharge Mirtazapine added for anorexia Continue IV fluids Attestations Medical Necessity Statement*: Discharge as soon as we get the PICC line Time Spent in Patient Care: 45mins Half of the time was spent in counseling and family discussion Coding Level of Care Code Acute Cytogenetics Laboratory Manager for [facility] Fwd Diagnoses Bacteremia R78.81 UTI (urinary tract infection) N39.0 Hypotension due to hypovolemia I95.89; E86.1 Enteritis K52.9 Atrial fibrillation with RVR I48.91 Alzheimer's dementia G30.9; F02.80 Diabetes E11.9
[2022-08-23 11:16] LABS: Magnesium 1.8 mg/dL (1.7-2.3)
[2022-08-23] MEDS: lidocaine 1% 5 ML in potassium chloride premix 100 ML 25 ML IV (11:21)
[2022-08-23 12:00] LABS: Glucose Point of Care 107 mg/dL (70-110)
[2022-08-23] MEDS: morphine 4 mg/mL SDV 1 mL 0.5 MG IVP ×3 (13:05→23:31)
--- NOTE | 2022-08-23 15:39 | PC.NURSE ---
Unable to place midline catheter to right upper arm. Able to obtain access twice, but unable to thread catheter. Pt unable to follow commands or lie still during procedure, causing difficulty with placement. Large amount of adipose tissue in upper arm limits selection of veins.
[2022-08-23] MEDS: dilTIAZem 30 mg Tablet 90 MG PO ×2 (16:30→20:23)
[2022-08-23 17:31] LABS: Glucose Point of Care 120 mg/dL (70-110)
--- NOTE | 2022-08-23 19:21 | PC.NURSE ---
Dr. Dudley is aware of what the patient's heart rate has been doing and daughter is wanting her palliative care and will talk with Dr. Dudley tomorrow about this.
[2022-08-23 19:41] LABS: Digoxin 0.9 ng/mL (0.6-1.2)
--- NOTE | 2022-08-23 19:44 | PC.NURSE ---
Report given to Anna Marie MULLIGAN this time.
[2022-08-23] MEDS: mirtazapine 15 mg Tablet 7.5 MG PO (20:23)
[2022-08-23 21:03] LABS: Glucose Point of Care 120 mg/dL (70-110)
--- NOTE | 2022-08-23 23:18 | PC.NURSE ---
Family member at bedside hit call light. She stated patient is moaning and is hurting. Too soon to give PRN Morphine at this time. Dr. Cao notified. Morphine x1 ordered.
[2022-08-24 00:21] LABS: Glucose Point of Care 100 mg/dL (70-110)
[2022-08-24] MEDS: dilTIAZem 30 mg Tablet 90 MG PO ×2 (02:11→15:27)
[2022-08-24] MEDS: sodium chloride 0.9% 1,000 ML 75 ML IV (02:12)
[2022-08-24 02:14] VITALS: RESP 18
[2022-08-24] MEDS: morphine 4 mg/mL SDV 1 mL 0.5 MG IVP (02:14)
[2022-08-24 03:31] VITALS: BP 173/102; PULSE 93; RESP 18; TEMP 36.5; O2SAT 96
[2022-08-24 03:39] LABS: Glucose Point of Care 103 mg/dL (70-110)
--- NOTE | 2022-08-24 03:48 | PC.NURSE ---
Addendum entered by Anna Marie Lal RN 08/24/22 06:49: When going into room to give Morphine, patient stated that she was not in pain. Morphine not given. Original Note: Patient c/o pain. Too soon to give PRN Morphine at this time. Dr. Cao notified. Morphine x1 ordered and PRN Morphine dose increased.
[2022-08-24 04:25] LABS: Basophils # 0.1 10^3/uL (0.0-0.1); Basophils % 0.3 %; Eosinophils # 0.1 10^3/uL (0.0-0.8); Eosinophils % 0.3 %; Hematocrit 36.9 % (37.0-47.0); Hemoglobin 11.7 g/dL (11.5-15.3); Lymphocytes # 1.2 10^3/uL (0.8-4.8); Lymphocytes % 6.4 %; Mean Corpuscular HGB Conc 31.7 g/dL (30.0-36.0); Mean Corpuscular Hemoglobin 27.1 pg (28.0-34.0); Mean Corpuscular Volume 85.4 fl (81-99); Mean Platelet Volume 10.5 fL (7.4-10.4); Monocytes # 1.7 10^3/uL (0.2-0.9); Monocytes % 8.8 %; Neutrophils # 15.76 10^3/uL (1.8-7.7); Neutrophils % 82.8 %; Nucleated Red Blood Cells % 0 %; Platelet Count 296 10^3/cmm (130-400); Red Blood Count 4.32 10^6/uL (4.1-5.3)
[2022-08-24 06:26] LABS: Glucose Point of Care 108 mg/dL (70-110)
[2022-08-24 08:00] VITALS: BP 161/98; PULSE 80; TEMP 36.4; O2SAT 99
--- NOTE | 2022-08-24 10:40 | PM.DCS ---
Discharge Providers Date of Admission: 08/19/22 13:34 Date of Discharge: August 24, 2022 Attending Provider at Admission: Joshau Dudley MD Attending Provider at Discharge: Joshua Dudley MD Primary Care Provider: Zohra Lira MD Diagnoses at Discharge Discharge Diagnosis (1) Bacteremia: Status: Acute (2) UTI (urinary tract infection): Status: Acute (3) Hypotension due to hypovolemia: Status: Acute (4) Enteritis: Status: Acute (5) Atrial fibrillation with RVR: Status: Acute (6) Alzheimer's dementia: Status: Acute (7) Diabetes: Status: Acute Reason for Visit Reason for Visit: AMS Hospital Course Hospital Course 77-year female who was admitted to the hospital for management of palpitations, A. fib RVR and dehydration. Her A. fib RVR was a challenge to control she maxed on metoprolol, Cardizem was increased to 90 mg every 6 hours as well along with digoxin and amiodarone 400 mg twice daily. Patient was diagnosed with enteritis for which she required antibiotics C. difficile was ruled out. She carries history of dementia. Her generalized weakness and fatigue did not improve significantly however her p.o. intake was very poor. I did try mirtazapine and Ritalin that did not improve her appetite. Her mentation waxing and waning. She is able to answer simple questions and communicate with her family. I did speak with the family multiple times to tell them that we have treated reversible causes for acute delirium in her poor p.o. intake most likely is related to underlying dementia. Her blood culture was positive for group be strep for which I advised midline placement and 7 days of ceftriaxone however daughter has decided to pursue comfort/hospice care at the longterm she is okay with p.o. antibiotics at this point. She does not want to pursue any imaging as well, I did tell her that leukocytosis is getting worse we might have to repeat CT abdomen pelvis, daughter has declined and stated that at this point she would like to keep her mother comfortable. Ms. Love has remained afebrile despite worsening of leukocytosis. She does get intermittent A. fib/palpitation episode and at that point she complains of midepigastric pain. She has received Imodium, no bowel movement in last 24 hours. She remained hypertensive despite getting Cardizem, metoprolol, amiodarone, there are no signs of digoxin toxicity. She is being discharged to longterm on palliative/comfort care. Daughter is stating that she should not be admitted to the hospital from longterm. I did tell her that she should be very blunt and direct with the longterm with respect to when to send her back to the ER. CODE STATUS DNR/DNI. Family does not want PEG tube placement or IV nutrition. Physical Exam Narrative: Patient looks slightly well-hydrated as compared to yesterday Fatigued and lethargic, able to recognize family members, when I asked her how is she feeling she replied pretty damn good Nonfocal neuro exam Able to answer simple questions A. fib RVR Abdomen soft Lower extremity no edema No audible stridor or wheezing Urinary Catheter Management: Garcia: Cath Placed During This Visit: yes Reason for Continuing Indwelling Catheter: Acute Urinary Retention or Obstruction Urinary Catheter Date of Insertion: 08/19/22 Urinary Catheter Time of Insertion: 06:44 Discharge Data Studies Completed and Pending Completed Studies During Hospitalization Category Date Time Status CT abdomen pelvis wo con [id number] Stat Cat Scan 08/18/22 18:[address] head wo con* [id number] Stat Cat Scan 08/18/22 17:45 Completed XR chest 1V portable [id number] Stat Exams 08/18/22 16:47 Completed CV. echo complete* [id number] Routine Ultrasound 08/20/22 06:00 Completed Pending at discharge Category Date Time Status Basic Metabolic Panel Routine Lab 08/24/22 04:00 Ordered Blood Culture Routine Lab 08/20/22 19:18 Results C DIFF [Clostridioides Difficile PCR] Routine Lab 08/24/22 07:45 Uncollected Radiology Impressions Chest X-Ray 08/18/22 16:47 IMPRESSION: 1. No acute cardiopulmonary process. 2. Incidental/nonacute findings are listed in the report. Head CT 08/18/22 17:45 IMPRESSION: 1. No acute intracranial abnormality. 2. Moderate diffuse cerebral atrophy. 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 Abdomen/Pelvis CT 08/18/22 18:18 IMPRESSION: 1. Fluid within the small bowel and colon without evidence of bowel wall thickening. This may reflect viral gastroenteritis in the appropriate clinical situation. 2. Sigmoid diverticulosis. No evidence for diverticulitis. 3. Incidental/nonacute findings are listed in the report. COMMENTS: For patients with an IVC filter, recommend assessment for a management plan for the patient's IVC filter. If there is no established management plan, recommend referral to an interventional clinician on a nonemergent basis for evaluation. Laboratory Results WBC 19.0 10^3/uL (4.0-10.0) H 08/24/22 03:42 RBC 4.32 10^6/uL (4.1-5.3) 08/24/22 03:42 Hgb 11.7 g/dL (11.5-15.3) 08/24/22 03:42 Hct 36.9 % (37.0-47.0) L 08/24/22 03:42 MCV 85.4 fl (81-99) 08/24/22 03:42 MCH 27.1 pg (28.0-34.0) L 08/24/22 03:42 MCHC 31.7 g/dL (30.0-36.0) 08/24/22 03:42 RDW 15.0 % (12.1-15.1) 08/24/22 03:42 Plt Count 296 10^3/cmm (130-400) 08/24/22 03:42 MPV 10.5 fL (7.4-10.4) H 08/24/22 03:42 Neut % (Auto) 82.8 % 08/24/22 03:42 Lymph % (Auto) 6.4 % 08/24/22 03:42 [place] % (Auto) 8.8 % 08/24/22 03:42 Eos % (Auto) 0.3 % 08/24/22 03:42 Baso % (Auto) 0.3 % 08/24/22 03:42 Neut # (Auto) 15.76 10^3/uL (1.8-7.7) H 08/24/22 03:42 Lymph # (Auto) 1.2 10^3/uL (0.8-4.8) 08/24/22 03:42 [place] # (Auto) 1.7 10^3/uL (0.2-0.9) H 08/24/22 03:42 Eos # (Auto) 0.1 10^3/uL (0.0-0.8) 08/24/22 03:42 Baso # (Auto) 0.1 10^3/uL (0.0-0.1) 08/24/22 03:42 Nucleated RBC % (auto) 0 % 08/24/22 03:42 Nucleated RBCs # 0.0 /100WBC 08/24/22 03:42 Sodium Cancelled 08/24/22 03:42 Potassium Cancelled 08/24/22 03:42 Chloride Cancelled 08/24/22 03:42 Carbon Dioxide Cancelled 08/24/22 03:42 Anion Gap Cancelled 08/24/22 03:42 BUN Cancelled 08/24/22 03:42 Creatinine Cancelled 08/24/22 03:42 GFR Calculation Cancelled 08/24/22 03:42 Glucose Cancelled 08/24/22 03:42 POC Glucose 108 mg/dL (70-110) 08/24/22 06:05 Estimat Average Glucose 163 08/18/22 17:20 Hemoglobin A1c 7.3 % (4.0-6.0) H 08/18/22 17:20 Calculated Osmolality Cancelled 08/24/22 03:42 Lactic Acid 1.5 mmol/L (0.5-2.2) 08/18/22 17:20 Calcium Cancelled 08/24/22 03:42 Phosphorus 3.3 mg/dL (2.5-4.5) 08/19/22 03:38 Magnesium 1.8 mg/dL (1.7-2.3) 08/23/22 03:30 Total Bilirubin 3.0 mg/dL (0.15-1.2) H 08/19/22 03:38 AST 48 U/L (0-32) H 08/19/22 03:38 ALT 17 U/L (0-33) 08/19/22 03:38 Alkaline Phosphatase 326 U/L (35-105) H 08/19/22 03:38 Creatine Kinase 101 U/L (26-192) 08/18/22 17:20 C-Reactive Protein 305.9 mg/L (0.0-4.9) H 08/19/22 03:38 NT-Pro-B Natriuret Pep 65884 pg/mL (0-450) H 08/18/22 17:20 Total Protein 7.1 g/dL (6.6-8.7) 08/19/22 03:38 Albumin 1.9 g/dL (3.5-5.2) L 08/19/22 03:38 Globulin 5.2 g/dL (1.3-4.6) H 08/19/22 03:38 Lipase 108 U/L (13-60) H 08/18/22 17:20 Procalcitonin 11.24 ng/mL (0-0.5) H 08/18/22 18:30 Urine Color Ailyn (Yellow) 08/18/22 17:48 Urine Appearance Cloudy (CLEAR) A 08/18/22 17:48 Urine pH 5 (5-7) 08/18/22 17:48 Ur Specific [place] 1.025 (1.005-1.030) 08/18/22 17:48 Urine Protein 1+ (Negative) H 08/18/22 17:48 Urine Glucose (UA) Norm (Normal) 08/18/22 17:48 Urine Ketones Negative (Negative) 08/18/22 17:48 Urine Blood 3+ (Negative) H 08/18/22 17:48 Urine Nitrate Negative (Negative) 08/18/22 17:48 Urine Bilirubin 2+ (Negative) H 08/18/22 17:48 Urine Urobilinogen 4 mg/dL (Negative) H 08/18/22 17:48 Ur Leukocyte Esterase Trace (Negative) H 08/18/22 17:48 Urine RBC 5-10 /hpf (0-2) H 08/18/22 17:48 Urine WBC None /hpf (0-5) 08/18/22 17:48 Ur Squamous Epith Cells None /hpf (0-5) 08/18/22 17:48 Amorphous Sediment 3+ /hpf 08/18/22 17:48 Urine Bacteria None /hpf (NONE) 08/18/22 17:48 Digoxin 0.9 ng/mL (0.6-1.2) 08/23/22 03:30 Vitals Last Vital Signs Temp 97.5 F L 08/24/22 08:00 Pulse 80 08/24/22 08:00 Resp 18 08/24/22 03:31 BP 161/98 08/24/22 08:00 Pulse Ox 99 08/24/22 08:00 O2 Del Method 08/24/22 03:31 Discharge Plan Discharge Patient Disposition: Xfer SNF Condition: Critical Prescriptions: New Pacerone 200 mg Tablet 400 mg PO DAILY Qty: 60 0RF levofloxacin 750 mg tablet 750 mg PO DAILY 7 Days Qty: 7 0RF morphine 10 mg/5 mL solution 10 mg PO Q6H PRN (Reason: dyspnea) Qty: 100 0RF Cardizem LA 360 mg tablet extended release 24 hr 360 mg PO DAILY Qty: 60 0RF Continued docusate sodium 100 mg capsule 100 mg PO DAILY acetaminophen 325 mg Tablet 650 mg PO Q6H PRN (Reason: Pain) magnesium hydroxide [Milk of Magnesia] 400 mg/5 mL Suspension 30 ml PO DAILY PRN (Reason: Constipation) omeprazole 40 mg Capsule,Delayed Release(Dr/Ec) 40 mg PO DAILY Qty: 0 diphenhydramine HCl [Benadryl] 25 mg Capsule 25 mg PO Q6H PRN (Reason: Itching) nitroglycerin [Nitrostat] 0.4 mg Tablet, Sublingual 0.4 mg SUBLINGUAL Q5M PRN (Reason: Chest Pain) Qty: 0 Tresiba FlexTouch U-100 100 unit/mL (3 mL) Insulin Pen 58 unit SUBCUT BEDTIME Qty: 0 alprazolam [Xanax] 0.25 mg Tablet 0.25 mg PO TID ondansetron HCl 4 mg Tablet 4 mg PO DAILY simethicone 125 mg Capsule 125 mg PO TID PRN (Reason: Indigestion) quetiapine [Seroquel] 50 mg Tablet 50 mg PO BEDTIME Eliquis 5 mg Tablet 5 mg PO BID@0900,2100 Qty: 60 0RF metoprolol tartrate 100 mg tablet 100 mg PO BID isosorbide mononitrate 30 mg tablet extended release 24 hr 15 mg PO DAILY Discontinued diclofenac sodium 1 % gel 4 g topical QID Qty: 100 5RF Rx Instructions: Apply to single ankle, foot; for foot includes sole/toes/top of foot TOPICALLY TO AFFECTED AREA 4 TIMES PER DAY AT 07,11,17,21 duloxetine [Cymbalta] 60 mg capsule,delayed release(DR/EC) 60 mg PO DAILY gabapentin 300 mg capsule 300 mg PO TID aspirin [Adult Low Dose Aspirin] 81 mg tablet,delayed release (DR/EC) 81 mg PO DAILY carbamazepine 100 mg capsule, ER multiphase 12 hr 100 mg PO BID cetirizine [Zyrtec] 10 mg tablet 10 mg PO DAILY amitriptyline 25 mg Tablet 25 mg PO BEDTIME fluticasone propionate 50 mcg/actuation Redig,Suspension 1 spray INTRANASAL BID hydrocodone-acetaminophen 5-325 mg Tablet 1 tab PO Q4H PRN (Reason: Pain) polyethylene glycol 3350 [Miralax] 17 gram Powder In Packet 17 g PO BID topiramate [Topamax] 50 mg tablet 50 mg PO BID atorvastatin 40 mg tablet 40 mg PO DAILY Qty: 30 0RF furosemide [Lasix] 20 mg tablet 20 mg PO QAM Qty: 30 0RF digoxin 125 mcg (0.125 mg) tablet 125 mcg PO DAILY Qty: 30 0RF Discharge Orders: Discharge Order (Routine); Ordered 08/24/22 Ordered By: Joshua Dudley Referrals: [facility] [Outside] [facility] [Outside] Zohra Lira MD [Primary Care Provider] - Discharge Diet: Soft Mechanical Patient Instructions: Diltiazem (By mouth), Amiodarone (By mouth), Morphine, Rapid Release (By mouth), Levofloxacin (By mouth), Opioid Safety Discharge Attestations Time Spent in Discharge Care*: less than 30 min Status at Discharge: Cognitive status at discharge: cognitively intact, Behavioral status at discharge: cooperative, Quality Metrics Clinical Quality Measures [ No reported AMI, CVA or VTE this stay] Coding Level of Care Code Acute [facility] note Diagnoses Bacteremia R78.81 UTI (urinary tract infection) N39.0 Hypotension due to hypovolemia I95.89; E86.1 Enteritis K52.9 Atrial fibrillation with RVR I48.91 Alzheimer's dementia G30.9; F02.80 Diabetes E11.9
[2022-08-24] MEDS: cefTRIAXone 1,000 MG in sodium chloride 0.9% (plus) 50 ML 100 MG IV (11:12)
[2022-08-24 11:45] LABS: Glucose Point of Care 111 mg/dL (70-110)
[2022-08-24 11:51] VITALS: RESP 14
[2022-08-24] MEDS: morphine 4 mg/mL SDV 1 mL 1 MG IVP (11:51)
[2022-08-24 11:56] VITALS: BP 152/75; PULSE 85; RESP 15; TEMP 36.4; O2SAT 98
[2022-08-24 12:22] LABS: SARS Covid-2 Antigen negative (Negative)
--- NOTE | 2022-08-24 12:32 | PC.SOCIAL ---
IMM Updated Updated pt's family Pg 2 IMM. No questions voiced. Provided pt a copy. Initialed, dated, & timed copy in chart.
--- NOTE | 2022-08-24 13:29 | PC.NURSE ---
report called to nurse Barros at [facility].
[2022-08-24 17:23] LABS: Glucose Point of Care 111 mg/dL (70-110)
[2022-08-24] MEDS: morphine IR 15 mg Tablet PO (17:34)
[2022-08-24 18:44] VITALS: BP 152/75; PULSE 85; RESP 15; TEMP 36.4; O2SAT 98
== END 2022-08-24 18:00 | disposition hospice, home (50) | DRG 309 ==
LOC: ER 23:32 → ICU 08-19 05:10 → CSU 08-20 18:30 → MEDSURG 08-22 07:54
PROVIDERS: Family Medicine; Internal Medicine; Admitting Provider Internal Medicine; Emergency Provider Emergency Medicine; PCP Family Medicine; Visit Provider Internal Medicine
DX: I48.20 Chronic atrial fibrillation, unspecified (principal); I13.0 Hypertensive heart and chronic kidney disease with heart failure and stage 1 through stage 4 chronic kidney disease, or unspecified chronic kidney disease; N39.0 Urinary tract infection, site not specified; I50.42 Chronic combined systolic (congestive) and diastolic (congestive) heart failure; Z68.41 Body mass index [BMI] 40.0-44.9, adult; I95.9 Hypotension, unspecified; E86.1 Hypovolemia; K52.9 Noninfective gastroenteritis and colitis, unspecified; G30.9 Alzheimer's disease, unspecified; F02.A0 Dementia in other diseases classified elsewhere, mild, without behavioral disturbance, psychotic disturbance, mood disturbance, and anxiety; E11.42 Type 2 diabetes mellitus with diabetic polyneuropathy; E11.22 Type 2 diabetes mellitus with diabetic chronic kidney disease; N18.30 Chronic kidney disease, stage 3 unspecified; E86.0 Dehydration; B95.1 Streptococcus, group B, as the cause of diseases classified elsewhere; Z66 Do not resuscitate; Z79.01 Long term (current) use of anticoagulants; G89.29 Other chronic pain; M54.50 Low back pain, unspecified; E11.610 Type 2 diabetes mellitus with diabetic neuropathic arthropathy; F32.A Depression, unspecified; G47.33 Obstructive sleep apnea (adult) (pediatric); E66.01 Morbid (severe) obesity due to excess calories; F41.9 Anxiety disorder, unspecified; Z86.73 Personal history of transient ischemic attack (TIA), and cerebral infarction without residual deficits; Z90.13 Acquired absence of bilateral breasts and nipples; Z96.653 Presence of artificial knee joint, bilateral; I27.20 Pulmonary hypertension, unspecified; Z86.718 Personal history of other venous thrombosis and embolism; Z86.711 Personal history of pulmonary embolism; Z85.3 Personal history of malignant neoplasm of breast; I25.2 Old myocardial infarction; Z95.828 Presence of other vascular implants and grafts
CPT/HCPCS: 36415; 36416; 36569; 51702; 70450; 71045; 74176; 80048; 80053; 80162; 81001; 82550; 82962; 83036; 83605; 83690; 83735; 83880; 84100; 84145; 85025; 86140; 87040; 87077; 87086; 87186; 87205; 87426; 87493; 87506; 93005; 93306; 96365; 96367; 96372; 96375; 99285; C1751; G0378; J0360; J0696; J1815; J2270; J2405; J2543; J3370; J3480; J3490; J7030; J7040